=== PATIENT | female | born 1960 | race Hispanic/Latino ===

== ENCOUNTER 2018-04-10 20:52 | Inpatient (IN) | payer SELFPAY ==
--- OUTSIDE RECORDS SUMMARY | 2018-04-10 20:55 | XMS REPORT | Clinical Summary ---
:1960 Author Organization [facility] Address [address] [place] [address] Care Team Providers Name Role Phone Asked, No Pcp Primary Care Provider Unavailable Allergies No Known Allergies Current Medications Prescription Sig. Disp. Refills Start Date End Date Status ondansetron Take 4 mg by Active (ZOFRAN) 4 MG mouth every 8 tablet (eight) hours as needed for nausea or vomiting. diclofenac Take 50 mg by Active (VOLTAREN) 50 MG EC mouth daily as tablet needed. traMADol (ULTRAM) Take 50 mg by 07/28/2017 Discontinued 50 mg tablet mouth every 6 (six) hours as needed for moderate pain. traMADol (ULTRAM) Take 1 tablet 40 tablet 0 07/28/2017 08/04/2017 50 mg tablet (50 mg total) by mouth every 6 (six) hours as needed for moderate pain for up to 7 days. Active Problems Problem Noted Date Acute cholecystitis 07/26/2017 Encounters Date Type Specialty Care Team Description 08/07/2017 Office Visit General Surgery Pierre Smith S/P cholecystectomy (Primary Dx); MD Jimmy Other cirrhosis of liver; Postoperative follow-up 07/27/2017 Anesthesia Event Obstetrics and Emperatriz Locke MD Gynecology 07/27/2017 Procedure Pass Obstetrics and Gynecology 07/27/2017 Surgery Obstetrics and Pierre Smith LAPAROSCOPIC Gynecology MD Jimmy CHOLECYSTECTOMY, LIVER BIOPSY 07/26/2017 - Emergency General Surgery Jed, Acute cholecystitis 07/28/2017 Kendal Brandt MD (Primary Dx) Jose Cruz Lord MD after 04/09/2017 Social History Tobacco Use Types Packs/Day Years Used Date Current Every Day Smoker Cigarettes 0.5 15 Smokeless Tobacco: Never Used Alcohol Use Drinks/Week oz/Week Comments No Sex Assigned at Date Recorded Not on file Last Filed Vital Signs Vital Sign Reading Time Taken Blood Pressure 132/90 08/07/2017 11:13 AM DIRECTOR OF STRATE[employer]IC COMMUNICATIONS Pulse 75 08/07/2017 11:13 AM [employer]IC COMMUNICATIONS Temperature 36.3 C (97.4 F) 08/07/2017 11:13 AM [employer]IC COMMUNICATIONS Respiratory Rate 18 07/28/2017 1:23 PM [employer]IC COMMUNICATIONS Oxygen Saturation 97% 08/07/2017 11:13 AM [employer] STRATEGIC COMMUNICATIONS Inhaled Oxygen Concentration - - Weight 70.3 kg (155 lb) 08/07/2017 11:13 AM [employer]ATEGIC COMMUNICATIONS Height 152.4 cm (5') 08/07/2017 11:13 AM [employer] STRATEGIC COMMUNICATIONS Body Mass Index 30.27 08/07/2017 11:13 AM [employer] OF STRATEGIC COMMUNICATIONS Plan of Treatment Health Maintenance Due Date Last Done Comments CERVICAL CANCER SCREENING 1981 BREAST CANCER SCREENING 2010 COLON CANCER SCREENING 2010 SHINGRIX VACCINE (#1) 2010 INFLUENZA VACCINE 02/13/2018 Procedures Procedure Name Priority Date/Time Associated Comments Diagnosis TOTAL IRON BINDING Routine 07/28/2017 1:00 Results for this CAPACITY PM [employer]ATE[employer]IC COMMUNICATIONS procedure are in the results section. LIVER-KIDNEY MICROSOME Routine 07/28/2017 1:00 Results for this AB, IGG PM [employer] COMM[employer]ICATIONS procedure are in the results section. HEPATITIS C VIRUS Routine 07/28/2017 1:00 Results for this QUANTITATIVE BY PCR PM [employer]ATE[employer]IC COMMUNICATIONS procedure are in the results section. HEPATITIS C GENOTYPE Routine 07/28/2017 1:00 Results for this PM [employer] COMM[employer]ICATIONS procedure are in the results section. HBV QUANTITATIVE BY PCR Routine 07/28/2017 1:00 Results for this PM [employer] COMM[employer]ICATIONS procedure are in the results section. FERRITIN LEVEL Routine 07/28/2017 1:00 Results for this PM [employer] COMM[employer]S procedure are in the results section. CERULOPLASMIN LEVEL Routine 07/28/2017 1:00 Results for this PM [employer] procedure are in the results section. ANTI SMOOTH MUSCLE AB Routine 07/28/2017 1:00 Results for this SCREEN PM [employer] COMMUNICATIONS procedure are in the results section. ANTI MITOCHONDRIA Routine 07/28/2017 1:00 Results for this SCREEN PM [employer]IC COMMUNICATIONS procedure are in the results section. GWEN Routine 07/28/2017 1:00 Results for this PM [employer]IC COMMUNICATIONS procedure are in the results section. ALPHA-1 ANTITRYPSIN Routine 07/28/2017 1:00 Results for this PHENOTYPE PM [employer] COMMUNICATIONS procedure are in the results section. ALPHA FETOPROTEIN Routine 07/28/2017 1:00 Results for this PM [employer] COMM[employer]S procedure are in the results section. ECG ED PRELIMINARY Routine 07/28/2017 12:55 Results for this INTERPRETATION PM [employer]ATE[employer]IC COMMUNICATIONS procedure are in the results section. POC GLUCOSE Routine 07/28/2017 6:25 Results for this AM [employer] COMM[employer]ICATION[employer] procedure are in the results section. HCV QUALITATIVE BY PCR Routine 07/28/2017 4:00 Results for this AM [employer]ATE[employer]IC COMMUNICATIONS procedure are in the results section. ZZESTIMATED GFR Routine 07/28/2017 4:00 Results for this AM [employer]IC COMMUNICATIONS procedure are in the results section. HEPATITIS ACUTE PANEL Routine 07/28/2017 4:00 Results for this AM [employer]IC COMMUNICATIONS procedure are in the results section. PROTHROMBIN TIME WITH Routine 07/28/2017 4:00 Results for this INR AM [employer] STRATEGIC COMMUNICATIONS procedure are in the results section. PHOSPHORUS LEVEL Routine 07/28/2017 4:00 Results for this AM [employer] COMMUNICATIONS procedure are in the results section. MAGNESIUM LEVEL Routine 07/28/2017 4:00 Results for this AM [employer] COMM[employer]ICATIONS procedure are in the results section. IONIZED CALCIUM Routine 07/28/2017 4:00 Results for this AM [employer] COMMUNICATIONS procedure are in the results section. HEPATIC FUNCTION PANEL Routine 07/28/2017 4:00 Results for this AM [employer] COMMUNICATIONS procedure are in the results section. HC COMPLETE BLD COUNT Routine 07/28/2017 4:00 Results for this W/AUTO DIFF AM [employer]ICATION[employer] procedure are in the results section. BASIC METABOLIC PANEL Routine 07/28/2017 4:00 Results for this AM [employer]IC COMMUNICATIONS procedure are in the results section. NJ AN ELECTIVE Routine 07/27/2017 1:51 ENDOTRACHEAL AIRWAY PM [employer] OF STRATEGIC COMMUNICATIONS Procedure Note - Junior Loera CRNA - 07/27/2017 1:49 PM DIRECTOR OF STRATEGIC COMMUNICATIONS Airway Performed by: JUNIOR LOERA Authorized by: EMPERATRIZ LOCKE Location: OR Urgency: Elective Difficult Airway: No Anesthesiologist: EMPERATRIZ LOCKE Resident/SEARCH ENGINE MARKETING STRATEGIST/AA: JUNIOR LOERA Performed by: resident/SEARCH ENGINE MARKETING STRATEGIST/AA Preoxygenated with 100% O2: Yes Mask Ventilation: Easy mask Final Airway Type: Endotracheal airway Final Endotracheal Airway: ETT Cuffed: Yes Technique Used: Direct laryngoscopy Devices/Methods Used in Placement: Intubating stylet Insertion Site: Oral Blade Type: Mayes Laryngoscope Blade/Videolaryngoscope Blade Size: 2 ETT Size (mm): 7.0 Cuff at minimum occlusion pressure: Yes Measured from: Lips ETT to Lips (cm): 22 Placement Verified by: CO2 detection and equal breath sounds Laryngoscopic view: Grade I - full view of glottis Rapid Sequence Induction (RSI): No Modified RSI: No Number of Attempts at Approach: 1 GRAM STAIN Timed 07/27/2017 1:51 PM Results for this [employer] STRATE[employer]IC COMMUNICATIONS procedure are in the results section. AEROBIC CULTURE Timed 07/27/2017 1:51 PM Results for this [employer]IC COMMUNICATIONS procedure are in the results section. ANAEROBIC CULTURE Timed 07/27/2017 1:51 PM Results for this [employer] STRATEGIC COMMUNICATIONS procedure are in the results section. CHOLECYSTECTOMY, 07/27/2017 1:00 PM cholelithiasis LAPAROSCOPIC [employer] STRATEGIC COMMUNICATIONS SURGICAL PATHOLOGY Routine 07/27/2017 7:18 AM Results for this REQUEST [employer] OF STRATEGIC COMMUNICATIONS procedure are in the results section. PROTHROMBIN TIME WITH Routine 07/27/2017 4:53 AM Results for this INR [employer]OR OF STRATEGIC COMMUNICATIONS procedure are in the results section. HC COMPLETE BLD COUNT Routine 07/27/2017 4:40 AM Results for this W/AUTO DIFF [employer] OF STRATEGIC COMMUNICATIONS procedure are in the results section. ZZESTIMATED GFR Routine 07/27/2017 4:00 AM Results for this [employer]OR OF STRATEGIC COMMUNICATIONS procedure are in the results section. IONIZED CALCIUM Routine 07/27/2017 4:00 AM Results for this [employer] STRATEGIC COMMUNICATIONS procedure are in the results section. HEPATIC FUNCTION PANEL Routine 07/27/2017 4:00 AM Results for this [employer] OF STRATEGIC COMMUNICATIONS procedure are in the results section. PHOSPHORUS LEVEL Routine 07/27/2017 4:00 AM Results for this [employer] OF STRATEGIC COMMUNICATIONS procedure are in the results section. MAGNESIUM LEVEL Routine 07/27/2017 4:00 AM Results for this [employer] STRATEGIC COMMUNICATIONS procedure are in the results section. BASIC METABOLIC PANEL Routine 07/27/2017 4:00 AM Results for this [employer] STRATEGIC COMMUNICATIONS procedure are in the results section. URINALYSIS SCREEN AND STAT 07/26/2017 8:45 PM Results for this MICROSCOPY, WITH REFLEX DIRECTOR OF STRATEGIC COMMUNICATIONS procedure are in TO CULTURE the results section. GRAM STAIN STAT 07/26/2017 8:45 PM Results for this [employer]OR OF STRATEGIC COMMUNICATIONS procedure are in the results section. URINE CULTURE STAT 07/26/2017 8:45 PM Results for this [employer] STRATEGIC COMMUNICATIONS procedure are in the results section. ECG 12-LEAD STAT 07/26/2017 7:33 PM Results for this [employer] OF STRATEGIC COMMUNICATIONS procedure are in the results section. PREPARE PLATELET STAT 07/26/2017 7:22 PM PHERESIS DIRECTOR OF STRATEGIC COMMUNICATIONS TYPE AND SCREEN STAT 07/26/2017 7:22 PM Results for this [employer] OF STRATEGIC COMMUNICATIONS procedure are in the results section. US GALLBLADDER STAT 07/26/2017 4:08 PM Results for this [employer] STRATEGIC COMMUNICATIONS procedure are in the results section. CT ABDOMEN PELVIS WO STAT 07/26/2017 2:38 PM Results for this CONTRAST DIRECTOR OF STRATEGIC COMMUNICATIONS procedure are in the results section. PROTHROMBIN TIME WITH STAT 07/26/2017 12:45 PM Results for this INR [employer]OR OF STRATEGIC COMMUNICATIONS procedure are in the results section. ZZESTIMATED GFR STAT 07/26/2017 12:45 PM Results for this [employer] OF STRATEGIC COMMUNICATIONS procedure are in the results section. LACTIC ACID LEVEL STAT 07/26/2017 12:45 PM Results for this [employer]OR OF STRATEGIC COMMUNICATIONS procedure are in the results section. HC COMPLETE BLD COUNT STAT 07/26/2017 12:45 PM Results for this W/AUTO DIFF DIRECTOR OF STRATEGIC COMMUNICATIONS procedure are in the results section. LIPASE LEVEL STAT 07/26/2017 12:45 PM Results for this [employer]OR OF STRATEGIC COMMUNICATIONS procedure are in the results section. AMYLASE LEVEL STAT 07/26/2017 12:45 PM Results for this [employer] STRATEGIC COMMUNICATIONS procedure are in the results section. COMPREHENSIVE METABOLIC STAT 07/26/2017 12:45 PM Results for this PANEL DIRECTOR OF STRATEGIC COMMUNICATIONS procedure are in the results section. after 04/09/2017 Results Anti smooth muscle Ab screen (07/28/2017 1:00 PM) Anti smooth muscle Ab screen Not Detected Not-Detected [facility] DEPARTMENT OF PATHOLOGY AND GENOMIC MEDICINE Specimen Blood Performing Organization Address City/[facility] Phone Number [facility] DEPARTMENT OF PATHOLOGY AND [address] [place] [id number] [facility] Total iron binding capacity (07/28/2017 1:00 PM) Iron level 119 37 - 145 ug/dL [facility] DEPARTMENT OF PATHOLOGY AND GENOMIC MEDICINE Iron binding capacity 337 200 - 400 ug/dL [facility] DEPARTMENT OF PATHOLOGY AND GENOMIC MEDICINE % Saturation 35.3 15.0 - 38.0 % [facility] DEPARTMENT OF PATHOLOGY AND GENOMIC MEDICINE Specimen Plasma specimen Performing Organization Address City/[facility]/Zipcode Phone Number [facility] DEPARTMENT OF PATHOLOGY AND [address] [place] [phone] [facility] Liver-kidney microsome Ab, IgG (07/28/2017 1:00 PM) Liver-kidney microsome Ab, <1:20 <1:20 [facility] IgG Comment: INTERPRETIVE INFORMATION:Bdrpp-Xhqtbl-Alsgmepyq Abs, IgG Liver-Kidney Microsome IgG antibody (anti-LKM), as detected by indirect immunofluorescent antibody (IFA) techniques, may be observed in patients with autoimmune hepatitis type 2 (AIH-2), AIH-2 associated with autoimmune mmaqahdbwuthsaobuw-xuyuhafmuhe-nfayrmcque dystrophy (APECED), viral hepatitis C or D, and some forms of drug-induced hepatitis. This IFA does not differentiate among the four types of LKM antibodies (LKM-1, LKM-2, LKM-3, and a fourth type that recognizes CY and CY antigens). Of these, anti-LKM-1 (cytochrome [id number]) IgG antibodies are considered specific for AIH-2. Test developed and characteristics determined by [email or web address]. See Compliance Statement D: [employer]/ Performed by [email or web address], [address] [facility]CYBRA [facility] [address] [email or web address], Mayo Joiner MD - Lab. Director Specimen Serum Performing Organization Address [facility]code Phone Number [facility] [address] [place] [address] HBV quantitative by PCR (07/28/2017 1:00 PM) HBV, quantitative PCR Not-Detected Not-Detected IU/mL [facility] DEPARTMENT OF PATHOLOGY AND GENOMIC MEDICINE HBV, quantitative PCR See link below for [facility] DEPARTMENT OF PDF Lab PATHOLOGY AND GENOMIC ReportComment: Case MEDICINE Number: [id number] Specimen Blood Performing Organization Address [facility]coin Phone Number [facility] DEPARTMENT OF PATHOLOGY AND [address] [place] [phone] GENOMIC MEDICINE Alpha-1 antitrypsin phenotype (07/28/2017 1:00 PM) Alpha-1 antitrypsin 162Comment: To convert to 90 - 200 mg/dL [facility] umol/L, multiply mg/dL by 0.185 Alpha-1 antitrypsin MM [facility] phenotype Comment: The patient appears to have a normal phenotype. All M alleles (including subtypes M1, M2, and M3) produce normal serum concentrations of nnhwk-1-yuascnbl inhibitor and are not associated with clinical disease. Caution in interpretation is advised if the patient has been transfused within the previous 21 days. Performed by [email or web address], [address] [facility] [facility] [address] [email or web address], Mayo Joiner MD - Lab. Director Specimen Serum Performing Organization Address City/[facility] Phone Number [facility] [address] [place] [address] Anti mitochondria screen (07/28/2017 1:00 PM) Anti mitochondria screen Not Detected Not-Detected [facility] DEPARTMENT OF PATHOLOGY AND GENOMIC MEDICINE Specimen Blood Performing Organization Address City/[facility] Phone Number [facility] DEPARTMENT OF PATHOLOGY AND [address] [place] [address] Ceruloplasmin level (07/28/2017 1:00 PM) Ceruloplasmin 20 16 - 45 mg/dL [facility] DEPARTMENT OF PATHOLOGY AND GENOMIC MEDICINE Specimen Plasma specimen Performing Organization Address [facility] Phone Number [facility] DEPARTMENT OF PATHOLOGY AND [address] [place] [address] Alpha fetoprotein (07/28/2017 1:00 PM) Alpha fetoprotein 35.1 (H) 0.0 - 8.3 ng/mL [facility] DEPARTMENT OF Comment: PATHOLOGY AND GENOMIC The [employer] 8000 AFP immunoassay was used. MEDICINE Results obtained with different assay methods or kits should not be used interchangeably and may be different. Specimen Serum Performing Organization Address [facility]coin Phone Number [facility] DEPARTMENT OF PATHOLOGY AND [address] [place] [address] Hepatitis C genotype (07/28/2017 1:00 PM) Hepatitis C genotype 3 (A) Not Detected [facility] DEPARTMENT OF PATHOLOGY AND GENOMIC MEDICINE Hepatitis C genotype See link below for PDF [facility] DEPARTMENT OF PATHOLOGY Lab ReportComment: Case AND GENOMIC MEDICINE Number: [id number] Specimen Blood Performing Organization Address [facility] Phone Number [facility] DEPARTMENT OF PATHOLOGY AND [address] [place] [address] Hepatitis C virus quantitative by PCR (07/28/2017 1:00 PM) Hepatitis C 1,380,000 (A) Not-Detected IU/mL [facility] DEPARTMENT OF quantitative, PCR PATHOLOGY AND GENOMIC MEDICINE Hepatitis C See link below for [facility] DEPARTMENT OF quantitative, PCR PDF Lab PATHOLOGY AND GENOMIC ReportComment: Case MEDICINE Number: [id number] Specimen Blood Performing Organization Address [facility]code Phone Number [facility] DEPARTMENT OF PATHOLOGY AND [address] [place] [address] GWEN (07/28/2017 1:00 PM) GWEN screen <1:80 <1:80 [facility] DEPARTMENT OF PATHOLOGY AND GENOMIC MEDICINE Specimen Blood Performing Organization Address [facility] Phone Number [facility] DEPARTMENT OF PATHOLOGY AND [address] [place] [address] Ferritin level (07/28/2017 1:00 PM) Ferritin level 260 (H) 13 - 150 ng/mL [facility] DEPARTMENT OF PATHOLOGY AND GENOMIC MEDICINE Specimen Plasma specimen Performing Organization Address [facility] Phone Number [facility] DEPARTMENT OF PATHOLOGY AND [address] [place] [address] GENOMIC MEDICINE ECG ED Preliminary Interpretation - NOT AN ORDER (07/28/2017 12:55 PM) Narrative Performed At FRANK Johansen 07/28/20178:13 AM ECG ED Preliminary Interpretation - Not an Order Performed by: ALOSNO MARS Authorized by: JOSE CRUZ LORD ECG reviewed by ED Physician in the absence of a hydraulic plumber: yes Previous ECG: Previous ECG:Unavailable Interpretation: Interpretation: normal Rate: ECG rate:56 ECG rate assessment: bradycardic Rhythm: Rhythm: sinus bradycardia Ectopy: Ectopy: none QRS: QRS axis:Normal QRS intervals:Normal Conduction: Conduction: normal ST segments: ST segments:Normal T waves: T waves: normal POC glucose (07/28/2017 6:25 AM) POC glucose 85 65 - 99 mg/dL [facility] DEPARTMENT OF PATHOLOGY AND Comment: GENOMIC MEDICINE [facility] Notified RN Meter ID: [id number] Body Repairer: Taylor Rausch Performing Organization Address [facility] Phone Number [facility] DEPARTMENT OF PATHOLOGY AND [address] [place] [address] HCV qualitative by PCR (07/28/2017 4:00 AM) HCV PCR result Detected (A) Not-Detected [facility] DEPARTMENT OF PATHOLOGY AND GENOMIC MEDICINE HCV RNA qualitative See link below for PDF [facility] DEPARTMENT OF PATHOLOGY Lab ReportComment: Case AND GENOMIC MEDICINE Number: [id number] Specimen Serum Performing Organization Address [facility] Phone Number [facility] DEPARTMENT OF PATHOLOGY AND [address] [place] [address] GENOMIC MEDICINE Estimated GFR (07/28/2017 4:00 AM)Only the most recent of3 resultswithin the time period is included. GFR Non Af Amer 86 mL/min/1.73 m2 [facility] DEPARTMENT OF PATHOLOGY AND [employer] GFR Af Amer >90 mL/min/1.73 m2 [facility] DEPARTMENT OF Comment: PATHOLOGY AND GENOMIC Chronic kidney disease: <60 mL/min/1.73m2 MEDICINE Kidney failure: <15 mL/min/1.73m2 The estimated GFR is calculated from the IDMS-traceable Modification of Diet in Renal Disease Equation. The accuracy of the calculation is poor when the creatinine is normal. Calculated values >90 mL/min/1.73m2 are not reported. This equation has not been validated in children (<18 years), women, the elderly (>70 years), or ethnic groups other than Caucasians and Americans. Specimen Plasma specimen Performing Organization Address City/State/[facility] Phone Number [facility] DEPARTMENT OF PATHOLOGY AND [address] [place] [address] Hepatitis acute panel (07/28/2017 4:00 AM) Hepatitis A IgM Non-reactive Non-reactive [facility] DEPARTMENT OF PATHOLOGY AND [employer] Hepatitis B core IgM Non-reactive Non-reactive [facility] DEPARTMENT OF PATHOLOGY AND [facility] Hepatitis B surface Ag Non-reactive Non-reactive [facility] DEPARTMENT OF PATHOLOGY AND [facility] Hepatitis C Ab Reactive (A) Non-reactive [facility] DEPARTMENT OF Comment: PATHOLOGY AND [facility] HCV antibody testing initially Reactive. Confirmation by HCV RNA PCR will be MEDICINE performed and reported separately when completed. Repeat HCV RNA PCR will not be performed if done within 30 days. Specimen Serum Performing Organization Address [facility]code Phone Number [facility] DEPARTMENT OF PATHOLOGY AND [address] [place] [address] Prothrombin time with INR (07/28/2017 4:00 AM)Only the most recent of3 resultswithin the time period is included. Prothrombin time 13.6 12.0 - 15.0 sec [facility] DEPARTMENT OF PATHOLOGY AND [employer] MEDICINE INR 1.0 [facility] DEPARTMENT OF Comment: PATHOLOGY AND GENOMIC The International Normalized Ratio (INR) is a therapeutic MEDICINE monitoring tool for patients who are stable on oral anticoagulant therapy. An INR of 2.0-3.0 is suggested for deep vein thrombosis/pulmonary embolism. Specimen Blood Performing Organization Address City/[facility] Phone Number [facility] DEPARTMENT OF PATHOLOGY AND [address] [place] [address] GENOMIC [facility] CBC with platelet and differential (07/28/2017 4:00 AM)Only the most recent of3 resultswithin the time period is included. WBC 5.82 4.50 - 11.00 k/uL [facility] DEPARTMENT OF PATHOLOGY AND GENOMIC MEDICINE RBC 3.69 (L) 4.20 - 5.50 m/uL [facility] DEPARTMENT OF PATHOLOGY AND GENOMIC MEDICINE HGB 12.4 12.0 - 16.0 g/dL [facility] DEPARTMENT OF PATHOLOGY AND GENOMIC MEDICINE HCT 37.0 37.0 - 47.0 % [facility] DEPARTMENT OF PATHOLOGY AND GENOMIC MEDICINE MCV 100.3 (H) 82.0 - 100.0 fL [facility] DEPARTMENT OF PATHOLOGY AND GENOMIC MEDICINE MCH 33.6 27.0 - 34.0 pg [facility] DEPARTMENT OF PATHOLOGY AND GENOMIC MEDICINE MCHC 33.5 31.0 - 37.0 g/dL [facility] DEPARTMENT OF PATHOLOGY AND GENOMIC MEDICINE RDW - SD 46.2 37.0 - 55.0 fL [facility] DEPARTMENT OF PATHOLOGY AND GENOMIC MEDICINE MPV 12.6 8.8 - 13.2 fL [facility] DEPARTMENT OF PATHOLOGY AND GENOMIC MEDICINE Platelet count 66 (L) 150 - 400 k/uL [facility] DEPARTMENT OF PATHOLOGY AND GENOMIC MEDICINE Nucleated RBC 0.00 /100 WBC [facility] DEPARTMENT OF PATHOLOGY AND GENOMIC MEDICINE Neutrophils 45.4 39.0 - 69.0 % [facility] DEPARTMENT OF PATHOLOGY AND GENOMIC MEDICINE Lymphocytes 47.4 (H) 25.0 - 45.0 % [facility] DEPARTMENT OF PATHOLOGY AND GENOMIC MEDICINE Monocytes 6.0 0.0 - 10.0 % [facility] DEPARTMENT OF PATHOLOGY AND GENOMIC MEDICINE Eosinophils 0.7 0.0 - 5.0 % [facility] DEPARTMENT OF PATHOLOGY AND GENOMIC MEDICINE Basophils 0.3 0.0 - 1.0 % [facility] DEPARTMENT OF PATHOLOGY AND GENOMIC MEDICINE Immature granulocytes 0.2Comment: 0.0 - 1.0 % [facility] DEPARTMENT OF "Immature PATHOLOGY AND GENOMIC granulocytes" MEDICINE (promyelocytes, myelocytes, metamyelocytes) Specimen Blood Performing Organization Address City/State/Zipcode Phone Number [facility] DEPARTMENT OF PATHOLOGY AND [address] [place] [address] [employer] [facility] Phosphorus level (07/28/2017 4:00 AM)Only the most recent of2 resultswithin the time period is included. Phosphorus 3.7 2.4 - 4.5 mg/dL [facility] DEPARTMENT OF PATHOLOGY AND GENOMIC MEDICINE Specimen Plasma specimen Performing Organization Address [facility] [place] Phone Number [facility] DEPARTMENT OF PATHOLOGY AND [address] [place] [address] Magnesium level (07/28/2017 4:00 AM)Only the most recent of2 resultswithin the time period is included. Magnesium 1.8 1.6 - 2.6 mg/dL [facility] DEPARTMENT OF PATHOLOGY AND GENOMIC MEDICINE Specimen Plasma specimen Performing Organization Address [facility] [place] Phone Number [facility] DEPARTMENT OF PATHOLOGY AND [address] [place] [address] Ionized calcium (07/28/2017 4:00 AM)Only the most recent of2 resultswithin the time period is included. pH 7.53 [facility] DEPARTMENT OF PATHOLOGY AND GENOMIC MEDICINE Ionized calcium 0.99 (L) 1.11 - 1.32 mmol/L [facility] DEPARTMENT OF PATHOLOGY AND GENOMIC MEDICINE Specimen Plasma specimen Performing Organization Address [facility] [place] Phone Number [facility] DEPARTMENT OF PATHOLOGY AND [address] [place] [address] Hepatic function panel (07/28/2017 4:00 AM)Only the most recent of2 resultswithin the time period is included. Albumin 2.7 (L) 3.5 - 5.0 g/dL [facility] DEPARTMENT OF PATHOLOGY AND GENOMIC MEDICINE Total bilirubin 0.7 0.0 - 1.2 mg/dL [facility] DEPARTMENT OF PATHOLOGY AND GENOMIC MEDICINE Bilirubin direct <0.2 0.0 - 0.3 mg/dL [facility] DEPARTMENT OF PATHOLOGY AND GENOMIC MEDICINE Alkaline phosphatase 90 35 - 104 U/L [facility] DEPARTMENT OF PATHOLOGY AND GENOMIC MEDICINE Protein 6.2 (L) 6.3 - 8.3 g/dL [facility] DEPARTMENT OF Comment: PATHOLOGY AND GENOMIC [place] 4.6-7.0 g/dL MEDICINE 1 week 4.4-7.6 g/dL 7 months-1year5.1-7.3 g/dL 1-2 years5.6-7.5 g/dL >3 years6.0-8.0 g/dL 18-150 6.3-8.3 g/dL ALT 112 (H) 5 - 50 U/L [facility] DEPARTMENT OF PATHOLOGY AND GENOMIC MEDICINE AST 111 (H) 10 - 35 U/L [facility] DEPARTMENT OF PATHOLOGY AND GENOMIC MEDICINE Specimen Plasma specimen Performing Organization Address City/[facility] Phone Number [facility] DEPARTMENT OF PATHOLOGY AND [address] [place] [phone] [facility] MEDICINE Basic metabolic panel (07/28/2017 4:00 AM)Only the most recent of2 resultswithin the time period is included. Sodium 138 135 - 148 mEq/L [facility] DEPARTMENT OF PATHOLOGY AND GENOMIC MEDICINE Potassium 4.3 3.5 - 5.0 mEq/L [facility] DEPARTMENT OF PATHOLOGY AND GENOMIC MEDICINE Chloride 101 98 - 112 mEq/L [facility] DEPARTMENT OF PATHOLOGY AND GENOMIC MEDICINE CO2 25 24 - 31 mEq/L [facility] DEPARTMENT OF PATHOLOGY AND GENOMIC MEDICINE Anion gap 12 7 - 15 mEq/L [facility] DEPARTMENT OF PATHOLOGY Comment: AND [facility] Starting from October , anion gap calculation no longer incorporates potassium. Please note the change. BUN 10 6 - 20 mg/dL [facility] DEPARTMENT OF PATHOLOGY AND GENOMIC MEDICINE Creatinine 0.7 0.5 - 0.9 mg/dL [facility] DEPARTMENT OF PATHOLOGY AND GENOMIC MEDICINE Glucose 74 65 - 99 mg/dL [facility] DEPARTMENT OF PATHOLOGY AND GENOMIC MEDICINE Calcium 8.6 8.3 - 10.2 mg/dL [facility] DEPARTMENT OF PATHOLOGY AND GENOMIC MEDICINE Specimen Plasma specimen Performing Organization Address City/[facility] Phone Number [facility] DEPARTMENT OF PATHOLOGY AND [address] [place], [place] [id number] [facility] Aerobic culture (07/27/2017 1:51 PM) Aerobic culture isolate No growth after 3 days. [facility] DEPARTMENT OF Comment: PATHOLOGY AND GENOMIC Specimen Information MEDICINE Specimen Source: Bile Specimen Site: Not otherwise specified Specimen Bile - Not otherwise specified Performing Organization Address City/[facility] Phone Number [facility] DEPARTMENT OF PATHOLOGY AND [address] [place] [phone] [facility] MEDICINE Gram stain (07/27/2017 1:51 PM)Only the most recent of2 resultswithin the time period is included. Gram stain isolate No WBC's or organisms seen. [facility] DEPARTMENT OF PATHOLOGY Comment: AND [employer] [facility] Specimen Information Specimen Source: Bile Specimen Site: Not otherwise specified Specimen Bile - Not otherwise specified Performing Organization Address City/[facility]/Zipcode Phone Number [facility] DEPARTMENT OF PATHOLOGY AND [address] [place], [place] [id number] GENOMIC MEDICINE Anaerobic culture (07/27/2017 1:51 PM) Anaerobic culture No anaerobic organisms isolated. [facility] DEPARTMENT OF isolate Comment: PATHOLOGY AND GENOMIC Specimen Information MEDICINE Specimen Source: Bile Specimen Site: Not otherwise specified Specimen Bile - Not otherwise specified Performing Organization Address City/[facility]/Zipcode Phone Number [facility] DEPARTMENT OF PATHOLOGY AND [address] [place] [address] GENOMIC MEDICINE Surgical pathology request (07/27/2017 7:18 AM) [facility] DEPARTMENT OF PATHOLOGY AND GENOMIC MEDICINE Surgical pathology report See link below for PDF [facility] DEPARTMENT OF Lab Report PATHOLOGY AND GENOMIC MEDICINE Result status This is Final Report to [facility] DEPARTMENT OF [id number] PATHOLOGY AND GENOMIC MEDICINE Performing Organization Address City/[facility] Phone Number [facility] DEPARTMENT OF PATHOLOGY AND [address] [place] [address] Urinalysis screen and microscopy, with reflex to culture (07/26/2017 8:45 PM) Specimen site Clean catch [facility] DEPARTMENT OF PATHOLOGY AND GENOMIC MEDICINE Color, UA Yellow [facility] DEPARTMENT OF PATHOLOGY AND GENOMIC MEDICINE Appearance, UA Clear [facility] DEPARTMENT OF PATHOLOGY AND GENOMIC MEDICINE Specific gravity, UA 1.011 1.001 - 1.035 [facility] DEPARTMENT OF PATHOLOGY AND GENOMIC MEDICINE pH, UA 6.0 5.0 - 8.5 [facility] DEPARTMENT OF PATHOLOGY AND GENOMIC MEDICINE Protein, UA Negative Negative [facility] DEPARTMENT OF PATHOLOGY AND GENOMIC MEDICINE Glucose, UA Negative Negative [facility] DEPARTMENT OF PATHOLOGY AND GENOMIC MEDICINE Ketones, UA Negative Negative [facility] DEPARTMENT OF PATHOLOGY AND GENOMIC MEDICINE Bilirubin, UA Negative Negative [facility] DEPARTMENT OF PATHOLOGY AND GENOMIC MEDICINE Blood, UA Small (A) Negative [facility] DEPARTMENT OF PATHOLOGY AND GENOMIC MEDICINE Nitrite, UA Negative Negative [facility] DEPARTMENT OF PATHOLOGY AND GENOMIC MEDICINE Urobilinogen, UA 4.0 (A) <2.0 [facility] DEPARTMENT OF PATHOLOGY AND GENOMIC MEDICINE Leukocyte esterase, UA Small (A) Negative [facility] DEPARTMENT OF PATHOLOGY AND GENOMIC MEDICINE Epithelial cells, UA 3 /HPF [facility] DEPARTMENT OF PATHOLOGY AND GENOMIC MEDICINE WBC, UA 7 (H) 0 - 4 /HPF [facility] DEPARTMENT OF PATHOLOGY AND GENOMIC MEDICINE RBC, UA 2 0 - 2 /HPF [facility] DEPARTMENT OF PATHOLOGY AND GENOMIC MEDICINE Bacteria, UA Few None seen [facility] DEPARTMENT OF PATHOLOGY AND GENOMIC MEDICINE Yeast, UA None seen [facility] DEPARTMENT OF PATHOLOGY AND GENOMIC MEDICINE Yeast with pseudohyphae, UA None seen [facility] DEPARTMENT OF PATHOLOGY AND GENOMIC MEDICINE Specimen Urine Performing Organization Address City/[facility] Phone Number [facility] DEPARTMENT OF PATHOLOGY AND [address] [place] [phone] [facility] MEDICINE Urine culture (07/26/2017 8:45 PM) Urine culture isolate Mixed Gram positive ene [facility] DEPARTMENT OF 10-2 cfu/ml PATHOLOGY AND GENOMIC (A) MEDICINE Comment: Specimen Information Specimen Source: Urine Specimen Site: Clean catch Specimen Urine Performing Organization Address City/State/Zipcode Phone Number [facility] DEPARTMENT OF PATHOLOGY AND [address] [place] [phone] [facility] MEDICINE ECG 12 lead (07/26/2017 7:33 PM) Ventricular rate 56 [facility] MUSE Atrial rate 56 [facility] MUSE [place] interval 148 [facility] MUSE QRSD interval 88 [facility] QT interval 482 [facility] MUSE QTC interval 465 [facility] MUSE P axis 1 17 [facility] MUSE QRS axis 1 31 [facility] MUSE T wave axis 45 [facility] MUSE EKG impression Sinus bradycardia-Otherwise normal ECG-No [facility] MUSE previous ECGs available- Performing Organization Address [facility] Phone Number [facility] MUSE [address] [place] [phone] Type and screen (07/26/2017 7:22 PM) ABO grouping O [facility] DEPARTMENT OF PATHOLOGY AND GENOMIC MEDICINE Rh type POS [facility] DEPARTMENT OF PATHOLOGY AND GENOMIC MEDICINE Antibody screen (gel) NEG [facility] DEPARTMENT OF PATHOLOGY AND GENOMIC MEDICINE Specimen Blood Performing Organization Address [facility] Phone Number [facility] DEPARTMENT OF PATHOLOGY AND [address] [place] [phone] [facility] MEDICINE US Gallbladder (07/26/2017 4:08 PM) Narrative Performed At EXAMINATION:US GALLBLADDER [facility] CLINICAL HISTORY:Cholecystitis COMPARISON:None. FINDINGS: PANCREAS: The pancreas is not well seen on the current study. LIVER: The liver has no mass lesion. There is no intrahepatic biliary dilatation. The liver has a normal echogenic appearance. CBD: 0.7 cm, within normal limits. Portal vein: The portal vein demonstrates normal hepatopedal flow. Gallbladder:Gallbladder has stones. There is no wall thickening or any pericholecystic fluid. IMPRESSION: 1. Gallbladder has stones. 2. There is no wall thickening nor any pericholecystic fluid. 3. Common bile duct is not dilated. [facility]-[id number] Procedure Note Hm Interface, Radiology Results Incoming - 07/26/2017 4:13 PM DIRECTOR OF STRATEGIC COMMUNICATIONS EXAMINATION: US GALLBLADDER CLINICAL HISTORY: Cholecystitis COMPARISON: None. FINDINGS: PANCREAS: The pancreas is not well seen on the current study. LIVER: The liver has no mass lesion. There is no intrahepatic biliary dilatation. The liver has a normal echogenic appearance. CBD: 0.7 cm , within normal limits. Portal vein: The portal vein demonstrates normal hepatopedal flow. Gallbladder: Gallbladder has stones. There is no wall thickening or any pericholecystic fluid. IMPRESSION: 1. Gallbladder has stones. 2. There is no wall thickening nor any pericholecystic fluid. 3. Common bile duct is not dilated. [facility]-[id number] Performing Organization Address City/State/Zipcode Phone Number [facility] [address] [place] [address] CT Abdomen Pelvis Wo Contrast (07/26/2017 2:38 PM) Narrative Performed At EXAMINATION:CT ABDOMEN PELVIS WO CONTRAST [facility] CLINICAL HISTORY:ABDOMINAL PAIN COMPARISON:None. TECHNIQUE: CT of the abdomen and pelvis without intravenous contrast. Absence of contrast decreases sensitivity for detection of focal lesions and vascular pathology. All CT scan performed using radiation dose reduction techniques. Technical factors are evaluated and adjusted to ensure appropriate moderation of exposure. Automated dose management technology is applied to adjust the radiation dose to minimize expose whileachieving a diagnostic quality image. FINDINGS: LUNG BASES:The lung bases are unremarkable.. HEPATOBILIARY: An approximately 1.5 cm simple cyst is seen within the dome of the liver.Limited nonenhanced evaluation of the liver is otherwise unremarkable. No biliary dilatation is seen. GALLBLADDER: Multiple small gallstones are seen. The largest gallstone measuring approximately 6 mm. Gallbladder wall thickening is identified measuring approximately 3.5 mm. There is mild surrounding fat stranding. Findings are suggestive of early cholecystitis. SPLEEN: The spleen is unremarkable.No splenomegaly. PANCREAS:No focal masses or ductal dilation. Limited nonenhanced evaluation of the pancreas is unremarkable. ADRENALS: No adrenal nodules.The adrenal glands are unremarkable. KIDNEYS: Limited nonenhanced evaluation of the kidneys is unremarkable. No renal or ureteral calculus is seen. There is no evidence of hydronephrosis. PERITONEUM/RETROPERITONEUM:No mesenteric or retroperitoneal pathologic lymphadenopathy seen. There is no evidence of free air or free fluid.. Scattered atherosclerotic disease is seen abdomen vessels. GI TRACT:The small bowel is normal in caliber. The colon is unremarkable. No wall thickening is identified. There is no evidence of inflammatory process. The appendix is not seen. No right lower quadrant inflammation is identified. The stomach is unremarkable. PELVIS: The urinary bladder is unremarkable. Limited evaluation of the uterus is unremarkable. No pelvic ascites seen. IMPRESSION: Cholelithiasis with findings suggestive of acute early cholecystitis. Recommend clinical correlation. Gallbladder ultrasound would be of use for further evaluation. No CT evidence of renal calculus or obstructive uropathy. Appendix not visualized. No CT evidence of colitis or bowel obstruction. [facility]-[id number] Procedure Note [facility], Radiology Results Incoming - 07/26/2017 2:49 PM DIRECTOR OF STRATEGIC COMMUNICATIONS EXAMINATION: CT ABDOMEN PELVIS WO CONTRAST CLINICAL HISTORY: ABDOMINAL PAIN COMPARISON: None. TECHNIQUE: CT of the abdomen and pelvis without intravenous contrast. Absence of contrast decreases sensitivity for detection of focal lesions and vascular pathology. All CT scan performed using radiation dose reduction techniques. Technical factors are evaluated and adjusted to ensure appropriate moderation of exposure. Automated dose management technology is applied to adjust the radiation dose to minimize expose while achieving a diagnostic quality image. FINDINGS: LUNG BASES: The lung bases are unremarkable.. HEPATOBILIARY: An approximately 1.5 cm simple cyst is seen within the dome of the liver. Limited nonenhanced evaluation of the liver is otherwise unremarkable. No biliary dilatation is seen. GALLBLADDER: Multiple small gallstones are seen. The largest gallstone measuring approximately 6 mm. Gallbladder wall thickening is identified measuring approximately 3.5 mm. There is mild surrounding fat stranding. Findings are suggestive of early cholecystitis. SPLEEN: The spleen is unremarkable. No splenomegaly. PANCREAS:No focal masses or ductal dilation. Limited nonenhanced evaluation of the pancreas is unremarkable. ADRENALS: No adrenal nodules.The adrenal glands are unremarkable. KIDNEYS: Limited nonenhanced evaluation of the kidneys is unremarkable. No renal or ureteral calculus is seen. There is no evidence of hydronephrosis. PERITONEUM/RETROPERITONEUM: No mesenteric or retroperitoneal pathologic lymphadenopathy seen. There is no evidence of free air or free fluid.. Scattered atherosclerotic disease is seen abdomen vessels. GI TRACT: The small bowel is normal in caliber. The colon is unremarkable. No wall thickening is identified. There is no evidence of inflammatory process. The appendix is not seen. No right lower quadrant inflammation is identified. The stomach is unremarkable. PELVIS: The urinary bladder is unremarkable. Limited evaluation of the uterus is unremarkable. No pelvic ascites seen. IMPRESSION: Cholelithiasis with findings suggestive of acute early cholecystitis. Recommend clinical correlation. Gallbladder ultrasound would be of use for further evaluation. No CT evidence of renal calculus or obstructive uropathy. Appendix not visualized. No CT evidence of colitis or bowel obstruction. [facility]-[id number] Performing Organization Address City/[facility]/[place] [address] Lipase level (07/26/2017 12:45 PM) Lipase 57 13 - 60 U/L [facility] DEPARTMENT OF PATHOLOGY AND GENOMIC MEDICINE Specimen Plasma specimen Performing Organization Address City/[facility] Phone Number [facility] DEPARTMENT OF PATHOLOGY AND [address] [place] [address] Lactic acid level (07/26/2017 12:45 PM) Lactic acid 1.4 0.5 - 2.2 mmol/L [facility] DEPARTMENT OF PATHOLOGY AND GENOMIC MEDICINE Specimen Plasma specimen Performing Organization Address [facility] Phone Number [facility] DEPARTMENT OF PATHOLOGY AND [address] [place] [address] Amylase level (07/26/2017 12:45 PM) Amylase 50 28 - 100 U/L [facility] DEPARTMENT OF PATHOLOGY AND GENOMIC MEDICINE Specimen Plasma specimen Performing Organization Address [facility] Phone Number [facility] DEPARTMENT OF PATHOLOGY AND [address] [place] [address] Comprehensive metabolic panel (07/26/2017 12:45 PM) Sodium 140 135 - 148 mEq/L [facility] DEPARTMENT OF PATHOLOGY AND GENOMIC MEDICINE Potassium 3.8 3.5 - 5.0 mEq/L [facility] DEPARTMENT OF PATHOLOGY AND GENOMIC MEDICINE Chloride 102 98 - 112 mEq/L [facility] DEPARTMENT OF PATHOLOGY AND GENOMIC MEDICINE CO2 27 24 - 31 mEq/L [facility] DEPARTMENT OF PATHOLOGY AND GENOMIC MEDICINE Anion gap 11 7 - 15 mEq/L [facility] DEPARTMENT OF Comment: PATHOLOGY AND GENOMIC Starting from October , anion gap calculation MEDICINE no longer incorporates potassium. Please note the change. BUN 11 6 - 20 mg/dL [facility] DEPARTMENT OF PATHOLOGY AND GENOMIC MEDICINE Creatinine 0.7 0.5 - 0.9 mg/dL [facility] DEPARTMENT OF PATHOLOGY AND GENOMIC MEDICINE Glucose 135 (H) 65 - 99 mg/dL [facility] DEPARTMENT OF PATHOLOGY AND GENOMIC MEDICINE Calcium 9.0 8.3 - 10.2 mg/dL [facility] DEPARTMENT OF PATHOLOGY AND GENOMIC MEDICINE Protein 7.4 6.3 - 8.3 g/dL [facility] DEPARTMENT OF Comment: PATHOLOGY AND GENOMIC [place] 4.6-7.0 g/dL MEDICINE 1 week 4.4-7.6 g/dL 7 months-1year5.1-7.3 g/dL 1-2 years5.6-7.5 g/dL >3 years6.0-8.0 g/dL 18-150 6.3-8.3 g/dL Albumin 3.2 (L) 3.5 - 5.0 g/dL [facility] DEPARTMENT OF PATHOLOGY AND GENOMIC MEDICINE A/G ratio 0.8 0.7 - 3.8 [facility] DEPARTMENT OF PATHOLOGY AND GENOMIC MEDICINE Alkaline phosphatase 130 (H) 35 - 104 U/L [facility] DEPARTMENT OF PATHOLOGY AND GENOMIC MEDICINE AST 119 (H) 10 - 35 U/L [facility] DEPARTMENT OF PATHOLOGY AND GENOMIC MEDICINE ALT 144 (H) 5 - 50 U/L [facility] DEPARTMENT OF PATHOLOGY AND GENOMIC MEDICINE Total bilirubin 0.8 0.0 - 1.2 mg/dL [facility] DEPARTMENT OF PATHOLOGY AND GENOMIC MEDICINE Specimen Plasma specimen Performing Organization Address City/State/Zipcode Phone Number [facility] DEPARTMENT OF PATHOLOGY AND [address] [place] [address] [facility] after 04/09/2017
[2018-04-10] MEDS ORDERED: NA CHLORIDE 0.9% 1,000 ML ONE (22:43)
[2018-04-10 23:10] LABS: Absolute Lymphocytes (CBC) 1.4 K/uL (0.7-4.9); Absolute Monocytes 0.3 K/uL (0.1-1.3); Absolute Neutrophil 1.2 K/uL (1.8-8.0); Basophils % 1.3 % (0-1.3); Eosinophils % 1.5 % (0-4.4); Hematocrit 40.6 % (36.0-45.0); Lymphocytes % 46.2 % (15.3-44.8); MCH 34.8 pg (27.0-35.0); MCV 100.6 fL (80-100); MPV 11.7 fL (7.6-11.3); Monocytes % 9.4 % (3.3-12.3); RBC Red Blood Cell Count 4.04 M/uL (3.86-4.86)
[2018-04-10 23:15] LABS: Protime INR 1.18
[2018-04-10 23:29] LABS: Albumin 2.4 g/dL (3.4-5.0); Bilirubin Direct 0.6 mg/dL (0-0.2); Bilirubin Total 1.4 mg/dL (0.2-1.0); CKMB Creatine Kinase MB 1.1 ng/mL (0.3-3.6); Potassium 3.6 mmol/L (3.5-5.1); Protein, Total 6.6 g/dL (6.4-8.2)
[2018-04-11 00:45] LABS: Blood Morphology Comment NOT SEEN (NOT SEEN); Platelet Estimate DECR
[2018-04-11] MEDS ORDERED: FENTANYL CITR 100 MCG/2 ML ONE (01:16)
--- NOTE | 2018-04-11 02:27 | EDPHYS ---
Physician Documentation [facility] Name: Ana Maria Chavez Age: 58 yrs Sex: Female : 1960 Arrival Date: 04/10/2018 Time: 20:55 Bed 16 Private MD: Benigno Kuhn M ED Physician Chon Elder HPI: 04/11 00:30 This 58 yrs old Female presents to ER via Ambulatory with complaints of snw Nausea/Vomiting/Diarrhea, Abdominal Pain, Urinary Problem. 00:30 The patient presents to the emergency department with nausea, vomiting, abdominal pain. snw Onset: The symptoms/episode began/occurred suddenly, 3 day(s) ago, and became persistent. Possible causes: sick contacts, works at . The symptoms are aggravated by food . Associated signs and symptoms: The patient has no apparent associated signs or symptoms. Severity of symptoms: At their worst the symptoms were severe in the emergency department the symptoms have improved. The patient has not experienced similar symptoms in the past. The patient has not recently seen a physician. Historical: - Allergies: 04/10 21:19 No Known Allergies; aj1 - Home Meds: 21:19 None [Active]; aj1 - PMHx: 21:19 Cirrhosis; aj1 - PSHx: 21:19 Cholecystectomy; aj1 - Immunization history:: Flu vaccine is not up to date. - Social history:: Smoking status: Patient/guardian denies using tobacco. - Ebola Screening: : Patient denies travel to an Ebola-affected area in the 21 days before illness onset. ROS: 04/11 00:30 Constitutional: Negative for fever, chills, and weight loss, Eyes: Negative for injury, snw pain, redness, and discharge, ENT: Negative for injury, pain, and discharge, Neck: Negative for injury, pain, and swelling, Cardiovascular: Negative for chest pain, palpitations, and edema, Respiratory: Negative for shortness of breath, cough, wheezing, and pleuritic chest pain, Back: Negative for injury and pain, : Negative for injury, bleeding, discharge, and swelling, MS/Extremity: Negative for injury and deformity, Skin: Negative for injury, rash, and discoloration, Neuro: Negative for headache, weakness, numbness, tingling, and seizure. Abdomen/GI: Positive for abdominal pain, nausea and vomiting, anorexia. Exam: 00:29 Constitutional: This is a well developed, well nourished patient who is awake, alert, snw and in no acute distress. Head/Face: Normocephalic, atraumatic. Eyes: Pupils equal round and reactive to light, extra-ocular motions intact. Lids and lashes normal. Conjunctiva and sclera are mildly-icteric but not injected. Cornea within normal limits. Periorbital areas with no swelling, redness, or edema. ENT: Nares patent. No nasal discharge, no septal abnormalities noted. Tympanic membranes are normal and external auditory canals are clear. Oropharynx with no redness, swelling, or masses, exudates, or evidence of obstruction, uvula midline. Mucous membranes moist. Neck: Trachea midline, no thyromegaly or masses palpated, and no cervical lymphadenopathy. Supple, full range of motion without nuchal rigidity, or vertebral point tenderness. No Meningismus. Chest/axilla: Normal chest wall appearance and motion. Nontender with no deformity. No lesions are appreciated. Cardiovascular: Regular rate and rhythm with a normal S1 and S2. No gallops, murmurs, or rubs. Normal PMI, no JVD. No pulse deficits. Respiratory: Lungs have equal breath sounds bilaterally, clear to auscultation and percussion. No rales, rhonchi or wheezes noted. No increased work of breathing, no retractions or nasal flaring. Abdomen/GI: Soft, non-tender, with normal bowel sounds. No distension or tympany. No guarding or rebound. No evidence of tenderness throughout. Back: No spinal tenderness. No costovertebral tenderness. Full range of motion. Skin: Warm, dry with normal turgor. Normal color with no rashes, no lesions, and no evidence of cellulitis. MS/ Extremity: Pulses equal, no cyanosis. Neurovascular intact. Full, normal range of motion. Neuro: Awake and alert, GCS 15, oriented to person, place, time, and situation. Cranial nerves II-XII grossly intact. Motor strength 5/5 in all extremities. Sensory grossly intact. Cerebellar exam normal. Normal gait. Vital Signs: 04/10 21:19 BP 153 / 89; Pulse 62; Resp 18; Temp 98.7(O); Pulse Ox 98% on R/A; Weight 64.41 kg (R); aj1 Height 5 ft. 0 in. (152.40 cm); Pain 9/10; 23:46 BP 150 / 60; Pulse 53; Resp 16; Pulse Ox 98% on R/A; ao 04/11 01:05 BP 130 / 74; Pulse 58; Resp 16; Pulse Ox 100% on R/A; ao 02:14 BP 98 / 81; Pulse 51; Resp 18; Pulse Ox 98% on R/A; Pain 0/10; ao 03:40 BP 136 / 76; Pulse 54; Resp 16; Pulse Ox 100% on R/A; ao 04/10 21:19 Body Mass Index 27.73 (64.41 kg, 152.40 cm) aj1 MDM: 04/10 22:38 Patient medically screened. snw 04/11 02:25 Data reviewed: vital signs, nurses notes. Data interpreted: Pulse oximetry: on room air snw is 98 %. Interpretation: normal. Counseling: I had a detailed discussion with the patient and/or guardian regarding: the historical points, exam findings, and any diagnostic results supporting the discharge/admit diagnosis, lab results, radiology results, the need for further work-up and treatment in the hospital. Physician consultation: Arlin Pina MD was called at 02:25, was contacted at 02:25, regarding admission, to the telemetry unit. 04/10 22:36 Order name: Basic Metabolic Panel; Complete Time: 23:32 snw 04/10 22:36 Order name: Blood Culture Adult (2) snw 04/10 22:36 Order name: CBC with Diff; Complete Time: 00:50 snw 04/10 22:36 Order name: Ckmb; Complete Time: 23:32 snw 04/10 22:36 Order name: CPK; Complete Time: 23:32 snw 04/10 22:36 Order name: Lactate; Complete Time: 23:32 snw 04/10 22:36 Order name: LFT's; Complete Time: 23:32 snw 04/10 22:36 Order name: Lipase; Complete Time: 23:32 snw 04/10 22:36 Order name: Procalcitonin; Complete Time: 00:41 snw 04/10 22:36 Order name: Protime (+inr); Complete Time: 23:32 snw 04/10 22:36 Order name: Ptt, Activated; Complete Time: 23:32 snw 04/10 22:36 Order name: Urine Microscopic Only; Complete Time: 02:45 snw 04/10 22:36 Order name: AMMONIA; Complete Time: 23:32 snw 04/10 23:30 Order name: Manual Differential; Complete Time: 00:50 EDMS 04/10 22:36 Order name: Chest Single View XRAY snw 04/10 22:36 Order name: Accucheck; Complete Time: 22:55 snw 04/10 22:36 Order name: Cardiac monitoring; Complete Time: 23:07 snw 04/10 22:36 Order name: EKG - Nurse/Tech; Complete Time: 23:07 snw 04/10 22:36 Order name: IV Saline Lock - Large Bore; Complete Time: 23:07 w 04/10 22:36 Order name: Labs collected and sent; Complete Time: 23:07 w 04/10 22:36 Order name: O2 Per Protocol; Complete Time: 23:08 snw 04/10 22:36 Order name: O2 Sat Monitoring; Complete Time: 23:08 w 04/10 22:36 Order name: Urine Dipstick-Ancillary (obtain specimen); Complete Time: 02:32 snw 04/11 00:10 Order name: CT Abd/Pelvis - W/Contrast snw Administered Medications: 04/10 23:06 Drug: NS 0.9% 1000 ml Route: IV; Rate: 125 ml/hr; Site: right antecubital; ao 04/11 04:08 Follow up: IV Status: Infusion continued upon admission ao 01:17 Drug: fentaNYL (PF) 50 mcg Route: IVP; Site: right antecubital; ao 02:18 Follow up: Response: No adverse reaction ao 02:16 CANCELLED (other intervention used): ProTONIX 40 mg PO once snw 02:31 Drug: ProTONIX 40 mg Route: IVP; Site: right antecubital; ao 04:08 Follow up: Response: No adverse reaction ao Point of Care Testing: Blood Glucose: 04/10 22:55 Blood Glucose: 337 mg/dL; ao Ranges: Critical Glucose Levels:Adult <50 mg/dl or >400 mg/dl <40 mg/dl or >180 mg/dl Disposition: 09/27/18 02:26 Hospitalization ordered by Arlin Pina for Inpatient Admission. Preliminary diagnosis are Upper abdominal pain, unspecified, Duodenitis without bleeding, Unspecified cirrhosis of liver. - Bed requested for Telemetry/MedSurg (Inpatient). - Status is Inpatient Admission. ao - Condition is Stable. - Problem is an acute exacerbation. - Symptoms have worsened. UTI on Admission? No Addendum: 04/13/2018 17:59 Co-signature as Attending Physician, Chon Elder MD. g s Signatures: Dispatcher [employer] [facility] Niya Singletary, RN RN aj1 Sadia Lin RN RN Stella Burroughs, STAINING MACHINE OPERATOR-C STAINING MACHINE OPERATOR-Csnw Joselito Boykin, RN Chon Hollingsworth MD MD Corrections: (The following items were deleted from the chart) 04/11 00:46 04/10 23:30 Slides for Pathologist Review ordered. [facility] 04/11 02:16 02:16 ProTONIX 40 mg PO once ordered. [facility] 02:30 02:26 Hospitalization Ordered by Arlin Pina MD for Inpatient Admission. Preliminary diagnosis is Upper abdominal pain, unspecified; Duodenitis without bleeding; Unspecified cirrhosis of liver. Bed requested for Telemetry/MedSurg (Inpatient). Status is Inpatient Admission. Condition is Stable. Problem is an acute exacerbation. Symptoms have worsened. UTI on Admission? No. snw 04:03 02:30 04/11/2018 02:26 Hospitalization Ordered by Arlin Pina MD for Inpatient ao Admission. Preliminary diagnosis is Upper abdominal pain, unspecified; Duodenitis without bleeding; Unspecified cirrhosis of liver. Bed requested for Telemetry/MedSurg (Inpatient). Status is Inpatient Admission. Condition is Stable. Problem is an acute exacerbation. Symptoms have worsened. UTI on Admission? No. mw
--- NOTE | 2018-04-11 02:27 | ER ---
Nurse's Notes [facility] Name: Ana Maria Chavez Age: 58 yrs Sex: Female : 1960 Arrival Date: 04/10/2018 Time: 20:55 Bed 16 Private MD: Benigno Kuhn M Diagnosis: Upper abdominal pain, unspecified;Duodenitis without bleeding;Unspecified cirrhosis of liver Presentation: 04/10 21:15 Presenting complaint: Patient states: She's been throwing up for the past 2 days. The aj1 only thing she has been able to hold down is [employer] Crackers. Reports epigastric pain. States that she had her gallbladder removed in July and states that she has had problem holding down food since then. Denies diarrhea. Reports chills. Transition of care: patient was not received from another setting of care. Onset of symptoms was April 08, 2018. Risk Assessment: Do you want to hurt yourself or someone else? Patient reports no desire to harm self or others. Initial Sepsis Screen: Does the patient meet any 2 criteria? No. Patient's initial sepsis screen is negative. Does the patient have a suspected source of infection? No. Patient's initial sepsis screen is negative. Care prior to arrival: None. 21:15 Method Of Arrival: Ambulatory aj1 21:15 Acuity: LETY 3 aj1 Triage Assessment: 21:19 General: Appears in no apparent distress. comfortable, Behavior is calm, cooperative, aj1 appropriate for age. Pain: Complains of pain in epigastric area Pain currently is 9 out of 10 on a pain scale. Neuro: Level of Consciousness is awake, alert, obeys commands. Cardiovascular: Patient's skin is warm and dry. Respiratory: Airway is patent Respiratory effort is even, unlabored, Respiratory pattern is regular, symmetrical. GI: Reports upper abdominal pain, nausea, vomiting. Historical: - Allergies: 21:19 No Known Allergies; aj1 - Home Meds: 21:19 None [Active]; aj1 - PMHx: 21:19 Cirrhosis; aj1 - PSHx: 21:19 Cholecystectomy; aj1 - Immunization history:: Flu vaccine is not up to date. - Social history:: Smoking status: Patient/guardian denies using tobacco. - Ebola Screening: : Patient denies travel to an Ebola-affected area in the 21 days before illness onset. Screenin:47 Abuse screen: Denies threats or abuse. Denies injuries from another. Nutritional ao screening: No deficits noted. Tuberculosis screening: No symptoms or risk factors identified. Fall Risk None identified. Assessment: 22:42 General: Appears in no apparent distress. comfortable, Behavior is calm, cooperative, ao appropriate for age. Pain: Complains of pain in abdomen Pain currently is 5 out of 10 on a pain scale. Neuro: Level of Consciousness is awake, alert, obeys commands, Oriented to person, place, time, situation, Appropriate for age Moves all extremities. Full function Speech is normal. Cardiovascular: Capillary refill < 3 seconds Patient's skin is warm and dry. Respiratory: Airway is patent Respiratory effort is even, unlabored, Respiratory pattern is regular, symmetrical, Breath sounds are clear bilaterally. GI: Abdomen is non-distended, Bowel sounds present X 4 quads. : No signs and/or symptoms were reported regarding the genitourinary system. EENT: No signs and/or symptoms were reported regarding the EENT system. Derm: Skin is intact, Skin is dusky, jaundiced. Musculoskeletal: No signs and/or symptoms reported regarding the musculoskeletal system. Circulation, motion, and sensation intact. Range of motion: intact in all extremities. 23:46 Reassessment: Patient appears in no apparent distress at this time. Patient and/or ao family updated on plan of care and expected duration. Pain level reassessed. Patient is alert, oriented x 3, equal unlabored respirations, skin warm/dry/pink. 04/11 01:05 Reassessment: Patient appears in no apparent distress at this time. Patient and/or ao family updated on plan of care and expected duration. Pain level reassessed. Patient is alert, oriented x 3, equal unlabored respirations, skin warm/dry/pink. Patient back from CT. Patient asking for pain medications Stella CLERICAL METHODS ANALYST was notified. 02:12 Reassessment: Patient appears in no apparent distress at this time. Patient and/or ao family updated on plan of care and expected duration. Pain level reassessed. Patient is alert, oriented x 3, equal unlabored respirations, skin warm/dry/pink. Waiting on CT report. 02:34 Reassessment: Patient to stay in the hospital. Patient agree with POC. ao Vital Signs: 04/10 21:19 BP 153 / 89; Pulse 62; Resp 18; Temp 98.7(O); Pulse Ox 98% on R/A; Weight 64.41 kg (R); aj1 Height 5 ft. 0 in. (152.40 cm); Pain 9/10; 23:46 BP 150 / 60; Pulse 53; Resp 16; Pulse Ox 98% on R/A; ao 04/11 01:05 BP 130 / 74; Pulse 58; Resp 16; Pulse Ox 100% on R/A; ao 02:14 BP 98 / 81; Pulse 51; Resp 18; Pulse Ox 98% on R/A; Pain 0/10; ao 03:40 BP 136 / 76; Pulse 54; Resp 16; Pulse Ox 100% on R/A; ao 04/10 21:19 Body Mass Index 27.73 (64.41 kg, 152.40 cm) aj1 ED Course: 04/10 20:55 Patient arrived in ED. es 20:56 Benigno Kuhn MD is Private Physician. es 21:18 Triage completed. aj1 21:19 Arm band placed on Patient placed in waiting room. aj1 22:34 Stella Burroughs FNP-C is PHCP. snw 22:34 Chon Elder MD is Attending Physician. snw 22:36 Joselito Boykin, DERREK is Primary Nurse. ao 22:45 Chest Single View XRAY In Process Unspecified. EDMS 22:47 Patient has correct armband on for positive identification. conveyor monitor on. Pulse ao ox on. NIBP on. 04/11 01:02 CT Abd/Pelvis - W/Contrast In Process Unspecified. EDMS 01:07 CT completed. Patient tolerated procedure well. Patient moved to CT via stretcher. Patient moved back from CT. 02:26 Arlin Pina MD is Hospitalizing Provider. snw 02:35 No provider procedures requiring assistance completed. ao 03:39 Patient admitted, IV remains in place. ao Administered Medications: 04/10 23:06 Drug: NS 0.9% 1000 ml Route: IV; Rate: 125 ml/hr; Site: right antecubital; ao 04/11 04:08 Follow up: IV Status: Infusion continued upon admission ao 01:17 Drug: fentaNYL (PF) 50 mcg Route: IVP; Site: right antecubital; ao 02:18 Follow up: Response: No adverse reaction ao 02:16 CANCELLED (other intervention used): ProTONIX 40 mg PO once snw 02:31 Drug: ProTONIX 40 mg Route: IVP; Site: right antecubital; ao 04:08 Follow up: Response: No adverse reaction ao Point of Care Testing: Blood Glucose: 04/10 22:55 Blood Glucose: 337 mg/dL; ao Ranges: Outcome: 04/11 02:26 Decision to Hospitalize by Provider. snw 03:38 Discharged to home ambulatory. ao 03:38 Condition: stable 03:38 Instructed on the need for admit. 04:03 Patient left the ED. ao Signatures: Dispatcher [employer] Niya Schaefer RN RN aj1 Stella Burroughs, WOUND CARE TECHNICIAN-C WOUND CARE TECHNICIAN-Csnw Bridget Huitron Ervin eh Ortiz, Alex, RN RN ao
[2018-04-11] MEDS ORDERED: PANTOPRAZOLE 40 MG INJ ONE (02:34)
[2018-04-11 02:44] LABS: Urine Bacteria <20 /HPF (<20); Urine Culture Reflex Order NOT NEEDED; Urine RBC <5 /HPF (NONE SEEN)
[2018-04-11] MEDS ORDERED: ACETAMINOPHEN 500 MG TAB PO PRN (03:22)
[2018-04-11] MEDS ORDERED: MORPHINE 2 MG/ML SYR IV PRN (03:22)
[2018-04-11] MEDS ORDERED: SODIUM CHLORIDE 0.9% 10ML INJ IV PRN (03:27)
[2018-04-11] MEDS: NA CHLORIDE 0.9% 1,000 ML IV SCH ×3 (03:59→17:20)
[2018-04-11] MEDS ORDERED: MORPHINE 4 MG/ML SYR ONE (04:26)
[2018-04-11] MEDS: ONDANSETRON 4 MG/2 ML VIAL IV PRN ×2 (04:27→09:57)
[2018-04-11] MEDS ORDERED: CEFOXITIN SODIUM 1 GM/VIAL IVPB SCH (06:00)
[2018-04-11] MEDS ORDERED: CEFOXITIN SODIUM 2 GM/VIAL ONE (06:27)
[2018-04-11] MEDS: PANTOPRAZOLE 40 MG INJ IVP SCH ×3 (06:29→20:55)
[2018-04-11 06:36] LABS: Hematocrit 38.8 % (36.0-45.0); MCH 34.5 pg (27.0-35.0); MCV 100.4 fL (80-100); RBC Red Blood Cell Count 3.87 M/uL (3.86-4.86)
[2018-04-11 06:37] LABS: Absolute Lymphocytes (CBC) 1.8 K/uL (0.7-4.9); Absolute Monocytes 0.2 K/uL (0.1-1.3); Absolute Neutrophil 1.2 K/uL (1.8-8.0); Basophils % 0.8 % (0-1.3); Eosinophils % 1.2 % (0-4.4); Lymphocytes % 53.1 % (15.3-44.8); MPV 11.8 fL (7.6-11.3); Monocytes % 7.4 % (3.3-12.3)
[2018-04-11 06:49] LABS: Protime INR 1.23
[2018-04-11 06:56] LABS: Albumin 2.3 g/dL (3.4-5.0); Bilirubin Total 1.7 mg/dL (0.2-1.0); Potassium 3.7 mmol/L (3.5-5.1); Protein, Total 6.1 g/dL (6.4-8.2)
--- NOTE | 2018-04-11 07:55 | EKG ---
Test Date: 2018-04-10 Test Time: 22:57:45 Modeling Agent: ESHA MEASUREMENT RESULTS: Intervals: Rate: 50 NC: 140 QRSD: 74 QT: 488 QTc: 444 [place]: P: 48 NC: 140 QRS: 84 T: 62 INTERPRETIVE STATEMENTS: Sinus bradycardia Low voltage QRS Borderline ECG Compared to ECG 07/23/2017 18:45:03 Low QRS voltage now present Electronically Signed On 04-11-18 07:55:05 CDT by Refugio Michaud
--- NOTE | 2018-04-11 07:59 | RAD REPORT ---
EXAM DESCRIPTION: Kimberlee Single View04/10/2018 10:46 pm CLINICAL HISTORY: Abdominal pain COMPARISON: July 2017 FINDINGS: The lungs appear clear of acute infiltrate. The heart is normal size IMPRESSION: No acute abnormalities displayed
[2018-04-11] MEDS ORDERED: INFLUENZA VACCINE (for 3y+) 0.5 ML DOSE IMVAC ONE (08:00)
--- NOTE | 2018-04-11 08:08 | RAD REPORT ---
EXAM DESCRIPTION: CT - Abdomen Pelvis W Contrast - 04/11/2018 4:57 am CLINICAL HISTORY: Abdominal pain/epigastric pain and vomiting for 2 days COMPARISON: July 2017 TECHNIQUE: Computed axial tomography of the abdomen pelvis was obtained. 100 cc Isovue-300 was admin istered intravenously. Oral contrast was not requested which limits evaluation of bowel.A preliminary report was generated by [employer] and reviewed prior to this dictation All CT scans are performed using dose optimization technique as appropriate and may include automated exposure control or mA/KV adjustment according to patient size. FINDINGS: A cirrhotic liver is present. Small cyst is present within the dome. Vague sub centimeter low-density areas are present within segment II and segment VIII. The portal vein is patent. The gallbladder has been removed. Mild thickening of the wall of the distal stomach/ proximal duodenum is noted. Spleen, pancreas, adrenal and kidneys appear unremarkable. A minimal amount of free fluid is seen. There is no evidence of diverticulitis. IMPRESSION: Cirrhosis. Two vague hypodense areas within the liver are nonspecific. Further evaluatio n with MRI is recommended. Mild thickening of the wall of the distal stomach/proximal duodenum and indicate inflammation
[2018-04-11] MEDS: SUCRALFATE 1 GM TABLET PO SCH ×5 (09:00→20:55)
--- NOTE | 2018-04-11 09:18 | P.HP ---
Certification for Inpatient Patient admitted to: Inpatient With expected LOS: >2 Midnights Patient will require the following post-hospital care: None Practitioner: I am a practitioner with admitting privileges, knowledge of patient current condition, hospital course, and medical plan of care. Services: Services provided to patient in accordance with Admission requirements found in Title 42 Section 412.3 of the Code of Federal Regulations Patient History Date of Service: 04/11/18 Reason for admission: Abdominal pain along with nausea and vomiting History of Present Illness: Patient is a 50-year-old female who presents to the hospital with intractable nausea and vomiting along with abdominal pain. patient states she 8 coleslaw last Sunday. Since that time she has had frequent episodes of nausea and vomiting. She has also has been having right lower quadrant abdominal pain. She came to the emergency room and her workup did not reveal any significant abnormalities except for abnormal liver function testing. Patient was admitted to the hospital for further evaluation. Patient states she has a history of cirrhosis along with hepatitis. She does not know exactly what type. She denies drinking and has not taken any acetaminophen or alcohol in the last 9 years. Her LFTs are slightly elevated. She will be admitted to the hospital for further evaluation. Allergies No Known Allergies Allergy (Verified 04/11/18 03:28) Home Medications: NK [No Home Meds] 04/11/18 - Past Medical/Surgical History Has patient received pneumonia vaccine in the past: No Diabetic: No -: Cirrhosis -: Cholecystectomy -: appendectomy -: tubal ligation -: - Family History Father History Unknown: Yes Mother History Unknown: Yes - Social History Smoking Status: Never smoker Alcohol use: No CD- Drugs: No Caffeine use: No Place of Residence: Home Review of Systems 10-point ROS is otherwise unremarkable Physical Examination - Vital Signs Temperature: 97.6 F Blood Pressure: 131/80 Pulse: 56 Respirations: 20 Pulse Ox (%): 96 - Physical Exam General: Alert, In no apparent distress, Oriented x3 HEENT: Atraumatic, PERRLA, Mucous membr. moist/pink, EOMI, Sclerae nonicteric Neck: Supple, 2+ carotid pulse no bruit, No LAD, Without JVD or thyroid abnormality Respiratory: Clear to auscultation bilaterally, Normal air movement Cardiovascular: Regular rate/rhythm, Normal S1 S2, No murmurs Gastrointestinal: Normal bowel sounds, Soft and benign, Non-distended, No tenderness Musculoskeletal: No clubbing, No swelling, No tenderness Integumentary: No rashes Neurological: Normal gait, Normal speech, Normal strength at 5/5 x4 extr, Normal tone, Sensation intact, Cranial nerves 3-12 intact, Normal affect Lymphatics: No axilla or inguinal lymphadenopathy - Studies Laboratory Data (last 24 hrs) 04/10/18 22:55: PT 14.0 H, INR 1.18, APTT 40.1 H 04/10/18 22:55: WBC 3.0 L, Hgb 14.1, Hct 40.6, Plt Count 59 L 04/10/18 22:55: Sodium 138, Potassium 3.6, BUN 10, Creatinine 0.80, Glucose 376 H, Total Bilirubin 1.4 H, AST 167 H, ALT 141 H, Alkaline Phosphatase 219 H, Lipase 125 Assessment & Plan - Problems (Diagnosis) (1) Abdominal pain Current Visit: Yes Status: Acute (2) N&V (nausea and vomiting) Current Visit: Yes Status: Acute (3) Cirrhosis Current Visit: Yes Status: Acute (4) H/O hepatitis Current Visit: Yes Status: Acute (5) Hypoalbuminemia Current Visit: Yes Status: Acute (6) Coagulopathy Current Visit: Yes Status: Acute (7) Hyperbilirubinemia Current Visit: Yes Status: Acute - Plan 1. Continue with IV hydration 2. check hepatitis profile 3. Continue with pain control as needed 4. NPO 5. GI consultation 6. Serial H&H, and we will monitor LFTs closely 7. GI and DVT prophylaxis Discharge Plan: Home Plan to discharge in: Greater than 2 days - Advance Directives Does patient have a Living Will: No Does patient have a Durable POA for Healthcare: No - Code Status/Comfort Care Code Status Assessed: Yes Code Status: Full Code Critical Care: No Time Spent Managing PTS Care (In Minutes): 50
[2018-04-11] MEDS: MORPHINE 4 MG/ML SYR IV PRN (09:56)
[2018-04-11] MEDS ORDERED: CEFOXITIN/SWI 1gm 1 GM/10 ML SYR IV SCH (12:00)
[2018-04-11] MEDS: Levofloxacin500mg IV 500 MG/100 ML BAG IV SCH (12:54)
[2018-04-11] MEDS: METRONIDAZOLE 500mg IVPB 500 MG/100 ML BAG IV SCH (16:58)
--- NOTE | 2018-04-11 19:18 | RAD REPORT ---
EXAM DESCRIPTION: MRI - Abdomen WWo Cont - 04/11/2018 4:03 pm CLINICAL HISTORY: 6 COMPARISON: CT examination April 11 TECHNIQUE: Multiplanar imaging of the abdomen performed using T1 weighted, T2 weighted, T2 haste fat saturation, T1 inphase/out of phase imaging and post contrast T1 fat saturation sequencing. 10 minut es and 20 minutes delayed postcontrast T1 fat saturation sequences obtained. A 14 milliliter MultiHan ce contrast volume was utilized. FINDINGS: Liver capsule is nodular. In the segment IV of the liver a 19 millimeter mass is present s howing simple cyst characteristics across all pulse sequences. The segment II finding on the CT study is seen as a very ill-defined 6-7 millimeter area of T1 hypointense signal. This finding is barely d iscernible on T2 weighted sequencing. The segment VIII finding on the CT study approximately 10 mm in size and is hypointense on T1 imaging. This is difficult to discern on the T2 weighted sequencing. T here is an approximately 10 mm area of slightly diminished T2 signal in the subcapsular segment VII. The segment VII lesion shows enhancement in the early arterial phase. This progressively shows periph eral enhancement and central hypointensity later in the enhanced sequencing. The segment VIII lesion is not clearly seen on early contrast imaging. The mass becomes centrally hypointense later in the en hanced phases. The segment II finding remains poorly defined throughout all sequences. No spleen or pancreas acute finding. No ascites or bulky lymphadenopathy. No biliary tree dilatation. No suspicious renal finding. IMPRESSION: The segment VIII liver lesion is identified on MR imaging along with an additional segme nt VII lesion. The segment II lesion seen on the CT study is never well defined across the multiple M R sequences. The 2 right lobe liver lesions are quite small at 10 mm or less in size. These do not meet diagnostic criteria for a specific benign lesion. An early neoplastic process cannot be excluded in a cirrhosis patient. Neither of these lesions would be amenable to a percutaneous biopsy attempt. Repeat contrast MRI imag ing in 4-6 months could be performed to monitor for growth.
[2018-04-11 21:52] LABS: Urine Appearance CLEAR; Urine Blood TRACE (NEG); Urine Color DK YELLOW; Urine Glucose NEGATIVE (NEG); Urine Protein NEGATIVE (NEG); Urine Specific Gravity >=1.030 (1.005-1.030)
[2018-04-11 22:33] LABS: Urine Bilirubin NEGATIVE (NEG); Urine Microscopic Reflex ORDER UMIC
[2018-04-11 22:58] LABS: Urine Bacteria 20-50 /HPF (<20); Urine Culture Reflex Order NOT NEEDED; Urine Mucus HEAVY /HPF (NONE SEEN)
[2018-04-12] MEDS: METRONIDAZOLE 500mg IVPB 500 MG/100 ML BAG IV SCH ×3 (00:09→16:47)
[2018-04-12 06:14] LABS: Absolute Lymphocytes (CBC) 1.5 K/uL (0.7-4.9); Absolute Monocytes 0.2 K/uL (0.1-1.3); Absolute Neutrophil 0.7 K/uL (1.8-8.0); Basophils % 0.8 % (0-1.3); Eosinophils % 0.9 % (0-4.4); Hematocrit 35.1 % (36.0-45.0); Lymphocytes % 62.8 % (15.3-44.8); MCH 34.7 pg (27.0-35.0); MCV 100.5 fL (80-100); MPV 11.8 fL (7.6-11.3); Monocytes % 6.9 % (3.3-12.3)
[2018-04-12 06:23] VITALS: BMI 31.1
[2018-04-12] MEDS: NA CHLORIDE 0.9% 1,000 ML IV SCH ×2 (07:43→20:00)
[2018-04-12] MEDS: SUCRALFATE 1 GM TABLET PO SCH ×4 (09:00→21:31)
[2018-04-12 09:30] LABS: Blood Morphology Comment NOT SEEN (NOT SEEN); Platelet Estimate ADEQ
[2018-04-12] MEDS: ONDANSETRON 4 MG/2 ML VIAL IV PRN (10:56)
[2018-04-12] MEDS: PANTOPRAZOLE 40 MG INJ IVP SCH ×2 (10:57→21:31)
[2018-04-12] MEDS: MORPHINE 4 MG/ML SYR IV PRN (11:00)
[2018-04-12] MEDS ORDERED: TRAMADOL HCL 50 MG TAB PO PRN (11:19)
[2018-04-12] MEDS: Levofloxacin500mg IV 500 MG/100 ML BAG IV SCH (12:06)
--- NOTE | 2018-04-12 13:04 | P.PN ---
Subjective Date of Service: 04/12/18 Chief Complaint: Abdominal pain along with nausea and vomiting Pt seen and examined at bedside. Chart Reviewed. Case DW with GI and Radiologist. This AM denies having N/V or abd pain and no hematemesis noted either. Planned for EGD today with Dr Patel Review of Systems 10-point ROS is otherwise unremarkable Physical Examination - Vital Signs Temperature: 97.5 F Blood Pressure: 99/55 Pulse: 51 Respirations: 18 Pulse Ox (%): 99 - Physical Exam General: Alert, In no apparent distress HEENT: Atraumatic, PERRLA, EOMI Neck: Supple, JVD not distended Respiratory: Clear to auscultation bilaterally, Normal air movement Cardiovascular: Regular rate/rhythm, Normal S1 S2 Gastrointestinal: Normal bowel sounds, No tenderness Musculoskeletal: No tenderness Integumentary: No rashes Neurological: Normal speech, Normal tone, Normal affect Lymphatics: No axilla or inguinal lymphadenopathy - Studies Medications List Reviewed: Yes Assessment And Plan - Current Problems (Diagnosis) (1) Gastritis Current Visit: Yes Status: Acute Plan: Gastritis with possible bleeding on the ABD CT -EGD scheduled with Dr Patel -Will f.u post procedure -Portonix BID for now -IV Abx for now as well Qualifiers: Gastritis type: other gastritis Chronicity: acute Gastritis bleeding: with bleeding Qualified Code(s): K29.01 - Acute gastritis with bleeding (2) N&V (nausea and vomiting) Onset Date: 04/12/18 Current Visit: Yes Status: Resolved Plan: N/V most likely 2.2 to Undiagnosed DM type 2 vs liver disease vs gastroentrities -Now resolved -Zofran PRN Qualifiers: Vomiting type: cyclical vomiting Vomiting Intractability: intractable Qualified Code(s): G43.A1 - Cyclical vomiting, intractable (3) New onset type 2 diabetes mellitus Current Visit: Yes Status: Acute Plan: New Onset Diabetes with Ha1c of 10.4 -ISS here -Pt will be started on Metformin once acute phase resolved (4) Liver lesion Current Visit: Yes Status: Acute Plan: 2 Acute Liver leasion on the MRI of the abdomen -Size is very small for Biospy vs defentive diagnosis -Repeat MRI in 4 months suggested -GI on board. Will need MRI of the abdomen Scheduled in 4 months (5) Pancytopenia Current Visit: Yes Status: Acute Plan: Most Likely 2.2 to Liver cirrhosis -Monitor closely for now (6) Cirrhosis Onset Date: 04/12/18 Current Visit: Yes Status: Chronic Qualifiers: Hepatic cirrhosis type: other cirrhosis Qualified Code(s): K74.69 - Other cirrhosis of liver (7) H/O hepatitis Current Visit: Yes Status: Chronic Plan: H/O Hepatitis A when 16 years of age. Negative for alcohol or hep C -Stable will monitor Discharge Plan: Home Plan to discharge in: 48 Hours - Code Status/Comfort Care Code Status Assessed: Yes Critical Care: No
[2018-04-12] MEDS ORDERED: NA CHLORIDE 0.9% 1,000 ML ONE (14:15)
[2018-04-12] MEDS ORDERED: PROPOFOL 200 MG/20 ML VIAL IV ONE (14:54)
--- NOTE | 2018-04-12 15:09 | ENDO RPT ---
[address], [address] EGD PROCEDURE REPORT EXAM DATE: 04/12/2018 PATIENT NAME: Ana Maria Chavez MR#: [id number] BIRTHDATE: 1960 ATTENDING: Vega Patel Dr STATUS: inpatient - [facility] DIRECTOR: Lisa Avery RN and Kati Howard INDICATIONS: The patient is a 58 yr old Female here for an EGD due to abdominal pain, nausea and vomiting, hematemesis, and anemia PROCEDURE PERFORMED: EGD with biopsy MEDICATIONS: Per Anesthesia. TOPICAL ANESTHETIC: none CONSENT: The patient understands the risks and benefits of the procedure and understands that these risks include, but are not limited to: sedation, allergic reaction, infection, perforation and/or bleeding. Alternative means of evaluation and treatment include, among others: physical exam, x-rays, and/or surgical intervention. The patient elects to proceed with this endoscopic procedure. DESCRIPTION OF PROCEDURE: During intra-op preparation period all mechanical medical equipment was checked for proper function. Hand hygiene and appropriate measures for infection prevention was taken. Procedure, possible complications, and alternatives including but not limited to the possibility of bleeding, perforation, tear, infection, sepsis, need for surgery, need for blood transfusion, and anesthesia related complications were explained to the patient. After the risks, benefits and alternatives of the procedure were thoroughly explained, Informed consent was verified, confirmed and timeout was successfully executed by the treatment team. The patient was placed in the left lateral position. The patient was anesthetized with topical anesthesia. Through the anesthetized oropharyngeal area, the scope was passed without any difficulty. The [id number] ([id number]) and [id number] ([id number]) endoscope was introduced through the mouth and advanced to the second portion of the duodenum. Retroflexed views revealed no abnormalities. The gastroscope was then slowly withdrawn and removed. Gastropathy was found in the body of the stomach. Severe gastritis was found in the antrum. With standard forceps, a biopsy was obtained and sent to pathology. A 3mm ulcer was found in the antrum. Multiple (2) 4 mm ulcers were found at the pylorus. Multiple (8) erosions were found in the antrum. ADVERSE EVENTS: There were no complications. IMPRESSIONS: 1. Portal hypertensive gastropathy in the body of the stomach 2. Severe gastritis in the antrum, s/p biopsies 3. 3 mm ulcer in the antrum 4. Multiple (2) 4 mm clean-based ulcers at the pylorus 5. Multiple (8) erosions in the antrum RECOMMENDATIONS: 1. await biopsy results 2. acid suppression therapy REPEAT EXAM: Vega Patel Dr eSigned: Vega Patel Dr 04/12/2018 3:09 PM cc: CPT CODES: ICD9 CODES: PATIENT NAME: Ana Maria Chavez MR#: [id number]
[2018-04-12] MEDS ORDERED: INFLUENZA VACCINE (for 3y+) 0.5 ML DOSE IMVAC ONE (18:00)
[2018-04-13] MEDS: METRONIDAZOLE 500mg IVPB 500 MG/100 ML BAG IV SCH ×2 (01:21→11:25)
[2018-04-13] MEDS: NA CHLORIDE 0.9% 1,000 ML IV SCH (06:22)
[2018-04-13 11:18] LABS: Absolute Lymphocytes (CBC) 1.2 K/uL (0.7-4.9); Absolute Monocytes 0.2 K/uL (0.1-1.3); Absolute Neutrophil 0.9 K/uL (1.8-8.0); Basophils % 0.7 % (0-1.3); Eosinophils % 1.3 % (0-4.4); Hematocrit 37.2 % (36.0-45.0); Lymphocytes % 49.4 % (15.3-44.8); MCV 101.8 fL (80-100); MPV 10.9 fL (7.6-11.3); Monocytes % 9.9 % (3.3-12.3); RBC Red Blood Cell Count 3.66 M/uL (3.86-4.86)
[2018-04-13] MEDS: PANTOPRAZOLE 40 MG INJ IVP SCH (11:21)
[2018-04-13] MEDS: SUCRALFATE 1 GM TABLET PO SCH ×4 (11:21→22:39)
[2018-04-13 11:24] LABS: Magnesium 1.5 mg/dL (1.8-2.4); Phosphorus 2.1 mg/dL (2.5-4.9)
[2018-04-13] MEDS: Levofloxacin500mg IV 500 MG/100 ML BAG IV SCH (11:29)
--- NOTE | 2018-04-13 12:14 | P.PN ---
Subjective Date of Service: 04/13/18 Chief Complaint: Abdominal pain along with nausea and vomiting Pt seen and examined at bedside. Chart Reviewed. Case DW with GI and Radiologist. This AM denies having N/V or abd pain and no hematemesis noted either. S/P EGD Review of Systems 10-point ROS is otherwise unremarkable Physical Examination - Vital Signs Temperature: 97.9 F Blood Pressure: 108/59 Pulse: 68 Respirations: 16 Pulse Ox (%): 98 - Physical Exam General: Alert, In no apparent distress HEENT: Atraumatic, PERRLA, EOMI Neck: Supple, JVD not distended Respiratory: Clear to auscultation bilaterally, Normal air movement Cardiovascular: Regular rate/rhythm, Normal S1 S2 Gastrointestinal: Normal bowel sounds, No tenderness Musculoskeletal: No tenderness Integumentary: No rashes Neurological: Normal speech, Normal tone, Normal affect Lymphatics: No axilla or inguinal lymphadenopathy - Studies Medications List Reviewed: Yes Assessment And Plan - Current Problems (Diagnosis) (1) Gastritis Current Visit: Yes Status: Acute Plan: Gastritis with possible bleeding on the ABD CT -S/p EGD with finding of -Gastric and Pyloric Ulcer -Portal HTN -Gastritis -Protonix BID, Carafate, Propanolol -Switch to PO Abx Qualifiers: Gastritis type: other gastritis Chronicity: acute Gastritis bleeding: with bleeding Qualified Code(s): K29.01 - Acute gastritis with bleeding (2) N&V (nausea and vomiting) Onset Date: 04/12/18 Current Visit: Yes Status: Resolved Plan: N/V most likely 2.2 to Undiagnosed DM type 2 vs liver disease vs gastroentrities -Now resolved -Zofran PRN Qualifiers: Vomiting type: cyclical vomiting Vomiting Intractability: intractable Qualified Code(s): G43.A1 - Cyclical vomiting, intractable (3) New onset type 2 diabetes mellitus Current Visit: Yes Status: Acute Plan: New Onset Diabetes with Ha1c of 10.4 -ISS here -Pt will be started on Metformin once acute phase resolved (4) Liver lesion Current Visit: Yes Status: Acute Plan: 2 Acute Liver leasion on the MRI of the abdomen -Size is very small for Biospy vs defentive diagnosis -Repeat MRI in 4 months suggested -GI on board. Will need MRI of the abdomen Scheduled in 4 months (5) Pancytopenia Current Visit: Yes Status: Acute Plan: Most Likely 2.2 to Liver cirrhosis -Monitor closely for now (6) Cirrhosis Onset Date: 04/12/18 Current Visit: Yes Status: Chronic Qualifiers: Hepatic cirrhosis type: other cirrhosis Qualified Code(s): K74.69 - Other cirrhosis of liver (7) H/O hepatitis Current Visit: Yes Status: Chronic Plan: H/O Hepatitis A when 16 years of age. Negative for alcohol or hep C -Stable will monitor Discharge Plan: Home Plan to discharge in: 48 Hours - Code Status/Comfort Care Code Status Assessed: Yes Critical Care: No
[2018-04-13] MEDS: metroNIDAZOLE 500 MG TABLET PO SCH (17:32)
[2018-04-13] MEDS: PANTOPRAZOLE 40MG TABLET PO SCH (17:32)
[2018-04-13] MEDS: CIPROFLOXACIN HCL 500 MG TAB PO SCH (22:39)
[2018-04-14] MEDS: PROPRANOLOL HCL 10 MG TAB PO SCH ×2 (00:15→12:32)
[2018-04-14] MEDS: NA CHLORIDE 0.9% 1,000 ML IV SCH ×2 (01:12→12:00)
[2018-04-14] MEDS: metroNIDAZOLE 500 MG TABLET PO SCH ×3 (01:32→12:18)
[2018-04-14] MEDS: SUCRALFATE 1 GM TABLET PO SCH ×2 (09:19→12:18)
[2018-04-14] MEDS: CIPROFLOXACIN HCL 500 MG TAB PO SCH (09:19)
[2018-04-14] MEDS: PANTOPRAZOLE 40MG TABLET PO SCH (09:19)
[2018-04-14 12:33] VITALS: BP 130/61
[2018-04-14 13:02] VITALS: TEMP 97.7
--- NOTE | 2018-04-14 15:17 | P.DS ---
Admission Date: 04/11/18 Discharge Date: 04/14/18 Disposition: ROUTINE DISCHARGE Discharge Condition: GOOD Reason for Admission: Abdominal pain along with nausea and vomiting - Problems (1) Gastritis Current Visit: Yes Status: Acute Qualifiers: Gastritis type: other gastritis Chronicity: acute Gastritis bleeding: with bleeding Qualified Code(s): K29.01 - Acute gastritis with bleeding (2) N&V (nausea and vomiting) Onset Date: 04/12/18 Current Visit: Yes Status: Resolved Qualifiers: Vomiting type: cyclical vomiting Vomiting Intractability: intractable Qualified Code(s): G43.A1 - Cyclical vomiting, intractable (3) New onset type 2 diabetes mellitus Current Visit: Yes Status: Acute (4) Liver lesion Current Visit: Yes Status: Acute (5) Pancytopenia Current Visit: Yes Status: Acute (6) Cirrhosis Onset Date: 04/12/18 Current Visit: Yes Status: Chronic Qualifiers: Hepatic cirrhosis type: other cirrhosis Qualified Code(s): K74.69 - Other cirrhosis of liver (7) H/O hepatitis Current Visit: Yes Status: Chronic Brief History of Present Illness: Patient is a 50-year-old female who presents to the hospital with intractable nausea and vomiting along with abdominal pain. patient states she 8 coleslaw last Sunday. Since that time she has had frequent episodes of nausea and vomiting. She has also has been having right lower quadrant abdominal pain. She came to the emergency room and her workup did not reveal any significant abnormalities except for abnormal liver function testing. Patient was admitted to the hospital for further evaluation. Patient states she has a history of cirrhosis along with hepatitis. She does not know exactly what type. She denies drinking and has not taken any acetaminophen or alcohol in the last 9 years. Her LFTs are slightly elevated. She will be admitted to the hospital for further evaluation. Hospital Course: Overall during the hospital stay patient remained stable Patient was initially admitted to the hospital for nausea vomiting abdominal pain. Most fun to have gastritis. Was started on IV antibiotics while here in the hospital. Patient was given Cipro and Flagyl along with Zofran for her nausea and vomiting. Patient had marked improvement in her symptoms at that time extensive workup was done due to patient having elevated LFTs on admission. The patient elevated LFTs was most likely secondary to liver cirrhosis with unknown etiology. Patient however did state that she was diagnosed with hepatitis-C in the past and was told that she has liver cirrhosis from it. Acute hepatitis panel was collected here in the hospital is currently pending results. Patient had an abdominal CT done here in the hospital which was consistent with some echogenic lesions on the liver and thus MRI liver protocol was recommended by the radiologist. Patient had MRI of the liver protocol which was consistent with 2 small lesions on the liver which were nondiagnostic at this time and repeat MRI has been recommended in 4-6 months. Patient had GI consulted here in the hospital for possible hematemesis as well. Patient had EGD done here in the hospital which was consistent with portal hypertension along with gastritis and several small ulcers which were clean based and nonbleeding at this time. Patient at that time was started on Protonix and Carafate orally and was asked to continue that at home upon discharge. Patient also was diagnosed with type 2 diabetes here in the hospital and was started on metformin while here in the hospital as well. Patient had marked improvement in her symptoms was able to tolerate her p.o. diet and ambulate with physical therapy and thus was discharged home under stable condition. The patient was asked to follow up with a GI doctor and a primary care doctor in about 1-2 days post discharge. Patient was given a prescription for Protonix , Carafate, propanolol, ciprofloxacin, Flagyl. Patient was also asked to repeat her MRI of the abdomen in about 4-6 months after following up with GI Vital Signs/Physical Exam: Temp Pulse Resp BP Pulse Ox 97.7 F 54 16 130/61 98 04/14/18 12:00 04/14/18 12:32 04/14/18 12:00 04/14/18 12:32 04/14/18 12:00 General: Alert, In no apparent distress HEENT: Atraumatic, PERRLA, EOMI Neck: Supple, JVD not distended Respiratory: Clear to auscultation bilaterally, Normal air movement Cardiovascular: Regular rate/rhythm, Normal S1 S2 Gastrointestinal: Normal bowel sounds, No tenderness Musculoskeletal: No tenderness Integumentary: No rashes Neurological: Normal speech, Normal tone, Normal affect Lymphatics: No axilla or inguinal lymphadenopathy Laboratory Data at Discharge: WBC 2.4 K/uL (4.3-10.9) L 04/13/18 10:57 Hgb 12.8 g/dL (12.0-15.0) 04/13/18 10:57 Hct 37.2 % (36.0-45.0) 04/13/18 10:57 Plt Count 48 K/uL (152-406) L* 04/13/18 10:57 PT 14.5 SECONDS (9.5-12.5) H 04/11/18 06:15 INR 1.23 04/11/18 06:15 APTT 39.3 SECONDS (24.3-36.9) H 04/11/18 06:15 Sodium 143 mmol/L (136-145) 04/13/18 10:57 Potassium 4.0 mmol/L (3.5-5.1) 04/13/18 10:57 BUN 9 mg/dL (7-18) 04/13/18 10:57 Creatinine 0.80 mg/dL (0.55-1.3) 04/13/18 10:57 Glucose 273 mg/dL (74-106) H 04/13/18 10:57 Phosphorus 2.1 mg/dL (2.5-4.9) L 04/13/18 10:57 Magnesium 1.5 mg/dL (1.8-2.4) L 04/13/18 10:57 Total Bilirubin 1.7 mg/dL (0.2-1.0) H 04/11/18 06:15 AST 157 U/L (15-37) H 04/11/18 06:15 ALT 131 U/L (12-78) H 04/11/18 06:15 Alkaline Phosphatase 192 U/L (45-117) H 04/11/18 06:15 Triglycerides 69 mg/dL (<150) 04/11/18 06:15 Cholesterol 85 mg/dL (<200) 04/11/18 06:15 HDL Cholesterol 19 mg/dL (40-60) L 04/11/18 06:15 Cholesterol/HDL Ratio 4.47 04/11/18 06:15 Lipase 125 U/L (73-393) 04/10/18 22:55 Home Medications: Ciprofloxacin HCl [Cipro 500 MG Tablet] 500 mg PO DAILY #10 tab 04/14/18 Metformin ER [Glucophage ER*] 500 mg PO BID #60 tab.sa 04/14/18 Pantoprazole [Protonix Tab*] 40 mg PO BIDAC #60 tab 04/14/18 Propranolol HCl 10 mg PO BID #60 tablet 04/14/18 Sucralfate [Carafate*] 1 gm PO QID #120 tab 04/14/18 metroNIDAZOLE [Flagyl*] 500 mg PO Q6HR #40 tablet 04/14/18 New Medications: metroNIDAZOLE [Flagyl*] 500 mg PO Q6HR #40 tablet Ciprofloxacin HCl [Cipro 500 MG Tablet] 500 mg PO DAILY #10 tab Metformin ER [Glucophage ER*] 500 mg PO BID #60 tab.sa Pantoprazole [Protonix Tab*] 40 mg PO BIDAC #60 tab Propranolol HCl 10 mg PO BID #60 tablet Sucralfate [Carafate*] 1 gm PO QID #120 tab Patient Discharge Instructions: Please f.u with PCP and GI doc in 1 to 2 week post discharge. New medication. Cipro for 10 days. Flagyl for 10 days. Protonix 40mg BID. Carafate 1g qid. Metformin 500mg BID. Inderal 10mg BID. You have a Liver lesion that you need to f/u with MRI in 4 months. You also are newly diagnosed Diabetes and need to See a PCP to [facility]. Diet: Regular Activity: Ad siobhan Followup: Vega Patel MD [ASSOCIATE-ACTIVE - CAN ADMIT] - 1 Week (Call to schedule an appointment) Jeremiah Kuhn MD [Primary Care Provider] - (follow up with your primary care physician. Call to schedule an appointment)
[2018-04-14 15:36] VITALS: O2SAT 99
[2018-04-14 20:55] LABS: HBsAG Nonreactive (Nonreactive); Hepatitis A IgM Antibody Nonreactive
--- NOTE | 2018-04-16 18:36 | P.PN ---
Subjective Date of Service: 04/13/18 Chief Complaint: Abdominal pain along with nausea and vomiting Subjective: Improving (Feels better on PPI therapy. Daughter with patient.) Review of Systems 10-point ROS is otherwise unremarkable Gastrointestinal: Nausea (improved), Abdominal Pain (improved) Physical Examination - Vital Signs Temperature: 97.7 F Blood Pressure: 130/61 Pulse: 54 Respirations: 16 Pulse Ox (%): 98 - Physical Exam General: Alert, In no apparent distress, Oriented x3, Cooperative HEENT: Atraumatic, Normocephalic, PERRLA, EOMI Neck: Supple Respiratory: Normal air movement Cardiovascular: Normal pulses Gastrointestinal: No tenderness, No rebound, No guarding, Tenderness (minimal) Neurological: Normal speech, Normal strength at 5/5 x4 extr - Studies Microbiology Data (last 24 hrs): 04/10/18 22:32 Blood - Blood Aerobic Blood Culture - Final No growth in 5 days. 04/10/18 22:32 Blood - Blood Anaerobic Blood Culture - Final No growth in 5 days. 04/10/18 22:55 Blood - Blood Aerobic Blood Culture - Final No growth in 5 days. 04/10/18 22:55 Blood - Blood Anaerobic Blood Culture - Final No growth in 5 days. Medications List Reviewed: Yes Assessment And Plan - Current Problems (Diagnosis) (1) Acute ulcer of stomach Status: Acute (2) Abdominal pain Onset Date: 04/12/18 Status: Acute Comment: Improved. (3) Gastritis Status: Acute Qualifiers: Gastritis type: other gastritis Chronicity: acute Gastritis bleeding: with bleeding Qualified Code(s): K29.01 - Acute gastritis with bleeding (4) New onset type 2 diabetes mellitus Status: Acute (5) Cirrhosis Onset Date: 04/12/18 Status: Chronic Qualifiers: Hepatic cirrhosis type: other cirrhosis Qualified Code(s): K74.69 - Other cirrhosis of liver (6) N&V (nausea and vomiting) Onset Date: 04/12/18 Status: Resolved Comment: Improved. Qualifiers: Vomiting type: cyclical vomiting Vomiting Intractability: intractable Qualified Code(s): G43.A1 - Cyclical vomiting, intractable - Plan REC: 1) continue PPI therapy 2) await EGD pathology
--- NOTE | 2018-04-16 18:38 | P.PN ---
Subjective Date of Service: 04/14/18 Chief Complaint: Abdominal pain along with nausea and vomiting Subjective: Improving (Feels much better. Daughter at bedside. Tolerating po diet.) Review of Systems 10-point ROS is otherwise unremarkable Gastrointestinal: Nausea (Improved. ), Abdominal Pain (Improved) Physical Examination - Vital Signs Temperature: 97.7 F Blood Pressure: 130/61 Pulse: 54 Respirations: 16 Pulse Ox (%): 98 - Physical Exam General: Alert, In no apparent distress, Oriented x3, Cooperative HEENT: Atraumatic, Normocephalic, PERRLA, EOMI Neck: Supple Respiratory: Normal air movement Cardiovascular: Normal pulses Gastrointestinal: No tenderness, No rebound, No guarding Neurological: Normal speech, Normal strength at 5/5 x4 extr - Studies Microbiology Data (last 24 hrs): 04/10/18 22:32 Blood - Blood Aerobic Blood Culture - Final No growth in 5 days. 04/10/18 22:32 Blood - Blood Anaerobic Blood Culture - Final No growth in 5 days. 04/10/18 22:55 Blood - Blood Aerobic Blood Culture - Final No growth in 5 days. 04/10/18 22:55 Blood - Blood Anaerobic Blood Culture - Final No growth in 5 days. Medications List Reviewed: Yes Assessment And Plan - Current Problems (Diagnosis) (1) Acute ulcer of stomach Status: Acute (2) Abdominal pain Onset Date: 04/12/18 Status: Acute Comment: Improved. (3) Gastritis Status: Acute Qualifiers: Gastritis type: other gastritis Chronicity: acute Gastritis bleeding: with bleeding Qualified Code(s): K29.01 - Acute gastritis with bleeding (4) New onset type 2 diabetes mellitus Status: Acute (5) Cirrhosis Onset Date: 04/12/18 Status: Chronic Qualifiers: Hepatic cirrhosis type: other cirrhosis Qualified Code(s): K74.69 - Other cirrhosis of liver (6) N&V (nausea and vomiting) Onset Date: 04/12/18 Status: Resolved Comment: Improved. Qualifiers: Vomiting type: cyclical vomiting Vomiting Intractability: intractable Qualified Code(s): G43.A1 - Cyclical vomiting, intractable - Plan REC: 1) continue PPI therapy 2) await EGD pathology 3) GI clinic f/u
[2018-04-17 10:29] LABS: Hep C Virus RNA (PCR)log 6.08 log IU/mL
[2018-04-17 18:34] LABS: Alpha Fetoprotein-Tumor Marker 18.5 ng/mL (<6.1)
== END 2018-04-14 15:17 | disposition home or self-care (01) | DRG 378 ==
LOC: ER 20:52 → ERHOLD 04-11 02:28 → 4TH 04-11 03:40
PROVIDERS: ADMIT Hospitalist; ATTEND Hospitalist
PROC: 0DB68ZX Excision of Stomach, Via Natural or Artificial Opening Endoscopic, Diagnostic (ICD-10-PCS; principal; 2018-04-12 14:15)
DX: K29.01 Acute gastritis with bleeding (principal); K76.6 Portal hypertension; D61.818 Other pancytopenia; K74.60 Unspecified cirrhosis of liver; K76.9 Liver disease, unspecified; E11.9 Type 2 diabetes mellitus without complications; K31.89 Other diseases of stomach and duodenum; Z86.19 Personal history of other infectious and parasitic diseases; Z23 Encounter for immunization
CPT/HCPCS: 36415; 71045; 74177; 74183; 80048; 80053; 80061; 80074; 80076; 81003; 81015; 82105; 82140; 82378; 82550; 82553; 82962; 83036; 83605; 83690; 83735; 84100; 84145; 85025; 85610; 85730; 86301; 87040; 87522; 88305; 88312; 93005; 96361; 96374; 96375; 99285; A9577; C9113; G0008; J0694; J2405; J3010; J7030; Q2035; Q9967

== ENCOUNTER 2018-04-17 16:03 | Emergency (ER) | payer SELFPAY ==
--- OUTSIDE RECORDS SUMMARY | 2018-04-17 16:05 | XMS REPORT | Clinical Summary ---
:1960 Author Organization [facility] Address [address] [place] [address] Care Team Providers Name Role Phone Asked, [...] (Primary Dx) Jose Cruz Lord MD after 04/16/2017 Social History Tobacco Use Types Packs/Day Years Used Date Current Every Day Smoker Cigarettes 0.5 15 Smokeless Tobacco: Never Used Alcohol Use Drinks/Week oz/Week Comments No Sex Assigned at Date Recorded Not on file Last Filed Vital Signs Vital Sign Reading Time Taken Blood Pressure 132/90 08/07/2017 11:13 AM CHEMISTRY RESEARCH ASSISTANT Pulse 75 08/07/2017 11:13 AM CHEMISTRY RESEARCH ASSISTANT Temperature 36.3 C (97.4 F) 08/07/2017 11:13 AM CHEMISTRY RESEARCH ASSISTANT Respiratory Rate 18 07/28/2017 1:23 PM CHEMISTRY RESEARCH ASSISTANT Oxygen Saturation 97% 08/07/2017 11:13 AM CHEMISTRY RESEARCH ASSISTANT Inhaled Oxygen Concentration - - Weight 70.3 kg (155 lb) 08/07/2017 11:13 AM CHEMISTRY RESEARCH ASSISTANT Height 152.4 cm (5') 08/07/2017 11:13 AM CHEMISTRY RESEARCH ASSISTANT Body Mass Index 30.27 08/07/2017 11:13 AM CHEMISTRY RESEARCH ASSISTANT Plan of Treatment Health Maintenance Due Date Last Done Comments CERVICAL CANCER SCREENING 1981 BREAST CANCER SCREENING 2010 COLON CANCER SCREENING 2010 SHINGRIX VACCINE (#1) 2010 INFLUENZA VACCINE 02/13/2018 Procedures Procedure Name Priority Date/Time Associated Comments Diagnosis TOTAL IRON BINDING Routine 07/28/2017 1:00 Results for this CAPACITY PM CHEMISTRY RESEARCH ASSISTANT procedure are in the results section. LIVER-KIDNEY MICROSOME Routine 07/28/2017 1:00 Results for this AB, IGG PM CHEMISTRY RESEARCH ASSISTANT procedure are in the results section. HEPATITIS C VIRUS Routine 07/28/2017 1:00 Results for this QUANTITATIVE BY PCR PM CHEMISTRY RESEARCH ASSISTANT procedure are in the results section. HEPATITIS C GENOTYPE Routine 07/28/2017 1:00 Results for this PM CHEMISTRY RESEARCH ASSISTANT procedure are in the results section. HBV QUANTITATIVE BY PCR Routine 07/28/2017 1:00 Results for this PM CHEMISTRY RESEARCH ASSISTANT procedure are in the results section. FERRITIN LEVEL Routine 07/28/2017 1:00 Results for this PM CHEMISTRY RESEARCH ASSISTANT procedure are in the results section. CERULOPLASMIN LEVEL Routine 07/28/2017 1:00 Results for this PM CHEMISTRY RESEARCH ASSISTANT procedure are in the results section. ANTI SMOOTH MUSCLE AB Routine 07/28/2017 1:00 Results for this SCREEN PM CHEMISTRY RESEARCH ASSISTANT procedure are in the results section. ANTI MITOCHONDRIA Routine 07/28/2017 1:00 Results for this SCREEN PM CHEMISTRY RESEARCH ASSISTANT procedure are in the results section. GWEN Routine 07/28/2017 1:00 Results for this PM CHEMISTRY RESEARCH ASSISTANT procedure are in the results section. ALPHA-1 ANTITRYPSIN Routine 07/28/2017 1:00 Results for this PHENOTYPE PM CHEMISTRY RESEARCH ASSISTANT procedure are in the results section. ALPHA FETOPROTEIN Routine 07/28/2017 1:00 Results for this PM CHEMISTRY RESEARCH ASSISTANT procedure are in the results section. ECG ED PRELIMINARY Routine 07/28/2017 12:55 Results for this INTERPRETATION PM CHEMISTRY RESEARCH ASSISTANT procedure are in the results section. POC GLUCOSE Routine 07/28/2017 6:25 Results for this AM CHEMISTRY RESEARCH ASSISTANT procedure are in the results section. HCV QUALITATIVE BY PCR Routine 07/28/2017 4:00 Results for this AM CHEMISTRY RESEARCH ASSISTANT procedure are in the results section. ZZESTIMATED GFR Routine 07/28/2017 4:00 Results for this AM CHEMISTRY RESEARCH ASSISTANT procedure are in the results section. HEPATITIS ACUTE PANEL Routine 07/28/2017 4:00 Results for this AM CHEMISTRY RESEARCH ASSISTANT procedure are in the results section. PROTHROMBIN TIME WITH Routine 07/28/2017 4:00 Results for this INR AM CHEMISTRY RESEARCH ASSISTANT procedure are in the results section. PHOSPHORUS LEVEL Routine 07/28/2017 4:00 Results for this AM CHEMISTRY RESEARCH ASSISTANT procedure are in the results section. MAGNESIUM LEVEL Routine 07/28/2017 4:00 Results for this AM CHEMISTRY RESEARCH ASSISTANT procedure are in the results section. IONIZED CALCIUM Routine 07/28/2017 4:00 Results for this AM CHEMISTRY RESEARCH ASSISTANT procedure are in the results section. HEPATIC FUNCTION PANEL Routine 07/28/2017 4:00 Results for this AM CHEMISTRY RESEARCH ASSISTANT procedure are in the results section. HC COMPLETE BLD COUNT Routine 07/28/2017 4:00 Results for this W/AUTO DIFF AM CHEMISTRY RESEARCH ASSISTANT procedure are in the results section. BASIC METABOLIC PANEL Routine 07/28/2017 4:00 Results for this AM CHEMISTRY RESEARCH ASSISTANT procedure are in the results section. NE AN ELECTIVE Routine 07/27/2017 1:51 END[address]RACHEAL AIRWAY PM CHEMISTRY RESEARCH ASSISTANT Procedure Note - Junior Loera CRNA - 07/27/2017 1:49 PM CHEMISTRY RESEARCH ASSISTANT Airway Performed by: JUNIOR LOERA Authorized by: EMPERATRIZ LOCKE Location: OR Urgency: Elective Difficult Airway: No Anesthesiologist: EMPERATRIZ LOCKE Resident/LINER MACHINE OPERATOR/AA: JUNIOR LOERA Performed by: resident/LINER MACHINE OPERATOR/AA Preoxygenated with 100% O2: Yes Mask Ventilation: [...] Timed 07/27/2017 1:51 PM Results for this CHEMISTRY RESEARCH ASSISTANT procedure are in the results section. AEROBIC CULTURE Timed 07/27/2017 1:51 PM Results for this CHEMISTRY RESEARCH ASSISTANT procedure are in the results section. ANAEROBIC CULTURE Timed 07/27/2017 1:51 PM Results for this CHEMISTRY RESEARCH ASSISTANT procedure are in the results section. CHOLECYSTECTOMY, 07/27/2017 1:00 PM cholelithiasis LAPAROSCOPIC CHEMISTRY RESEARCH ASSISTANT SURGICAL PATHOLOGY Routine 07/27/2017 7:18 AM Results for this REQUEST CHEMISTRY RESEARCH ASSISTANT procedure are in the results section. PROTHROMBIN TIME WITH Routine 07/27/2017 4:53 AM Results for this INR CHEMISTRY RESEARCH ASSISTANT procedure are in the results section. HC COMPLETE BLD COUNT Routine 07/27/2017 4:40 AM Results for this W/AUTO DIFF CHEMISTRY RESEARCH ASSISTANT procedure are in the results section. ZZESTIMATED GFR Routine 07/27/2017 4:00 AM Results for this CHEMISTRY RESEARCH ASSISTANT procedure are in the results section. IONIZED CALCIUM Routine 07/27/2017 4:00 AM Results for this CHEMISTRY RESEARCH ASSISTANT procedure are in the results section. HEPATIC FUNCTION PANEL Routine 07/27/2017 4:00 AM Results for this CHEMISTRY RESEARCH ASSISTANT procedure are in the results section. PHOSPHORUS LEVEL Routine 07/27/2017 4:00 AM Results for this CHEMISTRY RESEARCH ASSISTANT procedure are in the results section. MAGNESIUM LEVEL Routine 07/27/2017 4:00 AM Results for this CHEMISTRY RESEARCH ASSISTANT procedure are in the results section. BASIC METABOLIC PANEL Routine 07/27/2017 4:00 AM Results for this CHEMISTRY RESEARCH ASSISTANT procedure are in the results section. URINALYSIS SCREEN AND STAT 07/26/2017 8:45 PM Results for this MICROSCOPY, WITH REFLEX CHEMISTRY RESEARCH ASSISTANT procedure are in TO CULTURE the results section. GRAM STAIN STAT 07/26/2017 8:45 PM Results for this CHEMISTRY RESEARCH ASSISTANT procedure are in the results section. URINE CULTURE STAT 07/26/2017 8:45 PM Results for this CHEMISTRY RESEARCH ASSISTANT procedure are in the results section. ECG 12-LEAD STAT 07/26/2017 7:33 PM Results for this CHEMISTRY RESEARCH ASSISTANT procedure are in the results section. PREPARE PLATELET STAT 07/26/2017 7:22 PM PHERESIS CHEMISTRY RESEARCH ASSISTANT TYPE AND SCREEN STAT 07/26/2017 7:22 PM Results for this CHEMISTRY RESEARCH ASSISTANT procedure are in the results section. US GALLBLADDER STAT 07/26/2017 4:08 PM Results for this CHEMISTRY RESEARCH ASSISTANT procedure are in the results section. CT ABDOMEN PELVIS WO STAT 07/26/2017 2:38 PM Results for this CONTRAST CHEMISTRY RESEARCH ASSISTANT procedure are in the results section. PROTHROMBIN TIME WITH STAT 07/26/2017 12:45 PM Results for this INR CHEMISTRY RESEARCH ASSISTANT procedure are in the results section. ZZESTIMATED GFR STAT 07/26/2017 12:45 PM Results for this CHEMISTRY RESEARCH ASSISTANT procedure are in the results section. LACTIC ACID LEVEL STAT 07/26/2017 12:45 PM Results for this CHEMISTRY RESEARCH ASSISTANT procedure are in the results section. HC COMPLETE BLD COUNT STAT 07/26/2017 12:45 PM Results for this W/AUTO DIFF CHEMISTRY RESEARCH ASSISTANT procedure are in the results section. LIPASE LEVEL STAT 07/26/2017 12:45 PM Results for this CHEMISTRY RESEARCH ASSISTANT procedure are in the results section. AMYLASE LEVEL STAT 07/26/2017 12:45 PM Results for this CHEMISTRY RESEARCH ASSISTANT procedure are in the results section. COMPREHENSIVE METABOLIC STAT 07/26/2017 12:45 PM Results for this PANEL CHEMISTRY RESEARCH ASSISTANT procedure are in the results section. after 04/16/2017 Results Anti smooth muscle Ab screen (07/28/2017 1:00 PM) Anti smooth muscle Ab screen Not Detected Not-Detected [facility] DEPARTMENT OF PATHOLOGY AND GENOMIC MEDICINE Specimen Blood Performing Organization Address City/[facility] Phone Number [facility] DEPARTMENT OF PATHOLOGY AND [address] [place] [id number] [facility] Total iron binding capacity (07/28/2017 1:00 PM) Iron level 119 37 - 145 ug/dL [facility] DEPARTMENT OF PATHOLOGY AND GENOMIC MEDICINE Iron binding capacity 337 200 - 400 ug/dL [facility] DEPARTMENT OF PATHOLOGY AND GENOMIC MEDICINE % Saturation 35.3 15.0 - 38.0 % [facility] DEPARTMENT OF PATHOLOGY AND GENOMIC MEDICINE Specimen Plasma specimen Performing Organization Address City/[facility]/Zipcode Phone Number [facility] DEPARTMENT OF PATHOLOGY AND [address] [place] [phone] [facility] Liver-kidney microsome Ab, IgG (07/28/2017 1:00 PM) Liver-kidney microsome Ab, <1:20 <1:20 [facility] IgG Comment: INTERPRETIVE INFORMATION:Fznuq-Ohcaat-Jgvkgthkh Abs, IgG Liver-Kidney Microsome IgG antibody (anti-LKM), as detected by indirect immunofluorescent antibody (IFA) techniques, may be observed in patients with autoimmune hepatitis type 2 (AIH-2), AIH-2 associated with autoimmune fqopgvfvnpyrvxrzvg-twyrzbivulk-vdnknhmmqf dystrophy (APECED), viral hepatitis C or D, and some forms of drug-induced hepatitis. This IFA does not differentiate among the four types of LKM antibodies (LKM-1, LKM-2, LKM-3, and a fourth type that recognizes CY and CY antigens). Of these, anti-LKM-1 (cytochrome [id number]) IgG antibodies are considered specific for AIH-2. Test developed and characteristics determined by [facility]. See Compliance Statement D: [employer]/ Performed by [facility], [address] [facility] [place] [address] [email or web address], Mayo Joiner MD - Lab. Director Specimen Serum Performing Organization Address [facility] Phone Number [facility] [address] [place] [address] HBV quantitative by PCR (07/28/2017 1:00 PM) HBV, quantitative PCR Not-Detected Not-Detected IU/mL [facility] DEPARTMENT OF PATHOLOGY AND GENOMIC MEDICINE HBV, quantitative PCR See link below for [facility] DEPARTMENT OF PDF Lab PATHOLOGY AND GENOMIC ReportComment: Case MEDICINE Number: [id number] Specimen Blood Performing Organization Address [facility] Phone Number [facility] DEPARTMENT OF PATHOLOGY AND [address] [place] [id number] GENOMIC MEDICINE Alpha-1 antitrypsin phenotype (07/28/2017 1:00 PM) Alpha-1 antitrypsin 162Comment: To convert to 90 - 200 mg/dL [facility] umol/L, multiply mg/dL by 0.185 Alpha-1 antitrypsin MM [facility] phenotype Comment: The patient appears to have a normal phenotype. All M alleles (including subtypes M1, M2, and M3) produce normal serum concentrations of iqwyx-9-pecohdzl inhibitor and are not associated with clinical disease. Caution in interpretation is advised if the patient has been transfused within the previous 21 days. Performed by [facility], [address] [facility] [place] [address] [email or web address], Mayo Joiner MD - Lab. Director Specimen Serum Performing Organization Address City/[facility] Phone Number [facility] [address] [place] [address] Anti mitochondria screen (07/28/2017 1:00 PM) Anti mitochondria screen Not Detected Not-Detected [facility] DEPARTMENT OF PATHOLOGY AND GENOMIC MEDICINE Specimen Blood Performing Organization Address City/[facility] Phone Number [facility] DEPARTMENT OF PATHOLOGY AND [address] [place] [address] Ceruloplasmin level (07/28/2017 1:00 PM) Ceruloplasmin 20 16 - 45 mg/dL [facility] DEPARTMENT OF PATHOLOGY AND GENOMIC MEDICINE Specimen Plasma specimen Performing Organization Address [facility] Phone Number [facility] DEPARTMENT OF PATHOLOGY AND [address] [place] [address] Alpha fetoprotein (07/28/2017 1:00 PM) Alpha fetoprotein 35.1 (H) 0.0 - 8.3 ng/mL [facility] DEPARTMENT OF Comment: PATHOLOGY AND GENOMIC The [employer] 8000 AFP immunoassay was used. MEDICINE Results obtained with different assay methods or kits should not be used interchangeably and may be different. Specimen Serum Performing Organization Address [facility] Phone Number [facility] DEPARTMENT OF PATHOLOGY AND [address] [place] [address] Hepatitis C genotype (07/28/2017 1:00 PM) Hepatitis C genotype 3 (A) Not Detected [facility] DEPARTMENT OF PATHOLOGY AND GENOMIC MEDICINE Hepatitis C genotype See link below for PDF [facility] DEPARTMENT OF PATHOLOGY Lab ReportComment: Case AND GENOMIC MEDICINE Number: [id number] Specimen Blood Performing Organization Address [facility] Phone Number [facility] DEPARTMENT OF PATHOLOGY AND [address] [place] [address] Hepatitis C virus quantitative by PCR (07/28/2017 1:00 PM) Hepatitis C 1,380,000 (A) Not-Detected IU/mL [facility] DEPARTMENT OF quantitative, PCR PATHOLOGY AND GENOMIC MEDICINE Hepatitis C See link below for [facility] DEPARTMENT OF quantitative, PCR PDF Lab PATHOLOGY AND GENOMIC ReportComment: Case MEDICINE Number: [id number] Specimen Blood Performing Organization Address [facility] Phone Number [facility] DEPARTMENT OF PATHOLOGY AND [address] [place] [address] GWEN (07/28/2017 1:00 PM) GWEN screen <1:80 <1:80 [facility] DEPARTMENT OF PATHOLOGY AND GENOMIC MEDICINE Specimen Blood Performing Organization Address [facility] Phone Number [facility] DEPARTMENT OF PATHOLOGY AND [address] [place] [address] Ferritin level (07/28/2017 1:00 PM) Ferritin level 260 (H) 13 - 150 ng/mL [facility] DEPARTMENT OF PATHOLOGY AND GENOMIC MEDICINE Specimen Plasma specimen Performing Organization Address [facility] Phone Number [facility] DEPARTMENT OF PATHOLOGY AND [address] [place] [address] GENOMIC MEDICINE ECG ED Preliminary Interpretation - NOT AN ORDER (07/28/2017 12:55 PM) Narrative Performed At [facility] 07/28/20178:13 AM ECG ED Preliminary Interpretation - Not an Order Performed by: ALONSO MARS Authorized by: JOSE CRUZ LORD ECG reviewed by ED Physician in the absence of a manager shift: yes Previous ECG: Previous ECG:Unavailable Interpretation: Interpretation: normal Rate: ECG rate:56 ECG rate assessment: bradycardic Rhythm: Rhythm: sinus bradycardia Ectopy: Ectopy: none QRS: QRS axis:Normal QRS intervals:Normal Conduction: Conduction: normal ST segments: ST segments:Normal T waves: T waves: normal POC glucose (07/28/2017 6:25 AM) POC glucose 85 65 - 99 mg/dL [facility] DEPARTMENT OF PATHOLOGY AND Comment: GENOMIC MEDICINE [facility] Notified RN Meter ID: [id number] [employer] Operator: Taylor Rausch Performing Organization Address [facility] Phone Number [facility] DEPARTMENT OF PATHOLOGY AND [address] [place] [address] HCV qualitative by PCR (07/28/2017 4:00 AM) HCV PCR result Detected (A) Not-Detected [facility] DEPARTMENT OF PATHOLOGY AND GENOMIC MEDICINE HCV RNA qualitative See link below for PDF [facility] DEPARTMENT OF PATHOLOGY Lab ReportComment: Case AND GENOMIC MEDICINE Number: [id number] Specimen Serum Performing Organization Address [facility] Phone Number [facility] DEPARTMENT OF PATHOLOGY AND [address] [place] [address] GENOMIC MEDICINE Estimated GFR (07/28/2017 4:00 AM)Only the most recent of3 resultswithin the time period is included. GFR Non Af Amer 86 mL/min/1.73 m2 [facility] DEPARTMENT OF PATHOLOGY AND [employer] [facility] GFR Af Amer >90 mL/min/1.73 m2 [facility] DEPARTMENT OF Comment: PATHOLOGY AND GENOMIC Chronic [...] Americans. Specimen Plasma specimen Performing Organization Address City/State/[facility] Phone Number [facility] DEPARTMENT OF PATHOLOGY AND [address] [place] [address] Hepatitis acute panel (07/28/2017 4:00 AM) Hepatitis A IgM Non-reactive Non-reactive [facility] DEPARTMENT OF PATHOLOGY AND [employer] [facility] Hepatitis B core IgM Non-reactive Non-reactive [facility] DEPARTMENT OF PATHOLOGY AND [facility] Hepatitis B surface Ag Non-reactive Non-reactive [facility] DEPARTMENT OF PATHOLOGY AND [facility] Hepatitis C Ab Reactive (A) Non-reactive [facility] DEPARTMENT OF Comment: PATHOLOGY AND [facility] HCV antibody testing initially Reactive. Confirmation by HCV RNA PCR will be MEDICINE performed and reported separately when completed. Repeat HCV RNA PCR will not be performed if done within 30 days. Specimen Serum Performing Organization Address [facility] Phone Number [facility] DEPARTMENT OF PATHOLOGY AND [address] [place] [address] Prothrombin time with INR (07/28/2017 4:00 AM)Only the most recent of3 resultswithin the time period is included. Prothrombin time 13.6 12.0 - 15.0 sec [facility] DEPARTMENT OF PATHOLOGY AND [employer] MEDICINE INR 1.0 [facility] DEPARTMENT OF Comment: PATHOLOGY AND GENOMIC The International Normalized Ratio (INR) is a therapeutic MEDICINE monitoring tool for patients who are stable on oral anticoagulant therapy. An INR of 2.0-3.0 is suggested for deep vein thrombosis/pulmonary embolism. Specimen Blood Performing Organization Address City/[facility] Phone Number [facility] DEPARTMENT OF PATHOLOGY AND [address] [place] [address] GENOMIC [facility] CBC with platelet and differential (07/28/2017 4:00 AM)Only the most recent of3 resultswithin the time period is included. WBC 5.82 4.50 - 11.00 k/uL [facility] DEPARTMENT OF PATHOLOGY AND GENOMIC MEDICINE RBC 3.69 (L) 4.20 - 5.50 m/uL [facility] DEPARTMENT OF PATHOLOGY AND GENOMIC MEDICINE HGB 12.4 12.0 - 16.0 g/dL [facility] DEPARTMENT OF PATHOLOGY AND GENOMIC MEDICINE HCT 37.0 37.0 - 47.0 % [facility] DEPARTMENT OF PATHOLOGY AND GENOMIC MEDICINE MCV 100.3 (H) 82.0 - 100.0 fL [facility] DEPARTMENT OF PATHOLOGY AND GENOMIC MEDICINE MCH 33.6 27.0 - 34.0 pg [facility] DEPARTMENT OF PATHOLOGY AND GENOMIC MEDICINE MCHC 33.5 31.0 - 37.0 g/dL [facility] DEPARTMENT OF PATHOLOGY AND GENOMIC MEDICINE RDW - SD 46.2 37.0 - 55.0 fL [facility] DEPARTMENT OF PATHOLOGY AND GENOMIC MEDICINE MPV 12.6 8.8 - 13.2 fL [facility] DEPARTMENT OF PATHOLOGY AND GENOMIC MEDICINE Platelet count 66 (L) 150 - 400 k/uL [facility] DEPARTMENT OF PATHOLOGY AND GENOMIC MEDICINE Nucleated RBC 0.00 /100 WBC [facility] DEPARTMENT OF PATHOLOGY AND GENOMIC MEDICINE Neutrophils 45.4 39.0 - 69.0 % [facility] DEPARTMENT OF PATHOLOGY AND GENOMIC MEDICINE Lymphocytes 47.4 (H) 25.0 - 45.0 % [facility] DEPARTMENT OF PATHOLOGY AND GENOMIC MEDICINE Monocytes 6.0 0.0 - 10.0 % [facility] DEPARTMENT OF PATHOLOGY AND GENOMIC MEDICINE Eosinophils 0.7 0.0 - 5.0 % [facility] DEPARTMENT OF PATHOLOGY AND GENOMIC MEDICINE Basophils 0.3 0.0 - 1.0 % [facility] DEPARTMENT OF PATHOLOGY AND GENOMIC MEDICINE Immature granulocytes 0.2Comment: 0.0 - 1.0 % [facility] DEPARTMENT OF "Immature PATHOLOGY AND GENOMIC granulocytes" MEDICINE (promyelocytes, myelocytes, metamyelocytes) Specimen Blood Performing Organization Address City/State/Zipcode Phone Number [facility] DEPARTMENT OF PATHOLOGY AND [address] [place] [address] [employer] Phosphorus level (07/28/2017 4:00 AM)Only the most recent of2 resultswithin the time period is included. Phosphorus 3.7 2.4 - 4.5 mg/dL [facility] DEPARTMENT OF PATHOLOGY AND GENOMIC MEDICINE Specimen Plasma specimen Performing Organization Address [facility] Phone Number [facility] DEPARTMENT OF PATHOLOGY AND [address] [place] [address] Magnesium level (07/28/2017 4:00 AM)Only the most recent of2 resultswithin the time period is included. Magnesium 1.8 1.6 - 2.6 mg/dL [facility] DEPARTMENT OF PATHOLOGY AND GENOMIC MEDICINE Specimen Plasma specimen Performing Organization Address [facility] Phone Number [facility] DEPARTMENT OF PATHOLOGY AND [address] [place] [address] Ionized calcium (07/28/2017 4:00 AM)Only the most recent of2 resultswithin the time period is included. pH 7.53 [facility] DEPARTMENT OF PATHOLOGY AND GENOMIC MEDICINE Ionized calcium 0.99 (L) 1.11 - 1.32 mmol/L [facility] DEPARTMENT OF PATHOLOGY AND GENOMIC MEDICINE Specimen Plasma specimen Performing Organization Address [facility] Phone Number [facility] DEPARTMENT OF PATHOLOGY AND [address] [place] [address] Hepatic function panel (07/28/2017 4:00 AM)Only the most recent of2 resultswithin the time period is included. Albumin 2.7 (L) 3.5 - 5.0 g/dL [facility] DEPARTMENT OF PATHOLOGY AND GENOMIC MEDICINE Total bilirubin 0.7 0.0 - 1.2 mg/dL [facility] DEPARTMENT OF PATHOLOGY AND GENOMIC MEDICINE Bilirubin direct <0.2 0.0 - 0.3 mg/dL [facility] DEPARTMENT OF PATHOLOGY AND GENOMIC MEDICINE Alkaline phosphatase 90 35 - 104 U/L [facility] DEPARTMENT OF PATHOLOGY AND GENOMIC MEDICINE Protein 6.2 (L) 6.3 - 8.3 g/dL [facility] DEPARTMENT OF Comment: PATHOLOGY AND GENOMIC [place] 4.6-7.0 g/dL MEDICINE 1 week 4.4-7.6 g/dL 7 months-1year5.1-7.3 g/dL 1-2 years5.6-7.5 g/dL >3 years6.0-8.0 g/dL 18-150 6.3-8.3 g/dL ALT 112 (H) 5 - 50 U/L [facility] DEPARTMENT OF PATHOLOGY AND GENOMIC MEDICINE AST 111 (H) 10 - 35 U/L [facility] DEPARTMENT OF PATHOLOGY AND GENOMIC MEDICINE Specimen Plasma specimen Performing Organization Address City/[facility] Phone Number [facility] DEPARTMENT OF PATHOLOGY AND [address] [place] [phone] [facility] MEDICINE Basic metabolic panel (07/28/2017 4:00 AM)Only the most recent of2 resultswithin the time period is included. Sodium 138 135 - 148 mEq/L [facility] DEPARTMENT OF PATHOLOGY AND GENOMIC MEDICINE Potassium 4.3 3.5 - 5.0 mEq/L [facility] DEPARTMENT OF PATHOLOGY AND GENOMIC MEDICINE Chloride 101 98 - 112 mEq/L [facility] DEPARTMENT OF PATHOLOGY AND GENOMIC MEDICINE CO2 25 24 - 31 mEq/L [facility] DEPARTMENT OF PATHOLOGY AND GENOMIC MEDICINE Anion gap 12 7 - 15 mEq/L [facility] DEPARTMENT OF PATHOLOGY Comment: AND [facility] Starting from October , anion gap calculation no longer incorporates potassium. Please note the change. BUN 10 6 - 20 mg/dL [facility] DEPARTMENT OF PATHOLOGY AND GENOMIC MEDICINE Creatinine 0.7 0.5 - 0.9 mg/dL [facility] DEPARTMENT OF PATHOLOGY AND GENOMIC MEDICINE Glucose 74 65 - 99 mg/dL [facility] DEPARTMENT OF PATHOLOGY AND GENOMIC MEDICINE Calcium 8.6 8.3 - 10.2 mg/dL [facility] DEPARTMENT OF PATHOLOGY AND GENOMIC MEDICINE Specimen Plasma specimen Performing Organization Address City/[facility] Phone Number [facility] DEPARTMENT OF PATHOLOGY AND [address] [place], [place] [phone] [facility] Aerobic culture (07/27/2017 1:51 PM) Aerobic culture isolate No growth after 3 days. [facility] DEPARTMENT OF Comment: PATHOLOGY AND GENOMIC Specimen Information MEDICINE Specimen Source: Bile Specimen Site: Not otherwise specified Specimen Bile - Not otherwise specified Performing Organization Address City/[facility] Phone Number [facility] DEPARTMENT OF PATHOLOGY AND [address] [place] [phone] [facility] MEDICINE Gram stain (07/27/2017 1:51 PM)Only the most recent of2 resultswithin the time period is included. Gram stain isolate No WBC's or organisms seen. [facility] DEPARTMENT OF PATHOLOGY Comment: AND [facility] Specimen Information Specimen Source: Bile Specimen Site: Not otherwise specified Specimen Bile - Not otherwise specified Performing Organization Address City/[facility]/Zipcode Phone Number [facility] DEPARTMENT OF PATHOLOGY AND [address] [place], [place] [phone] GENOMIC MEDICINE Anaerobic culture (07/27/2017 1:51 PM) Anaerobic culture No anaerobic organisms isolated. [facility] DEPARTMENT OF isolate Comment: PATHOLOGY AND GENOMIC Specimen Information MEDICINE Specimen Source: Bile Specimen Site: Not otherwise specified Specimen Bile - Not otherwise specified Performing Organization Address City/[facility]/Zipcode Phone Number [facility] DEPARTMENT OF PATHOLOGY AND [address] [place] [address] GENOMIC MEDICINE Surgical pathology request (07/27/2017 7:18 AM) [facility] DEPARTMENT OF PATHOLOGY AND GENOMIC MEDICINE Surgical pathology report See link below for PDF [facility] DEPARTMENT OF Lab Report PATHOLOGY AND GENOMIC MEDICINE Result status This is Final Report to [facility] DEPARTMENT OF [id number] PATHOLOGY AND GENOMIC MEDICINE Performing Organization Address City/[facility] Phone Number [facility] DEPARTMENT OF PATHOLOGY AND [address] [place] [address] Urinalysis screen and microscopy, with reflex to culture (07/26/2017 8:45 PM) Specimen site Clean catch [facility] DEPARTMENT OF PATHOLOGY AND GENOMIC MEDICINE Color, UA Yellow [facility] DEPARTMENT OF PATHOLOGY AND GENOMIC MEDICINE Appearance, UA Clear [facility] DEPARTMENT OF PATHOLOGY AND GENOMIC MEDICINE Specific gravity, UA 1.011 1.001 - 1.035 [facility] DEPARTMENT OF PATHOLOGY AND GENOMIC MEDICINE pH, UA 6.0 5.0 - 8.5 [facility] DEPARTMENT OF PATHOLOGY AND GENOMIC MEDICINE Protein, UA Negative Negative [facility] DEPARTMENT OF PATHOLOGY AND GENOMIC MEDICINE Glucose, UA Negative Negative [facility] DEPARTMENT OF PATHOLOGY AND GENOMIC MEDICINE Ketones, UA Negative Negative [facility] DEPARTMENT OF PATHOLOGY AND GENOMIC MEDICINE Bilirubin, UA Negative Negative [facility] DEPARTMENT OF PATHOLOGY AND GENOMIC MEDICINE Blood, UA Small (A) Negative [facility] DEPARTMENT OF PATHOLOGY AND GENOMIC MEDICINE Nitrite, UA Negative Negative [facility] DEPARTMENT OF PATHOLOGY AND GENOMIC MEDICINE Urobilinogen, UA 4.0 (A) <2.0 [facility] DEPARTMENT OF PATHOLOGY AND GENOMIC MEDICINE Leukocyte esterase, UA Small (A) Negative [facility] DEPARTMENT OF PATHOLOGY AND GENOMIC MEDICINE Epithelial cells, UA 3 /HPF [facility] DEPARTMENT OF PATHOLOGY AND GENOMIC MEDICINE WBC, UA 7 (H) 0 - 4 /HPF [facility] DEPARTMENT OF PATHOLOGY AND GENOMIC MEDICINE RBC, UA 2 0 - 2 /HPF [facility] DEPARTMENT OF PATHOLOGY AND GENOMIC MEDICINE Bacteria, UA Few None seen [facility] DEPARTMENT OF PATHOLOGY AND GENOMIC MEDICINE Yeast, UA None seen [facility] DEPARTMENT OF PATHOLOGY AND GENOMIC MEDICINE Yeast with pseudohyphae, UA None seen [facility] DEPARTMENT OF PATHOLOGY AND GENOMIC MEDICINE Specimen Urine Performing Organization Address City/[facility] Phone Number [facility] DEPARTMENT OF PATHOLOGY AND [address] [place] [phone] [facility] MEDICINE Urine culture (07/26/2017 8:45 PM) Urine culture isolate Mixed Gram positive ene [facility] DEPARTMENT OF 10-2 cfu/ml PATHOLOGY AND GENOMIC (A) MEDICINE Comment: Specimen Information Specimen Source: Urine Specimen Site: Clean catch Specimen Urine Performing Organization Address City/State/Zipcode Phone Number [facility] DEPARTMENT OF PATHOLOGY AND [address] [place] [address] [facility] MEDICINE ECG 12 lead (07/26/2017 7:33 PM) Ventricular rate 56 [facility] MUSE Atrial rate 56 [facility] MUSE NE interval 148 [facility] MUSE QRSD interval 88 [facility]USE QT interval 482 [facility] MUSE QTC interval 465 [facility] MUSE P axis 1 17 [facility] MUSE QRS axis 1 31 [facility] MUSE T wave axis 45 [facility] MUSE EKG impression Sinus bradycardia-Otherwise normal ECG-No [facility] MUSE previous ECGs available- Performing Organization Address [facility] Phone Number [facility] MUSE [address] [place] [phone] Type and screen (07/26/2017 7:22 PM) ABO grouping O [facility] DEPARTMENT OF PATHOLOGY AND GENOMIC MEDICINE Rh type POS [facility] DEPARTMENT OF PATHOLOGY AND GENOMIC MEDICINE Antibody screen (gel) NEG [facility] DEPARTMENT OF PATHOLOGY AND GENOMIC MEDICINE Specimen Blood Performing Organization Address [facility] Phone Number [facility] DEPARTMENT OF PATHOLOGY AND [address] [place] [phone] [facility] MEDICINE US Gallbladder (07/26/2017 4:08 PM) [...] 3. Common bile duct is not dilated. [facility]-[id number] Procedure Note Hm Interface, Radiology Results Incoming - 07/26/2017 4:13 PM CHEMISTRY RESEARCH ASSISTANT EXAMINATION: US GALLBLADDER CLINICAL HISTORY: Cholecystitis COMPARISON: [...] 3. Common bile duct is not dilated. [facility]-[id number] Performing Organization Address City/State/Zipcode Phone Number [facility] [address] [place] [address] CT Abdomen Pelvis Wo Contrast (07/26/2017 2:38 PM) Narrative Performed At EXAMINATION:[facility] CLINICAL H[facility]ORY:ABDOMINAL PAIN COMPARISON:None. TECHNIQUE: CT of [...] CT evidence of colitis or bowel obstruction. [facility]-[id number] Procedure Note [facility], Radiology Results Incoming - 07/26/2017 2:49 PM CHEMISTRY RESEARCH ASSISTANT EXAMINATION: CT ABDOMEN PELVIS WO CONTRAST CLINICAL [...] CT evidence of colitis or bowel obstruction. [facility]-[id number] Performing Organization Address City/[facility]/[place] [address] Lipase level (07/26/2017 12:45 PM) Lipase 57 13 - 60 U/L [facility] DEPARTMENT OF PATHOLOGY AND GENOMIC MEDICINE Specimen Plasma specimen Performing Organization Address City/[facility] Phone Number [facility] DEPARTMENT OF PATHOLOGY AND [address] [place] [address] Lactic acid level (07/26/2017 12:45 PM) Lactic acid 1.4 0.5 - 2.2 mmol/L [facility] DEPARTMENT OF PATHOLOGY AND GENOMIC MEDICINE Specimen Plasma specimen Performing Organization Address [facility] Phone Number [facility] DEPARTMENT OF PATHOLOGY AND [address] [place] [address] Amylase level (07/26/2017 12:45 PM) Amylase 50 28 - 100 U/L [facility] DEPARTMENT OF PATHOLOGY AND GENOMIC MEDICINE Specimen Plasma specimen Performing Organization Address [facility] Phone Number [facility] DEPARTMENT OF PATHOLOGY AND [address] [place] [address] Comprehensive metabolic panel (07/26/2017 12:45 PM) Sodium 140 135 - 148 mEq/L [facility] DEPARTMENT OF PATHOLOGY AND GENOMIC MEDICINE Potassium 3.8 3.5 - 5.0 mEq/L [facility] DEPARTMENT OF PATHOLOGY AND GENOMIC MEDICINE Chloride 102 98 - 112 mEq/L [facility] DEPARTMENT OF PATHOLOGY AND GENOMIC MEDICINE CO2 27 24 - 31 mEq/L [facility] DEPARTMENT OF PATHOLOGY AND GENOMIC MEDICINE Anion gap 11 7 - 15 mEq/L [facility] DEPARTMENT OF Comment: PATHOLOGY AND GENOMIC Starting from October , anion gap calculation MEDICINE no longer incorporates potassium. Please note the change. BUN 11 6 - 20 mg/dL [facility] DEPARTMENT OF PATHOLOGY AND GENOMIC MEDICINE Creatinine 0.7 0.5 - 0.9 mg/dL [facility] DEPARTMENT OF PATHOLOGY AND GENOMIC MEDICINE Glucose 135 (H) 65 - 99 mg/dL [facility] DEPARTMENT OF PATHOLOGY AND GENOMIC MEDICINE Calcium 9.0 8.3 - 10.2 mg/dL [facility] DEPARTMENT OF PATHOLOGY AND GENOMIC MEDICINE Protein 7.4 6.3 - 8.3 g/dL [facility] DEPARTMENT OF Comment: PATHOLOGY AND GENOMIC [place] 4.6-7.0 g/dL MEDICINE 1 week 4.4-7.6 g/dL 7 months-1year5.1-7.3 g/dL 1-2 years5.6-7.5 g/dL >3 years6.0-8.0 g/dL 18-150 6.3-8.3 g/dL Albumin 3.2 (L) 3.5 - 5.0 g/dL [facility] DEPARTMENT OF PATHOLOGY AND GENOMIC MEDICINE A/G ratio 0.8 0.7 - 3.8 [facility] DEPARTMENT OF PATHOLOGY AND GENOMIC MEDICINE Alkaline phosphatase 130 (H) 35 - 104 U/L [facility] DEPARTMENT OF PATHOLOGY AND GENOMIC MEDICINE AST 119 (H) 10 - 35 U/L [facility] DEPARTMENT OF PATHOLOGY AND GENOMIC MEDICINE ALT 144 (H) 5 - 50 U/L [facility] DEPARTMENT OF PATHOLOGY AND GENOMIC MEDICINE Total bilirubin 0.8 0.0 - 1.2 mg/dL [facility] DEPARTMENT OF PATHOLOGY AND GENOMIC MEDICINE Specimen Plasma specimen Performing Organization Address City/State/Zipcode Phone Number [facility] DEPARTMENT OF PATHOLOGY AND [address] [place] [address] [facility] after 04/16/2017
[2018-04-17 17:07] LABS: Absolute Lymphocytes (CBC) 1.2 K/uL (0.7-4.9); Absolute Monocytes 0.3 K/uL (0.1-1.3); Absolute Neutrophil 0.9 K/uL (1.8-8.0); Basophils % 0.9 % (0-1.3); Eosinophils % 1.1 % (0-4.4); Hematocrit 34.4 % (36.0-45.0); Lymphocytes % 49.7 % (15.3-44.8); MCV 99.7 fL (80-100); MPV 11.5 fL (7.6-11.3); Monocytes % 10.6 % (3.3-12.3); RBC Red Blood Cell Count 3.45 M/uL (3.86-4.86)
[2018-04-17 17:10] LABS: Protime INR 1.42
--- NOTE | 2018-04-17 17:12 | RAD REPORT ---
EXAM DESCRIPTION: RAD - Chest Single View - 04/17/2018 4:54 pm CLINICAL HISTORY: Leg swelling, shortness of breath COMPARISON: April 10 TECHNIQUE: AP portable chest image was obtained 1650 hours . FINDINGS: No focal lung parenchymal process. Interstitial markings are fractionally increased over t he prior study. Heart size is fractionally increased. Vasculature is not clearly different. Trachea i s midline. No measurable pleural effusion and no pneumothorax. No gross bony abnormality seen. No acu te aortic findings suspected. IMPRESSION: Subtle increase in heart size in interstitial markings from comparison. Patient can be m onitored for early interstitial edema is, interstitial infiltrate or early failure.
--- NOTE | 2018-04-17 17:33 | RAD REPORT ---
EXAM DESCRIPTION: US - Extrem Venous W Compress Saleem - 04/17/2018 5:28 pm CLINICAL HISTORY: Leg pain and swelling COMPARISON: None. TECHNIQUE: Real-time sonographic evaluation of the bilateral lower extremity common femoral, superfi cial femoral, popliteal and posterior tibial veins was performed. FINDINGS: Normal compressibility, flow augmentation, phasic flow and spontaneous flow are identified in the left and right lower extremity common femoral, superficial femoral, popliteal and posterior t ibial veins. No intraluminal filling defects seen. IMPRESSION: No DVT in either lower extremity.
[2018-04-17 17:44] LABS: Blood Morphology Comment NOT SEEN (NOT SEEN); Platelet Estimate DECR; Urine White Blood Cell Casts OK
[2018-04-17 17:56] LABS: BUN Blood Urea Nitrogen 12 mg/dL (7-18); Bicarbonate 26 mmol/L (21-32); Glucose Level 278 mg/dL (74-106); Magnesium 1.7 mg/dL (1.8-2.4); NT PRO-BNP 444 pg/mL (<125); Potassium 3.6 mmol/L (3.5-5.1); Sodium Level 141 mmol/L (136-145); Troponin (Emerg Dept Use Only) < 0.02 ng/mL (0.0-0.045)
--- NOTE | 2018-04-17 19:02 | ER ---
Nurse's Notes [facility] Name: Ana Maria Chavez Age: 58 yrs Sex: Female : 1960 Arrival Date: 04/17/2018 Time: 16:08 Bed 15 Private MD: Diagnosis: Edema, unspecified Presentation: 04/17 16:13 Presenting complaint: Patient states: yesterday my legs started swelling, i was just hj D/C'd from the hospital for diabetes and stomach ulcers; denies chest pain; denies SOB; reports painful throat, "feels like med got stuck on my throat". Transition of care: patient was not received from another setting of care. Onset of symptoms was April 17, 2018. Risk Assessment: Do you want to hurt yourself or someone else? Patient reports no desire to harm self or others. Initial Sepsis Screen: Does the patient meet any 2 criteria? No. Patient's initial sepsis screen is negative. Does the patient have a suspected source of infection? No. Patient's initial sepsis screen is negative. Care prior to arrival: None. 16:13 Method Of Arrival: Ambulatory 16:13 Acuity: LETY 3 hj Triage Assessment: 16:18 General: Appears in no apparent distress. uncomfortable, Behavior is calm, cooperative, hj appropriate for age. Pain: Denies pain. Historical: - Allergies: 16:18 No Known Allergies; hj - Home Meds: 16:18 pantoprazole 40 mg oral TbEC 1 tab once daily [Active]; metformin 500 mg Oral tab 1 tab hj 2 times per day [Active]; Cipro 500 mg Oral tab 1 tab daily [Active]; sucralfate 1 gram Oral tab 1 tab 4 times per day [Active]; metronidazole 500 mg oral tab 1 tab every 6 hours [Active]; propranolol 10 mg Oral tab 1 tab twice a day [Active]; - PMHx: 16:18 Cirrhosis; hj - PSHx: 16:18 Cholecystectomy; hj - Immunization history:: Adult Immunizations up to date. - Social history:: Smoking status: Patient/guardian denies using tobacco, Patient/guardian denies using alcohol. - Ebola Screening: : Patient negative for fever greater than or equal to 101.5 degrees Fahrenheit, and additional compatible Ebola Virus Disease symptoms Patient denies exposure to infectious person Patient denies travel to an Ebola-affected area in the 21 days before illness onset. Screenin:18 Abuse screen: Denies threats or abuse. Denies injuries from another. Nutritional hj screening: No deficits noted. Tuberculosis screening: No symptoms or risk factors identified. Fall Risk None identified. Assessment: 16:20 General: Appears in no apparent distress. comfortable, obese, Behavior is cooperative, bp appropriate for age, anxious. Pain: Complains of pain in abdomen, right leg and left leg. Neuro: Level of Consciousness is awake, alert, obeys commands, Oriented to person, place, time, situation, Appropriate for age. Cardiovascular: No deficits noted. Respiratory: Airway is patent Respiratory effort is even, unlabored, Respiratory pattern is regular, symmetrical. GI: No signs and/or symptoms were reported involving the gastrointestinal system. : No signs and/or symptoms were reported regarding the genitourinary system. EENT: No deficits noted. Derm: No deficits noted. Musculoskeletal: Circulation, motion, and sensation intact. Range of motion: intact in all extremities, Swelling present in right leg and left leg. 17:00 Reassessment: PT TO U/S WITH [employer]. bp 17:21 Reassessment: PT RETURNED FROM U/S. bp 19:17 Reassessment: PT D/C HOME AMBULATORY WITH FAMILY, DX WITH EDEMA. bp Vital Signs: 16:18 BP 118 / 58; Pulse 66; Resp 18; Temp 97.6(TE); Pulse Ox 97% on R/A; Weight 64.86 kg; hj Height 5 ft. 0 in. (152.40 cm); Pain 6/10; 16:48 BP 112 / 60; Pulse 72; Resp 17; Pulse Ox 98% on R/A; mh5 17:28 BP 127 / 79; Pulse 48; Resp 20; Pulse Ox 98% ; mh5 18:22 BP 143 / 72; Pulse 45; Resp 18; Pulse Ox 100% on R/A; mh5 19:15 BP 144 / 80; Pulse 46; Resp 14; Pulse Ox 100% ; bp 16:18 Body Mass Index 27.93 (64.86 kg, 152.40 cm) ED Course: 16:08 Patient arrived in ED. mr 16:15 Triage completed. 16:18 Arm band placed on left wrist. 16:18 Patient has correct armband on for positive identification. Placed in gown. Bed in low hj position. Call light in reach. Side rails up X 1. Adult w/ patient. 16:21 Stanislav Ashton, RN is Primary Nurse. bp 16:21 Maureen Adkins FNP-C is [facility]. kb 16:21 Nuno Carranza MD is Attending Physician. kb 16:46 Initial lab(s) drawn, by pa, sent to lab. Inserted saline lock: 20 gauge in right 5 antecubital area, using aseptic technique. Blood collected. 16:47 Basic Metabolic Panel Sent. 5 16:47 CBC with Diff Sent. 5 16:47 Magnesium Sent. 5 16:47 NT PRO-BNP Sent. 5 16:47 PT-INR Sent. 5 16:47 Troponin (emerg Dept Use Only) Sent. [facility] 16:48 Warm blanket given. quality assurance monitor body on. Pulse ox on. NIBP on. 5 16:53 X-ray completed. Portable x-ray completed in exam room. Patient tolerated procedure az well. 16:55 XRAY Chest (1 view) In Process Unspecified. EDMS 16:59 EKG done, by echocardiography technologist. reviewed by Maureen MATA. 3 17:28 US Extremity Venous W Compression Saleem In Process Unspecified. EDMS 19:17 No provider procedures requiring assistance completed. IV discontinued, intact, bp bleeding controlled, No redness/swelling at site. Pressure dressing applied. Administered Medications: 19:09 Drug: LaSIX 20 mg Route: PO; jb4 19:15 Follow up: BP 144 / 80; Pulse 46 bpm; Resp 14 bpm; Pulse Ox 100% bp Outcome: 19:01 Discharge ordered by . kb 19:17 Discharged to home ambulatory, with family. bp 19:17 Condition: stable 19:17 Discharge instructions given to patient, Instructed on discharge instructions, follow up and referral plans. medication usage, Demonstrated understanding of instructions, follow-up care, medications, Prescriptions given X 1. 19:18 Patient left the ED. bp Signatures: Dispatcher [employer] EDWV Maureen Adkins FNP-C FNP-Ckb Maida PaulsonCharan RN RN hj Bryson, James, RN RN jb4 Maria Teresa De Luna [facility] Stanislav Ashton, RN RN bp Tri Wolf 3 Kadi Ledezma Corrections: (The following items were deleted from the chart) 16:20 16:13 Presenting complaint: Patient states: yesterday my legs started swelling, i was hj just D/C'd from the hospital for diabetes and stomach ulcers; denies chest pain; denies SOB; hj 16:21 16:18 Pulse 66bpm; Resp 18bpm; Pulse Ox 97% RA; Temp 97.6F Temporal; 64.86 kg; Height 5 hj ft. 0 in.; BMI: 27.9; Pain 6/10; hj
--- NOTE | 2018-04-17 19:02 | EDPHYS ---
Physician Documentation [facility] Name: Ana Maria Chavez Age: 58 yrs Sex: Female : 1960 Arrival Date: 04/17/2018 Time: 16:08 Bed 15 Private MD: ED Physician Nuno Carranza HPI: 04/17 17:02 This 58 yrs old Female presents to ER via Ambulatory with complaints of Leg kb Swelling, Feet Swelling. 17:02 The patient presents with swelling. The complaints affect the right and left lower kb extremities. Context: The problem was sustained at home, resulted from an unknown cause, the patient can fully bear weight, the patient is able to ambulate, without difficulty. Onset: The symptoms/episode began/occurred yesterday. Modifying factors: The symptoms are alleviated by nothing. the symptoms are aggravated by nothing. Associated signs and symptoms: Pertinent positives: swelling, Pertinent negatives calf tenderness, fever, nausea, numbness, rash, tingling, vomiting, warmth, weakness. Treatment prior to arrival includes: no previous treatment. Severity of symptoms: At their worst the symptoms were moderate, in the emergency department the symptoms are unchanged. The patient has not experienced similar symptoms in the past. The patient has not recently seen a physician. Pt states she started having lower extremity swelling yesterday. It was better this morning and has gotten worse throughout the day. States she had some swelling to her face and neck this morning as well.. Historical: - Allergies: 16:18 No Known Allergies; hj - Home Meds: 16:18 pantoprazole 40 mg oral TbEC 1 tab once daily [Active]; metformin 500 mg Oral tab 1 tab hj 2 times per day [Active]; Cipro 500 mg Oral tab 1 tab daily [Active]; sucralfate 1 gram Oral tab 1 tab 4 times per day [Active]; metronidazole 500 mg oral tab 1 tab every 6 hours [Active]; propranolol 10 mg Oral tab 1 tab twice a day [Active]; - PMHx: 16:18 Cirrhosis; hj - PSHx: 16:18 Cholecystectomy; hj - Immunization history:: Adult Immunizations up to date. - Social history:: Smoking status: Patient/guardian denies using tobacco, Patient/guardian denies using alcohol. - Ebola Screening: : Patient negative for fever greater than or equal to 101.5 degrees Fahrenheit, and additional compatible Ebola Virus Disease symptoms Patient denies exposure to infectious person Patient denies travel to an Ebola-affected area in the 21 days before illness onset. ROS: 17:02 Constitutional: Negative for fever, chills, and weight loss, Cardiovascular: Negative kb for chest pain, palpitations, and edema, Respiratory: Negative for shortness of breath, cough, wheezing, and pleuritic chest pain, Abdomen/GI: Negative for abdominal pain, nausea, vomiting, diarrhea, and constipation, Back: Negative for injury and pain, : Negative for injury, bleeding, discharge, and swelling, Skin: Negative for injury, rash, and discoloration, Neuro: Negative for headache, weakness, numbness, tingling, and seizure. 17:02 MS/extremity: Positive for swelling, of the right leg and left leg. Exam: 17:02 Constitutional: This is a well developed, well nourished patient who is awake, alert, kb and in no acute distress. Head/Face: Normocephalic, atraumatic. Neck: Trachea midline, no thyromegaly or masses palpated, and no cervical lymphadenopathy. Supple, full range of motion without nuchal rigidity, or vertebral point tenderness. No Meningismus. Chest/axilla: Normal chest wall appearance and motion. Nontender with no deformity. No lesions are appreciated. Cardiovascular: Regular rate and rhythm with a normal S1 and S2. No gallops, murmurs, or rubs. Normal PMI, no JVD. No pulse deficits. + lower extremity edema Respiratory: Lungs have equal breath sounds bilaterally, clear to auscultation and percussion. No rales, rhonchi or wheezes noted. No increased work of breathing, no retractions or nasal flaring. Abdomen/GI: Soft, non-tender, with normal bowel sounds. No distension or tympany. No guarding or rebound. No evidence of tenderness throughout. Skin: Warm, dry with normal turgor. Normal color with no rashes, no lesions, and no evidence of cellulitis. Neuro: Awake and alert, GCS 15, oriented to person, place, time, and situation. Cranial nerves II-XII grossly intact. Motor strength 5/5 in all extremities. Sensory grossly intact. Cerebellar exam normal. Normal gait. Vital Signs: 16:18 BP 118 / 58; Pulse 66; Resp 18; Temp 97.6(TE); Pulse Ox 97% on R/A; Weight 64.86 kg; hj Height 5 ft. 0 in. (152.40 cm); Pain 6/10; 16:48 BP 112 / 60; Pulse 72; Resp 17; Pulse Ox 98% on R/A; mh5 17:28 BP 127 / 79; Pulse 48; Resp 20; Pulse Ox 98% ; mh5 18:22 BP 143 / 72; Pulse 45; Resp 18; Pulse Ox 100% on R/A; mh5 19:15 BP 144 / 80; Pulse 46; Resp 14; Pulse Ox 100% ; bp 16:18 Body Mass Index 27.93 (64.86 kg, 152.40 cm) hj MDM: 16:22 Patient medically screened. kb 17:02 Data reviewed: vital signs, nurses notes. Data interpreted: Pulse oximetry: on room air kb is 98 %. Interpretation: normal. 18:53 Counseling: I had a detailed discussion with the patient and/or guardian regarding: the kb historical points, exam findings, and any diagnostic results supporting the discharge/admit diagnosis, lab results, radiology results, the need for outpatient follow up, a family practitioner, to return to the emergency department if symptoms worsen or persist or if there are any questions or concerns that arise at home. 19:01 ED course: Pt educated on findings of portal vein hypertension from admission last kb week. Educated on need for lasix due to swelling. Pt to follow up with PCP within a week. Educated to return for chest pain, shortness of breath, or other concerns. . 04/17 16:38 Order name: Basic Metabolic Panel; Complete Time: 18:03 kb 04/17 16:38 Order name: CBC with Diff; Complete Time: 17:45 kb 04/17 16:38 Order name: Magnesium; Complete Time: 18:03 kb 04/17 16:38 Order name: NT PRO-BNP; Complete Time: 18:03 kb 04/17 16:38 Order name: PT-INR; Complete Time: 17:21 kb 04/17 16:38 Order name: Troponin (emerg Dept Use Only); Complete Time: 18:03 kb 04/17 16:38 Order name: XRAY Chest (1 view); Complete Time: 17:15 kb 04/17 16:38 Order name: EKG; Complete Time: 16:38 kb 04/17 16:38 Order name: Cardiac monitoring; Complete Time: 16:48 kb 04/17 16:38 Order name: EKG - Nurse/Tech; Complete Time: 16:56 kb 04/17 16:38 Order name: IV Saline Lock; Complete Time: 16:56 kb 04/17 16:38 Order name: US Extremity Venous W Compression Saleem; Complete Time: 17:36 kb 04/17 17:16 Order name: CBC Smear Scan; Complete Time: 17:45 EDMS 04/17 16:38 Order name: Labs collected and sent; Complete Time: 16:55 kb 04/17 16:38 Order name: O2 Per Protocol; Complete Time: 16:55 kb 04/17 16:38 Order name: O2 Sat Monitoring; Complete Time: 16:47 kb Administered Medications: 19:09 Drug: LaSIX 20 mg Route: PO; jb4 19:15 Follow up: BP 144 / 80; Pulse 46 bpm; Resp 14 bpm; Pulse Ox 100% bp Disposition: 04/18 07:14 Co-signature as Attending Physician, Nuno Carranza MD I agree with the assessment and rl plan of care. Disposition: 04/17/18 19:01 Discharged to Home. Impression: Edema, unspecified. - Condition is Stable. - Discharge Instructions: Edema, [id number]. - Prescriptions for Lasix 20 mg Oral Tablet - take 1 tablet by ORAL route once daily; 20 tablet. - Medication Reconciliation Form, Thank You Letter, Antibiotic Education, Prescription Opioid Use form. - Follow up: Emergency Department; When: As needed; Reason: Worsening of condition. Follow up: Private Physician; When: 2 - 3 days; Reason: Recheck today's complaints, Continuance of care, Re-evaluation by your physician. Signatures: Dispatcher [employer] ED[facility] Maureen Adkins, SENIOR WATER/WASTEWATER ENGINEER-C SENIOR WATER/WASTEWATER ENGINEER-Nuno Castro MD MD cha Joaquin, Henry, RN Cody Alonso RN RN Stanislav Garcia RN RN bp Corrections: (The following items were deleted from the chart) 04/17 19:18 19:01 04/17/2018 19:01 Discharged to Home. Impression: Edema, unspecified. Condition is bp Stable. Forms are Medication Reconciliation Form, Thank You Letter, Antibiotic Education, Prescription Opioid Use. Follow up: Emergency Department; When: As needed; Reason: Worsening of condition. Follow up: Private Physician; When: 2 - 3 days; Reason: Recheck today's complaints, Continuance of care, Re-evaluation by your physician. kb
[2018-04-17] MEDS ORDERED: FUROSEMIDE 20 MG TABLET ONE (19:11)
[2018-04-17 19:37] VITALS: TEMP 97.6
[2018-04-17 19:40] VITALS: O2SAT 100
[2018-04-17 19:42] VITALS: BP 144/80
--- NOTE | 2018-04-17 23:08 | EKG ---
Test Date: 2018-04-17 Test Time: 16:53:07 General Merchandise Salesperson: ANKITA MEASUREMENT RESULTS: Intervals: Rate: 50 DE: 152 QRSD: 84 QT: 476 QTc: 433 Freeman: P: 7 DE: 152 QRS: 7 T: 25 INTERPRETIVE STATEMENTS: Sinus bradycardia Otherwise normal ECG Compared to ECG 04/10/2018 22:57:45 No significant changes Electronically Signed On 04-17-18 23:07:33 CDT by Refugio Michaud
== END 2018-04-17 19:18 | disposition home or self-care (01) ==
LOC: ER 16:03
DX: R60.9 Edema, unspecified (principal)
CPT/HCPCS: 36415; 71045; 80048; 83735; 83880; 84484; 85025; 85610; 93005; 93970; 99285

== ENCOUNTER 2019-02-18 09:18 | Emergency (ER) | payer SELFPAY ==
--- OUTSIDE RECORDS SUMMARY | 2019-02-18 21:21 | XMS REPORT | Clinical Summary ---
:1960 [facility] [address] [place] [address] Care Team Providers Name Role Phone Asked, No Pcp Primary Care Provider Unavailable Allergies No Known Allergies Medications Medication Sig Dispensed Refills Start Date End Date Status ondansetron (ZOFRAN) 4 Take 4 mg by 0 Active MG tablet mouth every 8 (eight) hours as needed for nausea or vomiting. diclofenac (VOLTAREN) Take 50 mg by 0 Active 50 MG EC tablet mouth daily as needed. Active Problems Problem Noted Date Acute cholecystitis 07/26/2017 Social History Tobacco Use Types Packs/Day Years Used Date Current Every Day Smoker Cigarettes 0.5 15 Smokeless Tobacco: Never Used Alcohol Use Drinks/Week oz/Week Comments No Sex Assigned at Date Recorded Not on file Job Start Date Occupation Industry Not on file Not on file Not on file Travel History Travel Start Travel End No recent travel history available. Last Filed Vital Signs Not on file Plan of Treatment Health Maintenance Due Date Last Done Comments BREAST CANCER SCREENING 2010 COLONOSCOPY SCREENING 2010 SHINGLES VACCINES (#1) 2010 INFLUENZA VACCINE 02/13/2019 Results Not on fileafter 02/17/2018 Advance Directives Patient has advance care planning documents on file. For more information, please contact:[address] [address]
[2019-02-18 22:11] LABS: Urine Blood 2+ (NEG); Urine Glucose NEGATIVE (NEG); Urine Protein NEGATIVE (NEG)
--- NOTE | 2019-02-19 00:02 | ER ---
Nurse's Notes [facility] Name: Ana Maria Chavez Age: 58 yrs Sex: Female : 1960 Arrival Date: 02/18/2019 Time: 21:21 Bed 17 Private MD: Diagnosis: Sciatica, left side Presentation: 02/18 21:26 Presenting complaint: Patient states: "It been 4 or 5 days. I woke up and all this side aj1 (pt points to left side) hurts. I called my doctor and she told me to take Aleve and it would be fine, so I'm taking the Aleve. It don't help" Denies N/V/D. Denies dysuria. Reports urinary frequency. Transition of care: patient was not received from another setting of care. Onset of symptoms was February 18, 2019. Risk Assessment: Do you want to hurt yourself or someone else? Patient reports no desire to harm self or others. Initial Sepsis Screen: Does the patient meet any 2 criteria? No. Patient's initial sepsis screen is negative. Does the patient have a suspected source of infection? No. Patient's initial sepsis screen is negative. Care prior to arrival: None. 21:26 Method Of Arrival: Ambulatory aj1 21:26 Acuity: LETY 3 aj1 Triage Assessment: 21:32 General: Appears in no apparent distress. comfortable, Behavior is calm, cooperative, aj1 appropriate for age. Pain: Complains of pain in posterior aspect of left lateral abdomen Pain does not radiate. Pain currently is 10 out of 10 on a pain scale. Neuro: Level of Consciousness is awake, alert, obeys commands. Cardiovascular: Patient's skin is warm and dry. Respiratory: Airway is patent Respiratory effort is even, unlabored, Respiratory pattern is regular, symmetrical. Historical: - Allergies: 21:32 "some kind of medicine, I think it was for high blood pressure"; aj1 - Home Meds: 21:32 None [Active]; aj1 - PMHx: 21:32 Cirrhosis; Hepatitis C; gastric ulcers; aj1 - Immunization history:: Flu vaccine is up to date. - Social history:: Smoking status: Patient/guardian denies using tobacco. - Ebola Screening: : Patient denies travel to an Ebola-affected area in the 21 days before illness onset. Screenin:45 Abuse screen: Denies threats or abuse. Nutritional screening: No deficits noted. jb4 Tuberculosis screening: No symptoms or risk factors identified. Fall Risk None identified. Assessment: 21:45 General: Appears in no apparent distress. uncomfortable, Behavior is calm, cooperative, jb4 appropriate for age. Pain: Complains of pain in left low back Pain radiates to left lower quadrant Pain currently is 10 out of 10 on a pain scale. Quality of pain is described as stabbing, throbbing, Pain began 2-3 days ago. Neuro: Level of Consciousness is awake, alert, obeys commands, Oriented to person, place, time, situation. Cardiovascular: Patient's skin is warm and dry. Respiratory: Airway is patent Respiratory effort is even, unlabored, Respiratory pattern is regular, symmetrical. GI: No deficits noted. No signs and/or symptoms were reported involving the gastrointestinal system. : Reports pain in left lower quadrant(s) in lower back. EENT: No signs and/or symptoms were reported regarding the EENT system. Derm: Skin is intact, Skin is pink, warm \\T\\ dry. Musculoskeletal: Circulation, motion, and sensation intact. Range of motion: intact in all extremities. 22:45 Reassessment: Patient appears in no apparent distress at this time. Patient and/or jb4 family updated on plan of care and expected duration. Pain level reassessed. Patient is alert/active/playful, equal unlabored respirations, skin warm/dry/pink. 02/19 00:00 Reassessment: Patient appears in no apparent distress at this time. Patient and/or jb4 family updated on plan of care and expected duration. Pain level reassessed. Patient is alert/active/playful, equal unlabored respirations, skin warm/dry/pink. Pt ambulated out of Ed with significant other, verbalized understanding of d/c and follow up instructions. Vital Signs: 02/18 21:32 BP 198 / 81; Pulse 80; Resp 18; Temp 97.6; Pulse Ox 98% on R/A; Weight 73.48 kg (R); aj1 Height 4 ft. 11 in. (149.86 cm) (R); Pain 10/10; 22:45 BP 177 / 66; Pulse 68; Resp 16; Pulse Ox 98% on R/A; jb4 02/19 00:13 BP 176 / 81; Pulse 78; Resp 16; Pulse Ox 98% on R/A; jb4 02/18 21:32 Body Mass Index 32.72 (73.48 kg, 149.86 cm) aj1 ED Course: 02/18 21:21 Patient arrived in ED. cl3 21:28 Triage completed. aj1 21:30 Maureen Adkins [facility]-C [facility]. kb 21:30 Junior Lee MD is Attending Physician. kb 21:32 Arm band placed on Patient placed in an exam room. aj1 21:40 Cody Rodriguez, RN is Primary Nurse. jb4 21:45 Patient has correct armband on for positive identification. Bed in low position. Call jb4 light in reach. Side rails up X 1. 22:50 CT Stone Protocol In Process Unspecified. EDWI 02/19 00:00 No provider procedures requiring assistance completed. Patient did not have IV access jb4 during this emergency room visit. Administered Medications: 00:13 Drug: Flexeril 10 mg Route: PO; jb4 00:13 Drug: TORadol 30 mg Route: IM; Site: right gluteus; jb4 Outcome: 02/18 23:59 Discharge ordered by . kb 02/19 00:15 Discharged to home ambulatory, with significant other. jb4 Condition: stable Discharge instructions given to patient, significant other, Instructed on discharge instructions, follow up and referral plans. medication usage, Demonstrated understanding of instructions, follow-up care, medications, Prescriptions given X 2. 00:22 Patient left the ED. jb4 Signatures: Dispatcher [employer] [facility] Maureen Adkins FNP-C FNP-Niya Payne RN RN aj1 Cody Rodriguez, RN RN [email or web address] Tho Valencia cl3 Corrections: (The following items were deleted from the chart) 02/18 23:00 21:30 Abuse screen: Denies threats or abuse. jb4 jb4 23: 21:30 Nutritional screening: No deficits noted. jb4 jb4 23: 21:30 Tuberculosis screening: No symptoms or risk factors identified. jb4 jb4 23: 21:30 Fall Risk None identified. jb4 jb4 23: 21:25 General: Appears in no apparent distress. uncomfortable, Behavior is calm, jb4 cooperative, appropriate for age, jb4 23: 21:25 Pain: Complains of pain in left low back Pain radiates to left lower quadrant jb4 Pain currently is 10 out of 10 on a pain scale. Quality of pain is described as stabbing, throbbing, Pain began 2-3 days ago. [facility] :25 Neuro: Level of Consciousness is awake, alert, obeys commands, Oriented to [facility] person, place, time, situation, [facility] :25 Cardiovascular: Patient's skin is warm and dry. 4 [facility] 21:25 Respiratory: Airway is patent Respiratory effort is even, unlabored, Respiratory [facility] pattern is regular, symmetrical, [facility] :25 GI: No deficits noted. No signs and/or symptoms were reported involving the [facility] gastrointestinal system. [facility] : : Reports pain in left lower quadrant(s) in [facility]:25 EENT: No signs and/or symptoms were reported regarding the EENT system. [place] [id number] :25 Derm: Skin is intact, Skin is pink, warm \\T\\ dry. [place] [id number] : 21:25 Musculoskeletal: Circulation, motion, and sensation intact. Range of motion: jb4 intact in all extremities, [facility] 02/19 03:20 08/06 22:45 Reassessment: Patient appears in no apparent distress at this time. Patient jb4 is alert, oriented x 3, equal unlabored respirations, skin warm/dry/pink. Patient is alert/active/playful, equal unlabored respirations, skin warm/dry/pink. [facility]
--- NOTE | 2019-02-19 00:03 | EDPHYS ---
Physician Documentation [facility] Name: Ana Maria Chavez Age: 58 yrs Sex: Female : 1960 Arrival Date: 02/18/2019 Time: 21:21 Bed 17 Private MD: ED Physician Junior Lee HPI: 02/18 23:52 This 58 yrs old Female presents to ER via Ambulatory with complaints of left kb side pain.. 23:52 The patient presents with pain that is acute, with no known mechanism of injury. The kb symptoms are located in the low back. 23:53 Onset: The symptoms/episode began/occurred 4 day(s) ago. The pain radiates to the left kb leg. Associated signs and symptoms: The patient has no apparent associated signs or symptoms. The problem was sustained from unknown cause. Modifying factors: The patient symptoms are alleviated by nothing, the patient symptoms are aggravated by any movement. Severity of symptoms: At their worst the symptoms were moderate, in the emergency department the symptoms are unchanged. The patient has not experienced similar symptoms in the past. The patient has not recently seen a physician. Pt reports left low back pain that radiates down buttock and back of left leg. Historical: - Allergies: 21:32 "some kind of medicine, I think it was for high blood pressure"; aj1 - Home Meds: 21:32 None [Active]; aj1 - PMHx: 21:32 Cirrhosis; Hepatitis C; gastric ulcers; aj1 - Immunization history:: Flu vaccine is up to date. - Social history:: Smoking status: Patient/guardian denies using tobacco. - Ebola Screening: : Patient denies travel to an Ebola-affected area in the 21 days before illness onset. ROS: 23:45 Constitutional: Negative for fever, chills, and weight loss, Neck: Negative for injury, kb pain, and swelling, Cardiovascular: Negative for chest pain, palpitations, and edema, Respiratory: Negative for shortness of breath, cough, wheezing, and pleuritic chest pain, Abdomen/GI: Negative for abdominal pain, nausea, vomiting, diarrhea, and constipation, : Negative for injury, bleeding, discharge, and swelling, MS/Extremity: Negative for injury and deformity, Skin: Negative for injury, rash, and discoloration, Neuro: Negative for headache, weakness, numbness, tingling, and seizure. 23:45 Back: Positive for pain at rest, pain with movement, radiated pain, of the left low back. Exam: 23:45 Constitutional: This is a well developed, well nourished patient who is awake, alert, kb and in no acute distress. Head/Face: Normocephalic, atraumatic. Neck: Trachea midline, no thyromegaly or masses palpated, and no cervical lymphadenopathy. Supple, full range of motion without nuchal rigidity, or vertebral point tenderness. No Meningismus. Chest/axilla: Normal chest wall appearance and motion. Nontender with no deformity. No lesions are appreciated. Cardiovascular: Regular rate and rhythm with a normal S1 and S2. No gallops, murmurs, or rubs. Normal PMI, no JVD. No pulse deficits. Respiratory: Lungs have equal breath sounds bilaterally, clear to auscultation and percussion. No rales, rhonchi or wheezes noted. No increased work of breathing, no retractions or nasal flaring. Abdomen/GI: Soft, non-tender, with normal bowel sounds. No distension or tympany. No guarding or rebound. No evidence of tenderness throughout. Skin: Warm, dry with normal turgor. Normal color with no rashes, no lesions, and no evidence of cellulitis. MS/ Extremity: Pulses equal, no cyanosis. Neurovascular intact. Full, normal range of motion. Neuro: Awake and alert, GCS 15, oriented to person, place, time, and situation. Cranial nerves II-XII grossly intact. Motor strength 5/5 in all extremities. Sensory grossly intact. Cerebellar exam normal. Normal gait. 23:45 Back: pain, that is moderate, of the left low back, ROM is painful, normal spinal alignment noted, CVA tenderness, is absent. Vital Signs: 21:32 BP 198 / 81; Pulse 80; Resp 18; Temp 97.6; Pulse Ox 98% on R/A; Weight 73.48 kg (R); aj1 Height 4 ft. 11 in. (149.86 cm) (R); Pain 10/10; 22:45 BP 177 / 66; Pulse 68; Resp 16; Pulse Ox 98% on R/A; jb4 0807 00:13 BP 176 / 81; Pulse 78; Resp 16; Pulse Ox 98% on R/A; jb4 02/18 21:32 Body Mass Index 32.72 (73.48 kg, 149.86 cm) aj1 MDM: 02/18 21:44 Patient medically screened. kb 23:44 Data reviewed: vital signs, nurses notes. Data interpreted: Pulse oximetry: on room air kb is 98 %. Interpretation: normal. Counseling: I had a detailed discussion with the patient and/or guardian regarding: the historical points, exam findings, and any diagnostic results supporting the discharge/admit diagnosis, lab results, radiology results, the need for outpatient follow up, a family practitioner, to return to the emergency department if symptoms worsen or persist or if there are any questions or concerns that arise at home. 02/18 21:52 Order name: Urine Dipstick--Ancillary (enter results); Complete Time: 22:15 mw2 02/18 21:44 Order name: CT Stone Protocol kb 02/18 21:44 Order name: Urine Dipstick-Ancillary (obtain specimen); Complete Time: 21:54 kb Administered Medications: 02/19 00:13 Drug: Flexeril 10 mg Route: PO; 00:13 Drug: TORadol 30 mg Route: IM; Site: right gluteus; jb4 Disposition: 02:08 Co-signature as Attending Physician, Junior Lee MD. rn Disposition: 02/18/19 23:59 Discharged to Home. Impression: Sciatica, left side. - Condition is Stable. - Discharge Instructions: Sciatica, [id number], Back Exercises, [id number]. - Prescriptions for Cyclobenzaprine 10 mg Oral Tablet - take 1 tablet by ORAL route every 8 hours As needed; 21 tablet. Diclofenac Sodium 75 mg Oral Tablet, Delayed Release (E.C.) - take 1 tablet by ORAL route 2 times per day As needed; 30 tablet. - Medication Reconciliation Form, Thank You Letter, Antibiotic Education, Prescription Opioid Use form. - Work release form (02/19/19 00:22). jb4 - Follow up: Emergency Department; When: As needed; Reason: Worsening of condition. Follow up: Private Physician; When: 2 - 3 days; Reason: Recheck today's complaints, Continuance of care, Re-evaluation by your physician. Signatures: Dispatcher [employer] Maureen Livingston, ACID CONDITIONER-C ACID CONDITIONER-Ckb Niya Singletary, RN RN aj1 Junior Lee MD MD rn Bryson, James, RN RN jb4 Corrections: (The following items were deleted from the chart) 00:22 02/18 23:59 02/18/2019 23:59 Discharged to Home. Impression: Sciatica, left side. jb4 Condition is Stable. Forms are Medication Reconciliation Form, Thank You Letter, Antibiotic Education, Prescription Opioid Use. Follow up: Emergency Department; When: As needed; Reason: Worsening of condition. Follow up: Private Physician; When: 2 - 3 days; Reason: Recheck today's complaints, Continuance of care, Re-evaluation by your physician. kb
[2019-02-19] MEDS ORDERED: KETOROLAC 30 MG/ML INJ ONE (00:08)
[2019-02-19] MEDS ORDERED: CYCLOBENZAPRINE 10 MG TAB ONE (00:08)
[2019-02-19 00:45] VITALS: TEMP 97.6; O2SAT 98
[2019-02-19 00:47] VITALS: BP 177/66
--- NOTE | 2019-02-19 11:34 | RAD REPORT ---
EXAM DESCRIPTION: CT - Stone Protocol - 02/19/2019 1:59 am CLINICAL HISTORY: FLANK PAIN COMPARISON: None. TECHNIQUE: CT ABDOMEN PELVIS WITHOUT IV CONTRAST on 02/18/2019 9:44 PM CDT This exam was performed according to our departmental dose-optimization program, which includes autom ated exposure control, adjustment of the mA and/or kV according to patient size and/or use of iterati ve reconstruction technique. FINDINGS: Lower lungs are clear. Abdomen: Liver is mildly and contour. Probable small cyst in the anterior liver measures 1.5 cm. Ther e is no biliary dilatation. Cholecystectomy was performed. The pancreas and spleen are normal in appe arance. The adrenal glands and kidneys are unremarkable. Abdominal aorta is normal in course and caliber without aneurysm. There is no free air. There is no r etroperitoneal adenopathy. Pelvis: There is no bowel obstruction. Urinary bladder is unremarkable. There is no free fluid. Uteru s is normal in size. Appendix is not well seen but there is no pericecal inflammation. Skeleton: There are no acute osseous findings. No suspicious bony lesions. IMPRESSION: No renal or ureteral calculi. No hydronephrosis. Electronically signed by: Aurelio Dominguez MD 02/18/2019 11:02 PM CDT Due to temporary technical issues with the PACS/Fluency reporting system, reports are being signed by the in house radiologist as a courtesy to ensure prompt reporting. The interpreting radiologist is f ully responsible for the content of the report.
== END 2019-02-19 00:22 | disposition home or self-care (01) ==
LOC: ER 21:18
DX: M54.32 Sciatica, left side (principal); Z88.8 Allergy status to other drugs, medicaments and biological substances
CPT/HCPCS: 74176; 76377; 81003; 96372; 99283

== ENCOUNTER 2019-08-31 23:31 | Emergency (ER) | payer SELFPAY ==
--- NOTE | 2019-09-01 00:49 | ER ---
Nurse's Notes [facility] Name: Ana Maria Chavez Age: 59 yrs Sex: Female : 1960 Arrival Date: 08/31/2019 Time: 23:35 Bed 6 Private MD: Diagnosis: Acute bronchitis;Otitis media, unspecified, left ear;Fever, unspecified Presentation: 08/31 23:52 Presenting complaint: Patient states: Cough, congestion, sore throat, left ear pain x 3 lp1 days, worse today; Temp of 101 this afternoon, Aleve taken. Transition of care: patient was not received from another setting of care. Onset of symptoms was August 31, 2019. Risk Assessment: Do you want to hurt yourself or someone else? Patient reports no desire to harm self or others. Initial Sepsis Screen: Does the patient meet any 2 criteria? HR > 90 bpm. Does the patient have a suspected source of infection? No. Patient's initial sepsis screen is negative. Care prior to arrival: None. 23:52 Method Of Arrival: Ambulatory lp1 23:52 Acuity: LETY 4 lp1 Historical: - Allergies: 23:54 No Known Drug Allergies; lp1 - Home Meds: 23:54 None [Active]; lp1 - PMHx: 23:54 Cirrhosis; gastric ulcers; Hepatitis C; lp1 - PSHx: 23:54 Cholecystectomy; lp1 - Immunization history:: Adult Immunizations up to date. - Coronavirus screen:: The patient has NOT traveled to [place] in the past 14 days. The patient has NOT had contact with known/suspected case of Coronavirus?. - Social history:: Smoking status: Patient denies any tobacco usage or history of. - Ebola Screening: : No symptoms or risks identified at this time. Screenin:55 Abuse screen: Denies threats or abuse. Denies injuries from another. Nutritional lp1 screening: No deficits noted. Tuberculosis screening: No symptoms or risk factors identified. Fall Risk None identified. Assessment: 23:54 General: Appears in no apparent distress. Behavior is calm, cooperative, appropriate lp1 for age. Pain: Complains of pain in left ear, throat Pain currently is 7 out of 10 on a pain scale. Neuro: Level of Consciousness is awake, alert, obeys commands, Oriented to person, place, time, situation. Cardiovascular: Patient's skin is warm and dry. Respiratory: Reports shortness of breath cough that is Airway is patent Respiratory effort is even, unlabored, Respiratory pattern is regular, Breath sounds are clear bilaterally. GI: Abdomen is non-distended. : No signs and/or symptoms were reported regarding the genitourinary system. EENT: Tympanic membrane clear on left ear and right ear Throat is reddened Reports nasal congestion nasal discharge pain when swallowing. Derm: Skin is pink, warm \T\ dry. Musculoskeletal: No deficits noted. Vital Signs: 23:51 BP 132 / 93; Pulse 95; Resp 20; Temp 99.1(O); Pulse Ox 98% on R/A; Weight 77.11 kg (R); lp1 Height 4 ft. 11 in. (149.86 cm); 23:51 Body Mass Index 34.34 (77.11 kg, 149.86 cm) lp1 ED Course: 23:35 Patient arrived in ED. pee 23:40 Camila Landis, RN is Primary Nurse. lp1 23:46 Stella Burroughs FNP-C [facility]. snw 23:46 Arlin Villalobos MD is Attending Physician. snw 23:52 Arm band placed on. lp1 23:53 Triage completed. lp1 23:55 Patient has correct armband on for positive identification. lp1 02 00:04 Flu and/or RSV swab sent to lab. Strep swab sent to lab. lp1 00:54 No provider procedures requiring assistance completed. Patient did not have IV access lp1 during this emergency room visit. Administered Medications: No medications were administered Outcome: 00:46 Discharge ordered by . snw 00:55 Discharged to home ambulatory. lp1 00:55 Condition: good 00:55 Discharge instructions given to patient, Instructed on discharge instructions, follow up and referral plans. medication usage, Demonstrated understanding of instructions, follow-up care, medications, Prescriptions given X 2. 00:55 Patient left the ED. lp1 Signatures: Stella Burroughs FNP-C DOBIE MAN-Csnw Bridget Huitron Laura, RN RN lp1
--- NOTE | 2019-09-01 00:50 | EDPHYS ---
Physician Documentation [facility] Name: Ana Maria Chavez Age: 59 yrs Sex: Female : 1960 Arrival Date: 08/31/2019 Time: 23:35 Bed 6 Private MD: ED Physician Arlin Villalobos HPI: 09/01 00:12 This 59 yrs old Female presents to ER via Ambulatory with complaints of snw Breathing Difficulty, Ear Pain, Congestion, Near Syncope. 00:13 The patient presents with sore throat, left ear pain. The patient describes throat pain snw as constant. Onset: The symptoms/episode began/occurred suddenly, this morning. Severity of symptoms: At their worst the symptoms were moderate, severe. Associated signs and symptoms: Pertinent positives: fever, flu-like symptoms, rhinorrhea, shortness of breath Sore throat. It is unknown whether or not the patient has had similar symptoms in the past. The patient has not recently seen a physician. Historical: - Allergies: 08/31 23:54 No Known Drug Allergies; lp1 - Home Meds: 23:54 None [Active]; lp1 - PMHx: 23:54 Cirrhosis; gastric ulcers; Hepatitis C; lp1 - PSHx: 23:54 Cholecystectomy; lp1 - Immunization history:: Adult Immunizations up to date. - Coronavirus screen:: The patient has NOT traveled to [place] in the past 14 days. The patient has NOT had contact with known/suspected case of Coronavirus?. - Social history:: Smoking status: Patient denies any tobacco usage or history of. - Ebola Screening: : No symptoms or risks identified at this time. ROS: 09/01 00:12 Constitutional: Negative for chills and weight loss, + fever to 101 Eyes: Negative for snw injury, pain, redness, and discharge, Neck: Negative for injury, pain, and swelling, Cardiovascular: Negative for chest pain, palpitations, and edema, Respiratory: Negative for shortness of breath, cough, wheezing, and pleuritic chest pain, Abdomen/GI: Negative for abdominal pain, nausea, vomiting, diarrhea, and constipation, Back: Negative for injury and pain, : Negative for injury, bleeding, discharge, and swelling, MS/Extremity: Negative for injury and deformity, Skin: Negative for injury, rash, and discoloration, Neuro: Negative for headache, weakness, numbness, tingling, and seizure, Psych: Negative for depression, anxiety, suicide ideation, homicidal ideation, and hallucinations. ENT: Positive for ear pain, nasal discharge, sinus congestion, sinus pain. Exam: 00:11 Constitutional: This is a well developed, well nourished patient who is awake, alert, snw and in no acute distress. Head/Face: Normocephalic, atraumatic. Eyes: Pupils equal round and reactive to light, extra-ocular motions intact. Lids and lashes normal. Conjunctiva and sclera are non-icteric and not injected. Cornea within normal limits. Periorbital areas with no swelling, redness, or edema. Neck: Trachea midline, no thyromegaly or masses palpated, and no cervical lymphadenopathy. Supple, full range of motion without nuchal rigidity, or vertebral point tenderness. No Meningismus. Chest/axilla: Normal chest wall appearance and motion. Nontender with no deformity. No lesions are appreciated. Cardiovascular: Regular rate and rhythm with a normal S1 and S2. No gallops, murmurs, or rubs. Normal PMI, no JVD. No pulse deficits. Respiratory: Lungs have equal breath sounds bilaterally, clear to auscultation and percussion. No rales, rhonchi or wheezes noted. No increased work of breathing, no retractions or nasal flaring. Abdomen/GI: Soft, non-tender, with normal bowel sounds. No distension or tympany. No guarding or rebound. No evidence of tenderness throughout. Back: No spinal tenderness. No costovertebral tenderness. Full range of motion. Skin: Warm, dry with normal turgor. Normal color with no rashes, no lesions, and no evidence of cellulitis. MS/ Extremity: Pulses equal, no cyanosis. Neurovascular intact. Full, normal range of motion. Neuro: Awake and alert, GCS 15, oriented to person, place, time, and situation. Cranial nerves II-XII grossly intact. Motor strength 5/5 in all extremities. Sensory grossly intact. Cerebellar exam normal. Normal gait. Psych: Awake, alert, with orientation to person, place and time. Behavior, mood, and affect are within normal limits. 00:11 ENT: External ear(s): are unremarkable, Ear canal(s): no acute changes, TM's: are normal, Nose: Nasal mucosa: edematous, nasal drainage, that is moderate, and is seen coming from both nares, that is clear, Mouth: is normal, Voice: is hoarse. Vital Signs: 08/31 23:51 BP 132 / 93; Pulse 95; Resp 20; Temp 99.1(O); Pulse Ox 98% on R/A; Weight 77.11 kg (R); lp1 Height 4 ft. 11 in. (149.86 cm); 23:51 Body Mass Index 34.34 (77.11 kg, 149.86 cm) lp1 MDM: 23:47 Patient medically screened. snw 09/01 00:48 Differential diagnosis: bronchitis, group A strep tonsillitis, influenza, pharyngitis, snw viral syndrome. Data reviewed: vital signs, nurses notes. Data interpreted: Pulse oximetry: on room air is 98 %. Interpretation: normal. Counseling: I had a detailed discussion with the patient and/or guardian regarding: the historical points, exam findings, and any diagnostic results supporting the discharge/admit diagnosis, lab results, the need for outpatient follow up, to return to the emergency department if symptoms worsen or persist or if there are any questions or concerns that arise at home. Counseling: I had a detailed discussion with the patient and/or guardian regarding: the presence of at least one elevated blood pressure reading (>120/80) during this emergency department visit. Response to treatment: There is no appreciated change of the patient's symptoms at this time. 08/31 23:57 Order name: Flu snw 08/31 23:57 Order name: Strep snw 09/01 00:44 Order name: Influenza Screen (A ; Complete Time: 00:45 EDMS 09/01 00:44 Order name: Group A Streptococcus Rapid Sc; Complete Time: 00:45 EDMS Administered Medications: No medications were administered Disposition: 19:03 Co-signature as Attending Physician, Arlin Villalobos MD. ma2 Disposition: 09/01/19 00:46 Discharged to Home. Impression: Acute bronchitis, Otitis media, unspecified, left ear, Fever, unspecified. - Condition is Stable. - Discharge Instructions: Acute Bronchitis, Adult, Otitis Media, Adult, Fever, Adult, Hypertension, Cough, Adult, Rehydration, Adult. - Prescriptions for Tessalon Perles 100 mg Oral Capsule - take 1 capsule by ORAL route every 8 hours As needed; 15 capsule. Zithromax 500 mg Oral Tablet - take 1 tablet by ORAL route once daily for 5 days; 5 tablet. - Work release form, Medication Reconciliation Form, Thank You Letter, Antibiotic Education, Prescription Opioid Use form. - Follow up: Emergency Department; When: As needed; Reason: Worsening of condition. Follow up: Private Physician; When: 1 - 2 days; Reason: Recheck today's complaints, Continuance of care, Re-evaluation by your physician. Signatures: Dispatcher [employer] EDMS Stella Burroughs, AVIATION PROGRAM MANAGER-C AVIATION PROGRAM MANAGER-Csnw Camila Landis RN RN lp1 Arlin Villalobos MD MD ma2 Corrections: (The following items were deleted from the chart) 00:13 00:12 Constitutional: Negative for fever, chills, and weight loss, Eyes: Negative for snw injury, pain, redness, and discharge, Neck: Negative for injury, pain, and swelling, Cardiovascular: Negative for chest pain, palpitations, and edema, Respiratory: Negative for shortness of breath, cough, wheezing, and pleuritic chest pain, Abdomen/GI: Negative for abdominal pain, nausea, vomiting, diarrhea, and constipation, Back: Negative for injury and pain, : Negative for injury, bleeding, discharge, and swelling, MS/Extremity: Negative for injury and deformity, Skin: Negative for injury, rash, and discoloration, Neuro: Negative for headache, weakness, numbness, tingling, and seizure, Psych: Negative for depression, anxiety, suicide ideation, homicidal ideation, and hallucinations, snw 00:55 00:46 09/01/2019 00:46 Discharged to Home. Impression: Acute bronchitis; Otitis media, lp1 unspecified, left ear; Fever, unspecified. Condition is Stable. Forms are Medication Reconciliation Form, Thank You Letter, Antibiotic Education, Prescription Opioid Use. Follow up: Emergency Department; When: As needed; Reason: Worsening of condition. Follow up: Private Physician; When: 1 - 2 days; Reason: Recheck today's complaints, Continuance of care, Re-evaluation by your physician. snw
[2019-09-01 01:02] VITALS: BP 132/93; TEMP 99.1; O2SAT 98
[2019-09-01] MEDS ORDERED: KETOROLAC 30 MG/ML INJ ONE (01:58)
== END 2019-09-01 00:55 | disposition home or self-care (01) ==
LOC: ER 23:31
DX: J20.9 Acute bronchitis, unspecified (principal); H66.92 Otitis media, unspecified, left ear
CPT/HCPCS: 87070; 87081; 87804; 99283

== ENCOUNTER 2021-08-08 02:27 | Emergency (ER) | payer SELFPAY ==
[2021-08-08 03:15] LABS: Absolute Lymphocytes (CBC) 1.3 K/uL (0.7-4.9); Hematocrit 45.4 % (36.0-45.0); Lymphocytes % 52.9 % (15.3-44.8); RBC Red Blood Cell Count 4.62 M/uL (3.86-4.86)
[2021-08-08 03:19] LABS: Urine Blood 1+ (Negative); Urine Glucose 2+ (Negative); Urine Protein Negative (Negative); Urine pH 5.5 (5.0-7.0)
[2021-08-08 03:40] LABS: Albumin 3.4 g/dL (3.4-5.0); Bilirubin Direct 0.5 mg/dL (0-0.2); Potassium 3.9 mmol/L (3.5-5.1); Protein, Total 8.7 g/dL (6.4-8.2)
[2021-08-08 03:55] LABS: SARS-COV-2 RT PCR POSITIVE (NEGATIVE)
[2021-08-08 04:04] LABS: Blood Morphology Comment NOT SEEN (NOT SEEN); Platelet Estimate DECR; White Blood Cell Scan OK (OK)
[2021-08-08] MEDS ORDERED: TIZANIDINE 4 MG TABLET ONE (04:04)
--- NOTE | 2021-08-08 04:22 | ER ---
Nurse's Notes [facility] Name: Ana Maria Chavez Age: 61 yrs Sex: Female : 1960 Arrival Date: 08/08/2021 Time: 02:32 Bed 25 Private MD: Diagnosis: Positive Covid 19. Right shoulder pain. Presentation: 08/08 02:38 Chief complaint: Patient states: "My whole body hurts, but the right shoulder hurts so tw5 so much. Maybe I slept wrong, it feels like there is a bone sticking out. Anytime anyone touches it hurts so bad. I feel like I have the flu or something. Just everything hurts.". Coronavirus screen: Vaccine status: Patient reports being unvaccinated. Ebola Screen: Patient negative for fever greater than or equal to 101.5 degrees Fahrenheit, and additional compatible Ebola Virus Disease symptoms Patient denies exposure to infectious person. Patient denies travel to an Ebola-affected area in the 21 days before illness onset. Initial Sepsis Screen: Does the patient meet any 2 criteria? No. Patient's initial sepsis screen is negative. Does the patient have a suspected source of infection? No. Patient's initial sepsis screen is negative. Risk Assessment: Do you want to hurt yourself or someone else? Patient reports no desire to harm self or others. Onset of symptoms was August 06, 2021. 02:38 Method Of Arrival: Ambulatory tw5 02:38 Acuity: LETY 3 tw5 Triage Assessment: 02:41 Headache History: The patient has had previous headaches and this one is more severe tw5 than previous episodes. General: Appears uncomfortable, Behavior is cooperative, appropriate for age. Pain: Pain currently is 10 out of 10 on a pain scale. Pain began 2-3 days ago. Also complains of sleeplessness. Neuro: Level of Consciousness is awake, alert, obeys commands, Oriented to person, place, time, situation. Historical: - Allergies: 02:41 Tylenol; tw5 - Home Meds: 02:41 Farxiga 10 mg oral tab 1 tab once daily [Active]; tw5 - PMHx: 02:41 Cirrhosis; gastric ulcers; Hepatitis C; tw5 - PSHx: 02:41 Appendectomy; section; Ligation of fallopian tube; Cholecystectomy; tw5 - Immunization history:: Flu vaccine is not up to date. - Social history:: Smoking status: Patient denies any tobacco usage or history of. Screenin:08 Abuse screen: Denies threats or abuse. Nutritional screening: No deficits noted. sf1 Tuberculosis screening: No symptoms or risk factors identified. Fall Risk None identified. Assessment: 03:07 General: Appears in no apparent distress. uncomfortable, Behavior is calm, cooperative. sf1 Pain: Complains of pain in right trapezius. Neuro: No deficits noted. Cardiovascular: No deficits noted. Respiratory: Reports cough that is non-productive. GI: No deficits noted. : No deficits noted. EENT: No deficits noted. Derm: No deficits noted. Musculoskeletal: Reports aching all over. Vital Signs: 02:38 BP 161 / 82; Pulse 88; Resp 14; Temp 98.4(O); Pulse Ox 98% on R/A; Weight 63.5 kg; tw5 Height 5 ft. 0 in. (152.40 cm); Pain 9/10; 02:38 Body Mass Index 27.34 (63.50 kg, 152.40 cm) tw5 ED Course: 02:32 Patient arrived in ED. ja2 02:40 Triage completed. tw5 02:41 Arm band placed on left wrist. tw5 02:44 Eleazar Tejada MD is Attending Physician. pkl 02:44 Mamta Smiley RN is Primary Nurse. sf1 03:07 Inserted saline lock: 20 gauge in left antecubital area, using aseptic technique. Blood sf1 collected. 03:08 Patient has correct armband on for positive identification. Placed in gown. Bed in low sf1 position. Call light in reach. 03:09 CBC with Diff Sent. sf1 03:09 Chem 7 Sent. sf1 03:09 LFT's Sent. sf1 03:09 COVID-19/FLU A+B (Document "Date of Onset" if Symptomatic): body aches Sent. sf1 04:07 Shoulder Right (2 View) XRAY In Process Unspecified. EDMS 04:48 No provider procedures requiring assistance completed. IV discontinued, intact, sf1 bleeding controlled, No redness/swelling at site. Pressure dressing applied. Administered Medications: 04:22 Drug: tiZANidine 4 mg Route: PO; sf1 Outcome: 04:21 Discharge ordered by . yuan 04:48 Discharged to home ambulatory. sf1 04:48 Condition: stable 04:48 Discharge instructions given to patient, Instructed on discharge instructions, follow up and referral plans. Demonstrated understanding of instructions, follow-up care, medications, Prescriptions given X 04:49 Patient left the ED. sf1 Signatures: Dispatcher [employer] Eleazar Hobson MD MD pkl Alexander, Jessica ja2 Wood, Tiffany 5 Mamta Smiley RN RN sf1
--- NOTE | 2021-08-08 04:23 | EDPHYS ---
Physician Documentation [facility] Name: Ana Maria Chavez Age: 61 yrs Sex: Female : 1960 Arrival Date: 08/08/2021 Time: 02:32 Bed 25 Private MD: ED Physician Eleazar Tejada HPI: 08/08 03:14 This 61 yrs old Female presents to ER via Ambulatory with complaints of Pain pkl All Over, Fever, Headache, Cough. 03:14 The patient or guardian complains of pain, that is acute. right shoulder. Onset: The pkl symptoms/episode began/occurred yesterday. Associated signs and symptoms: Pertinent positives: Flu like symptoms. Historical: - Allergies: 02:41 Tylenol; tw5 - Home Meds: 02:41 Farxiga 10 mg oral tab 1 tab once daily [Active]; - PMHx: 02:41 Cirrhosis; gastric ulcers; Hepatitis C; tw - PSHx: 02:41 Appendectomy; section; Ligation of fallopian tube; Cholecystectomy; tw - Immunization history:: Flu vaccine is not up to date. - Social history:: Smoking status: Patient denies any tobacco usage or history of. ROS: 03:14 Eyes: Negative for injury, pain, redness, and discharge, ENT: Negative for injury, pkl pain, and discharge, Neck: Negative for injury, pain, and swelling. 03:14 Cardiovascular: Negative for chest pain. 03:14 Respiratory: Negative for shortness of breath. 03:14 Abdomen/GI: Negative for abdominal pain, nausea, vomiting, and diarrhea. 03:14 Back: Negative for acute changes. 03:14 : Negative for urinary symptoms. 03:14 MS/extremity: Positive for pain, of the right shoulder. 03:14 Skin: Negative for rash. 03:14 Neuro: Negative for altered mental status, loss of consciousness. Exam: 03:14 Head/Face: Normocephalic, atraumatic. Eyes: Pupils equal round and reactive to light, pkl extra-ocular motions intact. Lids and lashes normal. Conjunctiva and sclera are non-icteric and not injected. Cornea within normal limits. Periorbital areas with no swelling, redness, or edema. ENT: Nares patent. No nasal discharge, no septal abnormalities noted. Tympanic membranes are normal and external auditory canals are clear. Oropharynx with no redness, swelling, or masses, exudates, or evidence of obstruction, uvula midline. Mucous membranes moist. Neck: Trachea midline, no thyromegaly or masses palpated, and no cervical lymphadenopathy. Supple, full range of motion without nuchal rigidity, or vertebral point tenderness. No Meningismus. Chest/axilla: Normal chest wall appearance and motion. Nontender with no deformity. No lesions are appreciated. Cardiovascular: Regular rate and rhythm with a normal S1 and S2. No gallops, murmurs, or rubs. Normal PMI, no JVD. No pulse deficits. Respiratory: Lungs have equal breath sounds bilaterally, clear to auscultation and percussion. No rales, rhonchi or wheezes noted. No increased work of breathing, no retractions or nasal flaring. Abdomen/GI: Soft, non-tender, with normal bowel sounds. No distension or tympany. No guarding or rebound. No evidence of tenderness throughout. Back: No spinal tenderness. No costovertebral tenderness. Full range of motion. Skin: Warm, dry with normal turgor. Normal color with no rashes, no lesions, and no evidence of cellulitis. Neuro: Awake and alert, GCS 15, oriented to person, place, time, and situation. Cranial nerves II-XII grossly intact. Motor strength 5/5 in all extremities. Sensory grossly intact. Cerebellar exam normal. Normal gait. 03:14 Musculoskeletal/extremity: Extremities: grossly normal except: noted in the right shoulder: pain. Vital Signs: 02:38 BP 161 / 82; Pulse 88; Resp 14; Temp 98.4(O); Pulse Ox 98% on R/A; Weight 63.5 kg; tw5 Height 5 ft. 0 in. (152.40 cm); Pain 9/10; 02:38 Body Mass Index 27.34 (63.50 kg, 152.40 cm) tw5 MDM: 02:44 Patient medically screened. pkl 04:18 Data reviewed: vital signs, nurses notes, lab test result(s), radiologic studies, plain pkl films. ED course: Discussed lab and imaging studies with patient. Advised quarantine for 5 days. To follow up with PCP in 2 to 3 days. Return if necessary. Patient understood instructions. 08/08 02:54 Order name: CBC with Diff; Complete Time: 04:15 pkl 08/08 02:54 Order name: Chem 7; Complete Time: 03:46 pkl 08/08 02:54 Order name: LFT's; Complete Time: 03:46 pkl 08/08 02:56 Order name: COVID-19/FLU A+B (Document "Date of Onset" if Symptomatic): body aches; pkl Complete Time: 04:15 08/08 03:18 Order name: Urine Dipstick-Ancillary; Complete Time: 03:25 EDMS 08/08 03:25 Order name: CBC Smear Scan; Complete Time: 04:15 EDMS 08/08 02:54 Order name: Saline Lock; Complete Time: 03:09 pkl 08/08 02:54 Order name: Shoulder Right (2 View) XRAY pkl 08/08 02:56 Order name: Urine Dipstick-Ancillary (obtain specimen); Complete Time: 03:38 pkl 08/08 04:22 Order name: Sling pkl Administered Medications: 04:22 Drug: tiZANidine 4 mg Route: PO; sf1 Disposition Summary: 08/08/21 04:21 Discharge Ordered Location: Home pkl Problem: new pkl Symptoms: are unchanged pkl Condition: Stable pkl Diagnosis - Positive Covid 19. Right shoulder pain. pkl Followup: pkl - With: Private Physician - When: 2 - 3 days - Reason: Re-evaluation by your physician Discharge Instructions: - Discharge Summary Sheet lp1 - How to Use a Shoulder Immobilizer lp1 - Shoulder Pain, [id number] lp1 - COVID-19 lp1 - COVID-19 Frequently Asked Questions lp1 Forms: - Medication Reconciliation Form pkl - Thank You Letter pkl - Antibiotic Education pkl - Prescription Opioid Use pkl Signatures: Dispatcher [employer] EDMS Eleazar Tejada MD MD pkl Martín Rodriguez, SPD MANAGER-C SPD MANAGER-Mya Mata tw5 Mamta Smiley RN RN sf1
--- NOTE | 2021-08-08 08:26 | RAD REPORT ---
EXAM DESCRIPTION: RAD - Shoulder Right 2 View - 08/08/2021 4:07 am CLINICAL HISTORY: PAIN COMPARISON: No comparisons FINDINGS/IMPRESSION: No acute fracture. No malalignment. Moderate right AC joint degenerative change s. Mild right glenohumeral joint degenerative changes.
[2021-08-08 18:29] VITALS: BP 161/82; TEMP 98.4; O2SAT 98
== END 2021-08-08 04:49 | disposition home or self-care (01) ==
LOC: ER 02:27
DX: U07.1 COVID-19 (principal); Z88.6 Allergy status to analgesic agent
CPT/HCPCS: 0240U; 36415; 80048; 80076; 81003; 85025; 99284

== ENCOUNTER 2021-11-28 19:39 | Emergency (ER) | payer OTHER, SELFPAY ==
[2021-11-28] MEDS ORDERED: MORPHINE 2 MG/ML SYR ONE (22:50)
[2021-11-28] MEDS ORDERED: ONDANSETRON 4 MG/2 ML VIAL ONE (22:50)
[2021-11-28 23:54] LABS: Absolute Lymphocytes (CBC) 1.4 K/uL (0.7-4.9); Lymphocytes % 45.4 % (15.3-44.8); MPV 10.4 fL (7.6-11.3)
[2021-11-28 23:57] LABS: Protime INR 1.13
[2021-11-29 00:16] LABS: Potassium 3.9 mmol/L (3.5-5.1)
[2021-11-29 00:37] LABS: Blood Morphology Comment NOTED (NOT SEEN); Macrocytosis SLIGHT; Platelet Estimate DECR; White Blood Cell Scan OK (OK)
[2021-11-29] MEDS ORDERED: NA CHLORIDE 0.9% 1,000 ML ONE (02:28)
[2021-11-29 02:30] LABS: Urine Blood 2+ (Negative); Urine Glucose 2+ (Negative); Urine Protein Negative (Negative)
--- NOTE | 2021-11-29 02:55 | ER ---
Nurse's Notes [facility] Name: Ana Maria Chavez Age: 61 yrs Sex: Female : 1960 Arrival Date: 11/28/2021 Time: 19:41 Bed 7 Private MD: Diagnosis: Fall, Mechanical;Contusion-Head, Chest wall, Abdominal Wall;Type 2 diabetes mellitus with hyperglycemia;Thrombocytopenia, unspecified Presentation: 11/28 20:00 Chief complaint:. ld1 20:00 Care prior to arrival: None. Mechanism of Injury: Fall down steps. Trauma event ld1 details: Injury occurred in the [facility]. 20:00 Method Of Arrival: Ambulatory ld1 20:00 Acuity: LETY 3 ld1 20:03 Chief complaint: Patient states: I was cleaning my house this morning at 0300, stepping ld1 on a step stool. Pt reports being on the top step of the step stool and slipped and fell, hitting her forehead the counter on the way down. Denies LOC or blood thinners. C/O nausea and headache. Coronavirus screen: At this time, the client does not indicate any symptoms associated with coronavirus-19. Ebola Screen: No symptoms or risks identified at this time. Initial Sepsis Screen: Does the patient meet any 2 criteria? No. Patient's initial sepsis screen is negative. Does the patient have a suspected source of infection? No. Patient's initial sepsis screen is negative. Risk Assessment: Do you want to hurt yourself or someone else? Patient reports no desire to harm self or others. Onset of symptoms was November 28, 2021. Trauma Activation: Physician: ED Physician; Name: ; Notified At: 20:01; Arrived At: Physician: General Surgeon; Name: ; Notified At: 20:01; Arrived At: Physician: Radiology; Name: ; Notified At: 20:01; Arrived At: Physician: Respiratory; Name: ; Notified At: 20:01; Arrived At: Physician: Lab; Name: ; Notified At: 20:01; Arrived At: Historical: - Allergies: 20:03 Tylenol; ld1 - PMHx: 20:03 Cirrhosis; gastric ulcers; Hepatitis C; ld1 - PSHx: 20:03 Appendectomy; Cholecystectomy; section; Ligation of fallopian tube; ld1 - Immunization history: Last tetanus immunization: unknown. - Social history:: Smoking status: Patient denies any tobacco usage or history of. Patient/guardian denies using alcohol. Screenin:00 Abuse screen: Denies threats or abuse. Denies injuries from another. Tuberculosis ld1 screening: No symptoms or risk factors identified. 11/29 03:24 Nutritional screening: No deficits noted. Fall Risk Fall in past 12 months (25 points). as6 No secondary diagnosis (0 pts). IV access (20 points). Ambulatory Aid- None/Bed Rest/Nurse Assist (0 pts). Gait- Normal/Bed Rest/Wheelchair (0 pts) Mental Status- Oriented to own ability (0 pts). Total Blanchard Fall Scale indicates Low Risk Score (25-44 pts). Side Rails Up X 2 Frequent Obs/Assesments occuring As available Patient and Family Educated on Fall Prevention Program and strategies. Primary Survey: 11/28 20:00 NO uncontrolled hemorrhage observed. Breathing/Chest: Spontaneous respiratory effort, ld1 equal unlabored respirations, breath sounds clear bilaterally, regular pattern, symmetrical chest rise and fall. Circulation: No external hemorrhage present. Regular and strong central pulse, skin warm/dry/normal color. Disability Client is alert. Exposure/Environment: All clothing and personal items were removed. Forensic evidence collection is not deemed to be indicated at this time. Items placed in patient belonging bag. There is no evidence of uncontrolled external bleeding. Reassessment Breathing: Spontaneous respiratory effort, equal unlabored respirations, breath sounds clear bilaterally, regular pattern with symmetrical chest rise and fall. Circulation: No external hemorrhage noted. Regular and strong central pulse, skin warm/dry/normal color. Disability: Alert. Assessment: 20:00 General: Appears in no apparent distress. comfortable, Behavior is calm, cooperative, ld1 appropriate for age. Pain: Complains of pain in forehead Pain does not radiate. Pain currently is 9 out of 10 on a pain scale. Quality of pain is described as throbbing. Neuro: Level of Consciousness is awake, alert, obeys commands, Oriented to person, place, time, situation, Reports headache frontal area. EENT: No signs and/or symptoms were reported regarding the EENT system. Cardiovascular: Capillary refill < 3 seconds Patient's skin is warm and dry. Respiratory: Airway is patent Respiratory effort is even, unlabored. GI: Abdomen is flat, non-distended. : No signs and/or symptoms were reported regarding the genitourinary system. Derm: No signs and/or symptoms reported regarding the dermatologic system. Musculoskeletal: No signs and/or symptoms reported regarding the musculoskeletal system. 22:15 Reassessment: Patient is alert, oriented x 3, equal unlabored respirations, skin bb warm/dry/pink. Vital Signs: 20:00 BP 160 / 81; Pulse 83; Resp 18; Temp 98.3(O); Pulse Ox 97% on R/A; Weight 63.5 kg; ld1 Height 4 ft. 11 in. (149.86 cm); Pain 9/10; 22:28 BP 162 / 79; Pulse 73; Resp 16 S; Pulse Ox 95% on R/A; bb 23:30 BP 173 / 90; Pulse 74; Resp 18 S; Pulse Ox 96% on R/A; as6 11/29 00:46 BP 165 / 130; Pulse 67; Resp 18 S; Pulse Ox 95% on R/A; as6 01:32 BP 117 / 57; Pulse 75; Resp 18 S; Pulse Ox 95% on R/A; as6 02:30 BP 128 / 58; Pulse 69; Resp 18 S; Pulse Ox 93% on R/A; as6 03:24 BP 103 / 64; Pulse 75; Resp 18 S; Pulse Ox 97% on R/A; as6 11/28 20:00 Body Mass Index 28.28 (63.50 kg, 149.86 cm) ld1 Breaks Coma Score: 11/28 20:00 Eye Response: spontaneous(4). Verbal Response: oriented(5). Motor Response: obeys ld1 commands(6). Total: 15. 11/29 01:32 Eye Response: spontaneous(4). Verbal Response: oriented(5). Motor Response: obeys as6 commands(6). Total: 15. Trauma Score (Adult): 11/28 20:00 Eye Response: spontaneous(1); Verbal Response: oriented(1); Motor Response: obeys ld1 commands(2); Systolic BP: > 89 mm Hg(4); Respiratory Rate: 10 to 29 per min(4); Javier Score: 15; Trauma Score: 12 ED Course: 19:41 Patient arrived in ED. ja2 20:00 Patient has correct armband on for positive identification. Bed in low position. Call ld1 light in reach. Side rails up X2. Patient maintains SpO2 saturation greater than 95% on room air. catering director on. Pulse ox on. NIBP on. 20:00 Patient maintains SpO2 saturation greater than 95% on room air. ld1 20:01 Triage completed. ld1 22:18 Jeremi Jenkins MD is Attending Physician. mh7 22:36 Doug Valdovinos, DERREK is Primary Nurse. as6 22:55 Inserted saline lock: 20 gauge in left antecubital area, using aseptic technique. as6 23:57 Notified ED physician of a critical lab result(s). Platelet 47. lp1 11/29 00:20 Notified ED physician of a critical lab result(s). Glucose of 471 Dr Jenkins notified. bb 01:16 CT Traumagram (Head C Spine CAP W Con) In Process Unspecified. EDMS 03:24 No provider procedures requiring assistance completed. IV discontinued, intact, as6 bleeding controlled, No redness/swelling at site. Pressure dressing applied. 03:25 Arm band placed on. as6 03:25 Thermoregulation: warm blanket given to patient. as6 Administered Medications: 11/28 23:08 Drug: morphine 2 mg Route: IVP; Site: left antecubital; as6 11/29 03:26 Follow up: Response: No adverse reaction as6 11/28 23:08 Drug: Zofran (Ondansetron) 4 mg Route: IVP; Site: left antecubital; as6 11/29 03:26 Follow up: Response: No adverse reaction as6 02:29 Drug: NS 0.9% 1000 ml Route: IV; Rate: 1000 ml; Site: left antecubital; as6 03:26 Follow up: Response: No adverse reaction; IV Status: Completed infusion; IV Intake: as6 1000ml 03:20 Drug: Insulin Regular Human 10 units {Co-Signature: neel (Casi Hunter RN).} Route: as6 IVP; Site: left antecubital; 03:29 Follow up: Response: No adverse reaction as6 Medication: 03:25 VIS not applicable for this client. as6 Intake: 03:25 PO: 200ml (Water); IV: 1000ml (IV Fluid); Total: 1200ml. as6 03:26 IV: 1000ml; Total: 2200ml. as6 Outcome: 02:55 Discharge ordered by . francesco 03:24 Discharged to home ambulatory. as6 03:24 Condition: stable 03:24 Discharge instructions given to patient, Instructed on discharge instructions, follow up and referral plans. Demonstrated understanding of instructions, follow-up care. 03:25 Patient's length of stay in the Emergency Department was greater than 2 hours. pending as6 provider orders Patient's length of stay extended due to 03:30 Patient left the ED. as6 Signatures: Dispatcher [employer] EDMS Casi Hunter RN RN bb Camila Landis RN RN lp1 Jeremi Jenkins MD MD Natalee Fofana RN RN ld1 Amara Chavez Ashby, RN RN as6 Casi shaikh Corrections: (The following items were deleted from the chart) 11/28 20:05 20:03 Chief complaint: Patient states: I was cleaning my house, stepping on a step ld1 stool. Pt reports being on the top step of the step stool and slipped and fell, hitting her forehead the counter on the way down. Denies LOC or blood thinners. C/O nausea and headache. ld1 20:06 20:00 Acuity: LETY 2 ld1 ld1
--- NOTE | 2021-11-29 02:55 | EDPHYS ---
Physician Documentation [facility] Name: Ana Maria Chavez Age: 61 yrs Sex: Female : 1960 Arrival Date: 11/28/2021 Time: 19:41 Bed 7 Private MD: ED Physician Jeremi Jenkins HPI: 11/28 22:45 This 61 yrs old Female presents to ER via Ambulatory with complaints of Fall mh7 Injury. 22:45 Details of fall: The patient fell from a height, step stool, and struck counter top. mh7 22:45 Onset: The symptoms/episode began/occurred today, at 03:00. Associated injuries: The mh7 patient sustained injury to the head, abrasion, contusion, pain, injury to the chest, specifically the left breast, contusion, ecchymosis, tenderness, injury to the abdomen, specifically the left lower quadrant, tenderness. Severity of symptoms: At their worst the symptoms were moderate, earlier today, in the emergency department the symptoms have improved, moderately. Historical: - Allergies: 20:03 Tylenol; ld1 - PMHx: 20:03 Cirrhosis; gastric ulcers; Hepatitis C; ld1 - PSHx: 20:03 Appendectomy; Cholecystectomy; section; Ligation of fallopian tube; ld1 - Immunization history: Last tetanus immunization: unknown. - Social history:: Smoking status: Patient denies any tobacco usage or history of. Patient/guardian denies using alcohol. ROS: 22:45 Constitutional: Negative for fever, chills, and weight loss, Eyes: Negative for injury, mh7 pain, redness, and discharge, ENT: Negative for injury, pain, and discharge, Neck: Negative for injury, pain, and swelling, Respiratory: Negative for shortness of breath, cough, wheezing, and pleuritic chest pain, Back: Negative for injury and pain, : Negative for injury, bleeding, discharge, and swelling, MS/Extremity: Negative for injury and deformity, Psych: Negative for depression, anxiety, suicide ideation, homicidal ideation, and hallucinations, Allergy/Immunology: Negative for hives, rash, and allergies, Endocrine: Negative for neck swelling, polydipsia, polyuria, polyphagia, and marked weight changes, Hematologic/Lymphatic: Negative for swollen nodes, abnormal bleeding, and unusual bruising. Exam: 22:45 Constitutional: This is a well developed, well nourished patient who is awake, alert, mh7 and in no acute distress. 22:45 Eyes: Pupils equal round and reactive to light, extra-ocular motions intact. Lids and lashes normal. Conjunctiva and sclera are non-icteric and not injected. Cornea within normal limits. Periorbital areas with no swelling, redness, or edema. ENT: Nares patent. No nasal discharge, no septal abnormalities noted. Tympanic membranes are normal and external auditory canals are clear. Oropharynx with no redness, swelling, or masses, exudates, or evidence of obstruction, uvula midline. Mucous membranes moist. Neck: Trachea midline, no thyromegaly or masses palpated, and no cervical lymphadenopathy. Supple, full range of motion without nuchal rigidity, or vertebral point tenderness. No Meningismus. Cardiovascular: Regular rate and rhythm with a normal S1 and S2. No gallops, murmurs, or rubs. Normal PMI, no JVD. No pulse deficits. Respiratory: Lungs have equal breath sounds bilaterally, clear to auscultation and percussion. No rales, rhonchi or wheezes noted. No increased work of breathing, no retractions or nasal flaring. Back: No spinal tenderness. No costovertebral tenderness. Full range of motion. MS/ Extremity: Pulses equal, no cyanosis. Neurovascular intact. Full, normal range of motion. Neuro: Awake and alert, GCS 15, oriented to person, place, time, and situation. Cranial nerves II-XII grossly intact. Motor strength 5/5 in all extremities. Sensory grossly intact. Cerebellar exam normal. Normal gait. Psych: Awake, alert, with orientation to person, place and time. Behavior, mood, and affect are within normal limits. 22:45 Skin: Warm, dry with normal turgor. Normal color with no rashes, no lesions, and no evidence of cellulitis. 22:45 Head/face: Noted is contusion, that is superficial, of the forehead, ecchymosis, that is mild, of the forehead. 22:45 Chest/axilla: Inspection: ecchymosis, that is moderate, of the left breast Palpation: tenderness, that is moderate, of the left breast, that totally reproduces the patient's complaints, Axilla: are normal, Lymph nodes: lymphadenopathy is not appreciated. 22:45 Abdomen/GI: Inspection: abdomen appears normal, Bowel sounds: normal, in all quadrants, Palpation: mild abdominal tenderness, in the left lower quadrant, mass, is not appreciated, rebound tenderness, is not appreciated, voluntary guarding, is not appreciated, involuntary guarding, is not appreciated, no appreciated organomegaly, Rectal exam: the exam is deferred, because of patient request, Indicators: McBurney's point is not tender, Palomares's sign is negative, Rovsing's sign is negative, Obturator sign is negative, Psoas sign is negative, Liver: is enlarged, Hernia: not appreciated. Vital Signs: 20:00 BP 160 / 81; Pulse 83; Resp 18; Temp 98.3(O); Pulse Ox 97% on R/A; Weight 63.5 kg; ld1 Height 4 ft. 11 in. (149.86 cm); Pain 9/10; 22:28 BP 162 / 79; Pulse 73; Resp 16 S; Pulse Ox 95% on R/A; bb 23:30 BP 173 / 90; Pulse 74; Resp 18 S; Pulse Ox 96% on R/A; as6 05 00:46 BP 165 / 130; Pulse 67; Resp 18 S; Pulse Ox 95% on R/A; as6 01:32 BP 117 / 57; Pulse 75; Resp 18 S; Pulse Ox 95% on R/A; as6 02:30 BP 128 / 58; Pulse 69; Resp 18 S; Pulse Ox 93% on R/A; as6 03:24 BP 103 / 64; Pulse 75; Resp 18 S; Pulse Ox 97% on R/A; as6 11/28 20:00 Body Mass Index 28.28 (63.50 kg, 149.86 cm) ld1 [place] Coma Score: 11/28 20:00 Eye Response: spontaneous(4). Verbal Response: oriented(5). Motor Response: obeys ld1 commands(6). Total: 15. 11/29 01:32 Eye Response: spontaneous(4). Verbal Response: oriented(5). Motor Response: obeys as6 commands(6). Total: 15. Trauma Score (Adult): 11/28 20:00 Eye Response: spontaneous(1); Verbal Response: oriented(1); Motor Response: obeys ld1 commands(2); Systolic BP: > 89 mm Hg(4); Respiratory Rate: 10 to 29 per min(4); [place] Score: 15; Trauma Score: 12 MDM: 11/29 02:51 Differential diagnosis: abrasion, closed head injury, contusion, fracture. Data [facility] reviewed: vital signs, nurses notes, lab test result(s), CBC, electrolytes, radiologic studies, CT scan. Data interpreted: Pulse oximetry: on room air is 96 %. Interpretation: normal. Counseling: I had a detailed discussion with the patient and/or guardian regarding: the historical points, exam findings, and any diagnostic results supporting the discharge/admit diagnosis, lab results, radiology results, the need for outpatient follow up, to return to the emergency department if symptoms worsen or persist or if there are any questions or concerns that arise at home. Response to treatment: the patient's symptoms have markedly improved after treatment. 02:55 Patient medically screened. [facility] 11/28 22:39 Order name: Basic Metabolic Panel; Complete Time: 00:49 [facility] 11/28 22:39 Order name: CBC with Diff; Complete Time: 00:49 [facility] 11/28 22:39 Order name: Type And Screen; Complete Time: 00:49 [facility] 11/28 22:39 Order name: Protime (+inr); Complete Time: 00:49 [facility] 11/28 22:39 Order name: Ptt, Activated; Complete Time: 00:49 [facility] 11/28 23:59 Order name: CBC Smear Scan; Complete Time: 00:49 [facility] 11/28 22:39 Order name: CT Traumagram (Head C Spine CAP W Con) [facility] 11/29 00:10 Order name: ABO/RH no charge; Complete Time: 00:49 [facility] 11/29 02:31 Order name: Urine Dipstick-Ancillary; Complete Time: 02:33 [facility] 11/29 03:27 Order name: Glucose, Ancillary Testing [facility] 11/28 22:39 Order name: Labs collected and sent; Complete Time: 23:08 [facility] 11/29 02:18 Order name: Urine Dipstick-Ancillary (obtain specimen); Complete Time: 02:29 [facility] Administered Medications: 11/28 23:08 Drug: morphine 2 mg Route: IVP; Site: left antecubital; as6 11/29 03:26 Follow up: Response: No adverse reaction 11/28 23:08 Drug: Zofran (Ondansetron) 4 mg Route: IVP; Site: left antecubital; 11/29 03:26 Follow up: Response: No adverse reaction 02:29 Drug: NS 0.9% 1000 ml Route: IV; Rate: 1000 ml; Site: left antecubital; 03:26 Follow up: Response: No adverse reaction; IV Status: Completed infusion; IV Intake: as6 1000ml 03:20 Drug: Insulin Regular Human 10 units {Co-Signature: bb (Casi Hunter RN).} Route: as6 IVP; Site: left antecubital; 03:29 Follow up: Response: No adverse reaction as6 Disposition Summary: 11/29/21 02:55 Discharge Ordered Location: Home mh7 Problem: new mh7 Symptoms: have improved mh7 Condition: Stable mh7 Diagnosis - Fall, Mechanical mh7 - Contusion-Head, Chest wall, Abdominal Wall mh7 - Type 2 diabetes mellitus with hyperglycemia mh7 - Thrombocytopenia, unspecified mh7 Followup: 7 - With: Private Physician - When: 1 - 2 days - Reason: Worsening of condition, Recheck today's complaints, Continuance of care, Re-evaluation by your physician Discharge Instructions: - Discharge Summary Sheet mh7 - Hyperglycemia mh7 - Contusion, [id number] mh7 - Fall Prevention in the Home, Adult, [id number] mh7 - Facial or Scalp Contusion, [id number] mh7 Forms: - Medication Reconciliation Form 7 - Thank You Letter 7 - Antibiotic Education mh7 - Prescription Opioid Use [facility] Signatures: Dispatcher [employer] Jeremi Barbour MD MD mh7 Natalee Guadarrama RN RN [email or web address] Doug Valdovinos RN RN as6 Екатерина Tyson PA PA sb3 Casi Hunter RN bb
[2021-11-29] MEDS ORDERED: INSULIN -REGULAR HUMAN 50 UNIT/0.5 ML ML ONE (03:23)
[2021-11-29 03:41] VITALS: TEMP 98.3
[2021-11-29 03:50] VITALS: BP 103/64; O2SAT 97
--- NOTE | 2021-11-29 17:04 | RAD REPORT ---
EXAM DESCRIPTION: CT - Head C Spine Cap Luis Antonio Martines - 11/29/2021 6:28 am CLINICAL HISTORY: The patient is 61 years old and is Female; Trauma TECHNIQUE: Axial computed tomography images of the head/brain and cervical spine with intravenous co ntrast. Sagittal and coronal reformatted images were created and reviewed. This CT exam was perfo rmed using one or more of the following dose reduction techniques: automated exposure control, adju stment of the mA and/or kV according to patient size, and/or use of iterative reconstruction techniqu e. COMPARISON: No relevant prior studies available. FINDINGS: BRAIN: Unremarkable. No hemorrhage. No edema. Normal enhancement. VENTRICLES: Unremarkable. No ventriculomegaly. SKULL: No acute fracture. SINUSES: Unremarkable as visualized. No acute sinusitis. MASTOID AIR CELLS: Unremarkable as visualized. No mastoid effusion. VERTEBRAE: Posterior discal calcification throughout the cervical spine is present. DISCS/SPINAL CANAL/NEURAL FORAMINA: There is multi-level intervertebral disc height loss. There a re disc-osteophyte complexes at several levels, with associated mild/moderate spinal canal narrowing. There is also facet hypertrophy and uncovertebral joint osteophytosis, with associated multilevel ne ural foraminal narrowing. SOFT TISSUES: The soft tissues are normal. LUNG APICES: Unremarkable as visualized. IMPRESSION: 1. No acute intracranial findings. 2. Moderate spondylosis of the cervical spine with associated canal narrowing. EXAM DESCRIPTION: CT Chest, Abdomen and Pelvis With Intravenous Contrast CLINICAL HISTORY: The patient is 61 years old and is Female; Trauma TECHNIQUE: Axial computed tomography images of the chest, abdomen and pelvis with intravenous contra st. Sagittal and coronal reformatted images were created and reviewed. This CT exam was performed using one or more of the following dose reduction techniques: automated exposure control, adjustme nt of the mA and/or kV according to patient size, and/or use of iterative reconstruction technique. COMPARISON: No relevant prior studies available. FINDINGS: CHEST: LUNGS: The lungs are clear of focal opacity, mass, or consolidation. PLEURAL SPACE: Unremarkable. No significant effusion. No pneumothorax. HEART: No cardiomegaly. No pericardial effusion. ABDOMEN: LIVER: A 1.9 cm cyst within the dome of the liver is present. The liver is homogeneous with sligh t nodular contour. A heterogeneous 2.4 x 2.4 cm lesion within the hepatic lobe at the superior aspe ct best appreciated on coronal image 27 of series 702 and axial image 17 of series 701 is present. GALLBLADDER AND BILE DUCTS: Surgical clips are present in the right upper quadrant, consistent wi th previous cholecystectomy. PANCREAS: No ductal dilation. No mass. SPLEEN: Unremarkable. ADRENALS: Unremarkable. No mass. KIDNEYS AND URETERS: Unremarkable. The kidneys enhance symmetrically. No obstructing renal or ure teral calculus is seen. No hydronephrosis or hydroureter. No perinephric fluid or stranding. STOMACH AND BOWEL: The stomach is moderately fluid-filled. The small bowel is normal in caliber. Stool is present throughout colon. There is no mucosal thickening or evidence of bowel obstruction. PELVIS: APPENDIX: No findings to suggest acute appendicitis. BLADDER: The bladder is well distended. REPRODUCTIVE: Unremarkable as visualized. CHEST, ABDOMEN and PELVIS: INTRAPERITONEAL SPACE: Trace free fluid is present within the pelvis which is likely physiologic. No free air. BONES/JOINTS: There is no acute fracture of the visualized axial and appendicular skeleton. The v ertebral body heights and alignment are maintained. Multilevel degenerative change of the spine is no maria esther. SOFT TISSUES: Inflammatory fat stranding within the soft tissues of the left upper chest is prese nt. VASCULATURE: Multiple calcified phleboliths are present within the pelvis. No aortic aneurysm. LYMPH NODES: Unremarkable. No enlarged lymph nodes. IMPRESSION: 1. No evidence of solid organ injury or traumatic bony findings on this contrasted CT of the chest, abdomen, and pelvis. 2. Findings suggest cirrhotic liver. 3. Heterogeneous lesion near the dome of the liver. ACR White Paper guidelines (Sofi, et al. JACR 2017; 14(11):9784-0212.) suggest the following. For patients with low risk of malignancy, recommend hepatic MR. For patients with high risk of maligna ncy (known malignancy with a propensity to metastasize to the liver, cirrhosis, and/or other hepatic risk factors), recommend hepatic MR or core biopsy. Electronically signed by: Anne De La Vega MD 11/29/2021 1:59 AM CDT Due to temporary technical issues with the PACS/Fluency reporting system, reports are being signed by the in house radiologists without review as a courtesy to insure prompt reporting. The interpreting radiologist is fully responsible for the content of the report.
== END 2021-11-29 03:30 | disposition home or self-care (01) ==
LOC: ER 19:39
DX: S00.83XA Contusion of other part of head, initial encounter (principal); S20.212A Contusion of left front wall of thorax, initial encounter; S30.1XXA Contusion of abdominal wall, initial encounter; E11.65 Type 2 diabetes mellitus with hyperglycemia; D69.6 Thrombocytopenia, unspecified; W17.89XA Other fall from one level to another, initial encounter; Z88.6 Allergy status to analgesic agent
CPT/HCPCS: 36415; 70450; 71260; 72125; 74177; 80048; 81003; 82947; 85025; 85610; 85730; 86850; 86900; 86901; 96361; 96374; 96375; 99285; J1815; J2270; J2405; J7030; Q9967

== ENCOUNTER 2021-11-30 19:41 | Inpatient (IN) | payer SELFPAY ==
[2021-11-30] MEDS ORDERED: MORPHINE 4 MG/ML SYR ONE (20:38)
[2021-11-30] MEDS ORDERED: ONDANSETRON 4 MG/2 ML VIAL ONE (20:38)
[2021-11-30 21:11] LABS: Absolute Lymphocytes (CBC) 1.3 K/uL (0.7-4.9); Lymphocytes % 30.1 % (15.3-44.8); MPV 10.6 fL (7.6-11.3); RBC Red Blood Cell Count 4.26 M/uL (3.86-4.86)
[2021-11-30 21:13] LABS: Protime INR 1.12
[2021-11-30 21:14] LABS: Potassium 3.9 mmol/L (3.5-5.1)
--- NOTE | 2021-11-30 22:00 | RAD REPORT ---
EXAM DESCRIPTION: CT - Head Brain Wo Cont - 11/30/2021 9:54 pm CLINICAL HISTORY: Head trauma, repeat vomiting COMPARISON: HEAD BRAIN W O CONTRAST dated 09/21/2010; Chest Abdomen Pelvis W Cont dated 11/30/2021; Hea d C Spine Cap W Con dated 11/29/2021 TECHNIQUE: All CT scans are performed using dose optimization technique as appropriate and may inclu de automated exposure control or mA/KV adjustment according to patient size. FINDINGS: No intracranial hemorrhage, hydrocephalus or extra-axial fluid collection.No areas of brai n edema or evidence of midline shift. The paranasal sinuses and mastoids are clear. The calvarium is intact. IMPRESSION: No acute intracranial abnormality.
--- NOTE | 2021-11-30 22:07 | RAD REPORT ---
EXAM DESCRIPTION: CTChest Abdomen Pelvis W Cont - 11/30/2021 9:54 pm CLINICAL HISTORY: Polytrauma, blunt COMPARISON: Head C Spine Cap W Con dated 11/29/2021 TECHNIQUE: CT of the chest, abdomen, and pelvis was performed with IV contrast. All CT scans are performed using dose optimization technique as appropriate and may include automated exposure control or mA/KV adjustment according to patient size. FINDINGS: Thorax: Chest Wall: No abnormal mass Lungs: No acute abnormality. Pleura: No effusions or pneumothorax. Kimberlyn/Mediastinum: No lymphadenopathy. Aorta/Pulmonary Arteries: Unremarkable Heart: Normal size. Abdomen/Pelvis: Liver: Arterially enhancing lesion adjacent to the IVC in the right hepatic lobe measures approximate ly 2.6 cm. The lesion washes out on the portal venous phase. A benign appearing lesion is also noted in the dome. Biliary: Cholecystectomy. Stomach: Gastric wall thickening. Duodenum: No significant focal abnormality. Pancreas: No significant abnormality. Spleen: No significant abnormality. Adrenal: No suspicious lesions. Kidney/ureter: No hydronephrosis. No renal calculi. Too small to characterize and/or benign appearing renal lesions are noted. Retroperitoneum: No retroperitoneal adenopathy. Vascular: No aneurysm. Bowel: Diffuse colonic wall thickening.. Peritoneum: Small volume of ascites. Bladder: Grossly unremarkable. Reproductive: No adnexal masses. Bones: No acute fracture. Multilevel degenerative changes are present in the spine. Other: n/a IMPRESSION: 1. No evidence of significant trauma to the chest, abdomen, or pelvis. 2. Hypervascular mass with washout in the right hepatic lobe suspicious for hepatocellular carcinoma. Recommend further evaluation with hepatic protocol MRI. 3. Gastric wall and colonic wall thickening could represent gastritis and/or colitis, respectively ve rsus changes related to cirrhosis and portal hypertension.
--- NOTE | 2021-11-30 22:23 | ER ---
Nurse's Notes [facility] Name: Ana Maria Chavez Age: 61 yrs Sex: Female : 1960 Arrival Date: 11/30/2021 Time: 19:45 Bed 27 Private MD: Diagnosis: Left sided colitis;Abdominal pain, unspecified;Nausea with vomiting, unspecified;Weakness Presentation: 11/30 20:08 Chief complaint: Patient states: I fell down the stairs. I hit my head on the counter jb4 and landed on the bucket. Care prior to arrival: None. Mechanism of Injury: Fall. Trauma event details: Injury occurred in the [facility]. 20:08 Acuity: LETY 2 jb4 20:08 Method Of Arrival: Wheelchair jb4 20:10 Coronavirus screen: At this time, the client does not indicate any symptoms associated jb4 with coronavirus-19. Ebola Screen: No symptoms or risks identified at this time. Initial Sepsis Screen: Does the patient meet any 2 criteria? No. Patient's initial sepsis screen is negative. Does the patient have a suspected source of infection? No. Patient's initial sepsis screen is negative. Risk Assessment: Do you want to hurt yourself or someone else? Patient reports no desire to harm self or others. Onset of symptoms was November 30, 2021. Transition of care: patient was not received from another setting of care. Historical: - Allergies: 20:12 Tylenol; jb4 - PMHx: 20:12 Cirrhosis; gastric ulcers; Hepatitis C; jb4 - PSHx: 20:12 Appendectomy; section; Ligation of fallopian tube; Cholecystectomy; jb4 - Immunization history:: Adult Immunizations up to date. - Immunization history: Last tetanus immunization: unknown. - Social history:: Smoking status: Patient denies any tobacco usage or history of. - Family history:: not pertinent. - Hospitalizations: : No recent hospitalization is reported. Screenin:42 Abuse screen: Denies threats or abuse. Denies injuries from another. Nutritional lg3 screening: No deficits noted. Tuberculosis screening: No symptoms or risk factors identified. Fall Risk Fall in past 12 months (25 points). IV access (20 points). Total Blanchard Fall Scale indicates High Risk Score (45 or more points). Side Rails Up X 2 Frequent Obs/Assessments Occuring Family Present and informed to notify staff if the need to leave the bedside. Assessment: 20:42 General: Appears in no apparent distress. uncomfortable, Behavior is cooperative, lg3 anxious, crying, fussy. Pain: Complains of pain in left lower quadrant Pain currently is 10 out of 10 on a pain scale. Neuro: No deficits noted. Joseph Agitation-Sedation Scale (RASS): 0 - Alert and Calm Level of Consciousness is awake, alert, obeys commands, Oriented to person, place, time, situation. Cardiovascular: No deficits noted. Reports nausea, Capillary refill < 3 seconds Clubbing of nail beds is absent JVD is absent Patient's skin is warm and dry. Respiratory: No deficits noted. Airway is patent Trachea midline Respiratory effort is even, unlabored, Respiratory pattern is regular, symmetrical. GI: Abdomen is round non-distended, Reports lower abdominal pain, cramping, nausea. : No deficits noted. No signs and/or symptoms were reported regarding the genitourinary system. EENT: No deficits noted. No signs and/or symptoms were reported regarding the EENT system. Derm: Bruising that is dark purple, on chest. Musculoskeletal: No deficits noted. Circulation, motion, and sensation intact. Capillary refill < 3 seconds, Range of motion: intact in all extremities. 22:11 Reassessment: Patient appears in no apparent distress at this time. No changes from lg3 previously documented assessment. Patient and/or family updated on plan of care and expected duration. Pain level reassessed. Patient is alert, oriented x 3, equal unlabored respirations, skin warm/dry/pink. Vital Signs: 20:10 BP 146 / 65; Pulse 83; Resp 16; Temp 98.4(TE); Pulse Ox 100% on R/A; Weight 58.97 kg jb4 (R); Height 5 ft. 11 in. (180.34 cm) (R); Pain 10/10; 21:02 BP 144 / 92; Pulse 84; Resp 19 S; Pulse Ox 96% on R/A; lg3 22:40 BP 155 / 77; Pulse 88; Resp 20; Pulse Ox 97% on R/A; lg3 20:10 Body Mass Index 18.13 (58.97 kg, 180.34 cm) jb4 ED Course: 19:45 Patient arrived in ED. ja2 20:06 Junior Lee MD is Attending Physician. rn 20:09 Triage completed. jb4 20:12 Arm band placed on right wrist. jb4 20:13 Marilyn Villar, RN is Primary Nurse. lg3 20:38 Lipase Sent. lg3 20:38 Protime (+inr) Sent. lg3 20:38 Ptt, Activated Sent. lg3 20:38 CBC with Diff Sent. lg3 20:38 Basic Metabolic Panel Sent. lg3 20:39 Inserted saline lock: 20 gauge in left antecubital area, using aseptic technique. Blood lg3 collected. 20:42 Patient has correct armband on for positive identification. Bed in low position. Call lg3 light in reach. Side rails up X2. Client placed on continuous cardiac and pulse oximetry monitoring. NIBP monitoring applied. Door closed. Noise minimized. Family accompanied patient. 21:55 CT Head Brain wo Cont In Process Unspecified. EDMS 21:56 CT Chest, Abdomen, Pelvis - W/Contrast In Process Unspecified. EDMS 22:22 Arlin Pina MD is Hospitalizing Provider. rn 12/01 01:12 COVID-19 SARS RT PCR (Document "Date of Onset" if Symptomatic) Sent. lg3 01:12 CMP Sent. lg3 04:31 Primary Nurse role handed off by Marilyn Villar, RN mw2 22:14 No provider procedures requiring assistance completed. Patient admitted, IV remains in ll3 place. Administered Medications: 11/30 20:37 Drug: morphine 4 mg Route: IVP; Site: left antecubital; lg3 20:38 Follow up: Response: No adverse reaction; RASS: Alert and Calm (0) lg3 20:37 Drug: Zofran (Ondansetron) 4 mg Route: IVP; Site: left antecubital; lg3 20:38 Follow up: Response: No adverse reaction lg3 22:39 Drug: Zosyn (piperacillin-tazobactam) 3.375 grams Route: IVPB; Infused Over: 60 mins; lg3 Site: left antecubital; 12/01 00:30 Follow up: Response: No adverse reaction; IV Status: Completed infusion; IV Intake: lg3 100ml 11/30 22:39 Drug: NS 0.9% 500 ml Route: IV; Rate: bolus; Site: left antecubital; lg3 12/01 00:30 Follow up: Response: No adverse reaction; IV Status: Completed infusion; IV Intake: lg3 500ml Intake: 00:30 IV: 500ml; Total: 500ml. lg3 00:30 IV: 100ml; Total: 600ml. lg3 Outcome: 11/30 22:23 Decision to Hospitalize by Provider. rn 12/01 22:14 Admitted to Med/surg accompanied by tech, via wheelchair, room 221, with chart, Report ll3 called to DERREK Mei 22:14 Condition: stable ll3 22:14 Instructed on the need for admit, Demonstrated understanding of instructions. 22:15 Patient left the ED. ll3 Signatures: Dispatcher [employer] EDMS Junior Lee MD MD rn Bryson, James RN DERREK [email or web address] Georgia Valdes 2 Marilyn Villar RN RN lg3 Amara Chavez Lynsea RN RN ll3 Corrections: (The following items were deleted from the chart) 22:15 22:14 Admitted to Med/surg accompanied by tech, via wheelchair, ll3 ll3
--- NOTE | 2021-11-30 22:23 | EDPHYS ---
Physician Documentation [facility] Name: Ana Maria Chavez Age: 61 yrs Sex: Female : 1960 Arrival Date: 11/30/2021 Time: 19:45 Bed 27 Private MD: ED Physician Junior Lee HPI: 11/30 21:08 This 61 yrs old Female presents to ER via Wheelchair with complaints of Fall rn Injury, chest and abd pain. 21:08 Details of fall: The patient fell from a height, from a ladder. Onset: The rn symptoms/episode began/occurred 2 day(s) ago. Associated injuries: The patient sustained injury to the head, injury to the chest, injury to the abdomen. Severity of symptoms: At their worst the symptoms were moderate, in the emergency department the symptoms are unchanged. The patient has not experienced similar symptoms in the past. The patient has been recently seen by a physician: The patient has been recently seen at the [facility] Emergency Department. Pt fell off step stool 2 days ago, seen here that day for head/chest/abdominal pain. Neg studies, sent home with medication. Reports medication not helping, returns for continued pain, threw up once today, and states abd pain is worse. Denies blood thinners. . Historical: - Allergies: 20:12 Tylenol; jb4 - PMHx: 20:12 Cirrhosis; gastric ulcers; Hepatitis C; jb4 - PSHx: 20:12 Appendectomy; section; Ligation of fallopian tube; Cholecystectomy; jb4 - Immunization history:: Adult Immunizations up to date. - Immunization history: Last tetanus immunization: unknown. - Social history:: Smoking status: Patient denies any tobacco usage or history of. - Family history:: not pertinent. - Hospitalizations: : No recent hospitalization is reported. ROS: 21:08 Constitutional: Negative for fever, chills, and weight loss, Eyes: Negative for injury, rn pain, redness, and discharge, Neck: Negative for injury, pain, and swelling, Cardiovascular: + left chest wall bruising and pain Respiratory: Negative for shortness of breath, cough, wheezing, and pleuritic chest pain, Abdomen/GI: + left sided abd pain and vomiting. Back: Negative for injury and pain, : Negative for injury, bleeding, discharge, and swelling, MS/Extremity: Negative for injury and deformity, Skin: Negative for injury, rash, and discoloration, Neuro: + mild headache Exam: 21:08 Constitutional: This is a well developed, well nourished patient who is awake, alert, rn appears a little uncomfortable Head/Face: Normocephalic, + ecchymosis left forehead, no laceration Eyes: Pupils equal round and reactive to light, extra-ocular motions intact. Lids and lashes normal. Conjunctiva and sclera are non-icteric and not injected. Cornea within normal limits. Periorbital areas with no swelling, redness, or edema. Neck: No crepitus, no swelling, no midline tenderness Chest/axilla: + ecchymosis and mild tenderness left breast and anterior chest wall, no crepitus Cardiovascular: Regular rate and rhythm. No pulse deficits. Respiratory: Speaking full sentences, unlabored. No increased work of breathing, no retractions or nasal flaring. Abdomen/GI: soft, + tender LUQ and LLQ, with guarding, grabbed my hand during exam, no ecchymosis or flank ecchymosis Skin: Warm, dry MS/ Extremity: Pulses equal, no cyanosis. Neurovascular intact. Full, normal range of motion. Equal circumference. FROM bilateral hips and arms. + ecchymosis right antecubital space (recent IV placement) Neuro: Awake and alert, GCS 15, oriented to person, place, time, and situation. Cranial nerves II-XII grossly intact. Motor strength 5/5 in all extremities. Sensory grossly intact. Cerebellar exam normal. Vital Signs: 20:10 BP 146 / 65; Pulse 83; Resp 16; Temp 98.4(TE); Pulse Ox 100% on R/A; Weight 58.97 kg jb4 (R); Height 5 ft. 11 in. (180.34 cm) (R); Pain 10/10; 21:02 BP 144 / 92; Pulse 84; Resp 19 S; Pulse Ox 96% on R/A; lg3 22:40 BP 155 / 77; Pulse 88; Resp 20; Pulse Ox 97% on R/A; lg3 20:10 Body Mass Index 18.13 (58.97 kg, 180.34 cm) jb4 MDM: 20:06 Patient medically screened. rn 22:20 Differential diagnosis: closed head injury, contusion, fracture, multiple trauma, rn contusion, colitis, enteritis. Data reviewed: vital signs, nurses notes, lab test result(s), radiologic studies, CT scan, and as a result, I will admit patient. Counseling: I had a detailed discussion with the patient and/or guardian regarding: the historical points, exam findings, and any diagnostic results supporting the discharge/admit diagnosis, lab results, radiology results, the need for further work-up and treatment in the hospital. Response to treatment: the patient's symptoms have mildly improved after treatment, and as a result, I will admit patient. Admission orders: after a detailed discussion of the patient's condition and case, the admit orders are written by me. ED course: CT shows possible colitis and no traumatic findings. Spoke again with family and patient, they state she has been having diarrhea and vomiting, left side of abdomen seems to be very tender, will admit for colitis and pain control as most likely coincidental and not just trauma related. . 11/30 20:13 Order name: CBC with Diff; Complete Time: 21:17 11/30 20:13 Order name: Basic Metabolic Panel; Complete Time: 21:17 11/30 20:13 Order name: Protime (+inr); Complete Time: 21:17 11/30 20:13 Order name: Ptt, Activated; Complete Time: 21:17 11/30 20:13 Order name: Lipase; Complete Time: 21:17 11/30 22:59 Order name: CMP; Complete Time: 06:20 jb4 11/30 20:13 Order name: CT Head Brain wo Cont; Complete Time: 22:11 11/30 20:13 Order name: CT Chest, Abdomen, Pelvis - W/Contrast; Complete Time: 22:11 12/01 00:33 Order name: COVID-19 SARS RT PCR (Document "Date of Onset" if Symptomatic); Complete mw2 Time: 02:07 12/01 08:39 Order name: Glucose, Ancillary Testing [facility] 12/01 09:02 Order name: Urine Dipstick-Ancillary [facility] 12/01 15:30 Order name: Glucose, Ancillary Testing [facility] 12/01 20:52 Order name: Glucose, Ancillary Testing [facility] 11/30 20:13 Order name: IV Start; Complete Time: 20:38 rn Administered Medications: 20:37 Drug: morphine 4 mg Route: IVP; Site: left antecubital; lg3 20:38 Follow up: Response: No adverse reaction; RASS: Alert and Calm (0) lg3 20:37 Drug: Zofran (Ondansetron) 4 mg Route: IVP; Site: left antecubital; lg3 20:38 Follow up: Response: No adverse reaction lg3 22:39 Drug: Zosyn (piperacillin-tazobactam) 3.375 grams Route: IVPB; Infused Over: 60 mins; lg3 Site: left antecubital; 12/01 00:30 Follow up: Response: No adverse reaction; IV Status: Completed infusion; IV Intake: lg3 100ml 11/30 22:39 Drug: NS 0.9% 500 ml Route: IV; Rate: bolus; Site: left antecubital; lg3 12/01 00:30 Follow up: Response: No adverse reaction; IV Status: Completed infusion; IV Intake: lg3 500ml Disposition Summary: 11/30/21 22:23 Hospitalization Ordered Hospitalization Status: Inpatient Admission rn Provider: Arlin Pina rn Condition: Stable rn Problem: new rn Symptoms: have improved rn Bed/Room Type: Standard rn Location: Telemetry/MedSurg (Inpatient)(12/01/21 17:18) Room Assignment: [facility](12/01/21 18:07) Diagnosis - Left sided colitis rn - Abdominal pain, unspecified rn - Nausea with vomiting, unspecified rn - Weakness rn Forms: - Medication Reconciliation Form rn - SBAR form rn Signatures: Dispatcher [employer] Sondra Torres RN RN Junior Watters MD MD rn Garcia, Cindy, RN RN Cody Palumbo RN RN Marilyn Kern RN RN lg3 Екатерина Tyson PA PA sb3 Corrections: (The following items were deleted from the chart) 11/30 22:55 22:23 Telemetry/MedSurg (Inpatient) rn 22:55 22:23 rn cg 12/01 17:18 0518 22:55 [facility] ER HOLD cg 12/01 17:18 18 22:55 ERHOLD- cg 12/01 18:07 17:18 222 dw dw
[2021-11-30] MEDS ORDERED: NA CHLORIDE 0.9% 500 ML ONE (22:34)
[2021-11-30] MEDS ORDERED: PIPERACIL/TAZO 3.375 GM VIAL IV ONE (22:35)
--- NOTE | 2021-12-01 01:12 | P.HP ---
Certification for Inpatient Patient admitted to: Inpatient With expected LOS: <2 Midnights Patient will require the following post-hospital care: None Practitioner: I am a practitioner with admitting privileges, knowledge of patient current condition, hospital course, and medical plan of care. Services: Services provided to patient in accordance with Admission requirements found in Title 42 Section 412.3 of the Code of Federal Regulations <Екатерина Tyson - Last Filed: 12/01/21 02:36> Patient History Date of Service: 12/01/21 Reason for admission: Colitis History of Present Illness: Patient is a 61-year-old female with past medical history of cirrhosis, gastric ulcers, and hepatitis C who presented to the ED initially with complaints of nausea, vomiting, diarrhea, abdominal pain. She was seen here 2 days ago after sustaining a fall from a ladder that caused her head, chest, and abdominal pain. Initial imaging negative. She returns today for worsening abdominal pain. CBC and CMP WNL, LFTs pending. CT showed left-sided colitis. She was given Zosyn, morphine, and Zofran in the ED. ED provider wishes to admit patient for further evaluation and treatment. Home medications list reviewed: Yes - Past Medical/Surgical History Diabetic: No -: Cirrhosis -: Gastric Ulcers -: Hepatitis C -: Cholecystectomy -: appendectomy -: tubal ligation -: Psychosocial/ Personal History: Patient lives at home with her family. - Social History Smoking Status: Never smoker Alcohol use: No CD- Drugs: No Caffeine use: No Place of Residence: Home <Екатерина Tyson - Last Filed: 12/01/21 02:36> Date of Service: 12/01/21 <Arlin Pina - Last Filed: 12/01/21 08:07> Allergies No Known Allergies Allergy (Verified 04/11/18 03:28) Home Medications: Ciprofloxacin HCl [Cipro 500 MG Tablet] 500 mg PO DAILY #10 tab 04/14/18 Metformin ER [Glucophage ER*] 500 mg PO BID #60 tab.sa 04/14/18 Pantoprazole [Protonix Tab*] 40 mg PO BIDAC #60 tab 04/14/18 Propranolol HCl 10 mg PO BID #60 tablet 04/14/18 Sucralfate [Carafate*] 1 gm PO QID #120 tab 09/30/18 metroNIDAZOLE [Flagyl*] 500 mg PO Q6HR #40 tablet 04/14/18 Review of Systems Gastrointestinal: Nausea, Vomiting, Abdominal Pain, Diarrhea <Екатерина Tyson - Last Filed: 12/01/21 02:36> Physical Examination - Physical Exam General: Alert, In no apparent distress HEENT: Atraumatic, PERRLA, EOMI, Sclerae nonicteric Neck: Supple, 2+ carotid pulse no bruit, No LAD, Without JVD or thyroid abnormality Respiratory: Clear to auscultation bilaterally, Normal air movement Cardiovascular: Regular rate/rhythm, Normal S1 S2 Gastrointestinal: Normal bowel sounds, Soft and benign, Non-distended, Tenderness, Guarding Musculoskeletal: No tenderness Integumentary: No rashes Neurological: Normal speech, Normal strength at 5/5 x4 extr, Normal tone, Normal affect - Studies Laboratory Data (last 24 hrs) 11/30/21 20:29: PT 12.3, INR 1.12, APTT 35.8 11/30/21 20:29: Sodium 134 L, Potassium 3.9, BUN 14, Creatinine 0.95, Glucose 324 H, Lipase 112 11/30/21 20:29: WBC 4.2 L D, Hgb 14.5, Hct 43.0, Plt Count 60 L D <Екатерина Tyson - Last Filed: 12/01/21 02:36> - Studies Laboratory Data (last 24 hrs) 11/30/21 20:29: PT 12.3, INR 1.12, APTT 35.8 11/30/21 20:29: Sodium 134 L, Potassium 3.9, BUN 14, Creatinine 0.95, Glucose 324 H, Lipase 112 11/30/21 20:29: WBC 4.2 L D, Hgb 14.5, Hct 43.0, Plt Count 60 L D <Arlin Pina - Last Filed: 12/01/21 08:07> Assessment and Plan - Problems (Diagnosis) (1) Colitis Current Visit: Yes Status: Acute (2) Cirrhosis Onset Date: 04/12/18 Current Visit: No Status: Chronic Qualifiers: Hepatic cirrhosis type: unspecified hepatic cirrhosis Ascites presence: without ascites Qualified Code(s): K74.60 - Unspecified cirrhosis of liver (3) H/O hepatitis Current Visit: No Status: Chronic (4) Thrombocytopenia Current Visit: Yes Status: Chronic - Plan -Continue Zosyn for colitis -Clear liquid diet, advance as tolerated -Morphine as needed pain and Zofran as needed nausea -CT showed hypervascular mass suspicious for hepatocellular carcinoma. This was evaluated via MRI in 2018 and recommended repeat scan 6 months after -LFTs pending. history of hepatitis c -Platelets 60. Patient has history of thrombocytopenia. Appears around baseline -Lovenox for VTE prophylaxis Discharge Plan: Home Plan to discharge in: 48 Hours - Advance Directives Does patient have a Living Will: No Does patient have a Durable POA for Healthcare: No - Code Status/Comfort Care Code Status Assessed: Yes (Full) Critical Care: No Time Spent Managing Pts Care (In Minutes): 50 <Екатерина Tyson - Last Filed: 12/01/21 02:36> Date of Service: 12/01/21 Subjective: HPI as mentioned above Physical Examination: Vitals: Afebrile vital signs are stable Physical exam: Cardiovascular: Within normal limits. Lungs: Within normal limits Abdomen: Within normal limits Neuro: Awake, alert, oriented to person place and time Assessment: 1. Colitis Plan: 1. Continue with current plan of care as mentioned above <Arlin Pina - Last Filed: 12/01/21 08:07>
[2021-12-01] MEDS ORDERED: HYDRALAZINE HCL 20 MG/ML VIAL IV PRN (01:21)
[2021-12-01] MEDS ORDERED: NA CHLORIDE 0.9% 1,000 ML ONE ×2 (02:00→15:36)
[2021-12-01] MEDS: NA CHLORIDE 0.9% 1,000 ML IV SCH ×3 (02:00→22:19)
[2021-12-01 05:40] LABS: Albumin 2.1 g/dL (3.4-5.0); Bilirubin Total 2.8 mg/dL (0.2-1.0); Potassium 3.9 mmol/L (3.5-5.1); Protein, Total 6.4 g/dL (6.4-8.2)
--- NOTE | 2021-12-01 08:10 | P.PN ---
Date of Service: 12/01/21 Patient with a liver mass and will need further work-up as an outpatient. This appears to be hepatocellular carcinoma.
[2021-12-01] MEDS: MORPHINE 2 MG/ML SYR IV PRN ×3 (08:15→23:33)
[2021-12-01] MEDS ORDERED: MORPHINE 2 MG/ML SYR ONE ×2 (08:15→12:31)
[2021-12-01] MEDS: ONDANSETRON 4 MG/2 ML VIAL IV PRN ×2 (08:15→23:34)
[2021-12-01] MEDS ORDERED: ONDANSETRON 4 MG/2 ML VIAL ONE (08:16)
[2021-12-01] MEDS ORDERED: SUCRALFATE 1 GM TABLET ONE ×3 (08:47→17:27)
[2021-12-01] MEDS ORDERED: NA CHLORIDE 0.9% 100 ML IV ONE ×2 (08:48→17:28)
[2021-12-01] MEDS ORDERED: PIPERACIL/TAZO 3.375 GM VIAL IV ONE ×2 (08:48→17:28)
[2021-12-01] MEDS ORDERED: METFORMIN HCL 500 MG TAB ONE (08:48)
[2021-12-01] MEDS: PROPRANOLOL HCL 10 MG TAB PO SCH ×2 (09:00→23:25)
[2021-12-01] MEDS: PIPER TAZO 3.375 GM in NA CHLORIDE 0.9% 100 ML IV SCH ×2 (09:00→18:00)
[2021-12-01] MEDS ORDERED: ENOXAPARIN 40 MG/0.4 ML SQ SCH (09:00)
[2021-12-01] MEDS: METFORMIN ER 500 MG TAB PO SCH ×2 (09:00→22:18)
[2021-12-01] MEDS: SUCRALFATE 1 GM TABLET PO SCH ×4 (09:00→22:19)
[2021-12-01 09:02] LABS: Urine Blood 3+ (Negative); Urine Glucose 2+ (Negative); Urine Protein 1+ (Negative)
[2021-12-01] MEDS ORDERED: GLUCAGON 1 MG/VIAL IM PRN ×3 (13:00→20:37)
[2021-12-01] MEDS ORDERED: D10W 250 ML BAG IV PRN ×2 (13:12→20:36)
[2021-12-01] MEDS ORDERED: INSULIN 70/30 100 UNITS/ML SQ ONE ×2 (14:00→15:35)
[2021-12-01] MEDS: PANTOPRAZOLE 40MG TABLET PO SCH (15:20)
[2021-12-01] MEDS ORDERED: PANTOPRAZOLE 40 MG INJ ONE (15:36)
[2021-12-01] MEDS: INSULIN 70/30 100 UNITS/ML SQ SCH (16:14)
[2021-12-01] MEDS ORDERED: D50W 25 GM/50 ML SYRINGE IV PRN (20:37)
[2021-12-01] MEDS ORDERED: INSULIN -REGULAR HUMAN 50 UNIT/0.5 ML ML SQ ONE (20:41)
[2021-12-01] MEDS ORDERED: INSULIN -REGULAR HUMAN 50 UNIT/0.5 ML ML ONE (21:00)
[2021-12-01] MEDS: INSULIN -REGULAR HUMAN 50 UNIT/0.5 ML ML SQ SCH (21:00)
[2021-12-02] MEDS: PIPER TAZO 3.375 GM in NA CHLORIDE 0.9% 100 ML IV SCH ×3 (01:19→17:42)
[2021-12-02 01:41] VITALS: BMI 32.3
[2021-12-02 05:48] LABS: Absolute Lymphocytes (CBC) 1.9 K/uL (0.7-4.9); Hematocrit 34.4 % (36.0-45.0); Lymphocytes % 35.3 % (15.3-44.8); MPV 10.2 fL (7.6-11.3); RBC Red Blood Cell Count 3.37 M/uL (3.86-4.86)
[2021-12-02 06:03] LABS: Magnesium 1.5 mg/dL (1.8-2.4); Phosphorus 1.9 mg/dL (2.5-4.9); Potassium 3.8 mmol/L (3.5-5.1); Protein, Total 6.1 g/dL (6.4-8.2)
[2021-12-02] MEDS: NA CHLORIDE 0.9% 1,000 ML IV SCH ×2 (08:07→17:40)
[2021-12-02] MEDS: PANTOPRAZOLE 40MG TABLET PO SCH ×2 (08:37→16:21)
[2021-12-02] MEDS: INSULIN 70/30 100 UNITS/ML SQ SCH ×2 (08:37→16:21)
[2021-12-02] MEDS: INSULIN -REGULAR HUMAN 50 UNIT/0.5 ML ML SQ SCH ×4 (08:37→21:00)
[2021-12-02] MEDS: PROPRANOLOL HCL 10 MG TAB PO SCH ×2 (08:38→21:34)
[2021-12-02] MEDS: METFORMIN ER 500 MG TAB PO SCH (08:38)
[2021-12-02] MEDS: SUCRALFATE 1 GM TABLET PO SCH ×4 (08:38→21:35)
[2021-12-02] MEDS ORDERED: Magnesium Sulfate 2gm IVPB 2 G/50 ML BAG IV ONE (10:44)
[2021-12-02] MEDS ORDERED: POTASSIUM PHOS 30 MM in NA CHLORIDE 0.9% 500 ML IV ONE (11:30)
[2021-12-02] MEDS ORDERED: ALBUMIN HUMAN 25% 100 ML IV ONE (16:00)
[2021-12-02 18:24] LABS: Absolute Lymphocytes (CBC) 1.7 K/uL (0.7-4.9); Hematocrit 35.4 % (36.0-45.0); Lymphocytes % 33.8 % (15.3-44.8); MPV 10.1 fL (7.6-11.3); RBC Red Blood Cell Count 3.46 M/uL (3.86-4.86)
[2021-12-02 18:43] LABS: Albumin 2.5 g/dL (3.4-5.0); Bilirubin Total 1.6 mg/dL (0.2-1.0); Protein, Total 6.8 g/dL (6.4-8.2)
[2021-12-03] MEDS: PIPER TAZO 3.375 GM in NA CHLORIDE 0.9% 100 ML IV SCH ×2 (00:40→08:37)
[2021-12-03 01:34] VITALS: O2SAT 95
[2021-12-03] MEDS: NA CHLORIDE 0.9% 1,000 ML IV SCH ×2 (04:25→14:28)
[2021-12-03] MEDS: INSULIN -REGULAR HUMAN 50 UNIT/0.5 ML ML SQ SCH ×2 (08:36→12:45)
[2021-12-03] MEDS: SUCRALFATE 1 GM TABLET PO SCH ×2 (08:36→12:45)
[2021-12-03] MEDS: PROPRANOLOL HCL 10 MG TAB PO SCH (08:37)
[2021-12-03] MEDS: INSULIN 70/30 100 UNITS/ML SQ SCH (08:37)
[2021-12-03] MEDS: PANTOPRAZOLE 40MG TABLET PO SCH (08:37)
[2021-12-03 12:43] LABS: Albumin 2.5 g/dL (3.4-5.0); Bilirubin Total 1.5 mg/dL (0.2-1.0); Potassium 3.4 mmol/L (3.5-5.1); Protein, Total 7.1 g/dL (6.4-8.2)
[2021-12-03 16:20] VITALS: BP 101/50; TEMP 97.4
== END 2021-12-03 16:38 | disposition home or self-care (01) | DRG 392 ==
LOC: ER 19:41 → ERHOLD 12-01 01:08 → 2ND 12-01 20:11
PROVIDERS: ADMIT Hospitalist; ATTEND Hospitalist
DX: K52.9 Noninfective gastroenteritis and colitis, unspecified (principal); C22.0 Liver cell carcinoma; K74.60 Unspecified cirrhosis of liver; D69.6 Thrombocytopenia, unspecified; Z86.19 Personal history of other infectious and parasitic diseases; Z20.822 Contact with and (suspected) exposure to COVID-19
CPT/HCPCS: 36415; 70450; 71260; 74177; 80048; 80053; 81003; 82105; 82947; 83036; 83690; 83735; 84100; 85025; 85610; 85730; 96365; 96366; 96375; 99285; C9113; J1815; J2270; J2405; J2543; J3475; J7030; J7040; P9047; Q9967; U0003

== ENCOUNTER 2022-08-10 20:21 | Emergency (ER) | payer OTHER, SELFPAY ==
[2022-08-10] MEDS ORDERED: MORPHINE 4 MG/ML SYR ONE (20:59)
[2022-08-10] MEDS ORDERED: ONDANSETRON 4 MG/2 ML VIAL ONE (20:59)
[2022-08-10 21:10] LABS: Hematocrit 44.5 % (36.0-45.0); Lymphocytes % 34.1 % (15.3-44.8); MCV 104.3 fL (80-100); MPV 9.7 fL (7.6-11.3); RBC Red Blood Cell Count 4.26 M/uL (3.86-4.86)
[2022-08-10 21:43] LABS: Albumin 2.4 g/dL (3.4-5.0); Bilirubin Total 1.8 mg/dL (0.2-1.0); Potassium 3.9 mmol/L (3.5-5.1); Protein, Total 8.4 g/dL (6.4-8.2)
[2022-08-10] MEDS ORDERED: NA CHLORIDE 0.9% 1,000 ML ONE (21:53)
--- NOTE | 2022-08-10 21:57 | RAD REPORT ---
EXAM DESCRIPTION: CT - Abdomen Pelvis W Contrast - 08/10/2022 9:30 pm CLINICAL HISTORY: Abdominal pain/umbilical pain COMPARISON: 2017 TECHNIQUE: Computed axial tomography of the abdomen pelvis was obtained. 100 cc Isovue-300 was admin istered intravenously. Oral contrast was not requested which limits evaluation of bowel and appendix All CT scans are performed using dose optimization technique as appropriate and may include automated exposure control or mA/KV adjustment according to patient size. FINDINGS: A cirrhotic liver with recannulization of the umbilical vein. The portal vein is prominent . The portal vein is patent. A 2 centimeter cyst within liver. 1.2 centimeter vague enhancing lesion lateral segment left lobe of the liver. Couple of additional vague hypo densities within the liver. Spleen is upper limits normal size. Cholecystectomy Pancreas, adrenals and kidneys unremarkable No adnexal mass Relatively small amount of ascites. Small bowel wall thickening probably related to hypoalbuminemia. Spondylosis lumbar spine resulting in spinal stenosis. Appendix not clearly seen IMPRESSION: Cirrhosis Hepatic lesions. MRI recommended for further evaluation. Small amount ascites
[2022-08-10] MEDS ORDERED: INSULIN -REGULAR HUMAN 50 UNIT/0.5 ML ML ONE (21:59)
--- NOTE | 2022-08-10 23:32 | ER ---
Nurse's Notes [facility] Name: Ana Maria Chavez Age: 62 yrs Sex: Female : 1960 Arrival Date: 08/10/2022 Time: 20:25 Bed 4 Private MD: Diagnosis: Hyperglycemia, unspecified;Abdominal pain, unspecified Presentation: 08/10 20:50 Chief complaint: Patient states: "I had a hernia years ago and I was picking up a 40 vc1 pack of water and it felt like it ripped". Coronavirus screen: Vaccine status: Patient reports being unvaccinated. Client denies travel out of the [place] in the last 14 days. At this time, the client does not indicate any symptoms associated with coronavirus-19. Ebola Screen: No symptoms or risks identified at this time. Initial Sepsis Screen: Does the patient meet any 2 criteria? No. Patient's initial sepsis screen is negative. Does the patient have a suspected source of infection? No. Patient's initial sepsis screen is negative. Risk Assessment: Do you want to hurt yourself or someone else? Patient reports no desire to harm self or others. Onset of symptoms was August 09, 2022. 20:50 Method Of Arrival: Ambulatory vc1 20:50 Acuity: LETY 3 bb Triage Assessment: 20:53 General: Appears in no apparent distress. uncomfortable, Behavior is calm, cooperative, vc1 appropriate for age. Pain: Complains of pain in umbilical area Pain does not radiate. Pain currently is 8 out of 10 on a pain scale. at worst was 10 out of 10 on a pain scale. Quality of pain is described as sharp, Alleviated by rest, Aggravated by increased activity, repositioning. EENT: No deficits noted. No signs and/or symptoms were reported regarding the EENT system. Neuro: No deficits noted. Cardiovascular: No deficits noted. Respiratory: Airway is patent Respiratory effort is even, unlabored, Respiratory pattern is regular, symmetrical. GI: Reports lower abdominal pain. : No deficits noted. Derm:. Musculoskeletal: Tenderness present in umbilical area. Historical: - Allergies: 20:53 Tylenol; vc1 - PMHx: 20:53 Cirrhosis; gastric ulcers; Hepatitis C; Diabetes mellitus; vc1 - PSHx: 20:53 Appendectomy; section; Cholecystectomy; Ligation of fallopian tube; vc1 - Immunization history:: Adult Immunizations up to date. - Social history:: Smoking status: Patient denies any tobacco usage or history of. Screenin:04 [facility] ED Fall Risk Assessment (Adult) History of falling in the last 3 months, kl including since admission No falls in past 3 months (0 pts) Confusion or Disorientation No (0 pts) Intoxicated or Sedated No (0 pts) Impaired Gait No (0 pts) Mobility Assist Device Used No (0 pt) Altered Elimination No (0 pt) Score/Fall Risk Level 0 - 2 = Low Risk Oriented to surroundings, Maintained a safe environment. Abuse screen: Denies threats or abuse. Nutritional screening: No deficits noted. Tuberculosis screening: No symptoms or risk factors identified. Assessment: 21:03 General: Appears distressed, uncomfortable, well groomed, well developed. Pain: kl Complains of pain in umbilical area Pain currently is 9 out of 10 on a pain scale. Pain began suddenly, 1 hour ago. Neuro: No deficits noted. Cardiovascular: No deficits noted. Respiratory: No deficits noted. GI: Bowel sounds present X 4 quads. Abd is soft Abdomen is tender to palpation in umbilical area. : No deficits noted. No signs and/or symptoms were reported regarding the genitourinary system. EENT: No deficits noted. No signs and/or symptoms were reported regarding the EENT system. 22:45 Reassessment: Patient appears in no apparent distress at this time. Patient and/or kl family updated on plan of care and expected duration. Pain level reassessed. Patient is alert, oriented x 3, equal unlabored respirations, skin warm/dry/pink. Patient states symptoms have improved. Vital Signs: 20:50 BP 188 / 95; Pulse 72; Resp 15; Temp 98.6; Pulse Ox 99% ; Weight 58.97 kg; Height 5 ft. vc1 0 in. (152.40 cm); Pain 8/10; 21:25 BP 144 / 70; kl 22:44 BP 117 / 67; Pulse 62; Resp 16; Pulse Ox 97% on R/A; kl 23:41 BP 130 / 63; Pulse 64; Resp 18; Pulse Ox 100% on R/A; Pain 0/10; kl 20:50 Body Mass Index 25.39 (58.97 kg, 152.40 cm) vc1 ED Course: 20:25 Patient arrived in ED. ja2 20:50 Maged Esparza NP is PHCP. pm1 20:50 Jameel Ivy MD is Attending Physician. pm1 20:50 Inserted saline lock: 20 gauge in right antecubital area, using aseptic technique. kl Blood collected. 20:53 Triage completed. vc1 20:55 Arm band placed on right wrist. vc1 21:03 CBC with Diff Sent. kl 21:03 CMP Sent. kl 21:03 Lipase Sent. kl 21:32 CT Abd/Pelvis - IV Contrast Only In Process Unspecified. EDMS 21:45 Notified Nurse Practitioner and/or Physician Program Host of a critical lab result(s), bb glucose of 874 Maged Esparza NP notified. 23:43 Patient has correct armband on for positive identification. kl 23:43 No provider procedures requiring assistance completed. IV discontinued, intact, kl bleeding controlled, No redness/swelling at site. Pressure dressing applied. Administered Medications: 21:00 Drug: Zofran (Ondansetron) 4 mg Route: IVP; Site: right antecubital; kl 23:42 Follow up: Response: No adverse reaction; Marked relief of symptoms kl 23:42 Follow up: Response: No adverse reaction; Pain is decreased kl 21:00 Drug: morphine 4 mg Route: IVP; Infused Over: 4 mins; Site: right antecubital; kl 21:52 Drug: NS 0.9% 1000 ml Route: IV; Rate: 1000 ml; Site: right antecubital; ll3 23:42 Follow up: IV Status: Completed infusion; IV Intake: 1000ml kl 21:59 Drug: Insulin Regular Human 10 units {Co-Signature: ll3 (Kylie Hair RN).} Route: kl IVP; Site: right antecubital; 23:42 Follow up: Response: Blood sugar is lowered kl Medication: 23:43 VIS not applicable for this client. kl Intake: 23:42 IV: 1000ml; Total: 1000ml. kl Outcome: 23:32 Discharge ordered by . pm1 23:43 Discharged to home ambulatory, with family. kl 23:43 Condition: improved 23:43 Discharge instructions given to patient, Instructed on discharge instructions, follow up and referral plans. Demonstrated understanding of instructions, follow-up care. 23:43 Patient left the ED. kl Signatures: Dispatcher [employer] EDMS Nellie Valencia RN RN kl Casi Hunter RN RN bb Maged Esparza, TURN SEWER TURN SEWER pm1 Amara Chavez Lynsea, RN RN ll3 Naima Johnson RN RN vc1 Kylie Hair RN ll3 Corrections: (The following items were deleted from the chart) 21:46 20:50 Acuity: LETY 4 vc1 neel
--- NOTE | 2022-08-10 23:33 | EDPHYS ---
Physician Documentation [facility] Name: Ana Maria Chavez Age: 62 yrs Sex: Female : 1960 Arrival Date: 08/10/2022 Time: 20:25 Bed 4 Private MD: ED Physician Jameel Ivy HPI: 08/10 20:55 This 62 yrs old Female presents to ER via Ambulatory with complaints of pm1 Abdominal Pain. 20:55 The patient presents with abdominal pain in the periumbilical area. Onset: The pm1 symptoms/episode began/occurred today. The symptoms do not radiate. Associated signs and symptoms: none. Pertinent negatives: nausea, vomiting, and diarrhea. The symptoms are described as sharp. Modifying factors: The symptoms are alleviated by nothing, the symptoms are aggravated by nothing. Severity of pain: in the emergency department the pain is unchanged. The patient has experienced similar episodes in the past, a few times. The patient has not recently seen a physician. Patient presents to the ER with complaints of abdominal pain in the umbilical area as result of lifting a package of bottled water. Patient is concerned she has a possible hernia to the area. Historical: - Allergies: 20:53 Tylenol; vc1 - PMHx: 20:53 Cirrhosis; gastric ulcers; Hepatitis C; Diabetes mellitus; vc1 - PSHx: 20:53 Appendectomy; section; Cholecystectomy; Ligation of fallopian tube; vc1 - Immunization history:: Adult Immunizations up to date. - Social history:: Smoking status: Patient denies any tobacco usage or history of. ROS: 20:55 Constitutional: Negative for fever, chills, and weight loss, Cardiovascular: Negative pm1 for chest pain, palpitations, and edema, Respiratory: Negative for shortness of breath, cough, wheezing, and pleuritic chest pain. 20:55 Back: Negative for injury and pain, MS/Extremity: Negative for injury and deformity, Skin: Negative for injury, rash, and discoloration, Neuro: Negative for headache, weakness, numbness, tingling, and seizure. 20:55 Abdomen/GI: Positive for abdominal pain, of the umbilical area, Negative for nausea, vomiting, and diarrhea. 20:55 All other systems are negative. Exam: 20:55 Constitutional: This is a well developed, well nourished patient who is awake, alert, pm1 and in no acute distress. Head/Face: Normocephalic, atraumatic. 20:55 Back: No spinal tenderness. No costovertebral tenderness. Full range of motion. Skin: Warm, dry with normal turgor. Normal color with no rashes, no lesions, and no evidence of cellulitis. MS/ Extremity: Pulses equal, no cyanosis. Neurovascular intact. Full, normal range of motion. 20:55 Eyes: Exam is negative for acute changes. 20:55 ENT: Exam is negative for acute changes. 20:55 Cardiovascular: Exam negative for acute changes, Rate: normal, Rhythm: regular, Pulses: no pulse deficits are appreciated. 20:55 Respiratory: Exam negative for acute changes, respiratory distress, shortness of breath, Breath sounds: are clear throughout. 20:55 Abdomen/GI: Inspection: abdomen appears normal, Palpation: soft, in all quadrants, mild abdominal tenderness, in the umbilical area. 20:55 Neuro: Exam negative for acute changes, Orientation: is normal, Mentation: is normal, Motor: is normal, moves all fours. Vital Signs: 20:50 BP 188 / 95; Pulse 72; Resp 15; Temp 98.6; Pulse Ox 99% ; Weight 58.97 kg; Height 5 ft. vc1 0 in. (152.40 cm); Pain 8/10; 21:25 BP 144 / 70; kl 22:44 BP 117 / 67; Pulse 62; Resp 16; Pulse Ox 97% on R/A; kl 23:41 BP 130 / 63; Pulse 64; Resp 18; Pulse Ox 100% on R/A; Pain 0/10; kl 20:50 Body Mass Index 25.39 (58.97 kg, 152.40 cm) vc1 MDM: 20:32 Patient medically screened. bs3 23:31 Data reviewed: vital signs. Counseling: I had a detailed discussion with the patient pm1 and/or guardian regarding: the historical points, exam findings, and any diagnostic results supporting the discharge/admit diagnosis, lab results, radiology results, the need for outpatient follow up, to return to the emergency department if symptoms worsen or persist or if there are any questions or concerns that arise at home. 08/10 20:55 Order name: CBC with Diff; Complete Time: 21:33 pm1 08/10 20:55 Order name: CMP; Complete Time: 21:47 pm1 08/10 20:55 Order name: Lipase; Complete Time: 21:47 pm1 08/10 20:55 Order name: CT Abd/Pelvis - IV Contrast Only; Complete Time: 22:19 pm1 08/10 22:03 Order name: CREATININE WHOLE BLOOD; Complete Time: 22:19 EDMS 08/10 23:35 Order name: Glucose, Ancillary Testing; Complete Time: 01:17 EDMS 08/10 20:55 Order name: IV Saline Lock; Complete Time: 21:03 pm1 08/10 20:55 Order name: Labs collected and sent; Complete Time: 21:03 pm1 08/10 23:15 Order name: Glucose Level pm1 Administered Medications: 21:00 Drug: Zofran (Ondansetron) 4 mg Route: IVP; Site: right antecubital; kl 23:42 Follow up: Response: No adverse reaction; Marked relief of symptoms kl 23:42 Follow up: Response: No adverse reaction; Pain is decreased kl 21:00 Drug: morphine 4 mg Route: IVP; Infused Over: 4 mins; Site: right antecubital; kl 21:52 Drug: NS 0.9% 1000 ml Route: IV; Rate: 1000 ml; Site: right antecubital; 3 23:42 Follow up: IV Status: Completed infusion; IV Intake: 1000ml kl 21:59 Drug: Insulin Regular Human 10 units {Co-Signature: ll3 (Kylie Hair RN).} Route: kl IVP; Site: right antecubital; 23:42 Follow up: Response: Blood sugar is lowered kl Disposition: 08/11 04:31 I reviewed the patient's care provided by the Advanced Practice Provider and agree with bs3 the diagnosis and treatment plan. Disposition Summary: 08/10/22 23:32 Discharge Ordered Location: Home pm1 Problem: new pm1 Symptoms: have improved pm1 Condition: Stable pm1 Diagnosis - Hyperglycemia, unspecified pm1 - Abdominal pain, unspecified pm1 Followup: pm1 - With: Emergency Department - When: As needed - Reason: Worsening of condition Followup: pm1 - With: Private Physician - When: 2 - 3 days - Reason: Recheck today's complaints, Continuance of care, Re-evaluation by your physician Discharge Instructions: - Discharge Summary Sheet pm1 - Abdominal Pain, Adult pm1 - Hyperglycemia pm1 - Blood Glucose Monitoring, Adult pm1 - Diabetes Mellitus and Exercise pm1 - Diabetes Mellitus and Nutrition, Adult pm1 Forms: - Medication Reconciliation Form pm1 - Thank You Letter pm1 - Antibiotic Education pm1 - Prescription Opioid Use pm1 Signatures: Dispatcher [employer] EDMS Nellie Valencia, DERREK RN kl Maged Esparza, DENITA [employer] pm1 Kylie Hair RN RN ll3 Naima Johnson RN RN vc1 Jameel Ivy MD MD bs3 Kylie Hair RN ll3
[2022-08-11 01:44] VITALS: TEMP 98.6
[2022-08-11 01:48] VITALS: BP 130/63; O2SAT 100
== END 2022-08-10 23:43 | disposition home or self-care (01) ==
LOC: ER 20:21
DX: E11.65 Type 2 diabetes mellitus with hyperglycemia (principal); R10.9 Unspecified abdominal pain; Z88.6 Allergy status to analgesic agent
CPT/HCPCS: 96361; 85025; 36415; 82565; 82947; 83690; 80053; 74177; 96375; 96374; 99284; Q9967; J1815; J7030; J2405

== ENCOUNTER 2022-08-19 20:04 | Emergency (ER) | payer SELFPAY ==
[2022-08-19 22:27] LABS: SARS-COV-2 RT PCR POSITIVE (NEGATIVE)
--- NOTE | 2022-08-19 22:41 | ER ---
Nurse's Notes [facility] Name: Ana Maria Chavez Age: 62 yrs Sex: Female : 1960 Arrival Date: 08/19/2022 Time: 20:08 Bed 18 Private MD: Diagnosis: Coronavirus infection, unspecified;Otalgia, left ear Presentation: 08/19 20:18 Chief complaint: Patient states: left ear pain of 8,onset 3 days with cough,congestion pf1 with fever. Coronavirus screen: Vaccine status: Patient reports being unvaccinated. Client denies travel out of the [place] in the last 14 days. Client presents with at least one sign or symptom that may indicate coronavirus-19. Ebola Screen: Patient negative for fever greater than or equal to 101.5 degrees Fahrenheit, and additional compatible Ebola Virus Disease symptoms. Initial Sepsis Screen: Does the patient meet any 2 criteria? No. Patient's initial sepsis screen is negative. Does the patient have a suspected source of infection? No. Patient's initial sepsis screen is negative. Risk Assessment: Do you want to hurt yourself or someone else? Patient reports no desire to harm self or others. Onset of symptoms was August 16, 2022. 20:18 Method Of Arrival: Ambulatory pf1 20:18 Acuity: LETY 4 pf1 Historical: - Allergies: 20:22 Tylenol; pf1 - Home Meds: 20:22 Propranolol Oral [Active]; pf1 - PMHx: 20:22 Cirrhosis; diabetes mellitus; gastric ulcers; Hepatitis C; pf1 - PSHx: 20:22 Appendectomy; section; Cholecystectomy; Ligation of fallopian tube; pf1 - Immunization history:: Adult Immunizations up to date, Client reports having NOT received the Covid vaccine. Last tetanus immunization: < 5 years ago Flu vaccine is not up to date. It has been more than one year since last vaccine. - Social history:: Smoking status: Patient denies any tobacco usage or history of. Patient/guardian denies using alcohol, the patient reports quitting approximately [address] drugs. Screenin:44 [facility] ED Fall Risk Assessment (Adult) History of falling in the last 3 months, pf1 including since admission No falls in past 3 months (0 pts) Confusion or Disorientation No (0 pts) Intoxicated or Sedated No (0 pts) Impaired Gait No (0 pts) Mobility Assist Device Used No (0 pt) Altered Elimination No (0 pt) Score/Fall Risk Level 0 - 2 = Low Risk Oriented to surroundings, Maintained a safe environment, Educated pt \T\ family on fall prevention, incl call for assistance when getting out of bed, Assessed \T\ reinforced patient's understanding of fall precautions, Provided non-skid footwear, Hourly rounding (assess needs \T\ fall precautionary measures) done, Used ambulatory aids as needed (educated on \T\ assisted with), Used gait belt as appropriate. Abuse screen: Denies threats or abuse. Nutritional screening: No deficits noted. Tuberculosis screening: No symptoms or risk factors identified. Assessment: 21:10 General: Appears. pf1 21:10 General: Appears in no apparent distress. comfortable, well groomed, well developed, pf1 Behavior is calm, cooperative, appropriate for age, quiet. Pain: Complains of pain in left ear. 21:10 Pain: Pain currently is 8 out of 10 on a pain scale. pf1 21:10 Neuro: No deficits noted. Level of Consciousness is awake, alert, obeys commands, pf1 Oriented to person, place, time, situation. Cardiovascular: No deficits noted. Capillary refill < 3 seconds Patient's skin is warm and dry. Respiratory: Airway is patent Trachea midline Respiratory effort is even, unlabored, Respiratory pattern is regular, symmetrical, Breath sounds are clear bilaterally. GI: No deficits noted. No signs and/or symptoms were reported involving the gastrointestinal system. : No deficits noted. No signs and/or symptoms were reported regarding the genitourinary system. EENT: Reports nasal congestion pain in left ear and sore throat. Derm: No deficits noted. No signs and/or symptoms reported regarding the dermatologic system. 21:10 Respiratory: Reports cough that is for 3 days. pf1 22:10 Reassessment: Patient appears in no apparent distress at this time. No changes from pf1 previously documented assessment. Patient and/or family updated on plan of care and expected duration. Pain level reassessed. Patient is alert, oriented x 3, equal unlabored respirations, skin warm/dry/pink. Patient states symptoms have not improved. Vital Signs: 20:18 BP 151 / 85; Pulse 75; Resp 18; Temp 97.9; Pulse Ox 98% on R/A; Weight 59.87 kg; Height pf1 5 ft. 0 in. (152.40 cm); Pain 8/10; 21:43 BP 126 / 60; Pulse 73; Resp 18; Pulse Ox 97% on R/A; pf1 22:30 BP 122 / 55; Pulse 73; Resp 18; Temp 98; Pulse Ox 96% on R/A; Pain 5/10; pf1 20:18 Body Mass Index 25.78 (59.87 kg, 152.40 cm) pf1 ED Course: 20:08 Patient arrived in ED. [id number] 20:22 Triage completed. pf1 20:52 Rebecca Velasco MD is Attending Physician. sd2 21:30 Patient has correct armband on for positive identification. Bed in low position. Call pf1 light in reach. 21:30 Arm band placed on left wrist. pf1 21:37 Strep Sent. pf1 21:37 COVID-19/FLU A+B Sent. pf1 21:38 Chapis diaz, DERREK is Primary Nurse. pf1 22:45 Patient did not have IV access during this emergency room visit. pf1 22:45 No provider procedures requiring assistance completed. pf1 Administered Medications: No medications were administered Medication: 21:30 VIS not applicable for this client. pf1 Outcome: 22:41 Discharge ordered by . sd2 22:51 Discharged to home ambulatory. pf1 22:51 Condition: improved 22:51 Discharge instructions given to patient, Instructed on discharge instructions, follow up and referral plans. Demonstrated understanding of instructions, follow-up care. 22:52 Patient left the ED. pf1 Signatures: Farnaz Colon [id number] Rebecca Velasco MD MD sd2 Chapis diaz, RN RN pf1 Corrections: (The following items were deleted from the chart) 21:39 21:37 General: Appears pf1 pf1
--- NOTE | 2022-08-19 22:41 | EDPHYS ---
Physician Documentation [facility] Name: Ana Maria Chavez Age: 62 yrs Sex: Female : 1960 Arrival Date: 08/19/2022 Time: 20:08 Bed 18 Private MD: ED Physician Rebecca Velasco HPI: 08/19 21:39 This 62 yrs old Female presents to ER via Ambulatory with complaints of Ear sd2 Pain. 21:39 62-year-old female presents with chief complaint of left ear pain, fever, congestion sd2 and cough for the past few days. She denies any chest pain or shortness of breath. No known sick contacts. She has been taking ibuprofen at home as needed for the pain with some relief. Denies any other significant symptoms at this time.. Historical: - Allergies: 20:22 Tylenol; pf1 - Home Meds: 20:22 Propranolol Oral [Active]; pf1 - PMHx: 20:22 Cirrhosis; diabetes mellitus; gastric ulcers; Hepatitis C; pf1 - PSHx: 20:22 Appendectomy; section; Cholecystectomy; Ligation of fallopian tube; pf1 - Immunization history:: Adult Immunizations up to date, Client reports having NOT received the Covid vaccine. Last tetanus immunization: < 5 years ago Flu vaccine is not up to date. It has been more than one year since last vaccine. - Social history:: Smoking status: Patient denies any tobacco usage or history of. Patient/guardian denies using alcohol, the patient reports quitting approximately [address] drugs. ROS: 21:39 Eyes: Negative for injury, pain, redness, and discharge. sd2 21:39 Cardiovascular: Negative for chest pain, palpitations, and edema, Respiratory: Negative for shortness of breath, cough, wheezing. Abdomen/GI: Negative for abdominal pain, nausea, vomiting, diarrhea. MS/Extremity: Negative for injury and deformity, Skin: Negative for injury, rash, and discoloration. 21:39 Constitutional: Positive for fever, malaise, Negative for weight loss. 21:39 ENT: Positive for ear pain, Negative for hearing loss, difficulty swallowing, difficulty handling secretions, hoarseness. 21:39 Neck: Positive for swollen nodes, Negative for injury or acute deformity, stiffness. Exam: 21:39 Constitutional: This is a well developed, well nourished patient who is awake, alert, sd2 and in no acute distress. Head/Face: Normocephalic, atraumatic. Eyes: EOMI, normal conjunctiva bilaterally ENT: Nares patent. No nasal discharge, no septal abnormalities noted. Tympanic membranes are normal and external auditory canals are clear. Oropharynx with no redness, swelling, or masses, exudates, or evidence of obstruction, uvula midline. Mucous membranes moist. Chest/axilla: Normal chest wall appearance and motion. Nontender with no deformity. Cardiovascular: Regular rate and rhythm with a normal S1 and S2. No gallops, murmurs, or rubs. 2+ distal pulses. Respiratory: Lungs have equal breath sounds bilaterally, clear to auscultation and percussion. No rales, rhonchi or wheezes noted. No increased work of breathing, no retractions or nasal flaring. Abdomen/GI: Soft, non-tender, with normal bowel sounds. No guarding or rebound. No evidence of tenderness throughout. Skin: Warm, dry with normal turgor. Normal color with no rashes, no lesions, and no evidence of cellulitis. MS/ Extremity: Pulses equal, no cyanosis. Neurovascular intact. Full, normal range of motion. Ambulatory without difficulty. Psych: Awake, alert, with orientation to person, place and time. Behavior, mood, and affect are within normal limits. Vital Signs: 20:18 BP 151 / 85; Pulse 75; Resp 18; Temp 97.9; Pulse Ox 98% on R/A; Weight 59.87 kg; Height pf1 5 ft. 0 in. (152.40 cm); Pain 8/10; 21:43 BP 126 / 60; Pulse 73; Resp 18; Pulse Ox 97% on R/A; pf1 22:30 BP 122 / 55; Pulse 73; Resp 18; Temp 98; Pulse Ox 96% on R/A; Pain 5/10; pf1 20:18 Body Mass Index 25.78 (59.87 kg, 152.40 cm) pf1 MDM: 20:52 Patient medically screened. sd2 21:39 Differential diagnosis: otitis media, otitis externa, ruptured TM, foreign body, acute sd2 otalgia, cerumen impaction, sinusitis, ear effusion among others. Data reviewed: vital signs, nurses notes. 22:38 Data reviewed: lab test result(s), Flu: negative COVID negative, strep negative. I sd2 considered the following discharge prescriptions or medication management in the emergency department I discussed and recommended Over The Counter medications, Antibiotics: At this time antibiotics are not recommended, Antivirals: At this time, antivirals are not recommended. Care significantly affected by the following chronic conditions: Diabetes, Liver Disease. Counseling: I had a detailed discussion with the patient and/or guardian regarding: the historical points, exam findings, and any diagnostic results supporting the discharge/admit diagnosis, lab results, the need for outpatient follow up, to return to the emergency department if symptoms worsen or persist or if there are any questions or concerns that arise at home. ED course: Labs reviewed. COVID diagnosis discussed with patient and need for quarantine and continued supportive care at home. NO significant respiratory distress or hypoxia. Main complaint is ear pain which does improve with Ibuprofen at home. Pt comfortable with plan for discharge and outpatient follow up and verbalizes understanding of strict return precautions. . 08/19 21:22 Order name: COVID-19/FLU A+B; Complete Time: 22:30 sd2 08/19 21:22 Order name: Strep; Complete Time: 22:30 sd2 08/19 22:01 Order name: Throat Culture; Complete Time: 22:30 EDMS 08/19 22:03 Order name: Throat Culture EDMS Administered Medications: No medications were administered Disposition Summary: 08/19/22 22:41 Discharge Ordered Location: Home sd2 Problem: new sd2 Symptoms: have improved sd2 Condition: Stable sd2 Diagnosis - Coronavirus infection, unspecified sd2 - Otalgia, left ear sd2 Followup: sd2 - With: Private Physician - When: 2 - 3 days - Reason: Recheck today's complaints, Continuance of care, Re-evaluation by your physician Discharge Instructions: - Discharge Summary Sheet sd2 - COVID-19 sd2 - 10 Things You Can Do to Manage Your COVID-19 Symptoms at Home - [facility] sd2 Forms: - Medication Reconciliation Form sd2 - Thank You Letter sd2 - Antibiotic Education sd2 - Prescription Opioid Use sd2 Signatures: Dispatcher [employer] EDRebecca Rodriguez MD MD sd2 Chapis diaz RN RN pf1
[2022-08-19 23:02] VITALS: BP 122/55; TEMP 98; O2SAT 96
== END 2022-08-19 22:52 | disposition home or self-care (01) ==
LOC: ER 20:04
DX: U07.1 COVID-19 (principal); H92.02 Otalgia, left ear; E11.9 Type 2 diabetes mellitus without complications; Z88.6 Allergy status to analgesic agent
CPT/HCPCS: 0240U; 87070; 87081; 99283

== ENCOUNTER 2022-12-18 14:18 | Emergency (ER) | payer OTHER ==
[2022-12-18] MEDS ORDERED: MORPHINE 4 MG/ML SYR ONE (14:47)
[2022-12-18] MEDS ORDERED: ONDANSETRON 4 MG/2 ML VIAL ONE (14:48)
--- OUTSIDE RECORDS SUMMARY | 2022-12-18 14:51 | XMS REPORT | Continuity of Care Document ---
:1960 Author Organization [facility] t Address [address] [place] [address] Care Team Providers Name Role Phone Asked, No Pcp Primary Care Physician Unavailable PERICO MCGILL Attending Clinician Unavailable Aby ANGLIN, Bernice Attending Clinician Unavailable ORIN BOB Attending Clinician Unavailable Charisma Scruggs Attending Clinician David Palomares MA Attending Clinician Unavailable Seth RIZZO, Linda Kirby Attending Clinician Natacha Lopez MD Attending Clinician Alejandro Franco MD Attending Clinician [phone] [place] Christianson MD Attending Clinician Gracie Armendariz MD Attending Clinician Anshu Rubalcava MD Attending Clinician Margie RIZZO, Tutu Ken Attending Clinician [phone] Marjorie Rangel DO Attending Clinician MARJORIE RANGEL Attending Clinician Unavailable ALEJANDRO FRANCO Admitting Clinician Unavailable Payers Payer Name Policy Type Policy Number Effective Date Expiration Date S [facility] POS [id number] 2022 00:00:00 SELECT CHOICE Problems Condition Condition Condition Status Onset Resolution Last Treating Co mments Source Name Details Category Date Date Treatment Clinician Date Type 2 Type 2 Disease Active Methodi diabetes diabetes 11-18 mellitus mellitus 00:00: Hospit a with with 00 l hyperglyce hyperglyce narinder, narinder, without without long-term long-term current current use of use of insulin insulin Primary Primary Disease Active Methodi hypertensi hypertensi 11-18 on on 00:00: Hospita 00 l Abdominal Abdominal Disease Active Met hodi pain, pain, 11-15 unspecifie unspecifie 00:00: Ho spita d d 00 l abdominal abdominal location location Elevated Elevated Disease Active Metho di CEA CEA 11-14 00:00: Hospita 00 l Colon Colon Disease Active Methodi cancer cancer 11-14 screening screening 00:00: Hosp erica 00 l Esophageal Esophageal Disease Active M ethodi varices varices 11-14 without without 00:00: Hospita bleeding bleeding 00 l Acute Acute Disease Active Methodi cholecysti cholecysti 07-26 tis tis 00:00: Hospita 00 l Morbid Morbid Disease Active 2014-07 Univers obesity obesity 0-22 ity of 00:00: [place] 00 [facility] Tobacco Tobacco Disease Active 2014-07 Univers use use 0-22 ity of disorder disorder 00:00: [place] [address] Medical Branch Abdominal Abdominal Disease Active 2014-07 Uni vers pain, left pain, left 0-22 it y of lower lower 00:00: [place] quadrant quadrant 00 Medica l Branch Allergies, Adverse Reactions, Alerts Allergy Allergy Status Severity Reaction(s) Onset Inactive Treating Comm ents Source Name Type Date Date Clinician NO KNOWN Drug Active Univers ALLERGIE Class ity of S [facility] Social History Social Habit Start Date Stop Date Quantity Comments Source History of tobacco Current smoker [facility] Gender identity [facility] Sexual orientation [facility] History of Social 2022-11-26 2022-11-[address] function 00:00:00 00:00:00 Hospital Alcohol intake 2022-11-22 2022-11-22 Current Judaism 00:00:00 00:00:00 non-drinker of Hospital alcohol (finding) Cigarettes smoked 2022-11-20 2022-11-[address] current (pack per 00:00:00 00:00:00 Hospita l day) - Reported Cigarette 2022-11-20 2022-11-20 [facility] pack-years 00:00:00 00:00:00 Hospital Tobacco use and 2022-11-20 2022-11-20 Smokeless Judaism exposure 00:00:00 00:00:00 tobacco non-user Hospital Exposure to 2022-08-24 2022-09-03 Not sure University [facility]-CoV-2 (event) 00:00:00 18:11:00 [facility] Tobacco Comment 2015-05-06 2015-05-06 smokes 5-8 x per Uni versity of 00:00:00 00:00:00 day [facility] Sex Ass[birth year] At [birth year] [facility] 00:00:00 00:00:00 Hospital Smoking Status Start Date Stop Date Source Ex-smoker 2022-11-20 00:00:00 2022-11-20 00:00:[address] [facility] Smokes tobacco daily 2017-08-07 00:00:00 [facility] Medications Ordered Filled Start Stop Current Ordering Indication Dosage Frequency Signature Comments Components Source Medication Medication Date Date Medication? Clinician (SIG) Name Name propranoloL 2022- No 10mg Q.5D Take 1 Met hodi (INDERAL) -16 05-15 tablet (10 st 10 MG 14:18: 00:00 mg total) Hospit a tablet 06 :00 by mouth 2 l (two) times a day. empaglifloz 2022- No 10mg QD Take 1 Met hodi in 5-16 05-15 tablet (10 st (Jardiance) 14:18: 00:00 mg total) Hospita 10 mg 06 :00 by mouth l tablet daily. tablet ondansetron 2022- No 4mg Q8H Take 4 mg Methodi (ZOFRAN) 4 5-15 05-[address] MG tablet 14:18: 00:00 every 8 Hosp erica 36 :00 (eight) l hours as needed for nausea or vomiting. insulin Yes Take 15 Methodi ASPART 5-[address] protamine 00:00: daily Hospita and insulin 00 before l ASPART breakfast, (NovoLOG and 6 Mix units 70-30FlexPe before n U-100) dinner 100 unit/mL (70-30) insulin pen traMADoL Yes [id number] 50mg Q6H Take 1 Method i (Ultram) 50 5-15 tablet (50 st mg tablet 00:00: mg total) Hos adi 00 by mouth l every 6 (six) hours as needed for moderate pain .acute pain. insulin Yes [id number] Use twice M ethodi admin 5-[address] supplies 00:00: Hospita insulin pen 00 l Freestyle Yes [id number] Test daily Methodi InsuLinx 5-[address] strip test 00:00: meals/snac H ospita strips 00 ks and l once before bedtime. lancets Yes [id number] Test daily Methodi (freestyle) 5-[address] 28 gauge 00:00: meals/snac Hos adi misc 00 ks and l once before bedtime. blood-gluco Yes [id number] Test daily Methodi se meter 5-[address] (Freestyle 00:00: meals/snac H ospita InsuLinx) 00 ks and l misc once before bedtime. insulin 2022- No Take 30 Method i ASPART 5-10 05-[address] protamine 00:00: 00:00 daily Hospit a and insulin 00 :00 before l ASPART breakfast, (NovoLOG and 15 Mix units 70-30FlexPe before n U-100) dinner 100 unit/mL (70-30) insulin pen diclofenac 2022- No 50mg Q24H Take 50 mg Methodi (VOLTAREN) 5-03 05-[address] 50 MG EC 16:47: 00:00 daily as Hosp erica tablet 04 :00 needed. l ondansetron Yes 4mg Q8H Take 1 Meth tavon ODT 3-07 tablet (4 st (ZOFRAN-ODT 00:00: mg total) H ospita ) 4 MG 00 by mouth l disintegrat every 8 ing tablet (eight) hours as needed for nausea or vomiting for up to 15 doses. ondansetron 2022- No 4mg Q8H Take 1 Met hodi ODT 3-07 05-03 tablet (4 st (ZOFRAN-ODT 00:00: 00:00 mg total) Hospita ) 4 MG 00 :00 by mouth l disintegrat every 8 ing tablet (eight) hours as needed for nausea or vomiting for up to 15 doses. cyclobenzap 2023-0 2023- Yes 10mg Q.5D Take 2 Met hodi rine 3-07 04-[address] (FLEXERIL) 00:00: 04:59 (10 mg Hosp erica 5 mg tablet 00 :00 total) by l mouth 2 (two) times a day as needed for muscle spasms for up to 30 days. cyclobenzap 3-0 2023- No 10mg Q.5D Take 2 Met hodi rine 3-07 04-[address] (FLEXERIL) 00:00: 04:59 (10 mg Hosp erica 5 mg tablet 00 :00 total) by l mouth 2 (two) times a day as needed for muscle spasms for up to 30 days. cyclobenzap 2023-0 2023- No 10mg Q.5D Take 2 Met hodi rine 3-07 03-[address] (FLEXERIL) 00:00: 00:00 (10 mg Hosp erica 5 mg tablet 00 :00 total) by l mouth 2 (two) times a day as needed for muscle spasms. ondansetron 3-0 2023- No 4mg Q8H Take 1 Met hodi ODT 3- 03-07 tablet (4 st (ZOFRAN-ODT 00:00: 00:00 mg total) Hospita ) 4 MG 00 :00 by mouth l disintegrat every 8 ing tablet (eight) hours as needed for nausea or vomiting for up to 15 doses. cyclobenzap 2023-0 2023- No 10mg Q.5D Take 2 Met hodi rine 3-07 03-[address] (FLEXERIL) 00:00: 00:00 (10 mg Hosp erica 5 mg tablet 00 :00 total) by l mouth 2 (two) times a day as needed for muscle spasms. ondansetron 2023-0 2023- No 4mg Q8H Take 1 Met hodi ODT 3-07 03-07 tablet (4 st (ZOFRAN-ODT 00:00: 00:00 mg total) Hospita ) 4 MG 00 :00 by mouth l disintegrat every 8 ing tablet (eight) hours as needed for nausea or vomiting for up to 15 doses. insulin No 8U 8 Units, Unive rs regular -04 09- IV Push, ity of human 03:45: 02:59 ONCE, 1 [place] (HUMULIN R) 00 :00 dose, On Medi stephany injection 8 [facility] Units 09/03/22 at 2145, Routine
Indicatio n for insulin: Hyperglyce narinder hydroCHLORO No 25mg 25 mg, Uni vers thiazide -20 -20 Oral, ity of (ESIDRIX) 03:15: 03:09 ONCE, 1 [place] tablet 25 [place] :00 dose, On Medica l mg [facility] 09/03/22 at 2115, Routine hydroCHLORO Yes [id number] 25mg Take 1 Univers thiazide 25 2-19 tablet by ity of mg tablet 00:00: mouth [place] 00 every Medical morning. Branch ondansetron Yes 4mg Q8H Take 4 mg M ethodi (ZOFRAN) 4 1-[address] MG tablet 14:24: every 8 Hospi ta 18 (eight) l hours as needed for nausea or vomiting. diclofenac Yes 50mg Q24H Take 50 mg M ethodi (VOLTAREN) 1-[address] 50 MG EC 14:24: daily as Hospi ta tablet 18 needed. l Immunizations Ordered Filled Immunization Date Status Comments [facility] e Immunization Name Name Influenza (IM) 2018-04-12 Completed [facility] Preservative Free 00:00:00 Hospita l TD, NOS 2011-07-16 Completed [facility] 00:00:00 [facility] Td, Unspecified 2011-07-16 Completed [facility] 00:00:00 Hospital Vital Signs Vital Name Observation Time Observation Value Comments Source Systolic blood 2022-09-04 03:30:00 162 mm[Hg] Univer sity of pressure [facility] Diastolic blood 2022-09-04 03:30:00 81 mm[Hg] Unive rsity of pressure [facility] Heart rate 2022-09-04 03:30:00 73 /min [facility] Respiratory rate 2022-09-04 03:30:00 22 /min [facility] Oxygen saturation in 2022-09-04 03:30:00 98 /min [facility] Arterial blood by [facility] Pulse oximetry [place] Body temperature 2022-09-04 00:17:00 37.39 [facility] Body height 2022-09-04 00:17:00 152.4 cm [facility] Body weight 2022-09-04 00:17:00 68.04 kg [facility] BMI 2022-09-04 00:17:00 29.29 kg/m2 [facility] Systolic blood 2022-11-27 13:13:38 146 mm[Hg] Method [facility] pressure Diastolic blood 2022-11-27 13:13:38 69 mm[Hg] [facility] pressure Heart rate 2022-11-27 13:13:38 57 /min [facility] Body temperature 2022-11-27 13:13:38 36.44 Gretel [facility] Respiratory rate 2022-11-27 13:13:38 18 /min [facility] Oxygen saturation in 2022-11-27 13:13:38 98 /min [facility] Arterial blood by Pulse oximetry Body height 2022-11-16 02:44:[address] [facility] Body weight 2022-11-16 02:44:[address] [facility] BMI 2022-11-16 02:44:00 23.77 kg/m2 [facility] Systolic blood 2022-09-19 09:03:36 146 mm[Hg] Method [facility] pressure Diastolic blood 2022-09-19 09:03:36 81 mm[Hg] [facility] pressure Heart rate 2022-09-19 09:03:36 68 /min [facility] Body temperature 2022-09-19 09:03:36 36.17 Gretel [facility] Respiratory rate 2022-09-19 09:03:36 17 /min [facility] Oxygen saturation in 2022-09-19 09:03:36 99 /min [facility] Arterial blood by Pulse oximetry Body weight 2022-09-19 02:18:[address] [facility] BMI 2022-09-19 02:18:00 24.80 kg/m2 [facility] Hospital Procedures Procedure Date / Time Performing Source Performed Clinician POC GLUCOSE 2022-11-27 Natacha Lopez 16:50:00 Hospital POC GLUCOSE 2022-11-27 Natacha Lopez 13:01:00 Hospital POC GLUCOSE 2022-11-27 Natacha Lopez 08:36:00 Hospital COMPREHENSIVE METABOLIC PANEL 2022-11-27 Albania Christianson thodist 08:25:00 Hospital CBC WITH PLATELET AND DIFFERENTIAL 2022-11-27 Albania Christianson 08:25:00 Hospital ESTIMATED GFR 2022-11-27 Albania Christianson 08:25:00 Hospital SMEAR REVIEW 2022-11-27 Albania Christianson 08:25:00 Hospital POC GLUCOSE 2022-11-27 Natcaha Lopez 05:35:00 Hospital POC GLUCOSE 2022-11-27 Albania Christianson 01:43:00 Hospital POC GLUCOSE 2022-11-26 Albania Christianson 23:03:00 Hospital MRI ABDOMEN W WO CONTRAST 2022-11-26 Albania Christianson ist 19:14:00 Hospital POC GLUCOSE 2022-11-26 Albania Christianson 17:02:00 Hospital POC GLUCOSE 2022-11-26 Albania Christianson 13:43:00 Hospital POC GLUCOSE 2022-11-26 Albania Christianson 11:46:00 Hospital COMPREHENSIVE METABOLIC PANEL 2022-11-26 Albania Christianson thodist 08:59:00 Hospital CBC WITH PLATELET AND DIFFERENTIAL 2022-11-26 Albania Christianson 08:59:00 Hospital ESTIMATED GFR 2022-11-26 Albania Christianson 08:59:00 Hospital SMEAR REVIEW 2022-11-26 Albania Christianson 08:59:00 Hospital POC GLUCOSE 2022-11-26 Albania Christianson 06:35:00 Hospital POC GLUCOSE 2022-11-26 Albania Christianson 02:12:00 Hospital POC GLUCOSE 2022-11-25 Albania Christianson 21:52:00 Hospital POC GLUCOSE 2022-11-25 Albania Christianson 16:41:00 Hospital POC GLUCOSE 2022-11-25 Albania Christiansonist 13:43:00 Hospital POC GLUCOSE 2022-11-25 [place] Christiansonist 10:26:00 Hospital CBC WITH PLATELET AND DIFFERENTIAL 2022-11-25 Allen Franco Judaism 09:36:00 [facility] COMPREHENSIVE METABOLIC PANEL 2022-11-25 Alejandro Franco ethodist 09:36:00 [facility] ESTIMATED GFR 2022-11-25 Alejandro Francoist 09:36:00 [facility] POC GLUCOSE 2022-11-25 [place]ia Christiansonist 06:05:00 [facility] POC GLUCOSE 2022-11-25 [place] Christiansonist 01:41:00 Hospital SURGICAL PATHOLOGY REQUEST 2022-11-24 Alejandro Franco 23:07:00 [facility] POC GLUCOSE 2022-11-24 Alejandro Franco Judaism 22:43:00 [facility] US LIVER BIOPSY 2022-11-24 Torsten Cavazos [facility] 22:40:51 Hospital TYPE AND SCREEN 2022-11-24 Alejandro Francoist 18:08:00 [facility] PREPARE PLATELET PHERESIS 2022-11-24 Torsten Cavazos Met hodist 18:08:00 Hospital CBC WITH PLATELET AND DIFFERENTIAL 2022-11-24 Torsten Cavazos Judaism 18:07:00 Hospital COMPREHENSIVE METABOLIC PANEL 2022-11-24 Torsten Cavazos Judaism 18:06:00 Hospital PROTHROMBIN TIME WITH INR 2022-11-24 Torsten Cavazos Met hodist 18:06:00 Hospital ESTIMATED GFR 2022-11-24 Alejandro Franco Judaism 18:06:00 [facility] POC GLUCOSE 2022-11-24 Alejandro Franco Judaism 16:53:[address] [facility] [address] SKULL BASE TO MID THIGH 2022-11-24 Roseline Arellano Judaism 16:49:34 Hospital POC GLUCOSE 2022-11-24 Alejandro Franco Judaism 14:45:00 [facility] PREPARE PLATELET PHERESIS 2022-11-24 Alejandro Francoo dist 13:25:00 [facility] POC GLUCOSE 2022-11-24 Alejandro Francoist 12:50:00 [facility] CYTOLOGY (NON-GYNECOLOGICAL) 2022-11-24 Alejandro Franco thodist REQUEST 10:09:00 [facility] POC GLUCOSE 2022-11-24 Alejandro Francoist 03:56:00 [facility] POC GLUCOSE 2022-11-24 Alejandro Francoist 01:05:00 [facility] POC GLUCOSE 2022-11-23 Alejandro Francoist 23:11:00 [facility] POC GLUCOSE 2022-11-23 Alejandro Francoist 17:27:00 [facility] POC GLUCOSE 2022-11-23 Alejandro Francoist 14:06:00 [facility] POC GLUCOSE 2022-11-23 Alejandro Franco 13:05:00 [facility] POC GLUCOSE 2022-11-23 Alejandro Franco 02:29:00 [facility] POC GLUCOSE 2022-11-22 Alejandro Franco 23:19:00 [facility] POC GLUCOSE 2022-11-22 Alejandro Franco Judaism 18:44:00 [facility] POC GLUCOSE 2022-11-22 Alejandro Francoist 16:42:00 [facility] POC GLUCOSE 2022-11-22 Alejandro Franco 13:05:00 [facility] POC GLUCOSE 2022-11-22 Alejandro Franco Judaism 01:34:00 [facility] POC GLUCOSE 2022-11-21 Alejandro Francoist 23:19:00 [facility] POC GLUCOSE 2022-11-21 Alejandro Franco Judaism 20:22:00 [facility] POC GLUCOSE 2022-11-21 Alejandro Francoist 16:55:00 [facility] POC GLUCOSE 2022-11-21 Alejandro Franco 13:24:00 [facility] POC GLUCOSE 2022-11-21 Alejandro Franco Judaism 12:50:00 [facility] POC GLUCOSE 2022-11-21 Alejandro Franco Judaism 09:44:00 [facility] CBC WITH PLATELET AND DIFFERENTIAL 2022-11-21 Allen Franco Judaism 09:37:00 [facility] COMPREHENSIVE METABOLIC PANEL 2022-11-21 Alejandro Franco ethodist 09:37:00 [facility] ESTIMATED GFR 2022-11-21 Alejandro Franco Judaism 09:37:00 [facility] SMEAR REVIEW 2022-11-21 Alejandro Francoist 09:37:00 [facility] POC GLUCOSE 2022-11-21 Alejandro Franco Judaism 05:50:00 [facility] POC GLUCOSE 2022-11-21 Alejandro Franco Judaism 02:45:00 [facility] POC GLUCOSE 2022-11-21 Alejandro Franco Judaism 01:41:00 [facility] POC GLUCOSE 2022-11-20 Alejandro Franco Judaism 22:38:00 [facility] POC GLUCOSE 2022-11-20 Alejandro Franco Judaism 19:10:00 [facility] MRI PELVIS W WO CONTRAST 2022-11-20 Torsten Cavazos Meth odist 18:00:00 Hospital SURGICAL PATHOLOGY REQUEST 2022-11-20 Alejandro Franco Meth odist 16:13:00 [facility] POC GLUCOSE 2022-11-20 Alejandro Franco Judaism 16:11:00 [facility] POC GLUCOSE 2022-11-20 Alejandro Franco Judaism 14:52:00 [facility] ESOPHAGOGASTRODUODENOSCOPY (EGD) 2022-11-20 Graice Armendariz 13:59:00 Hospital COLONOSCOPY 2022-11-20 Gracie Armendariz 13:59:00 Hospital POC GLUCOSE 2022-11-20 Alejandro Franco 13:28:00 [facility] COMPREHENSIVE METABOLIC PANEL 2022-11-20 Me Yohannes thodist 09:16:00 [facility] ESTIMATED GFR 2022-11-20 Alphonso Sheffield 09:16:00 [facility] CBC WITH PLATELET AND DIFFERENTIAL 2022-11-20 FrancoJamal krugeralton Quezadaist 09:16:00 [facility] PROTHROMBIN TIME WITH INR 2022-11-20 Tracey Francojayme Metho dist 09:16:00 [facility] SMEAR REVIEW 2022-11-20 FrancoAlejandro Judaism 09:16:00 [facility] POC GLUCOSE 2022-11-20 Franco Amitkcj Judaism 02:49:00 [facility] POC GLUCOSE 2022-11-20 Franco Amitkumar Judaism 02:20:00 [facility] POC GLUCOSE 2022-11-19 Franco Amitkcj Judaism 23:18:00 [facility] POC GLUCOSE 2022-11-19 Farnco Amitkumar Judaism 20:07:00 [facility] POC GLUCOSE 2022-11-19 Franco, Amitkumar Judaism 16:31:00 [facility] COVID-19 QUALITATIVE RT-PCR 2022-11-19 Torsten Cavazos ethodist 14:15:00 [facility] POC GLUCOSE 2022-11-19 FrancoTraceytkcj Judaism 12:35:00 [facility] POC GLUCOSE 2022-11-19 Salvador Amitkcj Judaism 12:05:00 [facility] CBC WITH PLATELET AND DIFFERENTIAL 2022-11-19 Alphonso Sheffield 08:55:00 [facility] HEPATIC FUNCTION PANEL 2022-11-19 Alphonso Sheffield 08:55:00 [facility] BASIC METABOLIC PANEL 2022-11-19 Alphonso Sheffield 08:55:00 [facility] ESTIMATED GFR 2022-11-19 Alphonso Sheffield 08:55:00 [facility] SMEAR REVIEW 2022-11-19 Alphonso Sheffield 08:55:00 [facility] POC GLUCOSE 2022-11-19 Franco, Amitkcj Judaism 08:42:00 [facility] POC GLUCOSE 2022-11-19 Franco, Amitkumar Judaism 08:06:00 [facility] POC GLUCOSE 2022-11-19 Franco, Amitkumar Judaism 03:31:00 [facility] POC GLUCOSE 2022-11-19 Franco, Amitkcj Judaism 02:39:00 [facility] POC GLUCOSE 2022-11-19 Franco, Amitkumar Judaism 01:11:00 [facility] POC GLUCOSE 2022-11-18 Franco, Amitkumar Judaism 23:25:00 [facility] POC GLUCOSE 2022-11-18 Franco, Amitkumar Judaism 16:32:00 [facility] POC GLUCOSE 2022-11-18 Franco, Amitkumar Judaism 14:25:00 [facility] POC GLUCOSE 2022-11-18 Franco, Amitkumar Judaism 13:02:00 [facility] POC GLUCOSE 2022-11-18 Franco, Amitkumar Judaism 11:29:00 [facility] POC GLUCOSE 2022-11-18 Franco, Amitkumar Judaism 07:40:00 [facility] POC GLUCOSE 2022-11-18 Franco, Amitkumar Judaism 02:55:00 [facility] POC GLUCOSE 2022-11-17 Franco, Amitkcj Judaism 22:53:00 [facility] NM BONE SCAN WHOLE BODY 2022-11-17 Torsten Cavazos Metho dist 20:33:00 [facility] POC GLUCOSE 2022-11-17 Tracey Francotkcj Judaism 17:13:00 [facility] POC GLUCOSE 2022-11-17 Salvador Amitkcj Judaism 13:16:00 [facility] HEPATITIS B SURFACE ANTIBODY 2022-11-17 Torsten Cavazos 09:10:00 Hospital HEPATITIS A ANTIBODY TOTAL 2022-11-17 Torsten Cavazos thodist 09:10:00 Hospital HEPATITIS A ANTIBODY IGM 2022-11-17 Alejandro Franco ist 09:10:00 [facility] POC GLUCOSE 2022-11-17 Alejandro Franco Judaism 08:58:00 [facility] POC GLUCOSE 2022-11-17 Alejandro Franco Judaism 05:24:00 [facility] POC GLUCOSE 2022-11-17 Alejandro Franco Judaism 02:05:[address] [facility] [address] CHEST WO CONTRAST 2022-11-17 DirkTorsteni Methodis t 02:01:00 Hospital US ABDOMINAL LIMITED 2022-11-17 Alejandro Franco Judaism 00:20:00 [facility] POC GLUCOSE 2022-11-16 Alejandro Franco Judaism 23:25:00 [facility] POC GLUCOSE 2022-11-16 Alejandro Franco Judaism 17:02:00 [facility] POC GLUCOSE 2022-11-16 Alejandro Franco Judaism 13:30:00 [facility] CBC WITH PLATELET AND DIFFERENTIAL 2022-11-16 Allen Franco Judaism 09:47:00 [facility] COMPREHENSIVE METABOLIC PANEL 2022-11-16 Alejandro Franco ethodist 09:47:00 [facility] ESTIMATED GFR 2022-11-16 Alejandro Francoist 09:47:00 [facility] SMEAR REVIEW 2022-11-16 Alejandro Francoist 09:47:00 [facility] POC GLUCOSE 2022-11-16 Alejandro Franco Judaism 08:58:00 [facility] POC GLUCOSE 2022-11-16 Alejandro Franco Judaism 05:23:00 [facility] POC GLUCOSE 2022-11-16 Alejandro Francoist 03:34:00 [facility] BASIC METABOLIC PANEL 2022-11-16 Alejandro Francoist 03:21:00 [facility] ESTIMATED GFR 2022-11-16 Alejandro Franco Judaism 03:21:00 [facility] POC GLUCOSE 2022-11-16 Alejandro Franco Judaism 03:15:00 [facility] POC GLUCOSE 2022-11-16 Alejandro Franco 02:53:00 [facility] MRI ABDOMEN W WO CONTRAST 2022-11-16 Torsten Cavazos hodist 02:17:00 Hospital POC GLUCOSE 2022-11-15 Alejandro Franco 23:15:00 [facility] POC GLUCOSE 2022-11-15 Alejandro Franco 22:08:00 [facility] POC GLUCOSE 2022-11-15 Alejandro Franco 19:27:00 [facility] ANTINUCLEAR ANTIBODIES (GWEN) WITH 2022-11-15 Torsten Cavazos REFLEX TO TITER AND PATTERN, 19:14:00 Hos pital IMMUNOFLUORESCENCE SMOOTH MUSCLE ANTIBODIES WITH 2022-11-15 Torsten Cavazos REFLEX TO TITER, IFA 19:14:00 Hospital LIVER-KIDNEY MICROSOME AB, IGG 2022-11-15 Torsten Cavazos iist 19:14:00 Hospital CERULOPLASMIN LEVEL 2022-11-15 Torsten Cavazos [facility] 19:14:00 Hospital FERRITIN LEVEL 2022-11-15 Torsten Cavazos 19:14:00 Hospital IMMUNOGLOBULIN G 2022-11-15 Torsten Cavazos 19:14:00 Hospital ALPHA-1 ANTITRYPSIN LEVEL 2022-11-15 Torsten Cavazos hodist 19:14:00 Hospital HIV 1/2 ANTIGEN/ANTIBODY, FOURTH 2022-11-15 Torsten Cavazosist GENERATION, WITH REFLEXES 19:14:00 Hospit al PHOSPHATIDYLETHANOL, BLOOD 2022-11-15 Torsten Cavazos thodist 19:14:00 Hospital POC GLUCOSE 2022-11-15 Alejandro Franco 18:06:00 [facility] POC GLUCOSE 2022-11-15 Alejandro Franco 14:52:00 [facility] ACUTE VIRAL HEPATITIS PANEL (HAV, 2022-11-15 Naz Franco Judaism HBV, HCV) 14:30:00 [facility] HEPATITIS C VIRUS (HCV), 2022-11-15 Alejandro Franco Method ist QUANTITATIVE PCR 14:30:00 [facility] PROTHROMBIN TIME WITH INR 2022-11-15 Dirk Torsten Sha Met hodist 14:30:00 Hospital ALPHA FETOPROTEIN 2022-11-15 [facility] 14:30:00 Hospital CARCINOEMBRYONIC ANTIGEN (CEA) 2022-11-15 D[facility] blanca Judaism 14:30:00 Hospital CANCER ANTIGEN 19-9 2022-11-15 [facility] 14:30:00 [facility] HEPATITIS B CORE ANTIBODY TOTAL 2022-11-15 Alejandro Franco Judaism 14:30:00 [facility] HEPATITIS C VIRUS (HCV), 2022-11-15 Alejandro Franco ist QUALITATIVE 14:30:00 [facility] POC GLUCOSE 2022-11-15 Alejandro Franco Judaism 14:14:00 [facility] POC GLUCOSE 2022-11-15 Tu, Yen-Te Judaism 10:26:00 [facility] CT ABDOMEN PELVIS WO CONTRAST 2022-11-15, Yen-Te Me thodist 07:26:31 [facility] URINE CULTURE 2022-11-15, [employer] 07:11:00 [facility] CBC WITH PLATELET AND DIFFERENTIAL 2022-11-15, [employer] 07:11:00 [facility] COMPREHENSIVE METABOLIC PANEL 2022-11-15, [facility] 07:11:00 [facility] LIPASE LEVEL 2022-11-15, [employer] 07:11:00 [facility] URINALYSIS SCREEN AND MICROSCOPY, 2022-11-15, [employer] WITH REFLEX TO CULTURE 07:11:00 [facility] ESTIMATED GFR 2022-11-15, [employer] 07:11:00 [facility] LIPID PANEL 2022-11-15, [employer] 07:11:00 [facility] HEMOGLOBIN A1C 2022-11-15, [employer] 07:11:00 [facility] POC GLUCOSE 2022-09-19 Tutu Hanson 08:58:00 [facility] US HEPATIC 2022-09-19 Tutu Hanson 07:43:00 [facility] POC GLUCOSE 2022-09-19 Tutu Hanson 07:06:[address] [facility] [address] ABDOMEN PELVIS W CONTRAST 2022-09-19 Tutu Hanson 06:47:28 [facility] VENOUS BLOOD GAS 2022-09-19 Tutu Hanson 05:37:00 [facility] BETA HYDROXYBUTYRATE 2022-09-19 Tutu Hanson t 05:37:00 [facility] POC GLUCOSE 2022-09-19 JoeyTutu 05:29:00 [facility] URINE CULTURE 2022-09-19 Tutu Hanson 04:48:00 [facility] URINALYSIS SCREEN AND MICROSCOPY, 2022-09-19 JoeyFaisal WITH REFLEX TO CULTURE 04:48:00 [facility] BILIRUBIN DIRECT 2022-09-19 Tutu Hanson 04:46:00 [facility] CBC WITH PLATELET AND DIFFERENTIAL 2022-09-19 JoeySinan 02:40:00 [facility] COMPREHENSIVE METABOLIC PANEL 2022-09-19 JoeyTutu 02:40:00 [facility] LIPASE LEVEL 2022-09-19 Tutu Hanson 02:40:00 [facility] ESTIMATED GFR 2022-09-19 Alphonso Collazo 02:40:[address] [facility] POCT GLUCOSE (AUTOMATED) 2022-09-04 [facility] 03:25:00 [facility]YSIS 2022-09-04 [facility] COMP. METABOLIC PANEL (30675) 2022-09-04 [facility]00 [facility] CBC WITH DIFF 2022-09-04 [facility] 01:26[facility]00 [facility] N-TERMINAL PRO-BNP 2022-09-04 [facility]00 [facility] CONSENT/REFUSAL FOR DIAGNOSIS AND 2022-09-04 Doctor Jeffrey wan, [facility] 00:03:18 [place] [facility] Plan of Care Planned Activity Planned Date Details Comments Source Future Scheduled 2027-11-[address] [facility] 00:[facility]00 (procedure) [code = Medical Center 88850466] Future Scheduled 2023-03-[address] [facility] Test 00:00:00 (Season Ended) [code = [facility] INFLUENZA VACCINE (Season Ended)] Future Scheduled 2022-12-18 [facility] 11:11:43 malignant neoplasm of colon (procedure) [code = 639516130] Future Scheduled 2022-12-18 [facility] Test 11:11:43 malignant neoplasm of colon (procedure) [code = 135247600] Future Scheduled 2022-12-18 SHINGLES VACCINES (1 [facility] Test 11:11:43 of 2) [code = SHINGLES VACCINES (1 of 2)] Future Scheduled 2022-12-18 HEPATITIS B VACCINES [facility] Test 11:11:43 (1 of 3 - Risk 3-dose series) [code = HEPATITIS B VACCINES (1 of 3 - Risk 3-dose series)] Future Scheduled 2022-12-18 INFLUENZA VACCINE Method [facility] Test 11:11:43 [code = INFLUENZA VACCINE] Future Scheduled 2022-12-18 [facility] Test 11:11:43 malignant neoplasm of colon (procedure) [code = 950516084] Future Scheduled 2022-12-18 [facility] Test 11:11:43 malignant neoplasm of colon (procedure) [code = 038941742] Future Scheduled 2022-12-18 [facility] Test 11:11:43 malignant neoplasm of colon (procedure) [code = 061202353] Future Scheduled 2022-12-18 COVID-19 VACCINE (#1) [facility] Test 11:11:43 [code = COVID-19 VACCINE (#1)] Future Scheduled 2022-12-18 Pneumococcal Vaccine: [facility] Test 11:11:43 Pediatrics (0 to 5 Years) and At-Risk Patients (6 to 64 Years) (1 - PCV) [code = Pneumococcal Vaccine: Pediatrics (0 to 5 Years) and At-Risk Patients (6 to 64 Years) (1 - PCV)] Future Scheduled 2022-12-18 DIABETES: RETINAL EYE [facility] Test 11:11:43 EXAM [code = DIABETES: RETINAL EYE EXAM] Future Scheduled 2022-12-18 DIABETIC FOOT EXAM [facility] Test 11:11:43 [code = DIABETIC FOOT EXAM] Future Scheduled 2022-12-18 URINE MICROALBUMIN [facility] Test 11:11:43 [code = URINE MICROALBUMIN] Future Scheduled 2022-12-18 Screening for [facility] Test 11:11:43 malignant neoplasm of cervix (procedure) [code = 067083450] Future Scheduled 2022-12-18 BREAST CANCER [facility] Test 11:11:43 SCREENING [code = BREAST CANCER SCREENING] Future Scheduled 2022-10-14 COVID-19 VACCINE (#1) [facility] Test 17:14:06 [code = COVID-19 VACCINE (#1)] Future Scheduled 2022-10-14 Pneumococcal Vaccine: [facility] Test 17:14:06 Pediatrics (0 to 5 Years) and At-Risk Patients (6 to 64 Years) (1 - PCV) [code = Pneumococcal Vaccine: Pediatrics (0 to 5 Years) and At-Risk Patients (6 to 64 Years) (1 - PCV)] Future Scheduled 2022-10-14 DIABETES: RETINAL EYE [facility] Test 17:14:06 EXAM [code = DIABETES: RETINAL EYE EXAM] Future Scheduled 2022-10-14 DIABETIC FOOT EXAM [facility] Test 17:14:06 [code = DIABETIC FOOT EXAM] Future Scheduled 2022-10-14 URINE MICROALBUMIN [facility] Test 17:14:06 [code = URINE MICROALBUMIN] Future Scheduled 2022-10-14 Screening for [facility] Test 17:14:06 malignant neoplasm of cervix (procedure) [code = 702240461] Future Scheduled 2022-10-14 BREAST CANCER [facility] Test 17:14:06 SCREENING [code = BREAST CANCER SCREENING] Future Scheduled 2022-10-14 COLONOSCOPY SCREENING [facility] Test 17:14:06 [code = COLONOSCOPY SCREENING] Future Scheduled 2022-10-14 SHINGLES VACCINES (1 [facility] Test 17:14:06 of 2) [code = SHINGLES VACCINES (1 of 2)] Future Scheduled 2022-10-14 HEPATITIS B VACCINES [facility] Test 17:14:06 (1 of 3 - Risk 3-dose series) [code = HEPATITIS B VACCINES (1 of 3 - Risk 3-dose series)] Future Scheduled 2022-10-14 INFLUENZA VACCINE Method [facility] Test 17:14:06 [code = INFLUENZA VACCINE] Future Scheduled 2022-07-[address] [facility] Test 00:00:00 (12+) [code = Medical Center DEPRESSION SCREENING (12+)] Future Scheduled 2010 SHINGLES VACCINES ([address] [facility] Test 00:00:00 of 2) [code = SHINGLES Medic al Center VACCINES (1 of 2)] Future Scheduled [address] [facility] malignant neoplasm of [facility]ica [facility] Center cervix (procedure) [code = 094095697] Future Scheduled 1979 DTAP/TDAP/TD [facility]ACCINES [facility] 00:00:00 (1 - Tdap) [code = Medical C enter DTAP/TDAP/TD VACCINES (1 - Tdap)] Future Scheduled 1978 HEPATITIS C [facility]CRE[facility]ING [facility] 00:00:00 [code = HEPATITIS C Medical Center SCREENING] Future Scheduled [address] [facility] Test 00:00:00 Counseling and Medical Cente r Screening (12+) [code = Tobacco Cessation Counseling and Screening (12+)] Future Scheduled 1960 COVID-19 VACCINE (#1) [facility] Test 00:00:00 [code = COVID-[address] VACCINE (#1)] Future Scheduled [address] [facility] 00[facility]procedure[facility] [code = 994977795] Future Scheduled 1960 Sigmoidoscopy [code = [facility] S[facility]oscopy] Medical Cente r Future Scheduled [address] [facility] 00:00:00 malignant neoplasm of Medica l Center breast (procedure) [code = 548904933] Future Scheduled [address] [facility] 00:00:00 (combo) [code = CT Medical C enter Colonography (combo)] Future Scheduled [address] [facility] 00:00:00 [facility] colon (procedure) [code = 977415805] Future Scheduled [address] [facility] Test 00:00:00 malignant neoplasm of Medica l Center colon (procedure) [code = 152510616] Future Scheduled [address] [facility] 00:00:00 [facility] colon (procedure) [code = 470796231] Encounters Start End Encounter Admission Attending Care Care Encounter Source Date/Time Date/Time Type Type Clinicians Facility Department ID 2022-12-25 2022-12-25 Outpatient SHARON SALMERON [facility] [id number] [facility] 00:00:00 00:00:00 TANNND 2022-12-18 2022-12-18 Telephone Aby 1.2.840.1 [id number] Methodi 00:00:00 00:00:[address] 3.430.2.7 Hospit a .3.030592 l .8 2022-12-07 2022-12-07 Outpatient LISBETH [facility] [id number] SLE 00:00:00 00:00:00 ORIN 2022-12-06 2022-12-06 Outside [facility] [id number] 00:[facility] 00:00:00 Orders [facility] 2022-12-06 2022-12-06 [facility] [id number] 00:00[facility]00 00:00:00 Orders [facility] 2022-11-30 2022-11-30 Telephone Aby 1.2.840.1 [id number] Methodi 00:00:00 00:00:[address] 3.430.2.7 Hospit a .3.390063 l .8 2022-11-29 2022-11-29 Telephone Jelani 1.2.840.1 [id number] [id number] Methodi 00:00:00 00:00:[address] 3.430.2.7 Hospit a .3.109247 l .8 2022-11-14 2022-11-27 [facility] Linda Ann 1.2.840.1 10 [id number] Methodi 22:38:00 14:18:00 Encounter Natacha Lopez 69872.1.1 22 2 [facility] [place] Christianson .3.733237 l .8 2022-11-14 2022-11-27 Inpatient KAMILA [facility] [id number] [place] 00:00:00 00:00:00 NATAC[address] 2022-11-20 2022-11-20 Surgery Kala, 1.2.840.1 [id number] Methodi 09:00:00 10:30:[address] 3.430.2.7 Hospit a .3.780778 l .8 2022-11-20 2022-11-20 Anesthesia Rubalcava, 1.2.840.1 [id number] 21 [id number] Methodi 08:59:00 09:53:00 Event Anshu Redman 87493.1.1 516 s t 3.430.2.7 Hospit a .3.465808 l .8 2022-11-15 2022-11-15 Travel 1.2.840.1 1.2.718.555 [id number] Methodi 00:00:00 00:00:[address] 3.430.2.7 0.2.7.3.698 Ho spita .3.243917 084.8 l .8 2022-09-18 2022-09-19 Emergency Margie, 1.2.840.1 [id number] 2100 [id number] Methodi 20:21:00 04:18:[address] [place] 3.430.2.7 Hospit a .3.637671 l .8 2022-09-18 2022-09-19 Emergency [facility] 064 [id number] [place] 00:00:00 00:00:[address] 2022-09-03 2022-09-03 [facility] 1.2.840.114 1 [id number] Univers 18:19:00 21:56:00 Marjorie TOLEDO 350.1.13.10 i [facility] 4.2.7.2.686 [facility] [id number] [facility] [address] 2022-09-03 2022-09-03 [facility] [id number] Univers 18:19:00 21:56:00 MARJORIE to[facility] Results Test Description Test Time Test Comments Results Result Comments Source Cytology (non-gynecological) request 2022-11-28 22:28:58 Test Item Value Reference Range Interpretation Comme nts Case number (test code = 0286577) [id number] Cytology (non-gynecological) report See link below for PDF Lab Repo rt (test code = 1178) Result status (test code = 0565819) This is Final Report for [id number] [facility] [id number] 22:08:14 Test Item Value Reference Range Interpretation Comments Case number (test code = [id number]) Surgical pathology See link below for report (test code = PDF Lab Report 2255) Result status (test code This is Final Report = [id number]) for [id number] [facility] [id number] 16:51:00 Test Item Value Reference Range Interpretation Comments POC glucose (test code = 159 mg/dL 65-99 H Ope rator Name: [id number]) Ciara Jose vice ID: [id number] able: [facility] Notified business systems consultant Interpretation (test Abnormal code = 71478-3) [facility], 2 [id number] 21:29:00 Test Item Value Reference Range Interpretation Comments Product name (test code Platelets Aph LR, Path = 25) Red cont3 Unit number (test code [id number] = 2148592) Product code (test code R5681B01 = 3092) Dispense status (test Transfused code = 24) Blood expiration date (test code = 302) Blood type code (test 9500 code = 308) Blood type (test code = O NEGATIVE 1314) Compatibility (test Not required code = 6400) [facility] RNA [Presence] in Respiratory specimen by WATSON with probe [id number] 13:39:00 Test Item Value Reference Range Interpretation Comments SARS-CoV-2 (COVID-19) RNA Not detected [Presence] in Respiratory specimen by WATSON with probe detection (test code = 93300-8) Whether patient is employed in a Unknown healthcare setting (test code = 04417-1) Whether the patient has symptoms Unknown related to condition of interest (test code = 09044-8) Whether the patient was Unknown hospitalized for condition of interest (test code = 50972-4) Whether the patient was admitted Unknown to intensive care unit (ICU) for condition of interest (test code = 25260-6) Whether patient resides in a Unknown congregate care setting (test code = 00556-2) status (test code = Unknown 93277-1) Date and time of symptom onset Unknown (test code = 86545-7) [facility] [id number] 08:16:00 Test Item Value Reference Range Interpretation Comments Urine culture (test SEE COMMENT Bacteriu keny screen code = 0266254) negative. [facility] [id number] 08:59:00 Test Item Value Reference Range Interpretation Comments POC glucose (test code = 261 mg/dL 65-99 H Ope rator Name: 47004-6) Belen Yip ice ID: [id number] able: No Action Neede d Lab Interpretation (test Abnormal code = 48876-3) [facility] [id number] 05:20:00 Test Item Value Reference Range Interpretation Comments Urine culture (test SEE COMMENT Bacteriu keny screen code = 0033529) negative. [facility] GLUCOSE (AUTOMATED)2022-09-04 03:30:00 Test Item Value Reference Range Interpretation Comments POCT GLU (test code = 446 mg/dL 70-110 H Notifi ed Provider [id number]) Lab Interpretation (test Abnormal code = 53839-3) [facility] >30DAYS[facility]2022-09-04 03:25:00 Test Item Value Reference Range Interpretation Comments POCT Glu (age>30days) (test code = 446 mg/dL 70-110 A 3342) Lab Interpretation (test code = Abnormal 66066-3) [facility] WITH [id number] 03:02:56 Test Item Value Reference Range Interpretation Comments WBC (test code = 3.01 See_Comment L [Automated 6690-2) message] The sy stem which generated this result transmitted reference range : 4.30 - 11.10 10*3/?L. The reference range was not used to interpret this result as normal/abnormal . RBC (test code = 3.87 See_Comment L [Automated 789-8) message] The sy stem which generated this result transmitted reference range : 3.93 - 5.25 10*6/?L. The reference range was not used to interpret this result as normal/abnormal . HGB (test code = 13.2 g/dL 11.6-15.0 718-7) HCT (test code = 37.9 % 35.7-45.2 4544-3) MCV (test code = 97.9 fL 80.6-95.5 H 787-2) MCH (test code = 34.1 pg 25.9-32.8 H 785-6) MCHC (test code = 34.8 g/dL 31.6-35.1 786-4) RDW-SD (test code = 47.5 fL 39.0-49.9 89993-1) RDW-CV (test code = 13.2 % 12.0-15.5 788-0) PLT (test code = 54 See_Comment L [Automated 777-3) message] The sy stem which generated this result transmitted reference range : 166 - 358 10*3/ ?L. The reference r pablo was not used to interpret this result as normal/abnormal . MPV (test code = 11.4 fL 9.5-12.9 52413-1) IPF % (test code = 5.8 % 1.3-7.7 Platelet count 2560920759) measured by fluorescence method. NRBC/100 WBC (test 0.0 See_Comment [Automat ed code = 9623677282) message] The system which generated this result transmitted reference range : 0.0 - 10.0 /100 WBCs. The refer ence range was not u sed to interpret th is result as normal/abnormal . NRBC x10^3 (test code See_Comment [Auto mated = 5034222778) message] The s ystem which generated this result transmitted reference range : 10*3/?L. The reference range was not used to interpret this result as normal/abnormal . GRAN MAT (NEUT) % 46.4 % (test code = 770-8) IMM GRAN % (test code 0.70 % = 9175910537) LYMPH % (test code = 39.9 % 736-9) MONO % (test code = 10.0 % 5905-5) EOS % (test code = 2.0 % 713-8) BASO % (test code = 1.0 % 706-2) GRAN MAT x10^3(ANC) 1.40 10*3/uL 1.88-7.09 L (test code = 2887942633) IMM GRAN x10^3 (test 0.00-0.06 code = 5108929151) LYMPH x10^3 (test code 1.20 10*3/uL 1.32-3.29 L = 731-0) MONO x10^3 (test code 0.30 10*3/uL 0.33-0.92 L = 742-7) EOS x10^3 (test code = 0.06 10*3/uL 0.03-0.39 711-2) BASO x10^3 (test code 0.03 10*3/uL 0.01-0.07 = 704-7) Lab Interpretation Abnormal (test code = 59609-7) [facility]. METABOLIC PANEL (25414)2022-09-04 02:41:28 Test Item Value Reference Range Interpretation Comments NA (test code = 128 mmol/L 135-145 L 0060621000) K (test code = 3.9 mmol/L 3.5-5.0 7326819885) CL (test code = 97 mmol/L 98-108 L 3843279467) CO2 TOTAL (test code = 28 mmol/L 23-31 3692383835) AGAP (test code = 3 2-16 1941097915) BUN (test code = 8 mg/dL 7-23 4636571106) GLUCOSE (test code = 610 mg/dL 70-110 HH 9078081661) CREATININE (test code = 0.53 mg/dL 0.50-1.04 6056678902) TOTAL BILI (test code = 1.6 mg/dL 0.1-1.1 H 1835309095) CALCIUM (test code = 7.8 mg/dL 8.6-10.6 L 8429692734) T PROTEIN (test code = 7.5 g/dL 6.3-8.2 0499067420) ALBUMIN (test code = 2.9 g/dL 3.5-5.0 L 8363452965) ALK PHOS (test code = 906 U/L 34-122 H 7034080503) ALTv (test code = 92 U/L 5-35 H 1742-6) AST(SGOT) (test code = 140 U/L 13-40 H 4142350040) eGFR (test code = 116.9 mL/min/1.73m2 8621044471) ELIZABETH (test code = ELIZABETH) Association of Glomerular Filtration Rate (GFR) and Staging of Kidney Disease* + --+ --+ ------+| GFR (mL/min/1.73 m2) ?| With Kidney Damage ?| ?Without Kidney Damage+ --------+ --------+ +| ?>90 ?| ?Stage one ?| ? Normal ?+ ---+ ---+ -------+| ?60-89 ?| ?Stage two ?| ? Decreased GFR ? + --+ --+ ------+| ?30-59 ?| ?Stage three ?| ? Stage three ? + --+ --+ ------+| ?15-29 ?| ?Stage four ? | ? Stage four ?+ ---+ ---+ -------+| ?<15 (or dialysis) ? ?| ?Stage five ? | ? Stage five ?+ ---+ ---+ -------+ *Each stage assumes the associated GFR level has been in effect for at least three months. ?Stages 1 to 5, with or without kidney disease, indicate chronic kidney disease. Notes: Determination of stages one and two (with eGFR >59mL/min/1.73 m2) requires estimation of kidney damage for at least three months as defined by structural or functional abnormalities of the kidney, manifested by either:Pathological abnormalities or Markers of kidney damage (including abnormalities in the composition of the blood or urine or abnormalities in imaging tests). Lab Interpretation Abnormal (test code = 48160-6) [facility] [id number] 02:36:11 Test Item Value Reference Range Interpretation Comments NT-proBNP (test code = 276 pg/mL <=125 H 5796076926) ELIZABETH (test code = ELIZABETH) Biotin has been reported to cause a negative bias, interpret results relative to patient's use of biotin. Lab Interpretation (test Abnormal code = 55778-7) [facility]"
[2022-12-18 15:10] LABS: Absolute Lymphocytes (CBC) 1.2 K/uL (0.7-4.9); Hematocrit 34.7 % (36.0-45.0); Lymphocytes % 31.6 % (15.3-44.8); MCV 100.5 fL (80-100); MPV 8.3 fL (7.6-11.3); RBC Red Blood Cell Count 3.46 M/uL (3.86-4.86)
[2022-12-18 15:31] LABS: Albumin 2.2 g/dL (3.4-5.0); Bilirubin Total 1.2 mg/dL (0.2-1.0); Potassium 3.6 mEq/L (3.5-5.1); Protein, Total 8.4 g/dL (6.4-8.2)
--- NOTE | 2022-12-18 16:21 | RAD REPORT ---
EXAM DESCRIPTION: CTAbdomen Pelvis W Contrast - 12/18/2022 4:07 pm CLINICAL HISTORY: Abdominal pain. ABD PAIN COMPARISON: Abdomen Pelvis W Contrast dated 10/19/2022; Abdomen Pelvis W Contrast dated 08/10/2022; Abdomen Pelvis W Contrast dated 04/11/2018; Abdomen Pelvis W Contrast dated 07/23/2017 TECHNIQUE: Biphasic CT imaging of the abdomen and pelvis was performed with 100 ml non-ionic IV cont rast. All CT scans are performed using dose optimization technique as appropriate and may include automated exposure control or mA/KV adjustment according to patient size. FINDINGS: Vague 14 mm area of nodularity medial left lung base. Shrunken nodular liver contour seen with diffuse fatty liver. 17 mm cystic lesion is seen anterior ri ght lobe. Cholecystectomy. The spleen is normal in size. The pancreas, adrenal glands and kidneys are within normal limits. Mild free fluid is seen in the abdomen and pelvis. Moderate stool is present throughout the colon. No nvisualized appendix. Aortoiliac atherosclerosis. No evidence of significant lymphadenopathy. Moderate lumbar degenerative changes. IMPRESSION: Diffuse liver cirrhosis pattern is seen with mild ascites.
--- NOTE | 2022-12-18 16:35 | ER ---
Nurse's Notes [facility] Name: Ana Maria Chavez Age: 62 yrs Sex: Female : 1960 Arrival Date: 12/18/2022 Time: 14:18 Bed 16 Private MD: Diagnosis: Abdominal pain, unspecified Presentation: 12/18 14:25 Chief complaint: Lower abdominal pain x 5 days. Pt is on the liver transplant list, had mb9 liver biopsy a week ago, concerned she is having a reaction to medication. Coronavirus screen: At this time, the client does not indicate any symptoms associated with coronavirus-19. Ebola Screen: No symptoms or risks identified at this time. Initial Sepsis Screen: Does the patient meet any 2 criteria? No. Patient's initial sepsis screen is negative. Does the patient have a suspected source of infection? No. Patient's initial sepsis screen is negative. Risk Assessment: Do you want to hurt yourself or someone else? Patient reports no desire to harm self or others. Onset of symptoms was December 14, 2022. 14:25 Method Of Arrival: Ambulatory 9 14:25 Acuity: LETY 3 mb9 Historical: - Allergies: 14:28 Tylenol; mb9 - Home Meds: 14:28 Propranolol Oral [Active]; mb9 - PMHx: 14:28 Cirrhosis; diabetes mellitus; gastric ulcers; Hepatitis C; mb9 - PSHx: 14:28 Appendectomy; section; Cholecystectomy; Ligation of fallopian tube; mb9 - Immunization history:: Adult Immunizations up to date. - Social history:: Smoking status: Patient denies any tobacco usage or history of. - Family history:: not pertinent. Screenin:55 [facility] ED Fall Risk Assessment (Adult) History of falling in the last 3 months, ap3 including since admission No falls in past 3 months (0 pts). Abuse screen: Denies threats or abuse. Nutritional screening: No deficits noted. Tuberculosis screening: No symptoms or risk factors identified. Assessment: 14:56 General: Appears uncomfortable, Behavior is calm, cooperative. Pain: Complains of pain ap3 in right upper quadrant and left upper quadrant Pain began gradually. Neuro: Level of Consciousness is awake, alert, obeys commands, Oriented to person, place, time, situation. Cardiovascular: Patient's skin is warm and dry. Respiratory: Airway is patent Respiratory effort is even, unlabored, Respiratory pattern is regular, symmetrical. GI: Abd is soft Reports upper abdominal pain. 17:18 GI: Bowel sounds present X 4 quads. ap3 Vital Signs: 14:25 BP 203 / 96; Pulse 76; Resp 16; Temp 98.6; Pulse Ox 100% on R/A; Weight 54.88 kg; mb9 Height 5 ft. 0 in. ; Pain 10/10; 14:57 BP 179 / 93; Pulse 78; Pulse Ox 98% on R/A; ap3 16:14 BP 166 / 92; Pulse 81; Pulse Ox 99% on R/A; ap3 14:25 Body Mass Index 23.63 (54.88 kg, 152.4 cm) mb9 14:25 Pain Scale: Adult mb9 ED Course: 14:22 Patient arrived in ED. im 14:26 Turner Giraldo MD is Attending Physician. rt 14:28 Triage completed. mb9 14:28 Arm band placed on. mb9 14:37 Nadine Jack, DERREK is Primary Nurse. ap3 14:55 Initial lab(s) drawn, by de, sent to lab. Inserted saline lock: 20 gauge in left ap3 antecubital area, using aseptic technique. Blood collected. 14:56 Patient has correct armband on for positive identification. Bed in low position. Call ap3 light in reach. Side rails up X2. Pulse ox on. NIBP on. Door closed. Noise minimized. 16:09 CT Abd/Pelvis - IV Contrast Only In Process Unspecified. EDMS 16:14 Patient moved back from CT. ap3 17:17 No provider procedures requiring assistance completed. IV discontinued, intact, ap3 bleeding controlled, No redness/swelling at site. Pressure dressing applied. Administered Medications: 14:55 Drug: morphine IVP or IV 4 mg Route: IVP; Infused Over: 4 mins; Site: left antecubital; ap3 15:25 Follow up: Response: No adverse reaction; Pain is decreased ap3 14:55 Drug: Ondansetron IVP 4 mg Route: IVP; Site: left antecubital; ap3 15:25 Follow up: Response: No adverse reaction ap3 Medication: 14:57 VIS not applicable for this client. ap3 Outcome: 16:34 Discharge ordered by . rt 17:17 Discharged to home ambulatory, with family. ap3 17:17 Condition: good 17:17 Discharge instructions given to patient, Instructed on discharge instructions, follow up and referral plans. Demonstrated understanding of instructions, follow-up care. 17:18 Patient left the ED. ap3 Signatures: Dispatcher [employer] EDMS Nadine Jack RN RN ap3 Maida Andrew RN RN mb9 Turner Giraldo MD MD rt Sydney Strong Corrections: (The following items were deleted from the chart) 14:34 14:25 BP 203 / 96; Pulse 76bpm; Resp 16bpm; Pulse Ox 100% RA; Temp 98.6F; mb9 mb9
--- NOTE | 2022-12-18 16:35 | EDPHYS ---
Physician Documentation [facility] Name: Ana Maria Chavez Age: 62 yrs Sex: Female : 1960 Arrival Date: 12/18/2022 Time: 14:18 Bed 16 Private MD: ED Physician Turner Giraldo HPI: 12/18 14:39 This 62 yrs old Female presents to ER via Ambulatory with complaints of rt Abdominal Pain. 14:39 Patient with history of cirrhosis presents to the ED with abdominal pain. Patient was rt recently admitted for several weeks to [facility], states that they are planning on getting a liver transplant for her. The patient states that she was prescribed tramadol but on discharge, she states that she has stopped taking that because she believes that she is allergic to it, states that she had a rash on her legs but also states that this might be due to to lower extremity edema. The patient denies any tongue swelling, difficulty breathing associated with tramadol use. Symptoms have worsened over the past few days due to the cessation of the tramadol. Denies other acute complaints at this time. Symptoms are aching nature, nonradiating, no other aggravating alleviating factors.. Historical: - Allergies: 14:28 Tylenol; mb9 - Home Meds: 14:28 Propranolol Oral [Active]; mb9 - PMHx: 14:28 Cirrhosis; diabetes mellitus; gastric ulcers; Hepatitis C; mb9 - PSHx: 14:28 Appendectomy; section; Cholecystectomy; Ligation of fallopian tube; mb9 - Immunization history:: Adult Immunizations up to date. - Social history:: Smoking status: Patient denies any tobacco usage or history of. - Family history:: not pertinent. ROS: 14:39 Constitutional: Negative for fever, chills, and weight loss, Respiratory: Negative for rt shortness of breath, cough, wheezing, and pleuritic chest pain, MS/Extremity: Negative for injury and deformity, Skin: Negative for injury, rash, and discoloration, Neuro: Negative for headache, weakness, numbness, tingling, and seizure, Psych: Negative for depression, anxiety, suicide ideation, homicidal ideation, and hallucinations. 14:39 Cardiovascular: Positive for edema, Negative for chest pain. 14:39 Abdomen/GI: Positive for abdominal pain, Negative for nausea and vomiting. Exam: 14:40 Constitutional: This is a well developed, well nourished patient who is awake, alert, rt and in no acute distress. Head/Face: Normocephalic, atraumatic. Chest/axilla: Normal chest wall appearance and motion. Nontender with no deformity. No lesions are appreciated. Cardiovascular: Regular rate and rhythm with a normal S1 and S2. No gallops, murmurs, or rubs. Normal PMI, no JVD. No pulse deficits. Respiratory: Lungs have equal breath sounds bilaterally, clear to auscultation and percussion. No rales, rhonchi or wheezes noted. No increased work of breathing, no retractions or nasal flaring. Skin: Warm, dry with normal turgor. Normal color with no rashes, no lesions, and no evidence of cellulitis. MS/ Extremity: Pulses equal, no cyanosis. Neurovascular intact. Full, normal range of motion. Neuro: Awake and alert, GCS 15, oriented to person, place, time, and situation. Cranial nerves II-XII grossly intact. Motor strength 5/5 in all extremities. Sensory grossly intact. Cerebellar exam normal. Normal gait. Psych: Awake, alert, with orientation to person, place and time. Behavior, mood, and affect are within normal limits. 14:40 Abdomen/GI: Tenderness diffusely, worse in the right lower to right upper quadrants, no rebound, guarding, distention. Vital Signs: 14:25 BP 203 / 96; Pulse 76; Resp 16; Temp 98.6; Pulse Ox 100% on R/A; Weight 54.88 kg; mb9 Height 5 ft. 0 in. ; Pain 10/10; 14:57 BP 179 / 93; Pulse 78; Pulse Ox 98% on R/A; ap3 16:14 BP 166 / 92; Pulse 81; Pulse Ox 99% on R/A; ap3 14:25 Body Mass Index 23.63 (54.88 kg, 152.4 cm) mb9 14:25 Pain Scale: Adult mb9 MDM: 14:34 Patient medically screened. rt 16:46 Differential diagnosis: Ascites, bowel obstruction, colitis, intra-abdominal abscess. rt Data reviewed: vital signs, nurses notes, lab test result(s), radiologic studies. Independent interpretation of the following test(s) in the Emergency Department CT Scan: My interpretation is No obstruction seen on interpretation CT scan images. Care significantly affected by the following chronic conditions: Cirrhosis. Counseling: I had a detailed discussion with the patient and/or guardian regarding: the historical points, exam findings, and any diagnostic results supporting the discharge/admit diagnosis, lab results, radiology results, the need for outpatient follow up. 12/18 14:35 Order name: CBC with Diff; Complete Time: 15:32 rt 12/18 14:35 Order name: CMP; Complete Time: 15:32 rt 12/18 14:35 Order name: Lipase; Complete Time: 15:32 rt 12/18 14:35 Order name: CT Abd/Pelvis - IV Contrast Only; Complete Time: 16:23 rt Administered Medications: 14:55 Drug: morphine IVP or IV 4 mg Route: IVP; Infused Over: 4 mins; Site: left antecubital; ap3 15:25 Follow up: Response: No adverse reaction; Pain is decreased ap3 14:55 Drug: Ondansetron IVP 4 mg Route: IVP; Site: left antecubital; ap3 15:25 Follow up: Response: No adverse reaction ap3 Disposition Summary: 12/18/22 16:34 Discharge Ordered Location: Home rt Problem: new rt Symptoms: have improved rt Condition: Stable rt Diagnosis - Abdominal pain, unspecified rt Followup: rt - With: Private Physician - When: 2 - 3 days - Reason: Discharge Instructions: - Discharge Summary Sheet rt - Abdominal Pain, Adult rt Forms: - Medication Reconciliation Form rt - Thank You Letter rt - Antibiotic Education rt - Prescription Opioid Use rt Signatures: Dispatcher [employer] Nadine Snow RN RN ap3 Maida Andrew RN RN mb9 Turner Giraldo MD MD rt
[2022-12-18 17:46] VITALS: TEMP 98.6
[2022-12-18 17:49] VITALS: BP 166/92; O2SAT 99
== END 2022-12-18 17:18 | disposition home or self-care (01) ==
LOC: ER 14:18
DX: R10.11 Right upper quadrant pain (principal); K74.60 Unspecified cirrhosis of liver; E11.9 Type 2 diabetes mellitus without complications; Z88.6 Allergy status to analgesic agent
CPT/HCPCS: 85025; 36415; 83690; 80053; 74177; 96375; 96374; 99285; Q9967; J2405

== ENCOUNTER 2023-01-15 17:25 | Emergency (ER) | payer OTHER ==
--- OUTSIDE RECORDS SUMMARY | 2023-01-15 17:37 | XMS REPORT | Continuity of Care Document ---
:1960 Author Organization [facility] t Address [address] [place] [address] Care Team Providers Name Role Phone THOMPSON SCRUGGS Primary Care Physician Unavailable MARILU WONG Attending Clinician Unavailable MALAIKA GOLDMAN Attending Clinician Unavailable Jones RIZZO, Malaika Attending Clinician Salvador RIZZO, Huong Dominguez Attending Clinician [phone] Jorge Villalobos MD Attending Clinician Adia Woody RN Attending Clinician Unavailable RUDDY LEÓN Attending Clinician Unavailable Ruddy León MD Attending Clinician Doctor Unassigned, [place] Attending Clinician Unavailable Bernice Badillo RN Attending Clinician Unavailable ORIN BOB Attending Clinician Unavailable Thompson Scruggs Attending Clinician David Palomares MA Attending Clinician Unavailable Seth RIZZO, Linda Kirby Attending Clinician Jessica RIZZO, Natacha Attending Clinician Salvador RIZZO, Alejandro Mcdonald Attending Clinician [phone] [place] Christianson MD Attending Clinician Gracie Armendariz MD Attending Clinician Khadar RIZZO, Anshu Redman Attending Clinician Margie RIZZO, Tutu Ken Attending Clinician [phone] Maylin Rangel DO Attending Clinician MAYLIN RANGEL Attending Clinician Unavailable RUDDY LEÓN Admitting Clinician Unavailable ALEJANDRO FRANCO Admitting Clinician Unavailable Payers Payer Name Policy Type Policy Number Effective Date Expiration Date S [facility] [id number] 2022 SELECT CHOICE 00:00:00 [facility] [id number] 2022 HEALTHCARE 00:00:00 Problems Condition Condition Condition Status Onset Resolution Last Treating Co mments Source Name Details Category Date Date Treatment Clinician Date 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 00:00: [place] [address] Center Type 2 Type 2 Disease Active Methodi [...] Acute Disease Active Methodi cholecysti cholecysti 07-26 st tis tis 00:00: Hospita 00 l Morbid Morbid Disease Active 2014-07 Univers obesity obesity 0-22 ity of 00:00: [place] [address] Medical Branch Tobacco Tobacco Disease Active 2014-07 Univers use use 0-22 ity of disorder disorder 00:00: [address] Abdominal Abdominal Disease Active 2014-07 Uni vers pain, left pain, left 0-22 it y of lower lower 00:00: [place] quadrant quadrant 00 Medica l Branch Allergies, Adverse Reactions, Alerts Allergy Allergy Status Severity Reaction(s) Onset Inactive Treating Comm ents Source Name Type Date Date Clinician TRAMADOL Allergy Active [facility] 01-08 00:00: 00 Tramadol [address] [address] [facility] to 01-08 [facility] adverse 00:00: Medical reaction 00 Center s Tramadol Propensi Active Anaphylaxis M ethodi ty to 12-21 st adverse 00:00: Hospita reaction 00 l s to drug TRAMADOL DRUG Active Rash Univers INGREDI 12-20 ity of 00:00: [address] Tramadol Propensi Active Rash Univer s ty to 12-20 ity of adverse 00:00: [place] reaction 00 [facility] s [place] NO KNOWN Drug Active Univers ALLERGIE Class ity of S [facility] NO KNOWN Allergy Active [facility] Family History Family Member Diagnosis Comments Start Date Stop Date Source Natural brother Diabetes [facility] Natural brother Hepatitis [facility] Natural father Cirrhosis [facility] Natural mother Cancer [facility] Natural sister Diabetes [facility] Natural sister Hepatitis [facility] Natural son Prostate cancer [facility] Social History Social Habit Start Date Stop Date Quantity Comments Source Gender [facility] History of tobacco Current smoker [facility] use [facility] Cigarettes smoked 2022-12-25 2022-12-25 [facility] current (pack per 00:00:00 00:00:00 [facility] Center day) - Reported Cigarette 2022-12-25 2022-12-[address] [facility] pack-years 00:00:00 00:00:00 [facility] Tobacco use and 2022-12-25 2022-12-25 Smokeless [facility] exposure 00:00:00 00:00:00 tobacco non-user [facility] Center Alcohol intake 2022-12-25 2022-12-25 Ex-drinker [facility] 00:00:00 00:00:00 (finding) [facility] Alcohol Comment 2022-12-25 2022-12-25 Quit 2006 ELLI Redmond kes 00:00:00 00:00:00 [facility] History of Social 2022-12-21 2022-12-[address] function 00:00:00 00:00:00 Hospital Exposure to 2022-08-24 2022-09-[address] [facility]-CoV-2 (event) 00:00:00 18:11:00 [facility] Tobacco Comment 2015-05-06 2015-05-06 smokes 5-8 x per Uni versity of 00:00:00 00:00:00 day [facility] At [birth year] [facility] Smoking Status Start Date Stop Date Source Ex-smoker 2022-12-25 00:00:00 2022-12-25 00:00:00 [facility] Smokes tobacco daily 2015-05-06 00:00:00 Univers ity [facility] Medications Ordered Filled Start Stop Current Ordering Indication Dosage Frequency Signature Comments Components Source Medication Medication Date Date Medication? Clinician (SIG) Name Name insulin Yes 20U QD Inject 20 [facility]I S t degludec 6-26 Units [facility]ukes 200 unit/mL 13:38: [facility] (3 mL) InPn 10 usly in Cente r the morning. insulin Yes 15U Inject 15 [facility]I S t aspart, 6-26 Units Lukes niacinamide 13:38: [facility] , (Fiasp 10 usly in Center FlexTouch the U-100 morning Insulin) and 15 100 unit/mL Units at (3 mL) InPn noon and 15 Units in the evening. Inject before meals. ondansetron Yes 4mg Take [address] (ZOFRAN-ODT 6-26 tablet (4 Laura es ) 4 MG 13:38: mg total) Medica l disintegrat 10 by mouth Cent er ing tablet as needed. amLODIPine 2023- Yes Other 5mg QD Take [address] (NORVASC) 5 6-26 06-25 secondary tablet (5 Lukes MG tablet 00:00: 23:59 hypertensio mg total) Medical 00 :00 n by mouth Center daily. droNABinol 2022-0 Yes 2.5mg Q.5D Take [address] (MARINOL) - capsule [facility]ukes 2.5 MG 00:00: (2.5 mg Medical capsule 00 total) by Center mouth 2 (two) times daily. morphine 2022-0 Yes 15mg Take [address] (MSIR) 15 - tablet (15 Luke s MG tablet 00:00: mg total) Med ical 00 by mouth Center as needed. morPHINE 2022-0 2022- No [id number] 15mg Q.5D Take 1 Metho di immediate-r 12-22-17 tablet (15 s t elease 15 00:00: 04:59 mg total) Ho spita MG tablet 00 :00 by mouth 2 l (two) times a day as needed for severe pain for up to 7 days .acute pain, chronic pain. Max Daily Amount: 30 mg nitrofurant 2022-0 Yes 100mg Q.5D Take [address] oin, 12-21 capsule Lukes macrocrysta 00:00: (100 mg Med ical l-monohydra 00 total) by [address] ter te, mouth 2 (MACROBID) (two) 100 MG times capsule daily. ondansetron 2022-0 2022- Yes 4mg Q8H Take 1 Met hodi ODT 12-21 tablet (4 st (ZOFRAN-ODT 00:00: 04:59 mg total) Hospita ) 4 MG 00 :00 by mouth l disintegrat every 8 ing tablet (eight) hours as needed for nausea or vomiting for up to 30 days. nitrofurant 2022-0 2022- No 100mg Q.5D Take 1 Me thodi oin, 12-21-[address] macrocrysta 00:00: 04:59 (100 mg Ho spita l-monohydra 00 :00 total) by l te, mouth 2 (MACROBID) (two) 100 MG times a capsule day for 5 days. morPHINE 2022-0 2022- No [id number] 15mg Q.5D Take 1 Metho di immediate-r 12-21-09 tablet (15 s t elease 15 00:00: 00:00 mg total) Ho spita MG tablet 00 :00 by mouth 2 l (two) times a day as needed for severe pain for up to 10 days .chronic pain. Max Daily Amount: 30 mg keTOROlac 2022- No 10mg Q6H Take 1 Metho di (TORadol) 12-21-08 tablet (10 st 10 mg 00:00: 00:00 mg total) Hospit a tablet 00 :00 by mouth l every 6 (six) hours as needed for moderate pain for up to 5 days. iopamidol 2022- No [id number] 100mL 100 mL, Univers (ISOVUE 12-20 Intravenou ity o f 370-500 mL) 12:15: 11:17 s, ONCE, 1 [place] injection 00 :00 dose, On Medica l 100 mL Sun12/20/22 Branch at 0715, Routine morpHINE 2022- No 5mg 5 mg, Slow Un bethany injection 5 12-20 IV Push, ity of mg 10:30: 10:17 ONCE, 1 [place] 00 :00 dose, On Medical Sun12/20/22 Branch at 0530, STAT ondansetron 2022- No 4mg 4 mg, Slow Univers (ZOFRAN 12-20 IV Push, ity of (PF)) 10:15: 10:18 ONCE, 1 [place] injection 4 00 :00 dose, On Medi stephany mg Sun12/20/22 Branch at 0515, HOLLI HumaLOG Yes 15U Q.[id number] Inject [address] KwikPen 6-03 [id number] Units [facility]ukes Insulin 100 00:00: 3D subcutaneo Medical unit/mL 00 usly 3 Center InPn (three) times daily. traMADoL 2022- No 50mg Take [address] (ULTRAM) 50 5-28 06-26 tablet (50 L ukes mg tablet 00:00: 00:00 mg total) Me dical 00 :00 by mouth Center every 6 (six) hours as needed. fenofibrate 2022-0 Yes 160mg QD Take [address] (TRIGLIDE,L 5-25 tablet Lukes OFIBRA) 160 00:00: (160 mg Med ical MG tablet 00 total) by Cente r mouth daily. lisinopril- 2022-0 Yes 1{tbl} QD Take [address] hydroCHLORO 5-25 tablet by Laura es thiazide 00:00: mouth Medical (PRINZIDE,Z 00 daily. Center ESTORETIC) 10-12.5 mg per tablet [employer] Thyroid 2022-0 Yes 30mg QD Take 1 CHI S t 30 mg 5-25 tablet (30 Lukes tablet 00:00: mg total) Medica l 00 by mouth Center daily. freestyle 3-0 Yes Q.25D Apply [facility] 28 gauge 5-19 topically [facility]ukes lancets 00:00: 4 (four) Medica l 00 times Center daily. propranoloL 3-0 2023- No 10mg Q.5D Take 1 Met hodi (INDERAL) 5-16 05-15 tablet (10 st 10 MG 14:18: 00:00 mg total) Hospit a tablet 06 :00 by mouth 2 l (two) times a day. empaglifloz 3-0 2023- No 10mg QD Take 1 Met hodi in 5-16 05-15 tablet (10 st (Jardiance) 14:18: 00:00 mg total) Hospita 10 mg 06 :00 by mouth l tablet daily. tablet propranoloL 3-0 2023- No 10mg Q.5D Take 1 Met hodi (INDERAL) 5-16 05-15 tablet (10 st 10 MG 14:18: 00:00 mg total) Hospit a tablet 06 :00 by mouth 2 l (two) times a day. empaglifloz 3-0 2023- No 10mg QD Take 1 Met hodi in 5-16 05-15 tablet (10 st (Jardiance) 14:18: 00:00 mg total) Hospita 10 mg 06 :00 by mouth l tablet daily. tablet ondansetron 3-0 2023- No 4mg Q8H Take 4 mg Methodi (ZOFRAN) 4 5-15 05-[address] MG tablet 14:18: 00:00 every 8 Hosp erica 36 :00 (eight) l hours as needed for nausea or vomiting. ondansetron 3-0 2023- No 4mg Q8H Take 4 mg Methodi [...] 100 unit/mL (70-30) [place] [id number] 50mg Q6H Take 1 Method i (Ultram) 50 5-15 tablet (50 st mg tablet 00:00: mg total) Hos adi 00 by mouth l every 6 (six) hours as needed for moderate pain .acute pain. insulin Yes Take 15 Methodi ASPART 5-[address] protamine 00:00: daily Hospita and insulin 00 before l ASPART breakfast, (NovoLOG and 6 Mix units 70-30FlexPe before n U-100) dinner 100 unit/mL (70-30) insulin pen traMADoL [place] [id number] 50mg Q6H Take 1 Method i (Ultram) 50 5-15 tablet (50 st mg tablet 00:00: mg total) Hos adi 00 by mouth l every 6 (six) hours as needed for moderate pain .acute pain. insulin Yes Take [address] [facility] aspart 5-15 units Lukes protamine-i 00:00: daily Medic al nsulin 00 before Center aspart breakfast, (NovoLOG and 6 MIX 70/30) units 100 unit/mL before (70-30) dinner injection insulin Yes [id number] Use twice M ethodi admin 5-[address] supplies 00:00: Hospita insulin pen 00 l Freestyle Yes [id number] Test daily Methodi InsuLinx 5-[address] strip test 00:00: meals/snac H ospita strips 00 ks and l once before bedtime. lancets Yes [id number] Test daily Methodi (freestyle) 5-[address] 28 gauge 00:00: meals/snac Hos adi misc 00 ks and l once before bedtime. blood-gluco Yes [id number] Test daily Methodi se meter 5-[address] (Freestyle 00:00: meals/snac H ospita InsuLinx) 00 ks and l misc once before bedtime. insulin Yes [id number] Use twice M ethodi admin 5-[address] supplies 00:00: Hospita insulin pen 00 l Freestyle Yes [id number] Test daily Methodi InsuLinx 5-[address] strip test 00:00: meals/snac H ospita strips 00 ks and l once before bedtime. lancets Yes [id number] Test daily Methodi (freestyle) 5-[address] 28 gauge 00:00: meals/snac Hos adi misc 00 ks and l once before bedtime. blood-gluco Yes [id number] Test daily Methodi se meter 5-[address] (Freestyle 00:00: meals/snac H ospita InsuLinx) 00 ks and l misc once before bedtime. insulin Yes Q.5D 2 (two) [facility] admin 5-10 times [facility]ukes supplies 00:00: daily. Medical InPn 00 Center blood sugar Yes Test daily [facility] diagnostic 5-10 before all Laura es (Freestyle 00:00: meals/snac M edical InsuLinx) 00 ks and Center Strp once before bedtime. insulin 2022- No Take 30 Method i ASPART 5-10 05-[address] protamine 00:00: 00:00 daily Hospit a and insulin 00 :00 before l ASPART breakfast, (NovoLOG and 15 Mix units 70-30FlexPe before n U-100) dinner 100 unit/mL (70-30) insulin pen insulin 2022- No Take 30 Method i ASPART 5-10 05-[address] protamine 00:00: 00:00 daily Hospit a and insulin 00 :00 before l ASPART breakfast, (NovoLOG and 15 Mix units 70-30FlexPe before n U-100) dinner 100 unit/mL (70-30) insulin pen diclofenac 2022- No 50mg Q24H Take 50 mg Methodi (VOLTAREN) 11-15-[address] 50 MG EC 16:47: 00:00 daily as Hosp erica tablet 04 :00 needed. l diclofenac 2022- No 50mg Q24H Take 50 mg Methodi (VOLTAREN) 5-03 05-[address] 50 MG EC 16:47: 00:00 daily as Hosp erica tablet 04 :00 needed. l mupirocin 3-[address] (BACTROBAN) 4-06 topically Laura es 2 % 00:00: 2 (two) Medical ointment 00 times Center daily as needed. dicyclomine 3-0 Yes 20mg Q.25D Take [address] (BENTYL) 20 4-06 tablet (20 Christina kes mg tablet 00:00: mg total) Med ical 00 by mouth 4 Center (four) times daily. ondansetron 3-0 3- No 4mg Take [address] (ZOFRAN) 4 4-06 06-26 tablet (4 Laura es MG tablet 00:00: 00:00 mg total) Me dical 00 :00 by mouth Center every 12 (twelve) hours as needed. ondansetron 3-0 Yes 4mg Q8H Take 1 Meth tavon ODT 3-07 tablet (4 st (ZOFRAN-ODT 00:00: mg total) H ospita ) 4 MG 00 by mouth l disintegrat every 8 ing tablet (eight) hours as needed for nausea or vomiting for up to 15 doses. ondansetron 3-0 2023- No 4mg Q8H Take 1 Met hodi ODT 3-07 05-03 tablet (4 st (ZOFRAN-ODT 00:00: 00:00 mg total) Hospita ) 4 MG 00 :00 by mouth l disintegrat every 8 ing tablet (eight) hours as needed for nausea or vomiting for up to 15 doses. ondansetron 2023-0 2023- No 4mg Q8H Take 1 Met hodi ODT 3-07 05-03 tablet (4 st (ZOFRAN-ODT 00:00: 00:00 mg total) Hospita ) 4 MG 00 :00 by mouth l disintegrat every 8 ing tablet (eight) hours as needed for nausea or vomiting for up to 15 doses. cyclobenzap 3-0 3- No 10mg Q.5D Take 2 Met hodi [...] day as needed for muscle spasms. ondansetron 2022- No 4mg Q8H Take 1 Met hodi ODT 3-07 03-07 tablet (4 st (ZOFRAN-ODT 00:00: 00:00 mg total) Hospita ) 4 MG 00 :00 by mouth l disintegrat every 8 ing tablet (eight) hours as needed for nausea or vomiting for up to 15 doses. insulin 2022- No 8U 8 Units, Unive rs regular 2-20 -20 IV Push, ity of human 03:45: 02:59 ONCE, 1 [place] (HUMULIN R) 00 :00 dose, On Medi stephany injection 8 Sun Branch Units 09/03/22 at 2145, Routine
Indicatio n for insulin: Hyperglyce narinder hydroCHLORO 2022- No 25mg 25 mg, Uni vers thiazide 2-20 -20 Oral, ity of (ESIDRIX) 03:15: 03:09 ONCE, 1 [place] tablet 25 00 :00 dose, On Medica l mg [place] Branch 09/03/22 at 2115, Routine hydroCHLORO 0 Yes [id number] 25mg Take 1 Univers thiazide 25 2-19 tablet by ity of mg tablet 00:00: mouth [place] 00 every Medical morning. Branch hydroCHLORO 0 Yes [id number] 25mg Take 1 Univers thiazide 25 2-19 tablet by ity of mg tablet 00:00: mouth [place] 00 every Medical morning. Branch hydroCHLORO 2022-0 Yes [id number] 25mg Take 1 Univers thiazide 25 2-19 tablet by ity of mg tablet 00:00: mouth [place] 00 every Medical morning. Branch ondansetron Yes [...] Immunizations Ordered Filled Immunization Date Status Comments Sour e Immunization Name Name Influenza (IM) 2018-04-12 Completed [facility] 00:00:00 Hospita l Influenza (IM) 2018-04-12 Completed [facility] Pres[facility] Free 00:00:00 Hospita l TD, NOS 2011-07-16 Completed University 00:00:00 [facility] Branch TD, NOS 2011-07-16 Completed [facility] 00:00:00 [place] [facility] TD, NOS 2011-07-16 Completed University 00:00:00 [facility] Td, Unspecified 2011-07-16 Completed [facility] 00:[facility]:00 [facility] Td, Unspecified 2011-07-16 Completed [facility] 00:[facility]:00 [facility] Vital Signs Vital Name Observation Time Observation Value Comments Source HEIGHT 2023-01-08 12:23:00 152.4 cm WEIGHT 2023-01-08 12:23:00 56.79 kg HEIGHT 2023-01-08 12:23:00 152.4 cm WEIGHT 2023-01-08 12:23:00 56.79 kg HEIGHT 2022-12-25 13:22:00 152.4 cm WEIGHT 2022-12-25 13:22:00 60.873 kg HEIGHT 2022-12-25 13:22:00 152.4 cm WEIGHT 2022-12-25 13:22:00 60.873 kg HEIGHT 2022-12-25 13:22:00 152.4 cm WEIGHT 2022-12-25 13:22:00 60.873 kg Systolic blood 2022-12-20 11:00:00 164 mm[Hg] Univer sity of pressure [facility] Diastolic blood 2022-12-20 11:00:00 79 mm[Hg] Unive rsity of pressure [facility] Heart rate 2022-12-20 11:00:00 73 /min [facility] [place] [facility] Respiratory rate 2022-12-20 11:00:00 14 /min [facility] acute hospital Oxygen saturation in 2022-12-20 11:00:00 97 /min [facility] Arterial blood by [facility] [place] [facility] Pulse oximetry Branch Body temperature 2022-12-20 09:24:00 36.61 G[facility]el [facility] Body height 2022-12-20 09:24:00 152.4 cm [facility] [place] [facility] Body weight 2022-12-20 09:24:00 54.885 kg [facility] [place] [facility] [place] BMI 2022-12-20 09:24:00 23.63 kg/m2 Universi [facility] Heart rate 2022-09-04 03:30:00 73 /min Universi ty of [facility] Respiratory rate 2022-09-04 03:30:00 22 /min [facility] [place] Oxygen saturation in 2022-09-04 03:30:00 98 /min University Arterial blood by [facility] [place] [facility] Pulse oximetry Branch Systolic blood 2022-09-04 03:30:00 162 mm[Hg] Univer sity of [facility] Diastolic blood 2022-09-04 03:30:00 81 mm[Hg] Unive [facility] Body temperature 2022-09-04 00:17:00 37.39 Gretel [facility] [place] Body height 2022-09-04 00:17:00 152.4 cm [facility] [place] [facility] [place] Body weight 2022-09-04 00:17:00 68.04 kg Universi ty [facility] BMI 2022-09-04 00:17:00 29.29 kg/m2 Universi ty [facility] Systolic blood 2023-01-08 14:40:00 188 mm[Hg] [facility] Diastolic blood 2023-01-08 14:40:00 87 mm[Hg] [facility] S [facility] Heart rate 2023-01-08 14:40:00 58 /min [facility] Body temperature 2023-01-08 14:40:00 36.33 Gretel [facility] Respiratory rate 2023-01-08 14:40:00 19 /min [facility] Oxygen saturation in 2023-01-08 14:40:00 99 /min [facility] Arterial blood by Medical nter Pulse oximetry Body height 2023-01-08 12:23:00 152.4 cm [facility] Body weight 2023-01-08 12:23:00 56.79 kg [facility] BMI 2023-01-08 12:23:00 24.45 kg/m2 [facility] Oxygen saturation in 2022-12-22 05:23:04 99 /min [facility] Arterial blood by Pulse oximetry Systolic blood 2022-12-22 05:23:04 174 mm[Hg] Method ist Hospital pressure Diastolic blood 2022-12-22 05:23:04 85 mm[Hg] [facility] pressure Heart rate 2022-12-22 05:23:04 73 /min [facility] Body temperature 2022-12-22 05:23:04 36.33 Gretel [facility] Respiratory rate 2022-12-22 05:23:04 14 /min [facility] Body height 2022-12-21 22:00:00 152.4 cm [facility] Body weight 2022-12-21 22:00:00 54.885 kg [facility] BMI 2022-12-21 22:00:00 23.63 kg/m2 [facility] Systolic blood 2022-11-27 13:13:38 146 mm[Hg] Method [facility] pressure Diastolic blood 2022-11-27 13:13:38 69 mm[Hg] [facility] Hospital pressure Heart rate 2022-11-27 13:13:38 57 /min [facility] Body temperature 2022-11-27 13:13:38 36.44 Gretel [facility] Respiratory rate 2022-11-27 13:13:38 18 /min [facility] Oxygen saturation in 2022-11-27 13:13:38 98 /min [facility] Arterial blood by Pulse oximetry Body height 2022-11-16 02:44:00 152.4 cm [facility] Body weight 2022-11-16 02:44:00 55.203 kg [facility] BMI 2022-11-16 02:44:00 23.77 kg/m2 [facility] Systolic blood 2022-09-19 09:03:36 146 mm[Hg] Method ist Hospital pressure Diastolic blood 2022-09-19 09:03:36 81 mm[Hg] [facility] pressure Heart rate 2022-09-19 09:03:36 68 /min [facility] Body temperature 2022-09-19 09:03:36 36.17 Gretel [facility] Respiratory rate 2022-09-19 09:03:36 17 /min [facility] Oxygen saturation in 2022-09-19 09:03:36 99 /min [facility] Arterial blood by Pulse oximetry Body weight 2022-09-19 02:18:00 57.607 kg [facility] BMI 2022-09-19 02:18:00 24.80 kg/m2 [facility] Procedures Procedure Date / Time Performing Source Performed Clinician CBC W/PLT COUNT & AUTO 2023-01-[address] [facility] DIFFERENTIAL 10:52:00 [facility] COMPREHENSIVE METABOLIC PANEL 2023-01-[address] [facility] 10:52:00 [facility] MAGNESIUM 2023-01-[address] [facility] 10:52:00 [facility] URINALYSIS W/ MICROSCOPIC 2023-01-[address] [facility] 10:52:00 [facility] SCREEN, URINE 2023-01-[address] [facility] 10:52:00 [facility] HEPATITIS B PANEL 2023-01-[address] [facility] 10:52:00 [facility] Center HEPATITIS C ANTIBODY 2023-01-[address] [facility] 10:52:00 [facility] TSH/FREE T4 IF INDICATED 2023-01-08 [facility] 10:52:00 [facility] Center CORTISOL 2023-01-[address] [facility] 10:52:00 [facility] Center CBC W/PLT COUNT & AUTO 2023-01-[address] [facility] DIFFERENTIAL 10:52:00 [facility] Center CBC W/PLT COUNT & AUTO 2022-12-[address] [facility] DIFFERENTIAL 15:44:00 [facility] COMPREHENSIVE METABOLIC PANEL 2022-12-[address] [facility] 15:44:00 [facility] PROTHROMBIN TIME/INR 2022-12-[address] [facility] 15:44:00 [facility] HEPATITIS C PCR, QUANTITATIVE 2022-12-[address] [facility] 15:44:00 [facility] ALPHA FETOPROTEIN (AFP), TUMOR 2022-12-25 [facility] MARK[facility] 15:44:00 [facility] CBC W/PLT COUNT & AUTO 2022-12-25 [facility] DIFFERENTIAL 15:44:00 [facility] HEPATITIS A PANEL 2022-12-25 [facility] 15:42:00 [facility] HEPATITIS B PANEL 2022-12-25 [facility] 15:42:00 [facility] CT RENAL STONE PROTOCOL 2022-12-22 Nadine Farah t 03:41:00 [facility] URINE CULTURE 2022-12-22 Susannah Patterson 01:07:00 [facility] URINALYSIS SCREEN AND MICROSCOPY, 2022-12-22 Susannah Patterson WITH REFLEX TO CULTURE 00:37:00 [facility] CBC WITH PLATELET AND DIFFERENTIAL 2022-12-21 Naomi Patterson 22:31:00 [facility] COMPREHENSIVE METABOLIC PANEL 2022-12-21 Susannah Patterson [facility]ist 22:31:00 Hospital LIPASE LEVEL 2022-12-21 Susannah Patterson 22:31:00 Hospital ESTIMATED GFR 2022-12-21 Susannah Patterson 22:31:00 Hospital URINALYSIS 2022-12-20 Ruddy León Archer of 09:51:00 [facility] LIPASE 2022-12-20 Ruddy León Archer of 09:44:00 [facility] COMP. METABOLIC PANEL (22114) 2022-12-20 Ruddy León [facility] of 09:44:00 [facility] CBC WITH DIFF 2022-12-20 Ruddy León Archer of 09:44:00 [facility] NOTICE OF PRIVACY PRACTICES 2022-12-20 Doctor Unassigned, [facility] of 09:23:15 [place] [facility] CONSENT/REFUSAL FOR DIAGNOSIS AND 2022-12-20 Doctor Jeffrey wan [facility] 09:22:52 [place] [facility] POC GLUCOSE 2022-11-27 Natacha Lopez 16:50:00 Hospital POC GLUCOSE 2022-11-27 Natacha Lopez 13:01:00 Hospital POC GLUCOSE 2022-11-27 Natacha Lopez 08:36:00 Hospital COMPREHENSIVE METABOLIC PANEL 2022-11-27 Albania Christianson thodist 08:25:00 Hospital CBC WITH PLATELET AND DIFFERENTIAL 2022-11-27 Albania Christianson 08:25:00 Hospital ESTIMATED GFR 2022-11-27 Albania Christianson 08:25:00 Hospital SMEAR REVIEW 2022-11-27 Albania Christianson 08:25:00 Hospital POC GLUCOSE 2022-11-27 Natacha Lopez 05:35:00 Hospital POC GLUCOSE 2022-11-27 Albania Christianson 01:43:00 Hospital POC GLUCOSE 2022-11-26 Albania Christianson 23:03:00 Hospital MRI ABDOMEN W WO CONTRAST 2022-11-26 Albania Christianson ist 19:14:00 Hospital POC GLUCOSE 2022-11-26 Albania Christianson 17:02:00 Hospital POC GLUCOSE 2022-11-26 Albania Christianson 13:43:00 Hospital POC GLUCOSE 2022-11-26 Albania Christianson 11:46:00 Hospital COMPREHENSIVE METABOLIC PANEL 2022-11-26 [place]ia Christiansonodist 08:59:00 Hospital CBC WITH PLATELET AND DIFFERENTIAL 2022-11-26 Albania Christianson 08:59:00 Hospital ESTIMATED GFR 2022-11-26 Albania Christianson 08:59:00 Hospital SMEAR REVIEW 2022-11-26 Albania Christianson 08:59:00 Hospital POC GLUCOSE 2022-11-26 Albania Christianson 06:35:00 Hospital POC GLUCOSE 2022-11-26 Albania Christianson 02:12:00 Hospital POC GLUCOSE 2022-11-25 Albania Christianson 21:52:00 Hospital POC GLUCOSE 2022-11-25 Albania Christianson 16:41:00 Hospital POC GLUCOSE 2022-11-25 Albania Christianson 13:43:00 Hospital POC GLUCOSE 2022-11-25 Albania Christianson 10:26:00 Hospital CBC WITH PLATELET AND DIFFERENTIAL 2022-11-25 Allen Franco [facility] 09:36:00 [facility] COMPREHENSIVE METABOLIC PANEL 2022-11-25 Alejandro Francoodi 09:36:00 [facility] ESTIMATED GFR 2022-11-25 Alejandro Franco [facility] 09:36:00 [facility] POC GLUCOSE 2022-11-25 Albania Christianson 06:05:00 Hospital POC GLUCOSE 2022-11-25 Albania Christianson 01:41:00 Hospital SURGICAL PATHOLOGY REQUEST 2022-11-24 Alejandro Franco odist 23:07:00 [facility] POC GLUCOSE 2022-11-24 Alejandro Francoist 22:43:00 [facility] US LIVER BIOPSY 2022-11-24 Torsten Cavazos [facility] 22:40:51 Hospital TYPE AND SCREEN 2022-11-24 Alejandro Francoist 18:08:00 [facility] PREPARE PLATELET PHERESIS 2022-11-24 Torsten Cavazos Met [facility]odist 18:08:00 Hospital CBC WITH PLATELET AND DIFFERENTIAL 2022-11-24 Torsten Cavazos [facility] 18:07:00 [facility] COMPREHENSIVE METABOLIC PANEL 2022-11-24 Torsten Cavazos [facility] 18:06:00 Hospital PROTHROMBIN TIME WITH INR 2022-11-24 Torsten Cavazos Met [facility]ist 18:06:00 Hospital ESTIMATED GFR 2022-11-24 Alejandro Francoist 18:06:00 [facility] POC GLUCOSE 2022-11-24 Alejandro Franco [facility] 16:53:[address] [facility] [address] SKULL BASE TO MID THIGH 2022-11-24 Roseline Arellano [facility] 16:49:34 [facility] POC GLUCOSE 2022-11-24 Alejandro Francoist 14:45:00 [facility] PREPARE PLATELET PHERESIS 2022-11-24 Alejandro Francoo dist 13:25:00 [facility] POC GLUCOSE 2022-11-24 Alejandro Franco 12:50:00 [facility] CYTOLOGY (NON-GYNECOLOGICAL) 2022-11-24 Alejandro Franco thodist REQUEST 10:09:00 [facility] POC GLUCOSE 2022-11-24 Alejandro Francoist 03:56:00 [facility] POC GLUCOSE 2022-11-24 Alejandro Franco 01:05:00 [facility] POC GLUCOSE 2022-11-23 Alejandro Franco [facility] 23:11:00 [facility] POC GLUCOSE 2022-11-23 Alejandro Franco [facility] 17:27:00 [facility] POC GLUCOSE 2022-11-23 Alejandro Franco 14:06:00 [facility] POC GLUCOSE 2022-11-23 Alejandro Francoist 13:05:00 [facility] POC GLUCOSE 2022-11-23 Alejandro Franco 02:29:00 [facility] POC GLUCOSE 2022-11-22 Alejandro Franco [facility] 23:19:00 [facility] POC GLUCOSE 2022-11-22 Alejandro Franco [facility] 18:44:00 [facility] POC GLUCOSE 2022-11-22 Alejandro Franco [facility] 16:42:00 [facility] POC GLUCOSE 2022-11-22 Alejandro Francoist 13:05:00 [facility] POC GLUCOSE 2022-11-22 Alejandro Franco 01:34:00 [facility] POC GLUCOSE 2022-11-21 Alejandro Franco [facility] 23:19:00 [facility] POC GLUCOSE 2022-11-21 Alejandro Franco [facility] 20:22:00 [facility] POC GLUCOSE 2022-11-21 Andrew Francokcj [facility] 16:55:00 [facility] POC GLUCOSE 2022-11-21 Alejandro Franco [facility] 13:24:00 [facility] POC GLUCOSE 2022-11-21 Alejandro Francoist 12:50:00 [facility] POC GLUCOSE 2022-11-21 FrancoAlejandro [facility]ism 09:44:00 [facility] CBC WITH PLATELET AND DIFFERENTIAL 2022-11-21 Allen Franco [facility] 09:37:00 [facility] COMPREHENSIVE METABOLIC PANEL 2022-11-21 Alejandro Franco ethodist 09:37:00 [facility] ESTIMATED GFR 2022-11-21 Alejandro Franco [facility] 09:37:00 [facility] SMEAR REVIEW 2022-11-21 Alejandro Franco [facility] 09:37:00 [facility] POC GLUCOSE 2022-11-21 Alejandro Franco [facility] 05:50:00 [facility] POC GLUCOSE 2022-11-21 Alejandro Franco [facility] 02:45:00 [facility] POC GLUCOSE 2022-11-21 Alejandor Franco [facility] 01:41:00 [facility] POC GLUCOSE 2022-11-20 Andrew Francokcj [facility] 22:38:00 [facility] POC GLUCOSE 2022-11-20 Alejandro Franco [facility] 19:10:00 [facility] MRI PELVIS W WO CONTRAST 2022-11-20 Torsten Cavazos Meth odist 18:00:00 [facility] SURGICAL PATHOLOGY REQUEST 2022-11-20 Alejandro Franco Meth odist 16:13:00 [facility] POC GLUCOSE 2022-11-20 Alejandro Franco [facility] 16:11:00 [facility] POC GLUCOSE 2022-11-20 Andrew Francokcj [facility] 14:52:00 [facility] ESOPHAGOGASTRODUODENOSCOPY (EGD) 2022-11-20 Gracie Armendariz 13:59:00 Hospital COLONOSCOPY 2022-11-20 Gracie Armendariz 13:59:00 [facility] POC GLUCOSE 2022-11-20 Alejandro Franco [facility] 13:28:00 [facility] COMPREHENSIVE METABOLIC PANEL 2022-11-20 Me ian Sheffield 09:16:00 [facility] ESTIMATED GFR 2022-11-20 Alphonso Sheffield 09:16:00 [facility] CBC WITH PLATELET AND DIFFERENTIAL 2022-11-20 Franco Traceyjoann Quezadaist 09:16:00 [facility] PROTHROMBIN TIME WITH INR 2022-11-20 Franco Traceyjayme [facility] dist 09:16:00 [facility] SMEAR REVIEW 2022-11-20 Alejandro Francoist 09:16:00 [facility] POC GLUCOSE 2022-11-20 Alejandro Franco [facility] 02:49:00 [facility] POC GLUCOSE 2022-11-20 Andrew Francokcj [facility] 02:20:00 [facility] POC GLUCOSE 2022-11-19 Andrew Francokcj [facility] 23:18:00 [facility] POC GLUCOSE 2022-11-19 Alejandro Francoist 20:07:00 [facility] POC GLUCOSE 2022-11-19 Alejandro Franco [facility] 16:31:00 [facility] COVID-19 QUALITATIVE RT-PCR 2022-11-19 Torsten Cavazos ethodist 14:15:00 Hospital POC GLUCOSE 2022-11-19 Alejandro Franco 12:35:00 [facility] POC GLUCOSE 2022-11-19 Alejandro Francoist 12:05:00 [facility] CBC WITH PLATELET AND DIFFERENTIAL 2022-11-19 Alphonso Sheffield 08:55:00 [facility] HEPATIC FUNCTION PANEL 2022-11-19 Alphonso Sheffield 08:55:00 [facility] BASIC METABOLIC PANEL 2022-11-19 Alphonso Sheffield 08:55:00 [facility] ESTIMATED GFR 2022-11-19 Alphonso Sheffield 08:55:00 [facility] SMEAR REVIEW 2022-11-19 Alphonso Sheffield 08:55:00 [facility] POC GLUCOSE 2022-11-19 Alejandro Franco 08:42:00 [facility] POC GLUCOSE 2022-11-19 Franco, Amitkumar [facility] 08:06:00 [facility] POC GLUCOSE 2022-11-19 Franco, Amitkumar [facility] 03:31:00 [facility] POC GLUCOSE 2022-11-19 Franco, Amitkumar [facility] 02:39:00 [facility] POC GLUCOSE 2022-11-19 Franco, Amitkumar [facility] 01:11:00 [facility] POC GLUCOSE 2022-11-18 Franco, Amitkumar [facility] 23:25:00 [facility] POC GLUCOSE 2022-11-18 Franco, Amitkumar [facility] 16:32:00 [facility] POC GLUCOSE 2022-11-18 Franco, Amitkumar [facility] 14:25:00 [facility] POC GLUCOSE 2022-11-18 Franco, Amitkumar [facility] 13:02:00 [facility] POC GLUCOSE 2022-11-18 Franco, Amitkumar [facility] 11:29:00 [facility] POC GLUCOSE 2022-11-18 Franco, Amitkumar [facility] 07:40:00 [facility] POC GLUCOSE 2022-11-18 Franco, Amitkumar [facility] 02:55:00 [facility] POC GLUCOSE 2022-11-17 Franco, Amitkumar [facility] 22:53:00 [facility] NM BONE SCAN WHOLE BODY 2022-11-17 Torsten Cavazos [facility] 20:33:00 [facility] POC GLUCOSE 2022-11-17 Franco, Amitkumar [facility] 17:13:00 [facility] POC GLUCOSE 2022-11-17 Franco, Amitkumar [facility] 13:16:00 [facility] HEPATITIS B SURFACE ANTIBODY 2022-11-17 Torsten Cavazos [facility] 09:10:00 Hospital HEPATITIS A ANTIBODY TOTAL 2022-11-17 Torsten Cavazos thodist 09:10:00 Hospital HEPATITIS A ANTIBODY IGM 2022-11-17 Alejandro Franco Method ist 09:10:00 [facility] POC GLUCOSE 2022-11-17 Alejandro Franco [facility] 08:58:00 [facility] POC GLUCOSE 2022-11-17 Alejandro Franco [facility] 05:24:00 [facility] POC GLUCOSE 2022-11-17 Alejandro Franco [facility] 02:05:[address] [facility] [address] CHEST WO CONTRAST 2022-11-17 Torsten Cavazos Methodis t 02:01:00 Hospital US ABDOMINAL LIMITED 2022-11-17 Alejandro Franco [facility] 00:20:00 [facility] POC GLUCOSE 2022-11-16 Alejandro Franco [facility] 23:25:00 [facility] POC GLUCOSE 2022-11-16 Alejandro Franco [facility] 17:02:00 [facility] POC GLUCOSE 2022-11-16 Alejandro Franco [facility] 13:30:00 [facility] CBC WITH PLATELET AND DIFFERENTIAL 2022-11-16 Allen Franco [facility] 09:47:00 [facility] COMPREHENSIVE METABOLIC PANEL 2022-11-16 Alejandro Franco ethodist 09:47:00 [facility] ESTIMATED GFR 2022-11-16 Alejandro Francoist 09:47:00 [facility] SMEAR REVIEW 2022-11-16 Alejandro Francoist 09:47:00 [facility] POC GLUCOSE 2022-11-16 Alejandro Franco [facility] 08:58:00 [facility] POC GLUCOSE 2022-11-16 Alejandro Franco [facility] 05:23:00 [facility] POC GLUCOSE 2022-11-16 Alejandro Franco [facility] 03:34:00 [facility] BASIC METABOLIC PANEL 2022-11-16 Alejandro Francoist 03:21:00 [facility] ESTIMATED GFR 2022-11-16 Alejandro Franco [facility] 03:21:00 [facility] POC GLUCOSE 2022-11-16 Alejandro Franco [facility] 03:15:00 [facility] POC GLUCOSE 2022-11-16 FrancoAlejandro 02:53:00 [facility] MRI ABDOMEN W WO CONTRAST 2022-11-16 Torsten Cavazos Met [facility]odist 02:17:00 Hospital POC GLUCOSE 2022-11-15 Alejandro Franco 23:15:00 [facility] POC GLUCOSE 2022-11-15 Alejandro Franco 22:08:00 [facility] POC GLUCOSE 2022-11-15 Alejandro Francoist 19:27:00 [facility] ANTINUCLEAR ANTIBODIES (GWEN) WITH 2022-11-15 Torsten Cavazos [facility] REFLEX TO TITER AND PATTERN, 19:14:00 Hos pital IMMUNOFLUORESCENCE ANTI MITOCHONDRIA SCREEN 2022-11-15 Torsten Cavazos Meth odist 19:14:00 Hospital LIVER-KIDNEY MICROSOME AB, IGG 2022-11-15 Torsten Cavazos i [facility] 19:14:00 Hospital CERULOPLASMIN LEVEL 2022-11-15 Torsten Cavazos [facility] 19:14:00 Hospital FERRITIN LEVEL 2022-11-15 Torsten Cavazos [facility] 19:14:00 Hospital IMMUNOGLOBULIN G 2022-11-15 Torsten Cavazos [facility] 19:14:00 Hospital ALPHA-1 ANTITRYPSIN LEVEL 2022-11-15 Torsten Cavazos Met [facility] 19:14:00 Hospital HIV 1/2 ANTIGEN/ANTIBODY, FOURTH 2022-11-15 Torsten Cavazos [facility] GENERATION, WITH REFLEXES 19:14:00 Hospit al PHOSPHATIDYLETHANOL, BLOOD 2022-11-15 Torsten Cavazos Me [facility]odist 19:14:00 Hospital POC GLUCOSE 2022-11-15 Alejandro Franco 18:06:00 [facility] POC GLUCOSE 2022-11-15 Alejandro Franco 14:52:00 [facility] ACUTE VIRAL HEPATITIS PANEL (HAV, 2022-11-15 Naz Francoist HBV, HCV) 14:30:00 [facility] HEPATITIS C VIRUS (HCV), 2022-11-15 Alejandro Franco ist QUANTITATIVE PCR 14:30:00 [facility] PROTHROMBIN TIME WITH INR 2022-11-15 Dirk, Torsten Joyblanca Ramirez hodist 14:30:00 Hospital ALPHA FETOPROTEIN 2022-11-15 Dirk Torsten Sha [facility] 14:30:00 Hospital CARCINOEMBRYONIC ANTIGEN (CEA) 2022-11-15 Dirk Torsten Rufino rios [facility] 14:30:00 Hospital CANCER ANTIGEN 19-9 2022-11-15 Dirk Torsten Sha [facility] 14:30:00 Hospital HEPATITIS B CORE ANTIBODY TOTAL 2022-11-15 Alejandro Franco 14:30:00 [facility] HEPATITIS C VIRUS (HCV), 2022-11-15 Alejandro Franco ist QUALITATIVE 14:30:00 [facility] POC GLUCOSE 2022-11-15 Alejandro Franco [facility] 14:14:00 [facility] POC GLUCOSE 2022-11-15 Tu, Justynn-Luigi [facility] 10:26:[address] [facility] CT ABDOMEN PELVIS WO CONTRAST 2022-11-15, Tonja-Te Me thodist 07:26:[address] [facility] URINE CULTURE 2022-11-15, Yen-Te [facility] 07:11:[address] [facility] CBC WITH PLATELET AND DIFFERENTIAL 2022-11-15, Tonja-Luigi [facility] 07:11:[address] [facility] COMPREHENSIVE METABOLIC PANEL 2022-11-15, Yen-Te Me thodist 07:11:[address] [facility] LIPASE LEVEL 2022-11-15, Yen-Te [facility] 07:11:[address] [facility] URINALYSIS SCREEN AND MICROSCOPY, 2022-11-15, Tonja-Te [facility] WITH REFLEX TO CULTURE 07:11:[address] [facility] ESTIMATED GFR 2022-11-15, Yen-Te [facility] 07:11:[address] [facility] LIPID PANEL 2022-11-15, Yen-Te [facility] 07:11:[address] [facility] HEMOGLOBIN A1C 2022-11-15, Yen-Te [facility] 07:11:[address] [facility] POC GLUCOSE 2022-09-19 Tutu Hanson [facility] 08:58:00 [facility] US HEPATIC 2022-09-19 Tutu Hanson 07:43:00 [facility] POC GLUCOSE 2022-09-19 Tutu Hanson 07:06:00 [facility] CT ABDOMEN PELVIS W CONTRAST 2022-09-19 Tutu Hanson 06:47:28 [facility] VENOUS BLOOD GAS 2022-09-19 Tutu Hanson 05:37:00 [facility] BETA HYDROXYBUTYRATE 2022-09-19 Tutu Hanson t 05:37:00 [facility] POC GLUCOSE 2022-09-19 JoeyTutu 05:29:00 [facility] URINE CULTURE 2022-09-19 JoeyTutu 04:48:00 [facility] URINALYSIS SCREEN AND MICROSCOPY, 2022-09-19 JoeyFaisal WITH REFLEX TO CULTURE 04:48:00 [facility] BILIRUBIN DIRECT 2022-09-19 Tutu Hanson 04:46:00 [facility] CBC WITH PLATELET AND DIFFERENTIAL 2022-09-19 Sinan Hanson 02:40:00 [facility] COMPREHENSIVE METABOLIC PANEL 2022-09-19 JoeyTutu 02:40:00 [facility] LIPASE LEVEL 2022-09-19 Tutu Hanson 02:40:00 [facility] ESTIMATED GFR 2022-09-19 Alphonso Collazo 02:40:00 [facility] POCT GLUCOSE (AUTOMATED) 2022-09-04 Juan Carlos [facility] ersity of 03:25:00 [facility]IS 2022-09-04 [facility]00 [facility] COMP. METABOLIC PANEL (53219) 2022-09-04 [facility] CBC WITH DIFF 2022-09-04 [facility] 01:26[facility]00 [facility] N-TERMINAL PRO-BNP 2022-09-04 [facility] 01:26:00 [facility] CONSENT/REFUSAL FOR DIAGNOSIS AND 2022-09-04 Doctor Jeffrey wan, [facility] 00:03:18 [place] [facility] Plan of Care Planned Activity Planned Date Details Comments Source Future Scheduled 2027-11-[address] [facility] 00:00:00 (procedure) [code = [facility] [id number]] Future Scheduled 2025-11-[address] [facility] 00:00:00 (procedure) [code = [facility] [id number]] Future Scheduled 2023-12-[address] [facility] 00:00[facility]00 [facility] (12+) [code = Tobacco Cessation Counseling and Screening (12+)] Future Scheduled 2023-03-[address] [facility] Test 00:00:00 (Season Ended) [code = [facility] INFLUENZA VACCINE (Season Ended)] Future Scheduled 2023-03-16 Influenza Vaccine (#1) [facility] 00:[facility]:00 [code = Influenza Medical Ce nter Vaccine (#1)] Future Scheduled 2023-01-10 [facility] Test 14:47:43 malignant neoplasm of colon (procedure) [code = 555953990] Future Scheduled 2023-01-10 [facility] Test 14:47:43 malignant neoplasm of colon (procedure) [code = 298212560] Future Scheduled 2023-01-10 [facility] Test 14:47:43 malignant neoplasm of colon (procedure) [code = 128930899] Future Scheduled 2023-01-10 COVID-19 VACCINE (#1) [facility] Test 14:47:43 [code = COVID-19 VACCINE (#1)] Future Scheduled 2023-01-10 Pneumococcal Vaccine: [facility] Test 14:47:43 Pediatrics (0 to 5 Years) and At-Risk Patients (6 to 64 Years) (1 - PCV) [code = Pneumococcal Vaccine: Pediatrics (0 to 5 Years) and At-Risk Patients (6 to 64 Years) (1 - PCV)] Future Scheduled 2023-01-10 DIABETES: RETINAL EYE [facility] Test 14:47:43 EXAM [code = DIABETES: RETINAL EYE EXAM] Future Scheduled 2023-01-10 [facility] 14:47:43 [code = DIABETIC FOOT EXAM] Future Scheduled 2023-01-10 [facility] 14:47:43 [code = URINE MICROALBUMIN] Future Scheduled 2023-01-10 Screening for [facility] Test 14:47:43 malignant neoplasm of cervix (procedure) [code = 495423209] Future Scheduled 2023-01-10 BREAST CANCER [facility] Test 14:47:43 SCREENING [code = BREAST CANCER SCREENING] Future Scheduled 2023-01-10 Screening for [facility] Test 14:47:43 malignant neoplasm of colon (procedure) [code = 251881847] Future Scheduled 2023-01-10 Screening for [facility] Test 14:47:43 malignant neoplasm of colon (procedure) [code = 699145537] Future Scheduled 2023-01-10 SHINGLES VACCINES (1 Met [facility] Test 14:47:43 of 2) [code = SHINGLES VACCINES (1 of 2)] Future Scheduled 2023-01-10 HEPATITIS B VACCINES Met [facility] Test 14:47:43 (1 of 3 - Risk 3-dose series) [code = HEPATITIS B VACCINES (1 of 3 - Risk 3-dose series)] Future Scheduled 2023-01-10 INFLUENZA VACCINE Method [facility] Test 14:47:43 [code = INFLUENZA VACCINE] Future Scheduled 2022-12-25 Hemoglobin A1c [facility] Test 00:00:00 [facility] (procedure) [code = 35583458] Future Scheduled 2022-12-18 Screening for [facility] Test 11:11:43 malignant neoplasm of colon (procedure) [code = 854380397] Future Scheduled 2022-12-18 Screening for [facility] Test 11:11:43 malignant neoplasm of colon (procedure) [code = 781924632] Future Scheduled 2022-12-18 Screening for [facility] Test 11:11:43 malignant neoplasm of colon (procedure) [code = 222185602] Future Scheduled 2022-12-18 COVID-19 VACCINE (#1) [facility] Test 11:11:43 [code = COVID-19 VACCINE (#1)] Future Scheduled 2022-12-18 Pneumococcal Vaccine: [facility] Test 11:11:43 Pediatrics (0 to 5 Years) and At-Risk Patients (6 to 64 Years) (1 - PCV) [code = Pneumococcal Vaccine: Pediatrics (0 to 5 Years) and At-Risk Patients (6 to 64 Years) (1 - PCV)] Future Scheduled 2022-12-18 DIABETES: RETINAL EYE [facility] Test 11:11:43 EXAM [code = DIABETES: RETINAL EYE EXAM] Future Scheduled 2022-12-18 DIABETIC FOOT EXAM [facility] Test 11:11:43 [code = DIABETIC FOOT EXAM] Future Scheduled 2022-12-18 URINE MICROALBUMIN [facility] Test 11:11:43 [code = URINE MICROALBUMIN] Future Scheduled 2022-12-18 [facility] Test 11:11:43 malignant neoplasm of cervix (procedure) [code = 760265017] Future Scheduled 2022-12-18 BREAST CANCER [facility] Test 11:11:43 SCREENING [code = BREAST CANCER SCREENING] Future Scheduled 2022-12-18 [facility] Test 11:11:43 malignant neoplasm of colon (procedure) [code = 086701875] Future Scheduled 2022-12-18 Screening for [facility] Test 11:11:43 malignant neoplasm of colon (procedure) [code = 418069959] Future Scheduled 2022-12-18 SHINGLES VACCINES (1 Met [facility] Test 11:11:43 of 2) [code = SHINGLES VACCINES (1 of 2)] Future Scheduled 2022-12-18 HEPATITIS B VACCINES Met [facility] Test 11:11:43 (1 of 3 - Risk 3-dose series) [code = HEPATITIS B VACCINES (1 of 3 - Risk 3-dose series)] Future Scheduled 2022-12-18 INFLUENZA VACCINE Method [facility] Test 11:11:43 [code = INFLUENZA VACCINE] Future Scheduled 2022-10-14 COVID-19 VACCINE (#1) [facility] Test 17:14:06 [code = COVID-19 VACCINE (#1)] Future Scheduled 2022-10-14 Pneumococcal Vaccine: [facility] Test 17:14:06 Pediatrics (0 to 5 Years) and At-Risk Patients (6 to 64 Years) (1 - PCV) [code = Pneumococcal Vaccine: Pediatrics (0 to 5 Years) and At-Risk Patients (6 to 64 Years) (1 - PCV)] Future Scheduled 2022-10-14 DIABETES: RETINAL EYE [facility] Test 17:14:06 EXAM [code = DIABETES: RETINAL EYE EXAM] Future Scheduled 2022-10-14 DIABETIC FOOT [facility]AM [facility] 17:14:06 [code = DIABETIC FOOT EXAM] Future Scheduled 2022-10-14 URINE MICROALBUMIN [facility] Test 17:14:06 [code = URINE MICROALBUMIN] Future Scheduled 2022-10-14 [facility] Test 17:14:06 malignant neoplasm of cervix (procedure) [code = 813354618] Future Scheduled 2022-10-14 BREAST CANCER [facility] Test 17:14:06 SCREENING [code = BREAST CANCER SCREENING] Future Scheduled 2022-10-14 COLONOSCOPY SCREENING [facility] Test 17:14:06 [code = COLONOSCOPY SCREENING] Future Scheduled 2022-10-14 SHINGLES VACCINES (1 Met [facility] Test 17:14:06 of 2) [code = SHINGLES VACCINES (1 of 2)] Future Scheduled 2022-10-14 HEPATITIS B VACCINES Met [facility] Test 17:14:06 (1 of 3 - Risk 3-dose series) [code = HEPATITIS B VACCINES (1 of 3 - Risk 3-dose series)] Future Scheduled 2022-10-14 INFLUENZA VACCINE Method [facility] Test 17:14:06 [code = INFLUENZA VACCINE] Future Scheduled 2022-07-[address] [facility] Test 00:00:00 (12+) [code = Medical Center DEPRESSION SCREENING (12+)] Future Scheduled 2022-07-[address] [facility] Test 00:00:00 (12+) [code = Medical Center DEPRESSION SCREENING (12+)] Future Scheduled 2010 SHINGLES VACCINES ([address] [facility] Test 00:00:00 of 2) [code = SHINGLES [facility] Center VACCINES (1 of 2)] Future Scheduled [address] [facility] Test 00[facility]:00 malignant ne[facility] of [facility] cervix (procedure) [code = 750377244] Future Scheduled [address] [facility] Test 00:00:00 malignant ne[facility] of [facility] cervix (procedure) [code = 669251368] Future Scheduled 1979 DTAP/TDAP/TD [facility]ACCINES [facility] Test 00:00:00 (1 - Tdap) [code = Medical C enter DTAP/TDAP/TD VACCINES (1 - Tdap)] Future Scheduled 1979 DTAP/TDAP/TD [facility]ACCINES [facility] Test 00:00:00 (1 - Tdap) [code = Medical C enter DTAP/TDAP/TD VACCINES (1 - Tdap)] Future Scheduled 1979 SHINGLES VACCINES ([address] [facility] Test 00:00:00 of 2) [code = SHINGLES [facility] Center VACCINES (1 of 2)] Future Scheduled 1978 HEPATITIS C [facility]CRE[facility] Test 00:00:00 [code = HEPATITIS C Medical Center SCREENING] Future Scheduled [address] [facility] Test 00:00:00 Counseling and Medical Cente r Screening (12+) [code = Tobacco Cessation Counseling and Screening (12+)] Future Scheduled [address] EYE EXAM [facility] Test 00:00:00 [code = DIABETIC EYE Medical Center EXAM] Future Scheduled [address] [facility] Test 00:00:00 examination Medical Center (regime/therapy) [code = 082621765] Future Scheduled 1970 Urine screening for [facility] Test 00:00:00 protein (procedure) Medical Center [code = 105015636] Future Scheduled 1966 Pneumococcal Vaccine: [facility] Test 00:00:00 0-64 Years (1 - PCV) Medical Center [code = Pneumococcal Vaccine: 0-64 Years (1 - PCV)] Future Scheduled 1960 COVID-19 VACCINE (#1) [facility] Test 00:00:00 [code = COVID-[address] VACCINE (#1)] Future Scheduled 1960 COVID-19 VACCINE (#1) [facility] Test 00:00:00 [code = COVID-[address] VACCINE (#1)] Future Scheduled [address] [facility] Test 00[facility]00[facility] colon (procedure) [code = 939416570] Future Scheduled 1960 Sigmoidoscopy [code = [facility]oscopy] Medical Cente r Future Scheduled [address] [facility] Test 00:00:00 [facility] breast (procedure) [code = 292702345] Future Scheduled [address] [facility] Test 00:00:00 (combo) [code = CT Medical C enter Colonography (combo)] Future Scheduled [address] [facility] Test 00:00:00 malignant neoplasm of [facility] colon (procedure) [code = 800920019] Future Scheduled [address] [facility] Test 00:00:00 malignant neoplasm of [facility] colon (procedure) [code = 154289689] Future Scheduled [address] [facility] Test 00:00:00 malignant neoplasm of [facility] colon (procedure) [code = 593776630] Future Scheduled [address] [facility] Test 00:00:00 malignant neoplasm of [facility] Center breast (procedure) [code = 790522156] Future Scheduled [address] [facility] Test 00:00:00 (combo) [code = CT Medical C enter Colonography (combo)] Future Scheduled [address] [facility] Test 00:00:00 malignant neoplasm of [facility] colon (procedure) [code = 588249722] Future Scheduled [address] [facility] Test 00:00:00 malignant neoplasm of [facility] colon (procedure) [code = 728832834] Future Scheduled [address] [facility] Test 00:00:00 malignant neoplasm of [facility] colon (procedure) [code = 873216010] Future Scheduled [address] [facility] Test 00:00:00 malignant neoplasm of [facility] colon (procedure) [code = 673913381] Future Scheduled 1960 Sigmoidoscopy [facility]code [facility] Test 00:[facility] Sigmoidoscopy] Medical Cente r Encounters Start End Encounter Admission Attending Care Care Encounter Source Date/Time Date/Time Type Type Clinicians Facility Department ID 2023-02-02 2023-02-02 [facility]patient [facility] [id number] SLE 00:00:00 00:00:00 MARILU 2023-01-29 2023-01-29 Outpatient [facility] [id number] [facility] 00:00:00 00:00:00 2023-01-29 2023-01-29 Outpatient EL [facility] [id number] [facility] 00:00:00 00:00:00 2023-01-29 2023-01-29 Outpatient SHARON SALMERON [facility] [id number] [facility] 00:00:00 00:00:00 [facility] 2023-01-15 2023-01-[address] [facility] [id number] [id number] 00:[facility] 00[facility]00[facility]00 [facility] 2023-01-08 2023-01-08 Outpatient SHARON SALMERON SLE [id number] SLEH 13:43:58 23:59:00 [facility] 2023-01-08 2023-01-08 [facility] [id number] 12:15:00 23:59:00 Encounter [facility] 2023-01-08 2023-01-08 [facility] [id number] 11:40:00 14:07:52 Visit [facility] 2023-01-08 2023-01-08 Out[address] SAL[address]ON [facility] [id number] SLE 11:06:23 14:07:52 [facility] 2023-01-08 2023-01-[address] [facility] [id number] [id number] 10:40:00 10:55:00 [facility] 2023-01-08 2023-01-08 Outpatient JEN SLE SLE [id number] [facility]H 10:40:26 10:40:26 2023-01-04 2023-01-[address] [facility] [id number] 00:00[facility]00 00:00:00 [facility] 2022-12-25 2022-12-[address] [facility] [id number] [id number] 14:55:00 15:10:00 [facility] 2022-12-25 2022-12-25 Outpatient [facility] [id number] [facility] 15:09:18 15:09:18 2022-12-25 2022-12-[address] [facility] [id number] [facility] 13:20:00 14:28:40 Visit [facility] 2022-12-25 2022-12-25 Outpatient [facility] [id number] [facility] 13:11:59 14:28:40 [facility] 2022-12-21 2022-12-22 Emergency Pina, 1.2.840.1 [id number] Methodi 17:04:00 00:36:[address] 3.430.2.7 Hospit a .3.629487 l .8 2022-12-22 2022-12-22 [facility] [id number] [facility] 00:00:00 00:00:00 [facility] 2022-12-21 2022-12-22 Emergency [facility] [id number] [place] [address] 00:00:00 00:00:[address] 2022-12-21 2022-12-21 Travel 1.2.840.1 1.2.266.210 [id number] Methodi 00:00:00 00:00:[address] 3.430.2.7 0.2.7.3.698 spita .3.021650 084.8 l .8 2022-12-20 2022-12-20 Emergency X [facility] ERT [id number] Univers 04:26:00 06:50:00 RUDDY [facility] 2022-12-20 2022-12-20 Emergency [facility] 1.2.146.427 [id number] Univers 04:26:00 06:50:00 Ruddy Bob [facility].7[facility]2.686 [facility] [id number] [facility] [address] 2022-12-20 2022-12-20 Orders Doctor JUVE 1.2.840.114 [id number] Univers 00:00:00 00:00:00 Only Unassigned, CATARINA 350.1.13.10 ity of [place] [facility] 4.2.7.2.686 Tristian as [id number] [facility] [address] 2022-12-18 2022-12-18 Telephone Aby 1.2.840.1 [id number] Methodi 00:00:00 00:00:[address] 3.430.2.7 Hospit a .3.548489 l .8 2022-12-18 2022-12-18 Telephone Aby 1.2.840.1 [id number] 2 [id number] Methodi 00:00:00 00:00:[address] 3.430.2.7 Hospit a .3.063449 l .8 2022-12-07 2022-12-07 Outpatient [facility] SLE [id number] SLE 00:00:00 00:00:00 ORIN 2022-12-06 2022-12-[address] [facility] [id number] 00:00:00 00:00:00 Orders [facility] 2022-12-06 2022-12-[address] [facility] [id number] 00:00:00 00:00:00 Orders [facility] 2022-11-30 2022-11-30 Telephone Aby 1.2.840.1 [id number] Methodi 00:00:00 00:00:[address] 3.430.2.7 Hospit a .3.817911 l .8 2022-11-30 2022-11-30 Telephone Aby 1.2.840.1 [id number] 2 [id number] Methodi 00:00:00 00:00:[address] 3.430.2.7 Hospit a .3.281287 l .8 2022-11-29 2022-11-29 Telephone Jelani, 1.2.840.1 [id number] 2100 [id number] Methodi 00:00:00 00:00:[address] 3.430.2.7 Hospit a .3.805154 l .8 2022-11-29 2022-11-29 Telephone Jelani, 1.2.840.1 [id number] 2099 [id number] Methodi 00:00:00 00:00:[address] 3.430.2.7 Hospit a .3.739540 l .8 2022-11-14 2022-11-27 [facility] Linda Ann Amish 1.2.840.1 10 [id number] Methodi 22:38:00 14:18:00 Encounter Natacha Lopez 21839.1.1 22 2 [facility], Alejandro Natvarlal 3.430.2.7 Hospita [facility] [place] .3.744361 l .8 2022-11-14 2022-11-27 [facility] JESSICA, 1.2.840.1 [id number] 034 [id number] [place] 00:00:00 00:00:00 Encounter NATACHA 73918.1.1 [address] .3.923917 .8 2022-11-20 2022-11-20 Surgery Kala, 1.2.840.1 [id number] Methodi 09:00:00 10:30:[address] 3.430.2.7 Hospit a .3.949397 l .8 2022-11-20 2022-11-20 Surgery Kala, 1.2.840.1 [id number] Methodi 09:00:00 10:30:[address] 3.430.2.7 Hospit a .3.798496 l .8 2022-11-20 2022-11-20 Anesthesia Rubalcava, 1.2.840.1 [id number] 21 [id number] Methodi 08:59:00 09:53:00 Event Anshu Redman 93394.1.1 516 s t 3.430.2.7 Hospit a .3.159531 l .8 2022-11-20 2022-11-20 Anesthesia Khadar, 1.2.840.1 [id number] Methodi 08:59:00 09:53:00 Event Anshu Redman 99350.1.1 516 s t 3.430.2.7 Hospit a .3.885918 l .8 2022-11-15 2022-11-15 Travel 1.2.840.1 1.2.931.463 1632 [id number] Methodi 00:00:00 00:00:[address] 3.430.2.7 0.2.7.3.698 Ho spita .3.833234 084.8 l .8 2022-11-15 2022-11-15 Travel 1.2.840.1 1.2.203.348 [id number] Methodi 00:00:00 00:00:[address] 3.430.2.7 0.2.7.3.698 Ho spita .3.998260 084.8 l .8 2022-09-18 2022-09-19 Emergency Nwe, 1.2.840.1 [id number] Methodi 20:21:00 04:18:[address] Kene 3.430.2.7 Hospit a .3.081280 l .8 2022-09-18 2022-09-19 Emergency Nwe, 1.2.840.1 [id number] Methodi 20:21:00 04:18:[address] Kene 3.430.2.7 Hospit a .3.706724 l .8 2022-09-03 2022-09-03 Emergency Juan Carlos [facility] 1.2.840.114 1 [id number] Univers 18:19:00 21:56:00 Maylin SHEELA 350.1.13.10 i [facility] 4.2.7.2.686 [facility] [id number] [facility] [address] 2022-09-03 2022-09-03 Emergency X JUAN CARLOS, [facility] ERT [id number] Univers 18:19:00 21:56:00 MAYLIN [facility] Results Test Description Test Time Test Comments Results Result Comments Source HEPATITIS C ANTIBODY 2023-01-08 16:25:49 Test Item Value Reference Range Interpretation Comme nts HEPATITIS C ANTIBODY (BEAKER) (test code = 367) Reactive Nonrea ctive Humanities Teacher ID - ADMINHEPATITIS B [id number] 16:25:23 Test Item Value Reference Range Interpretation Comments HEPATITIS B CORE TOTAL ANTIBODY Nonreactive Nonreactive (BEAKER) (test code = 497) HEPATITIS B SURFACE ANTIBODY < mIU/mL <8.0 (BEAKER) (test code = 647) HEPATITIS B SURFACE ANTIGEN (2) Nonreactive Nonreactive (BEAKER) (test code = 2585) Picker Operator ID - [id number] 15:49:57 Test Item Value Reference Range Interpretation Comments CORTISOL, TOTAL (BEAKER) (test code 8.5 ug/dL 3.7-19.4 = 2755) Picker Operator ID - ADMINTSH/FREE T4 IF [id number] 12:44:57 Test Item Value Reference Range Interpretation Comments THYROID STIMULATING HORMONE 2.803 uIU/mL 0.350-5.500 (BEAKER) (test code = 772) Urinalysis w/ [id number] 12:04:32 Test Item Value Reference Range Interpretation Comments Color, UA (test code = Yellow 5778-6) Clarity, UA (test code Clear = 5767-9) Specific [place], UA 1.005-1.030 (test code = 5811-5) pH, UA (test code = 6.0 5.0-9.0 5803-2) Protein, UA (test code Trace Negative A = 47984-4) Glucose, UA (test code 250 mg/dL Negative A = 365) Ketones, UA (test code Negative Negative = 4284-8) Bilirubin, UA (test Negative Negative code = 62777-4) Blood, UA (test code = Large Negative A 44222-4) Nitrite, UA (test code Negative Negative = 5802-4) Leukocytes, UA (test Negative Negative code = 5799-2) Urobilinogen, UA (test 1.0 code = 59037-3) RBC, UA (test code = 10 See_Comment [Autom ated message] 13366-1) The system [employer] generated this result transmit maria esther reference range : /HPF. The refer ence range was not u sed to interpret th is result as normal/abnormal . WBC, UA (test code = See_Comment [Autom ated message] 5821-4) The system [employer] generated this result transmit maria esther reference range : /HPF. The refer ence range was not u sed to interpret th is result as normal/abnormal . Bacteria, UA (test code Occasional = 10492-9) Mucus (test code = Few 8247-9) Squam Epithel, UA (test See_Comment [Au tomated message] code = 81844-4) The system [employer] [facility] generated this result transmit maria esther reference range : /HPF. The refer ence range was not u sed to interpret th is result as normal/abnormal . Specimen Source (test code = 2795) Lab Interpretation Abnormal (test code = 80736-3) [facility] [id number] 12:04:32 Test Item Value Reference Range Interpretation Comments COLOR (BEAKER) (test code = 470) Yellow CLARITY (BEAKER) (test code = 469) Clear SPECIFIC GRAVITY UA (BEAKER) (test >= 1.005-1.030 code = 468) PH UA (BEAKER) (test code = 467) 6.0 5.0-9.0 PROTEIN UA (BEAKER) (test code = Trace Negative A 464) GLUCOSE UA (BEAKER) (test code = 250 mg/dL Negative A 365) KETONES UA (BEAKER) (test code = Negative Negative 371) BILIRUBIN UA (BEAKER) (test code = Negative Negative 462) BLOOD UA (BEAKER) (test code = Large Negative A 461) NITRITE UA (BEAKER) (test code = Negative Negative 465) LEUKOCYTE ESTERASE UA (BEAKER) Negative Negative (test code = 466) UROBILINOGEN UA (BEAKER) (test 1.0 code = 463) RBC UA (BEAKER) (test code = 519) 10 /HPF WBC UA (BEAKER) (test code = 520) < /HPF BACTERIA (BEAKER) (test code = Occasional 517) MUCUS (BEAKER) (test code = 1574) Few SQUAMOUS EPITHELIAL (BEAKER) (test < /HPF code = 516) SOURCE(BEAKER) (test code = 2024) COMPREHENSIVE METABOLIC [id number] 11:45:18 Test Item Value Reference Range Interpretation Comments TOTAL PROTEIN 7.8 gm/dL 6.0-8.3 (BEAKER) (test code = 770) ALBUMIN (BEAKER) 2.9 g/dL 3.5-5.0 L (test code = 1145) ALKALINE 251 U/L 40-150 H PHOSPHATASE (BEAKER) (test code = 346) BILIRUBIN TOTAL 1.8 mg/dL 0.2-1.2 H (BEAKER) (test code = 377) SODIUM (BEAKER) 136 meq/L 136-145 (test code = 381) POTASSIUM (BEAKER) 3.7 meq/L 3.5-5.1 (test code = 379) CHLORIDE (BEAKER) 102 meq/L 98-107 (test code = 382) CO2 (BEAKER) (test 30 meq/L 22-29 H code = 355) BLOOD UREA 11 mg/dL 7-21 NITROGEN (BEAKER) (test code = 354) CREATININE 0.77 mg/dL 0.57-1.25 (BEAKER) (test code = 358) GLUCOSE RANDOM 328 mg/dL 70-105 H (BEAKER) (test code = 652) CALCIUM (BEAKER) 8.4 mg/dL 8.4-10.2 (test code = 697) AST (SGOT) 120 U/L 5-34 H (BEAKER) (test code = 353) ALT (SGPT) 106 U/L 6-55 H (BEAKER) (test code = 347) EGFR (BEAKER) 87 Interpretatio n of eGFR (test code = 1092) mL/min/1.[address] age Description sq m Result G1 Denisha l or high >=90 G2 Mildly decreased 60-89 G3a Mildl y to moderately 45-5 9 G3b Moderately to s everely 30-44 G4 Severl y decreased 15-29 G5 Kidne y failure <15Reported eGF R is based on the CKD-EPI 2020 equation that d oes not use a race coefficientEsti mated GFR is not as accur ate as Creatinine Sugar regalado in predicting glom erular filtration rate . Estimated GFR is not appl icable for dialysis patien ts Specimen slightly [id number] 11:40:57 Test Item Value Reference Range Interpretation Comments MAGNESIUM (BEAKER) (test code = 1.5 mg/dL 1.6-2.6 L 627) , [id number] 11:24:13 Test Item Value Reference Range Interpretation Comments Preg Test, Ur (test code = 2112-1) Negative Negative Lab Interpretation (test code = Normal 79341-9) [facility] [id number] 11:24:13 Test Item Value Reference Range Interpretation Comments TEST URINE (BEAKER) (test Negative Negative code = 583) CBC W/PLT COUNT & AUTO [id number] 11:13:13 Test Item Value Reference Range Interpretation Comments WHITE BLOOD CELL COUNT (BEAKER) 3.4 K/ L 3.5-10.5 L (test code = 775) RED BLOOD CELL COUNT (BEAKER) 3.73 M/ L 3.93-5.22 L (test code = 761) HEMOGLOBIN (BEAKER) (test code = 12.7 GM/DL 11.2-15.7 410) HEMATOCRIT (BEAKER) (test code = 36.1 % 34.1-44.9 411) MEAN CORPUSCULAR VOLUME (BEAKER) 97 fL 79-95 H (test code = 753) MEAN CORPUSCULAR HEMOGLOBIN 34.0 pg 25.6-32.2 H (BEAKER) (test code = 751) MEAN CORPUSCULAR HEMOGLOBIN CONC 35.2 GM/DL 32.2-35.5 (BEAKER) (test code = 752) RED CELL DISTRIBUTION WIDTH 12.8 % 11.7-14.4 (BEAKER) (test code = 412) PLATELET COUNT (BEAKER) (test code 76 K/CU MM 150-450 L = 756) MEAN PLATELET VOLUME (BEAKER) 11.1 fL 9.4-12.3 (test code = 754) NEUTROPHILS RELATIVE PERCENT 45 % (BEAKER) (test code = 429) LYMPHOCYTES RELATIVE PERCENT 41 % (BEAKER) (test code = 430) MONOCYTES RELATIVE PERCENT 11 % (BEAKER) (test code = 431) EOSINOPHILS RELATIVE PERCENT 2 % (BEAKER) (test code = 432) BASOPHILS RELATIVE PERCENT 1 % (BEAKER) (test code = 437) NEUTROPHILS ABSOLUTE COUNT 1.54 K/ L 1.56-6.13 L (BEAKER) (test code = 670) LYMPHOCYTES ABSOLUTE COUNT 1.40 K/ L 1.18-3.74 (BEAKER) (test code = 414) MONOCYTES ABSOLUTE COUNT (BEAKER) 0.39 K/ L 0.24-0.36 H (test code = 415) EOSINOPHILS ABSOLUTE COUNT 0.08 K/ L 0.04-0.36 (BEAKER) (test code = 416) BASOPHILS ABSOLUTE COUNT (BEAKER) 0.02 K/ L 0.01-0.08 (test code = 417) IMMATURE GRANULOCYTES-RELATIVE 0.30 % 0.00-1.00 PERCENT (BEAKER) (test code = 2801) HEPATITIS C PCR, [id number] 11:40:27 Test Item Value Reference Range Interpretation Comments HCV NUMERIC RESULT (BEAKER) 886087 IU/mL <15 H (test code = 2700) HEPATITIS B [id number] 19:07:00 Test Item Value Reference Range Interpretation Comments HEPATITIS B CORE TOTAL ANTIBODY Nonreactive Nonreactive (BEAKER) (test code = 497) HEPATITIS B SURFACE ANTIBODY < mIU/mL <8.0 (BEAKER) (test code = 647) HEPATITIS B SURFACE ANTIGEN (2) Nonreactive Nonreactive (BEAKER) (test code = 2585) Picker Operator ID - ADMINALPHA FETOPROTEIN (AFP), TUMOR [id number] 18:59:31 Test Item Value Reference Range Interpretation Comments ALPHA-FETOPROTEIN (BEAKER) (test 35.3 ng/mL <10.0 H code = 1094) Picker Operator ID - ADMINHEPATITIS A [id number] 18:57:43 Test Item Value Reference Range Interpretation Comments HEPATITIS A IGM ANTIBODY (BEAKER) Nonreactive Nonreactive (test code = 498) HEPATITIS A IGG ANTIBODY (BEAKER) Reactive Nonreactive A (test code = 2797) Picker Operator ID - ADMINCOMPREHENSIVE METABOLIC [id number] 16:31:02 Test Item Value Reference Range Interpretation Comments TOTAL PROTEIN 8.0 gm/dL 6.0-8.3 Specimen sligh tly (BEAKER) (test hemolyzed code = 770) ALBUMIN (BEAKER) 3.0 g/dL 3.5-5.0 L Specimen sl ightly (test code = 1145) hemolyzed ALKALINE 249 U/L 40-150 H PHOSPHATASE (BEAKER) (test code = 346) BILIRUBIN TOTAL 1.2 mg/dL 0.2-1.2 Specimen sli ghtly (BEAKER) (test hemolyzed code = 377) SODIUM (BEAKER) 136 meq/L 136-145 (test code = 381) POTASSIUM (BEAKER) 3.9 meq/L 3.5-5.1 Specimen slightly (test code = 379) hemolyzed CHLORIDE (BEAKER) 103 meq/L 98-107 (test code = 382) CO2 (BEAKER) (test 31 meq/L 22-29 H code = 355) BLOOD UREA 14 mg/dL 7-21 NITROGEN (BEAKER) (test code = 354) CREATININE 0.79 mg/dL 0.57-1.25 Specimen slight ly (BEAKER) (test hemolyzed code = 358) GLUCOSE RANDOM 211 mg/dL 70-105 H (BEAKER) (test code = 652) CALCIUM (BEAKER) 8.0 mg/dL 8.4-10.2 L (test code = 697) AST (SGOT) 88 U/L 5-34 H Specimen slight ly (BEAKER) (test hemolyzed code = 353) ALT (SGPT) 66 U/L 6-55 H Specimen slight ly (BEAKER) (test hemolyzed code = 347) EGFR (BEAKER) 85 Interpretatio n of eGFR (test code = 1092) mL/min/1.[address] age Description sq m Result G1 Denisha l or high >=90 G2 Mildly decreased 60-89 G3a Mildl y to moderately 45-5 9 G3b Moderately to s everely 30-44 G4 Severl y decreased 15-29 G5 Kidne y failure <15Reported eGF R is based on the CKD-EPI 2020 equation that d oes not use a race coefficientEsti mated GFR is not as accur ate as Creatinine Sugar regalado in predicting glom erular filtration rate . Estimated GFR is not appl icable for dialysis patien ts PROTHROMBIN [id number] 16:24:16 Test Item Value Reference Range Interpretation Comments PROTIME (BEAKER) (test code = 12.7 seconds 9.8-12.0 H 759) INR (BEAKER) (test code = 370) 1.15 <=5.90 RECOMMENDED COUMADIN/WARFARIN INR THERAPY RANGESSTANDARD DOSE: 2.0 - 3.0 Includes: PROPHYLAXIS for venous thrombosis, systemic embolization; TREATMENT for venous thrombosis and/or pulmonary embolus.HIGH RISK: Target INR is 2.5-3.5 for patients with mechanical heart valves.CBC W/PLT COUNT & AUTO [id number] 16:10:21 Test Item Value Reference Range Interpretation Comments WHITE BLOOD CELL COUNT (BEAKER) 4.5 K/ L 3.5-10.5 (test code = 775) RED BLOOD CELL COUNT (BEAKER) 3.59 M/ L 3.93-5.22 L (test code = 761) HEMOGLOBIN (BEAKER) (test code = 12.4 GM/DL 11.2-15.7 410) HEMATOCRIT (BEAKER) (test code = 36.1 % 34.1-44.9 411) MEAN CORPUSCULAR VOLUME (BEAKER) 101 fL 79-95 H (test code = 753) MEAN CORPUSCULAR HEMOGLOBIN 34.5 pg 25.6-32.2 H (BEAKER) (test code = 751) MEAN CORPUSCULAR HEMOGLOBIN CONC 34.3 GM/DL 32.2-35.5 (BEAKER) (test code = 752) RED CELL DISTRIBUTION WIDTH 13.0 % 11.7-14.4 (BEAKER) (test code = 412) PLATELET COUNT (BEAKER) (test code 70 K/CU MM 150-450 L = 756) MEAN PLATELET VOLUME (BEAKER) 11.4 fL 9.4-12.3 (test code = 754) NEUTROPHILS RELATIVE PERCENT 48 % (BEAKER) (test code = 429) LYMPHOCYTES RELATIVE PERCENT 40 % (BEAKER) (test code = 430) MONOCYTES RELATIVE PERCENT 10 % (BEAKER) (test code = 431) EOSINOPHILS RELATIVE PERCENT 1 % (BEAKER) (test code = 432) BASOPHILS RELATIVE PERCENT 1 % (BEAKER) (test code = 437) NEUTROPHILS ABSOLUTE COUNT 2.19 K/ L 1.56-6.13 (BEAKER) (test code = 670) LYMPHOCYTES ABSOLUTE COUNT 1.79 K/ L 1.18-3.74 (BEAKER) (test code = 414) MONOCYTES ABSOLUTE COUNT (BEAKER) 0.45 K/ L 0.24-0.36 H (test code = 415) EOSINOPHILS ABSOLUTE COUNT 0.06 K/ L 0.04-0.36 (BEAKER) (test code = 416) BASOPHILS ABSOLUTE COUNT (BEAKER) 0.03 K/ L 0.01-0.08 (test code = 417) IMMATURE GRANULOCYTES-RELATIVE 0.20 % 0.00-1.00 PERCENT (BEAKER) (test code = 2801) Urine [id number] 07:09:00 Test Item Value Reference Range Interpretation Comments Urine culture Mixed ene Specimen isolate (test <=10-3 col/cc InformationSp ecimen code = 22692-2) Source: [place] eSpecimen Site: Clean cat [facility] [place] WITH [id number] 10:33:26 Test Item Value Reference Range Interpretation Comments WBC (test code = 3.74 See_Comment L [Automated 6690-2) message] The sy stem which generated this result transmitted reference range : 4.30 - 11.10 10*3/?L. The reference range was not used to interpret this result as normal/abnormal . RBC (test code = 3.49 See_Comment L [Automated 549-8) message] The sy stem which generated this result transmitted reference range : 3.93 - 5.25 10*6/?L. The reference range was not used to interpret this result as normal/abnormal . HGB (test code = 12.0 g/dL 11.6-15.0 718-7) HCT (test code = 33.7 % 35.7-45.2 L 4544-3) MCV (test code = 96.6 fL 80.6-95.5 H 787-2) MCH (test code = 34.4 pg 25.9-32.8 H 785-6) MCHC (test code = 35.6 g/dL 31.6-35.1 H 786-4) RDW-SD (test code = 46.0 fL 39.0-49.9 87696-4) RDW-CV (test code = 13.0 % 12.0-15.5 788-0) PLT (test code = 74 See_Comment L [Automated 777-3) message] The sy stem which generated this result transmitted reference range : 166 - 358 10*3/ ?L. The reference r pablo was not used to interpret this result as normal/abnormal . MPV (test code = 11.1 fL 9.5-12.9 85699-1) IPF % (test code = 3.1 % 1.3-7.7 Platelet count [id number]) measured by fluorescence method. NRBC/100 WBC (test 0.0 See_Comment [Automat ed code = 9875696484) message] The system which generated this result transmitted reference range : 0.0 - 10.0 /100 WBCs. The refer ence range was not u sed to interpret th is result as normal/abnormal . NRBC x10^3 (test code See_Comment [Auto mated = [id number]) message] The s ystem which generated this result transmitted reference range : 10*3/?L. The reference range was not used to interpret this result as normal/abnormal . GRAN MAT (NEUT) % 51.3 % (test code = 770-8) IMM GRAN % (test code 0.30 % = 5945310853) LYMPH % (test code = 35.3 % 736-9) MONO % (test code = 11.0 % 5905-5) EOS % (test code = 1.6 % 713-8) BASO % (test code = 0.5 % 706-2) GRAN MAT x10^3(ANC) 1.92 10*3/uL 1.88-7.09 (test code = 7582569168) IMM GRAN x10^3 (test 0.00-0.06 code = 3444184695) LYMPH x10^3 (test code 1.32 10*3/uL 1.32-3.29 = 731-0) MONO x10^3 (test code 0.41 10*3/uL 0.33-0.92 = 742-7) EOS x10^3 (test code = 0.06 10*3/uL 0.03-0.39 711-2) BASO x10^3 (test code 0.01-0.07 = 704-7) PLT ESTIMATE (test Decreased Normal A code = 9317-9) Lab Interpretation Abnormal (test code = 66437-3) [facility] ([id number])2022-12-20 10:15:24 Test Item Value Reference Range Interpretation Comments NA (test code = 137 mmol/L 135-145 4021525300) K (test code = 4.1 mmol/L 3.5-5.0 7221561730) CL (test code = 103 mmol/L 98-108 2961557854) CO2 TOTAL (test code = 29 mmol/L 23-31 4789644939) AGAP (test code = 5 2-16 7956378975) BUN (test code = 9 mg/dL 7-23 4995070603) GLUCOSE (test code = 386 mg/dL 70-110 H 2745532565) CREATININE (test code = 0.52 mg/dL 0.50-1.04 5143831824) TOTAL BILI (test code = 1.4 mg/dL 0.1-1.1 H 9508454154) CALCIUM (test code = 8.1 mg/dL 8.6-10.6 L 2718792307) T PROTEIN (test code = 7.6 g/dL 6.3-8.2 0719425216) ALBUMIN (test code = 2.8 g/dL 3.5-5.0 L 7467006216) ALK PHOS (test code = 403 U/L 34-122 H 8405625500) ALTv (test code = 59 U/L 5-35 H 1742-6) AST(SGOT) (test code = 78 U/L 13-40 H 2464454453) eGFR (test code = 119.5 mL/min/1.73m2 5923524018) ELIZABETH (test code = ELIZABETH) Association of [...] tests). Lab Interpretation Abnormal (test code = 93131-2) [facility] 10[facility]14:49 Test Item Value Reference Range Interpretation Comments LIPASE (test code = 0345059590) 91 U/L 0-220 Lab Interpretation (test code = Normal 23269-7) [facility] (non[facility]) [id number] 22:28:58 Test Item Value Reference Range Interpretation Comments Case number (test code = [id number]) Cytology See link below for (non-gynecological) PDF Lab Report report (test code = 1178) Result status (test code This is Final Report = [id number]) [id number] [facility] [id number] 22:28:58 Test Item Value Reference Range Interpretation Comments Case number (test code = [id number]) Cytology See link below for (non-gynecological) PDF Lab Report report (test code = 1178) Result status (test code This is Final Report = 7570518) for [id number] [facility] pathology [id number] 22:08:14 Test Item Value Reference Range Interpretation Comments Case number (test code = [id number]) Surgical pathology See link below for report (test code = PDF Lab Report 2255) Result status (test code This is Final Report = [id number]) for [id number] [facility] pathology [id number] 22:08:14 Test Item Value Reference Range Interpretation Comments Case number (test code = [id number]) Surgical pathology See link below for report (test code = PDF Lab Report 2255) Result status (test code This is Final Report = 9361874) for [id number] [facility] [id number] 16:51:00 Test Item Value Reference Range Interpretation Comments POC glucose (test code = 159 mg/dL 65-99 H Ope rator Name: 32510-7) Ciara Garcia vice ID: [id number] able: [facility] Notified motor racer Interpretation (test Abnormal code = 00866-0) [facility] [id number] 16:51:00 Test Item Value Reference Range Interpretation Comments POC glucose (test code = 159 mg/dL 65-99 H Ope rator Name: 85485-6) Ciara Garcia vice ID: [id number] able: [facility] Notified motor racer Interpretation (test Abnormal code = 42585-0) [facility] platelet pheresis, 2 [id number] 21:29:00 Test Item Value Reference Range Interpretation Comments Product name (test code Platelets Aph LR, Path = 25) Red cont3 Unit number (test code [id number] = 8866680) Product code (test code O0612B36 = 3092) Dispense status (test Transfused code = 24) Blood expiration date 337327810269 (test code = 302) Blood type code (test 9500 code = 308) Blood type (test code = O NEGATIVE 1314) Compatibility (test Not required code = 6400) [facility], 2 [id number] 21:29:00 Test Item Value Reference Range Interpretation Comments Product name (test code Platelets Aph LR, Path = 25) Red cont3 Unit number (test code [id number] = 2706889) Product code (test code F7948Y48 = 3092) Dispense status (test Transfused code = 24) Blood expiration date 530028946003 (test code = 302) Blood type code (test 9500 code = 308) Blood type (test code = O NEGATIVE 1314) Compatibility (test Not required code = 6400) [facility] [Presence] in Respiratory specimen by WATSNO with probe [id number] 13:39:00 Test Item Value Reference Range Interpretation Comments SARS-CoV-2 (COVID-19) RNA Not detected [Presence] in Respiratory specimen by WATSON with probe detection (test code = 19249-4) Whether patient is employed in a Unknown healthcare setting (test code = 52576-6) Whether the patient has symptoms Unknown related to condition of interest (test code = 55093-2) Whether the patient was Unknown hospitalized for condition of interest (test code = 27010-5) Whether the patient was admitted Unknown to intensive care unit (ICU) for condition of interest (test code = 46868-8) Whether patient resides in a Unknown congregate care setting (test code = 46786-0) status (test code = Unknown 19035-5) Date and time of symptom onset Unknown (test code = 45272-0) [facility] [id number] 08:16:00 Test Item Value Reference Range Interpretation Comments Urine culture (test SEE COMMENT Bacteriu keny screen code = 0295579) negative. [facility] [id number] 08:59:00 Test Item Value Reference Range Interpretation Comments POC glucose (test code = 261 mg/dL 65-99 H Ope rator Name: 12317-6) Glovertamra RobertsMeghana ice ID: [id number] able: No Action Neede d Lab Interpretation (test Abnormal code = 27845-9) [facility] [id number] 05:20:00 Test Item Value Reference Range Interpretation Comments Urine culture (test SEE COMMENT Bacteriu keny screen code = 5567748) negative. [facility] GLUCOSE (AUTOMATED)2022-09-04 03:30:00 Test Item Value Reference Range Interpretation Comments POCT GLU (test code = 446 mg/dL 70-110 H Notifi ed Provider 0953267154) Lab Interpretation (test Abnormal code = 57364-9) [facility](AGE >30DAYS)2022-09-04 03:25:00 Test Item Value Reference Range Interpretation Comments POCT Glu (age>30days) (test code = 446 mg/dL 70-110 A 3342) Lab Interpretation (test code = Abnormal 41492-7) [facility] WITH [id number] 03:02:56 Test Item Value Reference Range Interpretation [...] RDW-SD (test code = 47.5 fL 39.0-49.9 22280-3) RDW-CV (test code = 13.2 % 12.0-15.5 788-0) PLT (test code = 54 See_Comment L [Automated 777-3) message] The sy stem which generated this result transmitted reference range : 166 - 358 10*3/ ?L. The reference r pablo was not used to interpret this result as normal/abnormal . MPV (test code = 11.4 fL 9.5-12.9 03232-9) IPF % (test code = 5.8 % 1.3-7.7 Platelet count 0290304524) measured by fluorescence method. NRBC/100 WBC (test 0.0 See_Comment [Automat ed code = 8479909425) message] The system which generated this result transmitted reference range : 0.0 - 10.0 /100 WBCs. The refer ence range was not u sed to interpret th is result as normal/abnormal . NRBC x10^3 (test code See_Comment [Auto mated = 6788838746) message] The s ystem which generated this result transmitted reference range : 10*3/?L. The reference range was not used to interpret this result as normal/abnormal . GRAN MAT (NEUT) % 46.4 % (test code = 770-8) IMM GRAN % (test code 0.70 % = 2970701511) LYMPH % (test code = 39.9 % 736-9) MONO % (test code = 10.0 % 5905-5) EOS % (test code = 2.0 % 713-8) BASO % (test code = 1.0 % 706-2) GRAN MAT x10^3(ANC) 1.40 10*3/uL 1.88-7.09 L (test code = 2191672442) IMM GRAN x10^3 (test 0.00-0.06 code = 1999987523) LYMPH x10^3 (test code 1.20 10*3/uL 1.32-3.29 L = 731-0) MONO x10^3 (test code 0.30 10*3/uL 0.33-0.92 L = 742-7) EOS x10^3 (test code = 0.06 10*3/uL 0.03-0.39 711-2) BASO x10^3 (test code 0.03 10*3/uL 0.01-0.07 = 704-7) Lab Interpretation Abnormal (test code = 99791-4) [facility] (15039)2022-09-04 02:41:28 Test Item Value Reference Range Interpretation Comments NA (test code = 128 mmol/L 135-145 L 8408259575) K (test code = 3.9 mmol/L 3.5-5.0 9154899663) CL (test code = 97 mmol/L 98-108 L 7828273345) CO2 TOTAL (test code = 28 mmol/L 23-31 5907695589) AGAP (test code = 3 2-16 8802896992) BUN (test code = 8 mg/dL 7-23 8156608828) GLUCOSE (test code = 610 mg/dL 70-110 HH 9202360748) CREATININE (test code = 0.53 mg/dL 0.50-1.04 6865796114) TOTAL BILI (test code = 1.6 mg/dL 0.1-1.1 H 7308745154) CALCIUM (test code = 7.8 mg/dL 8.6-10.6 L 7812416809) T PROTEIN (test code = 7.5 g/dL 6.3-8.2 1917238585) ALBUMIN (test code = 2.9 g/dL 3.5-5.0 L 5979528107) ALK PHOS (test code = 906 U/L 34-122 H 2934061795) ALTv (test code = 92 U/L 5-35 H 1742-6) AST(SGOT) (test code = 140 U/L 13-40 H 2549735953) eGFR (test code = 116.9 mL/min/1.73m2 5271216615) ELIZABETH (test code = ELIZABETH) Association of [...] tests). Lab Interpretation Abnormal (test code = 39742-8) [facility] [id number] 02:36:11 Test Item Value Reference Range Interpretation Comments NT-proBNP (test code = 276 pg/mL <=125 H 4254158496) ELIZABETH (test code = ELIZABETH) Biotin has been reported to cause a negative bias, interpret results relative to patient's use of biotin. Lab Interpretation (test Abnormal code = 51957-4) [facility]"
--- NOTE | 2023-01-15 17:56 | EDPHYS ---
Physician Documentation [facility] Name: Ana Maria Chavez Age: 62 yrs Sex: Female : 1960 Arrival Date: 01/15/2023 Time: 17:25 Bed 18 Private MD: ED Physician Getachew Mitchell HPI: 01/15 18:07 This 62 yrs old Female presents to ER via Wheelchair with complaints of snw Abdominal Pain. 18:07 The patient presents with abdominal pain. Onset: The symptoms/episode began/occurred 3 snw month(s) ago, and became persistent. Associated signs and symptoms: Pertinent positives: nausea. Severity of pain: At its worst the pain was moderate severe. The patient has experienced similar episodes in the past. liver team at [facility]. Historical: - Allergies: 17:49 Tylenol; mb9 - Home Meds: 17:49 Propranolol Oral [Active]; amlodipine oral [Active]; mb9 - PMHx: 17:49 Cirrhosis; diabetes mellitus; gastric ulcers; Hepatitis C; Liver cancer; Bone cancer; mb9 - PSHx: 17:49 Appendectomy; section; Cholecystectomy; Ligation of fallopian tube; mb9 - Immunization history:: Adult Immunizations up to date. - Social history:: Smoking status: Patient denies any tobacco usage or history of. ROS: 18:06 Constitutional: Negative for fever, chills, and weight loss, Eyes: Negative for injury, snw pain, redness, and discharge, ENT: Negative for injury, pain, and discharge, Neck: Negative for injury, pain, and swelling, Cardiovascular: Negative for chest pain, palpitations, and edema, Respiratory: Negative for shortness of breath, cough, wheezing, and pleuritic chest pain, Back: Negative for injury and pain, : Negative for injury, bleeding, discharge, and swelling, MS/Extremity: Negative for injury and deformity, Skin: Negative for injury, rash, and discoloration, Neuro: Negative for headache, weakness, numbness, tingling, and seizure, Psych: Negative for depression, anxiety, suicide ideation, homicidal ideation, and hallucinations. 18:06 Abdomen/GI: Positive for abdominal pain, nausea, of the abdomen diffusely. Exam: 18:06 Constitutional: This is a well developed, well nourished patient who is awake, alert, snw and in no acute distress. Head/Face: Normocephalic, atraumatic. Eyes: Pupils equal round and reactive to light, extra-ocular motions intact. Lids and lashes normal. Conjunctiva and sclera are non-icteric and not injected. Cornea within normal limits. Periorbital areas with no swelling, redness, or edema. ENT: Nares patent. No nasal discharge, no septal abnormalities noted. Tympanic membranes are normal and external auditory canals are clear. Oropharynx with no redness, swelling, or masses, exudates, or evidence of obstruction, uvula midline. Mucous membranes moist. Neck: Trachea midline, no thyromegaly or masses palpated, and no cervical lymphadenopathy. Supple, full range of motion without nuchal rigidity, or vertebral point tenderness. No Meningismus. Chest/axilla: Normal chest wall appearance and motion. Nontender with no deformity. No lesions are appreciated. Cardiovascular: Regular rate and rhythm with a normal S1 and S2. No gallops, murmurs, or rubs. Normal PMI, no JVD. No pulse deficits. Respiratory: Lungs have equal breath sounds bilaterally, clear to auscultation and percussion. No rales, rhonchi or wheezes noted. No increased work of breathing, no retractions or nasal flaring. Back: No spinal tenderness. No costovertebral tenderness. Full range of motion. Skin: Warm, dry with normal turgor. Normal color with no rashes, no lesions, and no evidence of cellulitis. MS/ Extremity: Pulses equal, no cyanosis. Neurovascular intact. Full, normal range of motion. Neuro: Awake and alert, GCS 15, oriented to person, place, time, and situation. Cranial nerves II-XII grossly intact. Motor strength 5/5 in all extremities. Sensory grossly intact. Cerebellar exam normal. Normal gait. Psych: Awake, alert, with orientation to person, place and time. Behavior, mood, and affect are within normal limits. 18:06 Abdomen/GI: Inspection: abdomen appears normal, Bowel sounds: normal, in all quadrants, Palpation: moderate abdominal tenderness, in all quadrants. Vital Signs: 17:46 BP 209 / 85; Pulse 82; Resp 20; Temp 98.3(O); Pulse Ox 97% on R/A; Weight 58.97 kg; mb9 Height 5 ft. 0 in. ; Pain 10/10; 18:36 BP 162 / 92; Pulse 78; Resp 17; Pulse Ox 99% on R/A; os 17:46 Body Mass Index 25.39 (58.97 kg, 152.4 cm) mb9 17:46 Pain Scale: Adult mb9 MDM: 17:49 Patient medically screened. snw 18:05 Differential diagnosis: pain. Data reviewed: vital signs, nurses notes. Counseling: I snw had a detailed discussion with the patient and/or guardian regarding: the historical points, exam findings, and any diagnostic results supporting the discharge/admit diagnosis, the presence of at least one elevated blood pressure reading (>120/80) during this emergency department visit, the need for outpatient follow up, for definitive care, to return to the emergency department if symptoms worsen or persist or if there are any questions or concerns that arise at home. Special discussion: Based on the patient's Hx, exam, and Dx evaluation, there is no indication for emergent surgery or inpatient Tx. It is understood by the patient/guardian that if the Sx's persist or worsen they need to return immediately for re-evaluation. Based on the history and exam findings, there is no indication for further emergent testing or inpatient evaluation. I discussed with the patient/guardian the need to see the building code inspector/oncologist for further evaluation of the symptoms. I discussed with the patient/guardian the need to see the primary care provider for further evaluation of the symptoms. Administered Medications: 18:04 CANCELLED (Other Intervention Used): fentaNYL Transdermal Patch (50 mcg/hr) 1 patches snw Transdermal once 18:13 Drug: fentaNYL Transdermal Patch (25 mcg/hr) 1 patches Route: Transdermal; Site: os affected area; 18:36 Follow up: Response: No adverse reaction os 18:14 Drug: Promethazine PO 25 mg Route: PO; os 18:36 Follow up: Response: No adverse reaction os Disposition: 19:09 Co-signature as Attending Physician, Getachew Mitchell MD I agree with the assessment and kdr plan of care. Disposition Summary: 01/15/23 17:55 Discharge Ordered Location: Home snw Condition: Stable snw Diagnosis - Cancer pain snw Followup: snw - With: Emergency Department - When: As needed - Reason: Worsening of condition Followup: snw - With: Private Physician - When: 2 - 3 days - Reason: Recheck today's complaints, Continuance of care, Re-evaluation by your physician Discharge Instructions: - Discharge Summary Sheet snw - Abdominal Pain, Adult snw Forms: - Medication Reconciliation Form snw - Thank You Letter snw - Antibiotic Education snw - Prescription Opioid Use sn[facility] - [email or web address] snw Prescriptions: - promethazine 25 mg Rectal suppository - insert 1 suppository by RECTAL route every 6 hours as needed for nausea and snw vomiting; 10 suppository; Refills: 0, Product Selection Permitted Signatures: Getachew Mitchell MD MD kdr Stella Olivo, REMARKETING REP-C REMARKETING REP-Csnw Maida Andrew RN RN mb9 Bethany Chung RN RN os Corrections: (The following items were deleted from the chart) 18:04 17:53 fentaNYL Transdermal Patch (50 mcg/hr) 1 patches Transdermal once ordered. snw snw
--- NOTE | 2023-01-15 17:56 | ER ---
Nurse's Notes [facility] Name: Ana Maria Chavez Age: 62 yrs Sex: Female : 1960 Arrival Date: 01/15/2023 Time: 17:25 Bed 18 Private MD: Diagnosis: Cancer pain Presentation: 01/15 17:46 Chief complaint: Patient states: "I'm out of my morphine pain medicine for my liver and mb9 bone cancer. Dr. Mooney from [facility] said she can't do anything for me and told me to come here. My stomach is hurting really bad for the past 3-5 months and I'm nauseous. I'm currently getting infusions for the cancer at [facility]. My oncologist name is Dr. Goldman". Coronavirus screen: Vaccine status: Patient reports being unvaccinated. Ebola Screen: No symptoms or risks identified at this time. Initial Sepsis Screen: Does the patient meet any 2 criteria? No. Patient's initial sepsis screen is negative. Does the patient have a suspected source of infection? No. Patient's initial sepsis screen is negative. Risk Assessment: Do you want to hurt yourself or someone else? Patient reports no desire to harm self or others. Onset of symptoms was January 15, 2023. 17:46 Acuity: LETY 2 mb9 17:46 Method Of Arrival: Wheelchair mb9 Historical: - Allergies: 17:49 Tylenol; mb9 - Home Meds: 17:49 Propranolol Oral [Active]; amlodipine oral [Active]; mb9 - PMHx: 17:49 Cirrhosis; diabetes mellitus; gastric ulcers; Hepatitis C; Liver cancer; Bone cancer; mb9 - PSHx: 17:49 Appendectomy; section; Cholecystectomy; Ligation of fallopian tube; mb9 - Immunization history:: Adult Immunizations up to date. - Social history:: Smoking status: Patient denies any tobacco usage or history of. Screenin:50 [facility] ED Fall Risk Assessment (Adult) History of falling in the last 3 months, bp including since admission No falls in past 3 months (0 pts). Abuse screen: Denies threats or abuse. Denies injuries from another. Nutritional screening: No deficits noted. Tuberculosis screening: No symptoms or risk factors identified. Assessment: 17:50 General: SEE TRIAGE NOTE. bp Vital Signs: 17:46 BP 209 / 85; Pulse 82; Resp 20; Temp 98.3(O); Pulse Ox 97% on R/A; Weight 58.97 kg; mb9 Height 5 ft. 0 in. ; Pain 10/10; 18:36 BP 162 / 92; Pulse 78; Resp 17; Pulse Ox 99% on R/A; os 17:46 Body Mass Index 25.39 (58.97 kg, 152.4 cm) mb9 17:46 Pain Scale: Adult mb9 ED Course: 17:28 Patient arrived in ED. im 17:42 Stella Olivo FNP-C is PHCP. snw 17:42 Getachew Mitchell MD is Attending Physician. snw 17:46 Bethany Chung, DERREK is Primary Nurse. os 17:46 Arm band placed on. mb9 17:49 Triage completed. mb9 17:50 Patient has correct armband on for positive identification. Bed in low position. Call bp light in reach. Side rails up X2. Adult w/ patient. Administered Medications: 18:04 CANCELLED (Other Intervention Used): fentaNYL Transdermal Patch (50 mcg/hr) 1 patches snw Transdermal once 18:13 Drug: fentaNYL Transdermal Patch (25 mcg/hr) 1 patches Route: Transdermal; Site: os affected area; 18:36 Follow up: Response: No adverse reaction os 18:14 Drug: Promethazine PO 25 mg Route: PO; os 18:36 Follow up: Response: No adverse reaction os Medication: 17:50 VIS not applicable for this client. bp Outcome: 17:55 Discharge ordered by . snw 18:37 Patient left the ED. os Signatures: Stella Olivo FNP-C CORE ASSEMBLY SUPERVISOR-Csnw Stanislav Ashton RN RN bp Maida Andrew RN RN mb9 Bethany Chung, DERREK ANGLIN os Sydney Strong im Corrections: (The following items were deleted from the chart) 17:54 17:50 General: Appears uncomfortable, obese, Behavior is cooperative, appropriate for bp age, anxious, bp 17:54 17:50 Pain: Complains of pain in abdomen bp bp 17:54 17:50 EENT: No deficits noted. bp bp 17:54 17:50 Cardiovascular: No deficits noted. bp bp 17:54 17:50 Neuro: No deficits noted. bp bp 17:54 17:50 Respiratory: No deficits noted. bp bp 17:54 17:50 GI: Abdomen is non-distended, obese, bp bp 17:54 17:50 : No signs and/or symptoms were reported regarding the genitourinary system. bp bp 17:54 17:50 Derm: No deficits noted. bp bp 17:54 17:50 Musculoskeletal: No deficits noted. bp bp
[2023-01-15] MEDS ORDERED: FENTANYL 25 MCG/PATCH TD ONE (18:15)
[2023-01-15] MEDS ORDERED: PROMETHAZINE 25 MG TABLET ONE (18:15)
[2023-01-15] MEDS ORDERED: PROMETHAZINE 25 MG TABLET PO ONE (19:00)
[2023-01-15] MEDS ORDERED: FENTANYL 50 MCG/PATCH TD ONE (19:00)
[2023-01-15 19:11] VITALS: TEMP 98.3
[2023-01-15 19:13] VITALS: BP 162/92; O2SAT 99
== END 2023-01-15 18:37 | disposition home or self-care (01) ==
LOC: ER 17:25
DX: G89.3 Neoplasm related pain (acute) (chronic) (principal); C22.0 Liver cell carcinoma; C41.9 Malignant neoplasm of bone and articular cartilage, unspecified; E11.9 Type 2 diabetes mellitus without complications; K74.60 Unspecified cirrhosis of liver; Z88.6 Allergy status to analgesic agent
CPT/HCPCS: 99282; Q0169

== ENCOUNTER 2023-12-13 17:30 | Emergency (ER) | payer OTHER ==
--- NOTE | 2023-12-13 18:52 | RAD REPORT ---
EXAM DESCRIPTION: CT - CTHCSPWOC - 12/13/2023 6:43 pm CLINICAL HISTORY: Trauma, head and neck injury. TRAUMA COMPARISON: <Comparisons> TECHNIQUE: Axial 5 mm thick images of the head were obtained. Axial 2 mm thick images of the cervical spine were obtained with sagittal and coronal reconstruction images generated and reviewed. All CT scans are performed using dose optimization technique as appropriate and may include automated exposure control or mA/KV adjustment according to patient size. FINDINGS: CT HEAD WITHOUT CONTRAST: No acute hemorrhage, hydrocephalus or extra-axial collection is identified.No areas of brain edema or midline shift. The paranasal sinuses and mastoids are clear.The calvarium is intact. CT CERVICAL SPINE WITHOUT CONTRAST: No fracture or subluxation.Calcified disc herniations and endplate osteophyte is present lower cervic al levels.No prevertebral soft tissues swelling is identified. IMPRESSION: No acute intracranial or cervical spine findings. Prominent lower cervical spondylosis.
--- NOTE | 2023-12-13 19:17 | EDPHYS ---
Physician Documentation [facility] Name: Ana Maria Chavez Age: 63 yrs Sex: Female : 1960 Arrival Date: 12/13/2023 Time: 17:30 Bed DX2 Private MD: ED Physician Dot Franco HPI: 12/12 18:24 This 63 yrs old Female presents to ER via Wheelchair with complaints of Fall sp3 Injury. 18:24 63-year-old female history of liver cancer, cirrhosis, diabetes, hep C now presents to 3 the ED with chief complaint mechanical fall while moving boxes. Patient landed on her face/head with abrasions to her forehead and nose reported. Also left anterior leg with abrasion. She denies loss of consciousness but does endorse mild headache. No significant bleeding. Patient is not on any anticoagulants. Review of systems negative for neck pain, chest pain, shortness of breath, back pain, hip pain, other extremity pain, or any other signs or symptoms on ROS at this time.. Historical: - Allergies: 17:57 Tylenol; jl7 - PMHx: 17:57 bone cancer; Cirrhosis; diabetes mellitus; gastric ulcers; Hepatitis C; liver cancer; jl7 - PSHx: 17:57 Appendectomy; section; Cholecystectomy; Ligation of fallopian tube; jl7 - Immunization history:: Adult Immunizations unknown. - Infectious Disease History:: Denies. - Social history:: Smoking status: Patient denies any tobacco usage or history of. ROS: 18:25 Constitutional: Negative for fever, chills, and weight loss, Eyes: Negative for injury, sp3 pain, redness, and discharge, ENT: Negative for injury, pain, and discharge, Neck: Negative for injury, pain, and swelling, Cardiovascular: Negative for chest pain, palpitations, and edema, Respiratory: Negative for shortness of breath, cough, wheezing, and pleuritic chest pain, Abdomen/GI: Negative for abdominal pain, nausea, vomiting, diarrhea, and constipation, Back: Negative for injury and pain, Skin: Negative for injury, rash, and discoloration, Psych: Negative for depression, anxiety, suicide ideation, homicidal ideation, and hallucinations, Allergy/Immunology: Negative for hives, rash, and allergies, Endocrine: Negative for neck swelling, polydipsia, polyuria, polyphagia, and marked weight changes, Hematologic/Lymphatic: Negative for swollen nodes, abnormal bleeding, and unusual bruising, 18:25 All other systems are negative, Exam: 18:25 Constitutional: This is a well developed, well nourished patient who is awake, alert, sp3 and in no acute distress. Eyes: Pupils equal round and reactive to light, extra-ocular motions intact. Lids and lashes normal. Conjunctiva and sclera are non-icteric and not injected. Cornea within normal limits. Periorbital areas with no swelling, redness, or edema. ENT: Nares patent. No nasal discharge, no septal abnormalities noted. External auditory canals are clear. Oropharynx with no redness, swelling, or masses, exudates, or evidence of obstruction, uvula midline. Mucous membranes moist. Neck: Trachea midline, no thyromegaly or masses palpated, and no cervical lymphadenopathy. Supple, full range of motion without nuchal rigidity, or vertebral point tenderness. No Meningismus. Chest/axilla: Normal chest wall appearance and motion. Nontender with no deformity. No lesions are appreciated. Cardiovascular: Regular rate and rhythm with a normal S1 and S2. No gallops, murmurs, or rubs. Normal PMI, no JVD. No pulse deficits. Respiratory: Lungs have equal breath sounds bilaterally, clear to auscultation and percussion. No rales, rhonchi or wheezes noted. No increased work of breathing, no retractions or nasal flaring. Abdomen/GI: Soft, non-tender, with normal bowel sounds. No distension or tympany. No guarding or rebound. No evidence of tenderness throughout. Back: No spinal tenderness. No costovertebral tenderness. Full range of motion. Skin: Warm, dry with normal turgor. Normal color with no rashes, no lesions, and no evidence of cellulitis. Neuro: Awake and alert, GCS 15, oriented to person, place, time, and situation. Cranial nerves II-XII grossly intact. Motor strength 5/5 in all extremities. Sensory grossly intact. Cerebellar exam normal. Normal gait. Psych: Awake, alert, with orientation to person, place and time. Behavior, mood, and affect are within normal limits. 18:25 Head/face: Abrasion to the superior aspect of the nasal bridge and left forehead noted. No significant hematoma or bleeding.. 18:25 Musculoskeletal/extremity: Left crabtree anterior abrasion 3 cm x 3 cm.. Vital Signs: 17:54 BP 146 / 68; Pulse 67; Resp 17; Temp 98.3; Pulse Ox 100% ; Weight 63.5 kg; Height 5 ft. jl7 0 in. ; Pain 7/10; 17:54 Body Mass Index 27.34 (63.50 kg, 152.4 cm) jl7 17:54 Pain Scale: Adult jl7 MDM: 17:57 Patient medically screened. sp3 18:26 Data reviewed: vital signs, nurses notes, radiologic studies. ED course: Female with sp3 head injury secondary to mechanical fall. Will obtain CT scan of the head and C-spine. Left leg does not need any imaging. If CTs are negative, we will safely discharge patient home after wound care and cleaning.. 12/12 17:56 Order name: CT Head C Spine; Complete Time: 19:16 sp3 12/12 17:56 Order name: Wound Care; Complete Time: 18:04 sp3 Administered Medications: No medications were administered Disposition Summary: 12/13/23 19:17 Discharge Ordered Notes: Location: Home sp3 Condition: Stable sp3 Diagnosis - Closed head injury, forehead abrasion, nasal bridge abrasion, left leg abrasion sp3 Followup: sp3 - With: Private Physician - When: Upon discharge from the Emergency Department - Reason: Continuance of care Discharge Instructions: - Discharge Summary Sheet sp3 - Abrasion sp3 - Head Injury, Adult sp3 Forms: - Medication Reconciliation Form sp3 - Antibiotic Education sp3 - Prescription Opioid Use sp3 - Patient Portal Instructions sp3 - Leadership Thank You Letter sp3 Signatures: Dispatcher [employer] EDSidney Wright RN RN jl7 Dot Franco MD MD sp3 Corrections: (The following items were deleted from the chart) 17:57 17:57 Head C Spine MPR Wo Con+CT.RAD.BRZ ordered. EDMS EDMS
--- NOTE | 2023-12-13 19:17 | ER ---
Nurse's Notes [facility] Name: Ana Maria Chavez Age: 63 yrs Sex: Female : 1960 Arrival Date: 12/13/2023 Time: 17:30 Bed DX2 Private MD: Diagnosis: Closed head injury, forehead abrasion, nasal bridge abrasion, left leg abrasion Presentation: 12/12 17:54 Chief complaint: Patient states: Tripped and fell, hit left side of forehead and nose jl7 on concrete, road rash to left crabtree. Denies loss of consciousness. Coronavirus screen: At this time, the client does not indicate any symptoms associated with coronavirus-19. Ebola Screen: No symptoms or risks identified at this time. Initial Sepsis Screen: Does the patient meet any 2 criteria? No. Patient's initial sepsis screen is negative. Does the patient have a suspected source of infection? No. Patient's initial sepsis screen is negative. Risk Assessment: Do you want to hurt yourself or someone else? Patient reports no desire to harm self or others. Onset of symptoms was December 13, 2023 at 15:00. Care prior to arrival: None. 17:54 Method Of Arrival: Wheelchair jl7 17:54 Acuity: LETY 4 jl7 Triage Assessment: 17:57 General: Appears in no apparent distress. uncomfortable, Behavior is calm, cooperative, jl7 appropriate for age. Pain: Complains of pain in face and left leg Pain currently is 7 out of 10 on a pain scale. Neuro: Level of Consciousness is awake, alert, obeys commands, Oriented to person, place, time, situation. Cardiovascular: Patient's skin is warm and dry. Respiratory: Airway is patent Respiratory effort is even, unlabored, Respiratory pattern is regular, symmetrical. Derm: Skin is pink, warm \T\ dry. Injury Description: Abrasion sustained to face and left leg was sustained 1-2 hours ago. Historical: - Allergies: 17:57 Tylenol; jl7 - PMHx: 17:57 bone cancer; Cirrhosis; diabetes mellitus; gastric ulcers; Hepatitis C; liver cancer; jl7 - PSHx: 17:57 Appendectomy; section; Cholecystectomy; Ligation of fallopian tube; jl7 - Immunization history:: Adult Immunizations unknown. - Infectious Disease History:: Denies. - Social history:: Smoking status: Patient denies any tobacco usage or history of. Screenin:58 Abuse screen: Denies threats or abuse. Nutritional screening: No deficits noted. vc1 Tuberculosis screening: No symptoms or risk factors identified. 19:59 [facility] ED Fall Risk Assessment (Adult) History of falling in the last 3 months, vc1 including since admission Yes- single mechanical fall (1 pt) Confusion or Disorientation No (0 pts) Intoxicated or Sedated No (0 pts) Impaired Gait No (0 pts) Mobility Assist Device Used No (0 pt) Altered Elimination No (0 pt). Assessment: 17:53 Reassessment: Dr. Franco in triage assessing pt. jl7 Vital Signs: 17:54 BP 146 / 68; Pulse 67; Resp 17; Temp 98.3; Pulse Ox 100% ; Weight 63.5 kg; Height 5 ft. jl7 0 in. ; Pain 7/10; 17:54 Body Mass Index 27.34 (63.50 kg, 152.4 cm) jl7 17:54 Pain Scale: Adult 7 ED Course: 17:37 Patient arrived in ED. mg5 17:56 Dot Franco MD is Attending Physician. sp3 17:57 Triage completed. jl7 17:57 Arm band placed on right wrist. Patient placed in waiting room, Patient notified of jl7 wait time. 18:04 Wound care: to abrasion, located on left leg was dressed with Neosporin, Vaseline gauze.jl7 18:44 CT Head C Spine In Process Unspecified. EDMS 19:17 No provider procedures requiring assistance completed. Patient did not have IV access vc1 during this emergency room visit. 19:59 Provided Education on: FALL SAFETY. vc1 Administered Medications: No medications were administered Medication: 19:59 VIS not applicable for this client. vc1 Outcome: 19:17 Discharge ordered by . sp3 19:59 Patient left the ED. vc1 19:59 Discharged to home ambulatory, vc1 19:59 Condition: good 19:59 Discharge instructions given to patient, Instructed on discharge instructions, follow up and referral plans. Demonstrated understanding of instructions, follow-up care, Signatures: Dispatcher [employer] EDMS Sidney Gaxiola RN RN jl7 Dot Franco MD MD sp3 Naima Johnson RN RN vc1 Meche Mullins mg5
[2023-12-13 20:13] VITALS: BP 146/68; TEMP 98.3; O2SAT 100
== END 2023-12-13 19:59 | disposition home or self-care (01) ==
LOC: ER 17:30
DX: S09.90XA Unspecified injury of head, initial encounter (principal); S80.812A Abrasion, left lower leg, initial encounter; S00.31XA Abrasion of nose, initial encounter; S00.81XA Abrasion of other part of head, initial encounter; W01.10XA Fall on same level from slipping, tripping and stumbling with subsequent striking against unspecified object, initial encounter; Y93.89 Activity, other specified; Y92.9 Unspecified place or not applicable
CPT/HCPCS: 70450; 72125; 99283

== ENCOUNTER 2024-04-22 20:03 | Emergency (ER) | payer OTHER ==
[2024-04-22] MEDS ORDERED: ONDANSETRON 4 MG/2 ML VIAL ONE (20:33)
[2024-04-22] MEDS ORDERED: NA CHLORIDE 0.9% 1,000 ML ONE (20:34)
[2024-04-22 21:23] LABS: Absolute Lymphocytes (CBC) 0.7 K/uL (0.7-4.9); Absolute Monocytes 0.8 K/uL (0.1-1.3); Absolute Neutrophil 7.7 K/uL (1.8-8.0); Basophils % 0.5 % (0-1.3); Eosinophils % 0.1 % (0-4.4); Hematocrit 40.1 % (36.0-45.0); Hemoglobin 13.6 g/dL (12.0-15.0); Lymphocytes % 7.2 % (15.3-44.8); MCV 103.1 fL (80-100); MPV 8.9 fL (7.6-11.3); Monocytes % 8.2 % (3.3-12.3); Platelets 41 thou/uL (152-406); RBC Red Blood Cell Count 3.89 M/uL (3.86-4.86); Red Cell Distribution Width 14.9 % (12.1-15.2)
[2024-04-22 21:37] LABS: Albumin 2.7 g/dL (3.4-5.0); Albumin/Globulin Ratio 0.9 (1.1-1.8); Anion Gap 9.4 mEq/L (5.0-15.0); Bilirubin Total 4.2 mg/dL (0.2-1.0); Potassium 3.4 mEq/L (3.5-5.1); Protein, Total 5.7 g/dL (6.4-8.2)
[2024-04-22 21:50] LABS: Blood Morphology Comment NOT SEEN (NOT SEEN); Platelet Estimate DECR; White Blood Cell Scan OK (OK)
[2024-04-22 21:51] LABS: SARS-CoV-2 Antigen CONTROL BLUE LINE VIS/BG OK; SARS-CoV-2 Antigen Rapid Res Negative (Negative)
--- NOTE | 2024-04-22 22:37 | RAD REPORT ---
EXAMINATION: CT Abdomen Pelvis Wo Contrast CLINICAL INDICATION: Female, 64 years old. vomiting TECHNIQUE: CT abdomen and pelvis was performed, without IV contrast, as per department protocol. Axia l, sagittal and coronal reconstructions were obtained. One or more of the following dose reduction techniques were used: Automated exposure control, adjustment of the mA and kV according to the patien t size, and iterative reconstruction. Unless otherwise specified, incidental findings do not require dedicated imaging follow-up. COMPARISON: 12/18/2022 CT abdomen and pelvis FINDINGS: The lack of intravenous contrast limits the sensitivity of this exam for evaluation of solid visceral organs, vascular structures, and retroperitoneum. LOWER CHEST: Patchy airspace opacities in the right lower lobe. Subsolid left lower lobe subpleural 8 mm nodular opacity. LIVER: Nodular contour of the liver and relative left lobe hypertrophy again seen suggesting sequelae of cirrhosis. Stable subcapsular fluid density 1.9 cm lesion along segment 4A, suggesting a cyst. No other suspicious focal lesions within limits of noncontrast evaluation. BILIARY SYSTEM: Status post cholecystectomy. SPLEEN: Normal size. No focal lesion. PANCREAS: Mild retroperitoneal edema, also involving the region of the head of the pancreas. This cou ld represent extension of inflammatory sequelae from the duodenum, sequelae of portal hypertension, although acute pancreatitis is not entirely excluded. No mass, or ductal dilation within limits of no ncontrast evaluation. ADRENALS: Normal; no mass. KIDNEYS AND URETERS: Normal size and contour. No hydronephrosis. URINARY BLADDER: Decompressed limiting evaluation. GASTROINTESTINAL TRACT: Prominent wall thickening involving the duodenum and proximal jejunum. No juvencio dence of stenosis No evidence of bowel obstruction, free air or abscess. Moderate free fluid throughout the abdomen. APPENDIX: Appendix not visualized, but no inflammatory changes in region of appendix. LYMPH NODES: No lymphadenopathy. MUSCULOSKELETAL: No acute or suspicious osseous abnormality. ADDITIONAL FINDINGS: None. IMPRESSION: Prominent wall thickening involving the duodenum and proximal jejunum, suggesting duodenitis/enteriti s, which could be of infectious/inflammatory etiology, although other etiologies including ischemia cannot be excluded. No evidence of focal transition to suggest a bowel obstruction. Mild edema in the mesentery and retroperitoneum, may relate to sequelae of portal hypertension or an ongoing factious inflammatory process, rather than acute pancreatitis. Correlation with pancreatic enzyme levels is recommended. Stigmata of liver cirrhosis with mild ascites. Patchy airspace opacities and a subsolid left lower lobe 8 mm nodule, suggesting multifocal pneumonia .
[2024-04-22] MEDS ORDERED: MORPHINE 4 MG/ML SYR ONE (23:04)
--- NOTE | 2024-04-22 23:36 | ER ---
Nurse's Notes [facility] Name: Ana Maria Chavez Age: 64 yrs Sex: Female : 1960 Arrival Date: 04/22/2024 Time: 20:03 Bed 14 Private MD: Diagnosis: Enteritis Presentation: 04/22 20:11 Chief complaint: Patient states: diarrhea, weakness and vomiting beginning yesterday. hb Coronavirus screen: Client denies travel out of the [place] in the last 14 days. At this time, the client does not indicate any symptoms associated with coronavirus-19. Ebola Screen: No symptoms or risks identified at this time. Initial Sepsis Screen: Does the patient meet any 2 criteria? No. Patient's initial sepsis screen is negative. Does the patient have a suspected source of infection? No. Patient's initial sepsis screen is negative. Risk Assessment: Do you want to hurt yourself or someone else? Patient reports no desire to harm self or others. Onset of symptoms was April 21, 2024. 20:11 Method Of Arrival: Wheelchair 20:11 Acuity: LETY 3 hb Triage Assessment: 20:12 General: Appears in no apparent distress. uncomfortable, Behavior is calm, cooperative. hb Pain: Denies pain. EENT: No deficits noted. No signs and/or symptoms were reported regarding the EENT system. Neuro: No deficits noted. Joseph Agitation-Sedation Scale (RASS): 0 - Alert and Calm Level of Consciousness is awake, alert, obeys commands, Oriented to person, place, time, situation. Cardiovascular: No deficits noted. Denies chest pain, shortness of breath, Capillary refill < 3 seconds Clubbing of nail beds is absent JVD is absent Patient's skin is warm and dry. Respiratory: No deficits noted. Airway is patent Respiratory effort is even, unlabored, Respiratory pattern is regular, symmetrical. GI: Reports diarrhea, intolerance of fluids, intolerance of food, nausea, vomiting. : No signs and/or symptoms were reported regarding the genitourinary system. Derm: No deficits noted. No signs and/or symptoms reported regarding the dermatologic system. Skin is intact, is thin, Skin is dry, Skin is normal, Skin temperature is warm. Musculoskeletal: Circulation, motion, and sensation intact. Range of motion: intact in all extremities, Reports generalized weakness. Historical: - Allergies: 20:12 Tylenol; hb 20:12 tramadol; hb - Home Meds: 20:27 amlodipine oral [Active]; Propranolol Oral [Active]; kj2 - PMHx: 20:12 bone cancer; Cirrhosis; diabetes mellitus; gastric ulcers; Hepatitis C; liver cancer; hb - PSHx: 20:12 Appendectomy; section; Cholecystectomy; Ligation of fallopian tube; hb - Immunization history:: Adult Immunizations up to date. - Infectious Disease History:: Denies. - Social history:: Smoking status: Patient denies any tobacco usage or history of. Patient/guardian denies using alcohol, street drugs. - Family history:: not pertinent. Screenin:19 [facility] ED Fall Risk Assessment (Adult) History of falling in the last 3 months, kj2 including since admission No falls in past 3 months (0 pts) Confusion or Disorientation No (0 pts) Intoxicated or Sedated No (0 pts) Impaired Gait No (0 pts) Mobility Assist Device Used No (0 pt) Altered Elimination No (0 pt) Score/Fall Risk Level 0 - 2 = Low Risk Maintained a safe environment, Hourly rounding (assess needs \T\ fall precautionary measures) done. Abuse screen: Denies threats or abuse. Denies injuries from another. Nutritional screening: No deficits noted. Tuberculosis screening: No symptoms or risk factors identified. Assessment: 20:17 General: Appears in no apparent distress. Behavior is cooperative. Neuro: Level of kj2 Consciousness is awake, alert, obeys commands, Oriented to person, place, time, situation. Cardiovascular: Patient's skin is warm and dry. Respiratory: Airway is patent Respiratory effort is even, unlabored. GI: Reports nausea, vomiting, since YESTERDAY. : No signs and/or symptoms were reported regarding the genitourinary system. 20:26 Pain: Complains of pain in ABDOMEN Pain currently is 6 out of 10 on a pain scale. kj2 20:54 Reassessment: Patient appears in no apparent distress at this time. Patient and/or kj2 family updated on plan of care and expected duration. Pain level reassessed. Patient is alert, oriented x 3, equal unlabored respirations, skin warm/dry/pink. 22:28 Reassessment: Patient appears in no apparent distress at this time. Patient and/or kj2 family updated on plan of care and expected duration. Pain level reassessed. Patient is alert, oriented x 3, equal unlabored respirations, skin warm/dry/pink. 23:55 Reassessment: Patient appears in no apparent distress at this time. Patient and/or kj2 family updated on plan of care and expected duration. Pain level reassessed. Patient is alert, oriented x 3, equal unlabored respirations, skin warm/dry/pink. Vital Signs: 20:11 BP 152 / 86; Pulse 82; Resp 16 S; Temp 98.5(O); Pulse Ox 98% on R/A; Weight 67.59 kg hb (R); Height 5 ft. 0 in. (R); 20:25 BP 174 / 83; Pulse 80; Resp 18; Temp 98; kj2 21:12 BP 134 / 82; Pulse 87; Resp 18; Temp 98; Pulse Ox 99% on R/A; kj2 22:29 BP 163 / 75; Pulse 87; Resp 18; Pulse Ox 98% on R/A; kj2 23:55 BP 156 / 78; Pulse 82; Resp 18; Temp 98; Pulse Ox 100% on R/A; kj2 20:11 Body Mass Index 29.10 (67.59 kg, 152.4 cm) hb ED Course: 20:07 Patient arrived in ED. gm2 20:09 Turner Giraldo MD is Attending Physician. rt 20:12 Triage completed. hb 20:12 Arm band placed on left wrist. hb 20:14 Jasmin aGxiola, RN is Primary Nurse. kj2 20:19 Patient has correct armband on for positive identification. Bed in low position. Side kj2 rails up X 1. Provided Education on: CALL LIGHT, FALL PRECAUTIONS. 20:21 Assisted to bathroom. kj2 21:04 Inserted saline lock: 20 gauge in left antecubital area, using aseptic technique. Blood tm6 collected. Flushed with 10 mL NS. 21:04 CBC with Diff Sent. tm6 21:04 CMP Sent. tm6 21:04 Lipase Sent. tm6 21:20 SARS RAPID Sent. kj2 21:20 Influenza Screen (a \T\ B) Sent. kj2 22:11 CT Abd/Pelvis - Without Contrast In Process Unspecified. EDMS 23:08 Assisted to bathroom. kj2 23:57 No provider procedures requiring assistance completed. IV discontinued, intact, kj2 bleeding controlled, No redness/swelling at site. Pressure dressing applied. Administered Medications: 21:04 Drug: NS 0.9% IV 1000 ml IV at 1 bolus Per protocol; 1000 mL bolus Route: IV; Rate: 1 tm6 bolus; Site: left antecubital; 23:57 Follow up: IV Status: Completed infusion; IV Intake: 1000ml kj2 21:04 Drug: Ondansetron IVP 4 mg IVP once; over 2 minutes Route: IVP; Site: left antecubital; tm6 23:57 Follow up: Response: No adverse reaction kj2 23:08 Drug: morphine IVP or IV 4 mg IVP once over 4 mins Route: IVP; Infused Over: 4 mins; kj2 Site: left antecubital; 23:57 Follow up: Response: No adverse reaction; Pain is decreased kj2 Medication: 20:19 VIS not applicable for this client. kj2 Intake: 23:57 IV: 1000ml; Total: 1000ml. kj2 Outcome: 23:36 Discharge ordered by . rt 23:58 Discharged to home ambulatory, kj2 23:58 Condition: stable 23:58 Discharge instructions given to patient, family, Instructed on discharge instructions, follow up and referral plans. medication usage, Demonstrated understanding of instructions, follow-up care, medications, Prescriptions given X 3, 09 00:23 Patient left the ED. kj2 Signatures: Dispatcher [employer] EDMS Siena Perdomo RN RN hb [place], Ryan, MD MD rt Mitchell, Ginger 2 Medardo Ring RN RN 6 Jasmin Gaxiola RN RN kj2
--- NOTE | 2024-04-22 23:36 | EDPHYS ---
Physician Documentation [facility] Name: Ana Maria Chavez Age: 64 yrs Sex: Female : 1960 Arrival Date: 04/22/2024 Time: 20:03 Bed 14 Private MD: ED Physician Turner Giraldo HPI: 04/22 20:37 This 64 yrs old Female presents to ER via Wheelchair with complaints of rt Nausea/Vomiting, Weakness. 20:37 Patient presents to the ED with nausea, vomiting, diarrhea for the past 5 days. Has had rt progressively worsening generalized weakness. Reports mild abdominal pain, denies other acute complaints at this time, symptoms are moderate in severity, no other aggravating or alleviating factors.. Historical: - Allergies: 20:12 Tylenol; hb 20:12 tramadol; hb - Home Meds: 20:27 amlodipine oral [Active]; Propranolol Oral [Active]; kj2 - PMHx: 20:12 bone cancer; Cirrhosis; diabetes mellitus; gastric ulcers; Hepatitis C; liver cancer; hb - PSHx: 20:12 Appendectomy; section; Cholecystectomy; Ligation of fallopian tube; hb - Immunization history:: Adult Immunizations up to date. - Infectious Disease History:: Denies. - Social history:: Smoking status: Patient denies any tobacco usage or history of. Patient/guardian denies using alcohol, street drugs. - Family history:: not pertinent. ROS: 20:37 Constitutional: Negative for fever, chills, and weight loss, Cardiovascular: Negative rt for chest pain, palpitations, and edema, Respiratory: Negative for shortness of breath, cough, wheezing, and pleuritic chest pain, MS/Extremity: Negative for injury and deformity, Skin: Negative for injury, rash, and discoloration, 20:37 Abdomen/GI: Positive for nausea, vomiting, and diarrhea, 20:37 Neuro: Positive for weakness, Exam: 20:37 Constitutional: This is a well developed, well nourished patient who is awake, alert, rt and in no acute distress. Head/Face: Normocephalic, atraumatic. Chest/axilla: Normal chest wall appearance and motion. Nontender with no deformity. No lesions are appreciated. Cardiovascular: Regular rate and rhythm with a normal S1 and S2. No gallops, murmurs, or rubs. Normal PMI, no JVD. No pulse deficits. Respiratory: Lungs have equal breath sounds bilaterally, clear to auscultation and percussion. No rales, rhonchi or wheezes noted. No increased work of breathing, no retractions or nasal flaring. Skin: Warm, dry with normal turgor. Normal color with no rashes, no lesions, and no evidence of cellulitis. MS/ Extremity: Pulses equal, no cyanosis. Neurovascular intact. Full, normal range of motion. Neuro: Awake and alert, GCS 15, oriented to person, place, time, and situation. Cranial nerves II-XII grossly intact. Motor strength 5/5 in all extremities. Sensory grossly intact. Cerebellar exam normal. Normal gait. 20:37 Abdomen/GI: Mild tenderness diffusely without rebound, guarding, distention, Vital Signs: 20:11 BP 152 / 86; Pulse 82; Resp 16 S; Temp 98.5(O); Pulse Ox 98% on R/A; Weight 67.59 kg hb (R); Height 5 ft. 0 in. (R); 20:25 BP 174 / 83; Pulse 80; Resp 18; Temp 98; kj2 21:12 BP 134 / 82; Pulse 87; Resp 18; Temp 98; Pulse Ox 99% on R/A; kj2 22:29 BP 163 / 75; Pulse 87; Resp 18; Pulse Ox 98% on R/A; kj2 23:55 BP 156 / 78; Pulse 82; Resp 18; Temp 98; Pulse Ox 100% on R/A; kj2 20:11 Body Mass Index 29.10 (67.59 kg, 152.4 cm) hb MDM: 20:16 Patient medically screened. rt 04/23 02:03 Differential diagnosis: Cirrhosis, enteritis, bowel obstruction. Data reviewed: vital rt signs, nurses notes, lab test result(s), EKG, radiologic studies. Consideration of Admission/Observation Escalation of care including admission/observation considered. Patient with mild enteritis on CT scan, labs are benign. States that the bilirubin is at her baseline. There is pneumonia noted on the CT, however, she has no respiratory symptoms, stable oxygenation, will treat this with Levaquin. Patient is stable for outpatient care, return precautions discussed.. I considered the following discharge prescriptions or medication management in the emergency department Medications were administered in the Emergency Department. See MAR. Independent interpretation of the following test(s) in the Emergency Department CT Scan: My interpretation is No bowel obstruction syndrome interpretation of CT scan images. Care significantly affected by the following chronic conditions: CLD. Counseling: I had a detailed discussion with the patient and/or guardian regarding the historical points, exam findings, and any diagnostic results supporting the discharge/admit diagnosis, lab results, radiology results, the need for outpatient follow up, to return to the emergency department if symptoms worsen or persist or if there are any questions or concerns that arise at home. Response to treatment: the patient's symptoms have markedly improved after treatment. 04/22 20:30 Order name: CBC with Diff; Complete Time: 22:38 rt 04/22 20:30 Order name: CMP; Complete Time: 22:38 rt 04/22 20:30 Order name: Lipase; Complete Time: 22:38 rt 04/22 20:30 Order name: Influenza Screen (a \T\ B); Complete Time: 22:38 rt 04/22 20:30 Order name: SARS RAPID; Complete Time: 22:38 rt 04/22 21:50 Order name: CBC Smear Scan; Complete Time: 22:38 EDMS 04/22 20:30 Order name: CT Abd/Pelvis - Without Contrast; Complete Time: 22:38 rt 04/22 20:30 Order name: IV Saline Lock; Complete Time: 21:04 rt 04/22 20:30 Order name: Labs collected and sent; Complete Time: 21:04 rt 04/22 20:33 Order name: Misc. Order: may have ice chips; Complete Time: 21:20 rt Administered Medications: 04/22 21:04 Drug: NS 0.9% IV 1000 ml IV at 1 bolus Per protocol; 1000 mL bolus Route: IV; Rate: 1 tm6 bolus; Site: left antecubital; 23:57 Follow up: IV Status: Completed infusion; IV Intake: 1000ml kj2 21:04 Drug: Ondansetron IVP 4 mg IVP once; over 2 minutes Route: IVP; Site: left antecubital; tm6 23:57 Follow up: Response: No adverse reaction kj2 23:08 Drug: morphine IVP or IV 4 mg IVP once over 4 mins Route: IVP; Infused Over: 4 mins; kj2 Site: left antecubital; 23:57 Follow up: Response: No adverse reaction; Pain is decreased kj2 Disposition Summary: 04/22/24 23:36 Discharge Ordered Notes: Location: Home rt Problem: new rt Symptoms: have improved rt Condition: Stable rt Diagnosis - Enteritis rt Followup: rt - With: Private Physician - When: 2 - 3 days - Reason: Discharge Instructions: - Discharge Summary Sheet rt - Viral Gastroenteritis, Adult rt Forms: - Medication Reconciliation Form rt - Antibiotic Education rt - Prescription Opioid Use rt - Patient Portal Instructions rt - Leadership Thank You Letter rt Prescriptions: - gabapentin 300 mg Oral capsule - take 1 capsule ORAL route every 8 hours; 21 capsule; Refills: 0, Product rt Selection Permitted - ondansetron 4 mg Oral Tablet,disintegrating - take 1 tablet ORAL route every 6 hours as needed for nausea; 30 tablet; rt Refills: 0, Product Selection Permitted - levofloxacin 750 mg Oral tablet - take 1 tablet ORAL route once daily; 7 tablet; Refills: 0, Product Selection rt Permitted Signatures: Dispatcher [employer] EDMS Siena Perdomo, RN Turner De Leon MD MD rt Medardo Ring RN RN tm6 Jasmin Gaxiola RN RN kj2 Corrections: (The following items were deleted from the chart) 20:31 20:31 CBC+H.LAB.BRZ ordered. EDMS EDMS 20:31 20:31 COMPREHENSIVE METABOLIC PANEL+C.LAB.BRZ ordered. EDMS EDMS 20:31 20:31 LIPASE+C.LAB.BRZ ordered. EDMS EDMS 20:31 20:31 Urinalysis+U.LAB.BRZ ordered. EDMS EDMS 20:31 20:31 Influenza Screen (A \T\ B)+BA.LAB.BRZ ordered. EDMS EDMS 20:31 20:31 SARS-COV-2 Antigen Rapid+I.LAB.BRZ ordered. EDMS EDMS
[2024-04-23 00:57] VITALS: TEMP 98
[2024-04-23 01:01] VITALS: BP 156/78; O2SAT 100
== END 2024-04-23 00:23 | disposition home or self-care (01) ==
LOC: ER 20:03
DX: K52.9 Noninfective gastroenteritis and colitis, unspecified (principal); Z11.52 Encounter for screening for COVID-19
CPT/HCPCS: 96361; 85025; 36415; 83690; 80053; 87804 ×2; 74176; 96375; 96374; 99284; 87811; J2405; J7030

== ENCOUNTER 2024-05-10 21:18 | Inpatient (IN) | payer OTHER ==
--- NOTE | 2024-05-10 22:29 | RAD REPORT ---
EXAMINATION: ONE VIEW CHEST XR CLINICAL INDICATION: Female, 64 years old.,Cough;Dyspnea TECHNIQUE: Frontal chest projection is submitted. Examination is limited by patient positioning and t echnique. COMPARISON: 04/17/2018 FINDINGS: Bilateral [id number] pleural effusions, larger on the right, with underlying hazy airspace opa cities. Central interstitial prominence. No pneumothorax. The heart is normal in size. IMPRESSION: Bilateral effusions and basilar airspace opacities, concerning for pulmonary edema. Underlying pneumo bettye cannot be entirely excluded.
[2024-05-10] MEDS ORDERED: METOPROLOL TAR 25 MG TAB ONE (22:32)
[2024-05-10] MEDS ORDERED: METOPROLOL TARTRATE 5 MG/5 ML INJ IV ONE (22:33)
[2024-05-10] MEDS ORDERED: NA CHLORIDE 0.9% 500 ML ONE (22:33)
[2024-05-10] MEDS ORDERED: MAGNESIUM SULFATE 1 gm IVPB 1 GM/100 ML BAG IV ONE (22:33)
[2024-05-10 22:54] LABS: Absolute Lymphocytes (CBC) 0.8 K/uL (0.7-4.9); Absolute Monocytes 0.8 K/uL (0.1-1.3); Absolute Neutrophil 5.6 K/uL (1.8-8.0); Basophils % 0.6 % (0-1.3); Eosinophils % 0.3 % (0-4.4); Hematocrit 42.7 % (36.0-45.0); Hemoglobin 14.4 g/dL (12.0-15.0); Lymphocytes % 10.9 % (15.3-44.8); MCH 35.3 pg (27.0-35.0); MCHC 33.8 g/dL (32.0-36.0); MCV 104.5 fL (80-100); MPV 8.7 fL (7.6-11.3); Monocytes % 11.2 % (3.3-12.3); Nucleated Red Blood Cells % 0.1 % (0-0); Platelets 65 thou/uL (152-406); RBC Red Blood Cell Count 4.08 M/uL (3.86-4.86); Red Cell Distribution Width 15.3 % (12.1-15.2)
[2024-05-10 23:01] LABS: PT Prothrombin Time 13.7 SECONDS (9.4-12.5); PTT, Activated Partial Thromb 57.5 SECONDS (24.3-36.9); Protime INR 1.23
[2024-05-10 23:10] LABS: AST/SGOT 27 U/L (15-37); Albumin 2.4 g/dL (3.4-5.0); Albumin/Globulin Ratio 0.7 (1.1-1.8); Alkaline Phosphatase 109 U/L (45-117); Anion Gap 9.9 mEq/L (5.0-15.0); BUN Blood Urea Nitrogen 13 mg/dL (7-18); Bicarbonate 25 mEq/L (21-32); Bilirubin Total 3.4 mg/dL (0.2-1.0); Globulin 3.3 g/dL (2.3-3.5); Glomerular Filtration Rate 90 ml/min (=/>90); Glucose Level 139 mg/dL (74-106); Potassium 3.9 mEq/L (3.5-5.1); Protein, Total 5.7 g/dL (6.4-8.2); Sodium Level 136 mEq/L (136-145)
[2024-05-10 23:11] LABS: ALT/SGPT < 14 U/L (13-56)
--- NOTE | 2024-05-10 23:17 | EDPHYS ---
Physician Documentation [facility] Name: Ana Maria Chavez Age: 64 yrs Sex: Female : 1960 Arrival Date: 05/10/2024 Time: 21:18 Bed 4 Private MD: ED Physician Junior Lee HPI: 05/10 22:39 This 64 yrs old Female presents to ER via Ambulatory with complaints of rn Breathing Difficulty, Weakness. 22:39 The patient has shortness of breath at rest, with light activity. Onset: The rn symptoms/episode began/occurred 2 week(s) ago. Duration: The symptoms are intermittent. The patient's shortness of breath is aggravated by coughing, light activity, walking. Severity of symptoms: At their worst the symptoms were moderate in the emergency department the symptoms are unchanged. The patient has not experienced similar symptoms in the past. The patient has been recently seen by a physician:. Patient reports diagnosed 2 weeks ago with pneumonia, completed levofloxacin for infection. Does not feel like gotten any better. Feels worse with increased dyspnea. Dyspnea worse with exertion and with cough. No fever or chills. States has known liver cancer but not metastatic. No history of DVT or PE. Denies chest pain but reports palpitations.. Historical: - Allergies: 22:00 tramadol; lg3 22:00 Tylenol; lg3 - PMHx: 22:00 bone cancer; Cirrhosis; diabetes mellitus; gastric ulcers; Hepatitis C; liver cancer; lg3 - PSHx: 22:00 Appendectomy; section; Cholecystectomy; Ligation of fallopian tube; lg3 - Immunization history:: Adult Immunizations up to date. - Infectious Disease History:: Denies. - Social history:: Smoking status: Patient denies any tobacco usage or history of. Patient/guardian denies using alcohol, street drugs. - Family history:: not pertinent. - Hospitalizations: : No recent hospitalization is reported. ROS: 22:39 Constitutional: Negative for fever, chills, and weight loss, Cardiovascular: Positive rn for palpitations Respiratory: Positive for shortness of breath and cough Abdomen/GI: Negative for new abdominal pain MS/Extremity: Negative for injury and deformity, Neuro: Positive for generalized weakness Exam: 22:39 Constitutional: This is a well developed, well nourished patient who is awake, alert, rn mild to moderate respiratory distress Head/Face: Normocephalic, atraumatic. ENT: Dry mucous membranes, no stridor Cardiovascular: Tachycardic, irregular Respiratory: Mild to moderate tachypnea, diminished at bases Abdomen/GI: Soft, no focal tenderness MS/ Extremity: Pulses equal, no cyanosis. Neuro: Awake and alert, GCS 15 22:46 ECG was reviewed by the Attending Physician. rn Vital Signs: 21:51 BP 160 / 122 LA Sitting (auto/reg); Pulse 158 MON; Resp 10 S; Temp 98.7(O); Pulse Ox bm8 95% on R/A; Weight 68.04 kg (M); Height 5 ft. 0 in. (R); Pain 8/10; 22:43 BP 121 / 68; Pulse 140; Resp 23; Temp 98.7; Pulse Ox 99% on R/A; Pain 8/10; bm8 23:13 BP 120 / 81; Pulse 147; Resp 23; Temp 98.7; Pulse Ox 99% on BiPAP; Pain 5/10; bm8 05/11 01:27 BP 92 / 74; Pulse 71; Resp 21; Temp 98.7; Pulse Ox 94% on R/A; Pain 4/10; bm8 05/10 21:51 Body Mass Index 29.30 (68.04 kg, 152.4 cm) bm8 05/10 21:51 Pain Scale: Adult bm8 22:43 Pain Scale: Adult bm8 23:13 Pain Scale: Adult bm8 05/11 01:27 Pain Scale: Adult bm8 [place] Coma Score: 05/10 22:43 Eye Response: spontaneous(4). Motor Response: obeys commands(6). Verbal Response: bm8 oriented(5). Total: 15. 23:13 Eye Response: spontaneous(4). Motor Response: obeys commands(6). Verbal Response: bm8 oriented(5). Total: 15. MDM: 21:28 Medical Screening Exam initiated rn 23:13 Differential diagnosis: Anemia Anxiety Reaction pneumonia, Pneumothorax pulmonary rn edema. Data reviewed: vital signs, nurses notes, lab test result(s), EKG, radiologic studies, plain films, and as a result, I will admit patient. Consideration of Admission/Observation Patient was admitted/placed on observation. Escalation of care including admission/observation considered. Care significantly affected by the following chronic conditions: Liver cancer. Counseling: I had a detailed discussion with the patient and/or guardian regarding the historical points, exam findings, and any diagnostic results supporting the discharge/admit diagnosis, lab results, radiology results, the need for further work-up and treatment in the hospital. 23:14 Response to treatment: the patient's symptoms have markedly improved after treatment, rn and as a result, I will admit patient. ED course: I personally spent 35 minutes engaged in work directly related to the individual patient's care. This does not include any time spent performing procedures. The patient has been deemed critically ill because of respiratory distress, new onset A-fib with RVR requiring IV and p.o. medication, initiation of BiPAP and organization of admission to the hospital.. 05/10 21:41 Order name: Blood Culture Adult (2) rn 05/10 21:41 Order name: CBC with Diff rn 05/10 21:41 Order name: CMP rn 05/10 21:41 Order name: Lactate w/ 2H reflex if indic.; Complete Time: 23:17 rn 05/10 21:41 Order name: Protime (+inr) rn 05/10 21:41 Order name: Ptt, Activated rn 05/10 21:41 Order name: Flu rn 05/10 21:41 Order name: SARS RAPID rn 05/10 23:05 Order name: CBC Smear Scan EDND 05/10 23:21 Order name: NT PRO-BNP EDND 05/10 23:27 Order name: D-Dimer EDND 05/10 23:30 Order name: ABG Arterial Blood Gas EDND 05/10 23:30 Order name: Lactate w/ 2H reflex if indic. EDMS 05/10 23:30 Order name: Magnesium EDMS 05/10 23:30 Order name: Phosphorus EDMS 05/10 23:30 Order name: Basic Metabolic Panel EDMS 05/10 23:30 Order name: Basic Metabolic Panel EDMS 05/10 23:30 Order name: CBC with Automated Diff EDMS 05/10 23:30 Order name: CBC with Automated Diff EDMS 05/10 23:30 Order name: Lipid Profile EDMS 05/10 23:30 Order name: Lipid Profile EDMS 05/10 23:30 Order name: Troponin High Sensitivity EDMS 05/10 23:30 Order name: Troponin High Sensitivity EDMS 05/10 23:30 Order name: Troponin High Sensitivity [facility] 05/10 23:30 Order name: Troponin High Sensitivity [facility] 05/10 23:58 Order name: Phosphorus [facility] 05/10 23:58 Order name: Magnesium [facility] 05/11 01:13 Order name: Ghost Lactate-NO COLLECT Timer EDND 05/10 21:41 Order name: Chest Single View XRAY; Complete Time: 22:35 rn 05/10 22:36 Order name: BIPAP rn 05/10 23:30 Order name: RC SPUTUM COLLECTION / TX EDND 05/10 23:30 Order name: CONS Physician Consult [facility] 05/10 23:30 Order name: Physical Therapy Consult [facility] 05/10 21:41 Order name: Accucheck; Complete Time: 22:43 rn 05/10 21:41 Order name: Cardiac monitoring; Complete Time: 22:43 rn 05/10 21:41 Order name: EKG - Nurse/Tech; Complete Time: 21:52 rn 05/10 21:41 Order name: IV Saline Lock - Large Bore; Complete Time: 22:43 rn 05/10 21:41 Order name: Labs collected and sent; Complete Time: 22:43 rn 05/10 21:41 Order name: O2 Per Protocol; Complete Time: 22:43 rn 05/10 21:41 Order name: O2 Sat Monitoring; Complete Time: 22:43 rn 05/10 21:41 Order name: Vital Signs; Complete Time: 21:52 rn EC:46 Rate is 162 beats/min. Rhythm is irregularly irregular. QRS [place] is Normal. QRS rn interval is shortened. QT interval is normal. No Q waves. T waves are Normal. No ST changes noted. Clinical impression: Atrial Fibrillation. Interpreted by me. Reviewed by me. Administered Medications: 22:42 Drug: Magnesium Sulfate IVPB 1 grams IVPB once over 1 hrs Route: IVPB; Infused Over: 1 bm8 hrs; Site: left antecubital; 23:48 Follow up: IV Status: Completed infusion; IV Intake: 100ml bm8 23:48 Follow up: Response: No adverse reaction bm8 22:43 Drug: NS 0.9% IV 500 ml 500 ml IV at 1 bolus once; to be given as a bolus over 30 bm8 minutes Volume: 500 ml; Route: IV; Rate: 1 bolus; Site: left antecubital; 23:12 Follow up: Response: No adverse reaction; IV Status: Completed infusion; IV Intake: bm8 500ml 23:49 Follow up: Response: No adverse reaction; IV Status: Completed infusion; IV Intake: bm8 500ml 22:43 Drug: Metoprolol IVP 5 mg IVP once; Hold for SBP <100 or HR <60. Route: IVP; Site: left 8 antecubital; 23:49 Follow up: Response: No adverse reaction bm8 22:43 Drug: Metoprolol PO 25 mg PO once Route: PO; bm8 23:49 Follow up: Response: No adverse reaction 8 05/11 01:01 Drug: Rocephin IV 1 grams IV at calculated rate once; Given slow IV push per pharmacy bm8 instructions Route: IV; Rate: calculated rate; Site: left antecubital; Follow up: Response: No adverse reaction; IV Status: Completed infusion; IV Intake: [id number] 01:03 Drug: Zithromax IVPB 500 mg IVPB once over 1 hrs; mix in 250 mL NS Route: IVPB; Infused bm8 Over: 1 hrs; Site: left antecubital; Follow up: Response: No adverse reaction; IV Status: Completed infusion; IV Intake: bm8 250ml Disposition: 05/10 23:14 Critical Care:. 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 Total time: 35 minutes rn Signatures: Dispatcher [employer] Junior Buck MD MD rn Able, Lacie RN RN lg3 Bi Gonsalves, RN RN bm8 Munira Diaz af3 Corrections: (The following items were deleted from the chart) 21:41 21:41 Influenza Screen (A \T\ B)+BA.LAB.BRZ ordered. EDMS EDMS 21:41 21:41 SARS-COV-2 Antigen Rapid+I.LAB.BRCharlie ordered. EDMS EDMS 23:19 PROBNP+C.LAB.BRZ ordered. EDMS EDMS 05/11 00:52 05/10 23:16 rn af3
--- NOTE | 2024-05-10 23:17 | ER ---
Nurse's Notes [facility] Name: Ana Maria Chavez Age: 64 yrs Sex: Female : 1960 Arrival Date: 05/10/2024 Time: 21:18 Bed 4 Private MD: Diagnosis: Persistent atrial fibrillation;Hypoxemia;Pleural effusion, not elsewhere classified Presentation: 05/10 21:59 Chief complaint: Patient states: SOB/Cp X1 week. Coronavirus screen: Client denies lg3 travel out of the [place] in the last 14 days. At this time, the client does not indicate any symptoms associated with coronavirus-19. Ebola Screen: No symptoms or risks identified at this time. Initial Sepsis Screen: Does the patient meet any 2 criteria? No. Patient's initial sepsis screen is negative. Does the patient have a suspected source of infection? No. Patient's initial sepsis screen is negative. Risk Assessment: Do you want to hurt yourself or someone else? Patient reports no desire to harm self or others. Onset of symptoms is unknown. 21:59 Method Of Arrival: Ambulatory lg3 21:59 Acuity: LETY 2 lg3 Triage Assessment: 22:00 General: Appears in no apparent distress. uncomfortable, Behavior is calm, cooperative. lg3 Pain: Complains of pain in chest. EENT: No deficits noted. No signs and/or symptoms were reported regarding the EENT system. Neuro: No deficits noted. Joseph Agitation-Sedation Scale (RASS): 0 - Alert and Calm Level of Consciousness is awake, alert, obeys commands, Oriented to person, place, time, situation. Cardiovascular: Reports chest pain, shortness of breath, Capillary refill < 3 seconds Clubbing of nail beds is absent JVD is absent Patient's skin is warm and dry. Rhythm is atrial fibrillation with rapid ventricular response. Respiratory: Reports shortness of breath Onset: The symptoms/episode began/occurred at an unknown time. the patient has moderate shortness of breath. GI: No deficits noted. No signs and/or symptoms were reported involving the gastrointestinal system. : No deficits noted. No signs and/or symptoms were reported regarding the genitourinary system. Derm: No deficits noted. No signs and/or symptoms reported regarding the dermatologic system. Skin is intact, is healthy with good turgor, Skin is dry, Skin is normal, Skin temperature is warm. Musculoskeletal: No deficits noted. Circulation, motion, and sensation intact. Range of motion: intact in all extremities. Historical: - Allergies: 22:00 tramadol; lg3 22:00 Tylenol; lg3 - PMHx: 22:00 bone cancer; Cirrhosis; diabetes mellitus; gastric ulcers; Hepatitis C; liver cancer; lg3 - PSHx: 22:00 Appendectomy; section; Cholecystectomy; Ligation of fallopian tube; lg3 - Immunization history:: Adult Immunizations up to date. - Infectious Disease History:: Denies. - Social history:: Smoking status: Patient denies any tobacco usage or history of. Patient/guardian denies using alcohol, street drugs. - Family history:: not pertinent. - Hospitalizations: : No recent hospitalization is reported. Screenin:43 [facility] ED Fall Risk Assessment (Adult) History of falling in the last 3 months, bm8 including since admission Yes- physiologic fall (2 pts) Confusion or Disorientation No (0 pts) Intoxicated or Sedated No (0 pts) Impaired Gait Yes (1 pt) Mobility Assist Device Used Yes (1 pt) Altered Elimination No (0 pt) Score/Fall Risk Level 3 or more points = High Risk Oriented to surroundings, Maintained a safe environment, Educated pt \T\ family on fall prevention, incl call for assistance when getting out of bed, Assessed \T\ reinforced patient's understanding of fall precautions, Hourly rounding (assess needs \T\ fall precautionary measures) done, Used ambulatory aids as needed (educated on \T\ assisted with), Used gait belt as appropriate. Abuse screen: Denies threats or abuse. Nutritional screening: No deficits noted. Tuberculosis screening: No symptoms or risk factors identified. Assessment: 22:43 Reassessment: Patient appears in no apparent distress at this time. Patient and/or bm8 family updated on plan of care and expected duration. Pain level reassessed. Patient is alert, oriented x 3, equal unlabored respirations, skin warm/dry/pink. General: Appears in no apparent distress. comfortable, Behavior is calm, cooperative, appropriate for age. Pain: Complains of pain in left lateral anterior chest Pain currently is 8 out of 10 on a pain scale. Quality of pain is described as aching. Neuro: No deficits noted. Level of Consciousness is awake, alert, obeys commands, Oriented to person, place, time, situation, Appropriate for age. Cardiovascular: Reports chest pain, shortness of breath, Heart tones S1 S2 present Capillary refill < 3 seconds Patient's skin is warm and dry. Rhythm is atrial fibrillation with rapid ventricular response. Respiratory: Reports shortness of breath at rest Airway is patent Respiratory effort is even, unlabored, Respiratory pattern is regular, symmetrical, Breath sounds are diminished bilaterally. the patient has moderate shortness of breath. GI: No signs and/or symptoms were reported involving the gastrointestinal system. : No signs and/or symptoms were reported regarding the genitourinary system. EENT: No signs and/or symptoms were reported regarding the EENT system. Derm: No signs and/or symptoms reported regarding the dermatologic system. Musculoskeletal: No signs and/or symptoms reported regarding the musculoskeletal system. 23:13 Reassessment: pt placed on BIpap. bm8 05/11 01:27 Reassessment: Patient appears in no apparent distress at this time. Patient and/or bm8 family updated on plan of care and expected duration. Pain level reassessed. Patient is alert, oriented x 3, equal unlabored respirations, skin warm/dry/pink. Patient states feeling better. Patient states symptoms have improved. Vital Signs: 05/10 21:51 BP 160 / 122 LA Sitting (auto/reg); Pulse 158 MON; Resp 10 S; Temp 98.7(O); Pulse Ox bm8 95% on R/A; Weight 68.04 kg (M); Height 5 ft. 0 in. (R); Pain 8/10; 22:43 BP 121 / 68; Pulse 140; Resp 23; Temp 98.7; Pulse Ox 99% on R/A; Pain 8/10; bm8 23:13 BP 120 / 81; Pulse 147; Resp 23; Temp 98.7; Pulse Ox 99% on BiPAP; Pain 5/10; bm8 05/11 01:27 BP 92 / 74; Pulse 71; Resp 21; Temp 98.7; Pulse Ox 94% on R/A; Pain 4/10; bm8 05/10 21:51 Body Mass Index 29.30 (68.04 kg, 152.4 cm) bm8 05/10 21:51 Pain Scale: Adult bm8 22:43 Pain Scale: Adult bm8 23:13 Pain Scale: Adult bm8 05/11 01:27 Pain Scale: Adult bm8 Javier Coma Score: 05/10 22:43 Eye Response: spontaneous(4). Motor Response: obeys commands(6). Verbal Response: bm8 oriented(5). Total: 15. 23:13 Eye Response: spontaneous(4). Motor Response: obeys commands(6). Verbal Response: bm8 oriented(5). Total: 15. ED Course: 21:21 Patient arrived in ED. gm2 21:28 Junior Lee MD is Attending Physician. rn 21:55 Chest Single View XRAY In Process Unspecified. EDMS 22:00 Triage completed. lg3 22:00 Arm band placed on right wrist. lg3 22:06 Bi Gonsalves, DERREK is Primary Nurse. bm8 22:30 Inserted saline lock: 20 gauge in left antecubital area, using aseptic technique. Blood jj7 collected. Flushed with 10 mL NS. 22:43 Patient has correct armband on for positive identification. Bed in low position. Call bm8 light in reach. Side rails up X 1. Client placed on continuous cardiac and pulse oximetry monitoring. NIBP monitoring applied. secured entrance monitor on. Pulse ox on. NIBP on. Door closed. Noise minimized. Visitors limited. Warm blanket given. Pillow given. Verbal reassurance given. Head of bed elevated. 22:43 No provider procedures requiring assistance completed. Missed attempt(s): 22 gauge in bm8 left forearm. Bleeding controlled, band aid applied, catheter tip intact. 23:16 Prince Mayorga MD is Hospitalizing Provider. rn 05/11 01:28 Provided Education on: need for admission. bm8 01:28 Patient admitted, IV remains in place. bm8 Administered Medications: 05/10 22:42 Drug: Magnesium Sulfate IVPB 1 grams IVPB once over 1 hrs Route: IVPB; Infused Over: 1 bm8 hrs; Site: left antecubital; 23:48 Follow up: IV Status: Completed infusion; IV Intake: 100ml bm8 23:48 Follow up: Response: No adverse reaction bm8 22:43 Drug: NS 0.9% IV 500 ml 500 ml IV at 1 bolus once; to be given as a bolus over 30 bm8 minutes Volume: 500 ml; Route: IV; Rate: 1 bolus; Site: left antecubital; 23:12 Follow up: Response: No adverse reaction; IV Status: Completed infusion; IV Intake: bm8 500ml 23:49 Follow up: Response: No adverse reaction; IV Status: Completed infusion; IV Intake: bm8 500ml 22:43 Drug: Metoprolol IVP 5 mg IVP once; Hold for SBP <100 or HR <60. Route: IVP; Site: left 8 antecubital; 23:49 Follow up: Response: No adverse reaction bm8 22:43 Drug: Metoprolol PO 25 mg PO once Route: PO; bm8 23:49 Follow up: Response: No adverse reaction bm8 05/11 01:01 Drug: Rocephin IV 1 grams IV at calculated rate once; Given slow IV push per pharmacy bm8 instructions Route: IV; Rate: calculated rate; Site: left antecubital; Follow up: Response: No adverse reaction; IV Status: Completed infusion; IV Intake: 84bolp8 01:03 Drug: Zithromax IVPB 500 mg IVPB once over 1 hrs; mix in 250 mL NS Route: IVPB; Infused bm8 Over: 1 hrs; Site: left antecubital; Follow up: Response: No adverse reaction; IV Status: Completed infusion; IV Intake: bm8 250ml Medication: 05/10 22:43 VIS not applicable for this client. bm8 Intake: 23:12 IV: 500ml; Total: 500ml. bm8 23:48 IV: 100ml; Total: 600ml. bm8 23:49 IV: 500ml; Total: 1100ml. bm8 05/11 01:29 IV: 250ml; Total: 1350ml. bm8 01:29 IV: 10ml; Total: 1360ml. bm8 Outcome: 05/10 23:16 Decision to Hospitalize by Provider. rn 05/11 01:28 Admitted to ICU accompanied by nurse, via stretcher, room icu 7, with chart, bm8 Condition: stable Instructed on the need for admit, Demonstrated understanding of instructions, follow-up care, 01:37 Patient left the ED. bm8 Signatures: Dispatcher [employer] EDMS Junior Lee MD MD rn Able, Lacie, RN RN lg3 Caryl Singletary RN RN jjCarissa Box gm2 Vesta Torre Brad, RN RN bm8 Corrections: (The following items were deleted from the chart) 05/10 23:17 21:51 BP 160 / 122 Sitting Auto L Arm Regular; Pulse 158bpm Monitor; Resp 10bpm; bm8 Spontaneous; Pulse Ox 95% RA; Temp 98.7F Oral; 68.04 kg Measured; Height 5 ft. 0 in. Reported; BMI: 29.2; Pain 810, Adult; vk
[2024-05-10] MEDS ORDERED: ACETAMINOPHEN 500 MG TAB PO PRN (23:24)
[2024-05-10] MEDS ORDERED: ONDANSETRON 4 MG/2 ML VIAL IV PRN (23:24)
[2024-05-10] MEDS ORDERED: ALBUTEROL 2.5 MG/3 ML NEB SOL NEB PRN (23:24)
[2024-05-10 23:29] LABS: D-Dimer 3.79 FEUug/mL (0-0.500)
[2024-05-10] MEDS: IPRATROPIUM BROM 0.5MG/2.5ML NEB SCH (23:29)
--- NOTE | 2024-05-10 23:29 | P.HP ---
Certification for Inpatient Patient admitted to: Inpatient With expected LOS: >2 Midnights Practitioner: I am a practitioner with admitting privileges, knowledge of patient current condition, hospital course, and medical plan of care. Services: Services provided to patient in accordance with Admission requirements found in Title 42 Section 412.3 of the Code of Federal Regulations Patient History Date of Service: 05/11/24 Reason for admission: acute respiratory failure History of Present Illness: Patient is a 64-year-old female who is being admitted for respiratory failure a fter she failed outpatient therapy for pneumonia. She is unable to remember which antibiotics she has been prescribed. Patient arrived in the ER for worsening shortness of breath. Her O2 sat was 88% on room air. She also went into rapid A-fib. Patient has a past medical history of liver cancer for which she is undergoing chemotherapy currently. Additional medical issues include hep C cirrhosis and gastric ulcer. During my evaluation, patient was on the BiPAP machine. Her chest x-ray revealed significant bilateral pleural effusion. Patient also has evidence of bilateral pleural effusion Allergies No Known Allergies Allergy (Verified 04/11/18 03:28) Home Medications: Pantoprazole [Protonix Tab*] 40 mg PO BIDAC #60 tab 12/03/21 Propranolol [Inderal*] 10 mg PO BID #60 tab 12/03/21 Sucralfate [Carafate*] 1 gm PO QID #60 tab 12/03/21 glipiZIDE [Glucotrol] 5 mg PO BID #60 tab 12/03/21 - Past Medical/Surgical History Diabetic: No -: Cirrhosis -: Gastric Ulcers -: Hepatitis C -: Diabetes -: Cholecystectomy -: appendectomy -: tubal ligation -: Psychosocial/ Personal History: Patient lives at home with her family. - Social History Alcohol use: No CD- Drugs: No Caffeine use: No Physical Examination - Physical Exam General: Acute distress HEENT: Atraumatic, Normocephalic Respiratory: Diminished, Other (BIPAP machine in place, dyspneic) Cardiovascular: No murmurs, Edema, Irregular heart rate/rhythm Neurological: Normal speech - Studies Laboratory Data (last 24 hrs) 05/10/24 05/10/24 05/10/24 22:30 22:30 22:30 WBC 7.30 Hgb 14.4 Hct 42.7 Plt Count 65 L PT 13.7 H INR 1.23 APTT 57.5 H Sodium 136 Potassium 3.9 BUN 13 Creatinine 0.74 Glucose 139 H Total Bilirubin 3.4 H AST 27 ALT < 14 Alkaline Phosphatase 109 Assessment and Plan - Problems (Diagnosis) (1) Acute hypoxemic respiratory failure Current Visit: Yes Status: Acute (2) Bilateral pleural effusion Current Visit: Yes Status: Acute (3) Decompensated heart failure Current Visit: Yes Status: Acute (4) New onset type 2 diabetes mellitus Current Visit: No Status: Acute (5) Cirrhosis Onset Date: 04/12/18 Current Visit: No Status: Chronic Qualifiers: Hepatic cirrhosis type: unspecified hepatic cirrhosis Ascites presence: without ascites Qualified Code(s): K74.60 - Unspecified cirrhosis of liver (6) H/O hepatitis Current Visit: No Status: Chronic (7) Thrombocytopenia Current Visit: No Status: Chronic - Plan Assessment Patient is a 64-year-old female who failed outpatient therapy for pneumonia and is now being admitted after she presented with worsening shortness of breath. Chest x-ray revealed bilateral pleural effusion and possible pneumonia. Patient went into rapid A-fib in the ER. She is currently requiring a BiPAP machine. She has received ceftriaxone, azithromycin, magnesium and 2 doses of IV metoprolol in the ER. Patient has evidence of bilateral lower extremity edema Acute hypoxemic respiratory failure Bilateral pleural effusion Decompensated CHF New onset A-fib with RVR Liver cancer Cirrhosis Thrombocytopenia Coagulatopathy Generalized weakness Plan: Will admit inpatient to ICU Continue BiPAP use Will use diltiazem for rapid atrial fibrillation, and IV digoxin if patient becomes hypotensive from diltiazem Poor candidate for amiodarone due to cirrhosis Started patient on Lasix 40 mg IV twice daily Thoracentesis ordered. Cytology requested given history of hepatocellular carcinoma Monitor ins and out Obtain a 2D echo Empiric antibiotics with meropenem Cardiology consulted for rapid atrial fibrillation SCD for DVT PPX Chemoppx contraindicated due to low PLT and coagulopathy PPI for GI ppx - Advance Directives Does patient have a Living Will: No Does patient have a Durable POA for Healthcare: No
[2024-05-10] MEDS ORDERED: CEFTRIAXONE 1000 MG/VIAL ONE (23:32)
[2024-05-10] MEDS ORDERED: NA CHLORIDE 0.9% 250 ML ONE (23:32)
[2024-05-10] MEDS ORDERED: AZITHROMYCIN 500 MG INJ IVPB ONE (23:32)
[2024-05-10] MEDS ORDERED: SODIUM CHLORIDE 0.9% 10ML INJ IV PRN (23:45)
[2024-05-10] MEDS ORDERED: DILTIAZEM INJ 125 MG/25 ML 125 MG in NA CHLORIDE 0.9% 100 ML IV SCH (23:45)
[2024-05-10 23:46] LABS: NT PRO-BNP 280 pg/mL (<125)
[2024-05-10 23:55] LABS: SARS-CoV-2 Antigen CONTROL BLUE LINE VIS/BG OK; SARS-CoV-2 Antigen Rapid Res Negative (Negative)
[2024-05-10 23:56] LABS: Blood Morphology Comment NOT SEEN (NOT SEEN); White Blood Cell Scan OK (OK)
[2024-05-10 23:57] LABS: Platelet Estimate DECR
[2024-05-10 23:58] LABS: Magnesium 1.8 mg/dL (1.6-2.4); Phosphorus 2.5 mg/dL (2.5-4.9)
[2024-05-11] MEDS ORDERED: ONDANSETRON 4 MG/2 ML VIAL ONE (01:09)
[2024-05-11] MEDS: FUROSEMIDE 40 MG/4 ML VIAL IV SCH (02:48)
[2024-05-11] MEDS: PANTOPRAZOLE 40 MG INJ IVP SCH (02:56)
[2024-05-11] MEDS: Meropenem 1,000 MG in NA CHLORIDE 0.9% 100 ML IV SCH (02:56)
[2024-05-11 05:01] LABS: Blood O2 Saturation 91.1 % (92-98.5)
[2024-05-11 05:02] LABS: Arterial Blood Carboxyhemoglob 2.2 % (0-1.5); Blood Gas Oxyhemoglobin 88.1 % (94-97); Blood Gas THB 13.4 g/dl (12-18)
[2024-05-11 06:31] LABS: Absolute Lymphocytes (CBC) 0.7 K/uL (0.7-4.9); Absolute Monocytes 0.9 K/uL (0.1-1.3); Absolute Neutrophil 6.6 K/uL (1.8-8.0); Basophils % 0.3 % (0-1.3); Eosinophils % 0.3 % (0-4.4); Hematocrit 37.9 % (36.0-45.0); Hemoglobin 13.4 g/dL (12.0-15.0); Lymphocytes % 8.9 % (15.3-44.8); MCH 36.7 pg (27.0-35.0); MCHC 35.3 g/dL (32.0-36.0); MCV 103.8 fL (80-100); MPV 8.6 fL (7.6-11.3); Neutrophils % 79.5 % (41.7-73.7); Nucleated Red Blood Cells % 0.1 % (0-0); Platelets 56 thou/uL (152-406); RBC Red Blood Cell Count 3.65 M/uL (3.86-4.86); Red Cell Distribution Width 14.9 % (12.1-15.2)
[2024-05-11 06:42] LABS: Anion Gap 9.3 mEq/L (5.0-15.0); BUN Blood Urea Nitrogen 16 mg/dL (7-18); Bicarbonate 25 mEq/L (21-32); Glomerular Filtration Rate 90 ml/min (=/>90); Glucose Level 121 mg/dL (74-106); HDL Cholesterol 20 mg/dL (40-60); Magnesium 1.8 mg/dL (1.6-2.4); Phosphorus 2.6 mg/dL (2.5-4.9); Potassium 4.3 mEq/L (3.5-5.1); Sodium Level 144 mEq/L (136-145); Troponin High Sensitivity 9.6 pg/mL (<58.9)
[2024-05-11 06:46] LABS: LDL Cholesterol, Calculated 22 mg/dL (<130); LDL Cholesterol,Calc NonReport 22
[2024-05-11] MEDS ORDERED: ENOXAPARIN 40 MG/0.4 ML SQ SCH (09:00)
--- NOTE | 2024-05-11 13:13 | P.PN ---
Subjective Date of Service: 05/11/24 Patient is doing well with no new complaints. Patient clinical symptoms are stable. Patient much more awake and alert. Patient is currently back in sinus rhythm Review of Systems 10-point ROS is otherwise unremarkable Physical Examination - Vital Signs Temperature: 97 F Blood Pressure: 100/47 Pulse: 66 Respirations: 18 Pulse Ox (%): 93 - Physical Exam General: Alert, In no apparent distress, Oriented x3 HEENT: Atraumatic, PERRLA, EOMI Neck: Supple, JVD not distended Respiratory: Clear to auscultation bilaterally, Normal air movement Cardiovascular: Regular rate/rhythm, Normal S1 S2 Gastrointestinal: Normal bowel sounds, No tenderness Musculoskeletal: No tenderness Integumentary: No rashes Neurological: Normal speech, Normal tone, Normal affect Lymphatics: No axilla or inguinal lymphadenopathy - Studies Laboratory Data (last 24 hrs) 05/10/24 05/10/24 05/10/24 22:30 22:30 22:30 WBC 7.30 Hgb 14.4 Hct 42.7 Plt Count 65 L PT 13.7 H INR 1.23 APTT 57.5 H Sodium 136 Potassium 3.9 BUN 13 Creatinine 0.74 Glucose 139 H Phosphorus 2.5 Magnesium 1.8 Total Bilirubin 3.4 H AST 27 ALT < 14 Alkaline Phosphatase 109 Microbiology Data (last 24 hrs): 05/10/24 22:30 Nasopharnyx Influenza Type A Antigen Screen - Final 05/10/24 22:30 Nasopharnyx Influenza Type B Antigen Screen - Final Medications List Reviewed: Yes Assessment & Plan - Problems (Diagnosis) (1) Atrial fibrillation with rapid ventricular response Current Visit: Yes Status: Acute (2) Metastasis to liver Current Visit: Yes Status: Acute (3) Bilateral pleural effusion Current Visit: Yes Status: Acute (4) Cirrhosis Onset Date: 04/12/18 Current Visit: No Status: Chronic Qualifiers: Hepatic cirrhosis type: unspecified hepatic cirrhosis Ascites presence: without ascites Qualified Code(s): K74.60 - Unspecified cirrhosis of liver - Plan Plan: 1. Atrial fibrillation with rapid ventricular response; continue with oral Cardizem at discharge. Echocardiogram pending. If cardiomyopathy will may need to switch that over to beta-christelle therapy 2. Patient with a history of cirrhosis; continue with monitoring LFTs 3. History of liver CA; outpatient follow-up with oncology 4. Macrocytosis; check B12 and folic acid level 5. GI DVT prophylaxis Discharge Plan: Home Plan to discharge in: Greater than 2 days - Advance Directives Does patient have a Living Will: No Does patient have a Durable POA for Healthcare: No - Code Status/Comfort Care Code Status Assessed: Yes Code Status: Full Code Critical Care: No Time Spent Managing PTS Care (In Minutes): 35
[2024-05-11] MEDS ORDERED: IPRATROPIUM BROM 0.5MG/2.5ML NEB PRN ×2 (13:52→15:28)
[2024-05-11] MEDS ORDERED: ALBUTEROL 2.5 MG/3 ML NEB SOL NEB PRN (14:23)
[2024-05-11] MEDS: MORPHINE *EXTENDED RELEASE* 15 MG TAB PO PRN (14:34)
--- NOTE | 2024-05-11 14:57 | P.CNS ---
Date of Consult: 05/11/24 Chief Complaint: acute respiratory failure History of Present Illness: Patient with PMH of liver cancer on active treatment with [facility] and she says she is getting listed for liver transplant, liver cirrhosis who presented with SOB, palpitations, was found to have AF w RVR and bilateral lower extremities edema, patient says she was recently seen by cardiology at [facility] before getting listed for transplant and had an echo, stress test and was told everything is normal. Allergies acetaminophen [From Tylenol] Adverse Reaction (Verified 05/11/24 02:05) other ibuprofen Adverse Reaction (Verified 05/11/24 02:04) other tramadol Adverse Reaction (Verified 05/11/24 02:03) other Home medications list reviewed: Yes Home Medications: Furosemide [Lasix] 20 mg PO DAILY 05/11/24 Morphine *Extended Release* [MS Contin] 15 mg PO Q4HP PRN 05/11/24 Spironolactone 50 mg PO DAILY 05/11/24 - Past Medical/Surgical History Diabetic: No -: Cirrhosis -: Gastric Ulcers -: Hepatitis C -: Diabetes -: bone cancer -: liver cancer, chemo last December -: Cholecystectomy -: appendectomy -: tubal ligation -: Psychosocial/ Personal History: Patient lives at home with her family. - Family History Mother Medical History: Diabetes, Cancer Notes: gallbladder Father Medical History: Diabetes, Liver disease Notes: cirrhosis Sister Medical History: Diabetes - Social History Smoking Status: Unknown if ever smoked Alcohol use: No CD- Drugs: No Caffeine use: No Place of Residence: Home Review of Systems 10-point ROS is otherwise unremarkable Physical Examination Temp Pulse Resp BP Pulse Ox 97 F 66 18 100/47 L 93 05/11/24 13:13 05/11/24 13:13 05/11/24 13:13 05/11/24 13:13 05/11/24 13:13 General: Alert, In no apparent distress HEENT: Atraumatic, PERRLA, Mucous membr. moist/pink, EOMI, Sclerae nonicteric Neck: Supple, 2+ carotid pulse no bruit, No LAD, Without JVD or thyroid abnormality Respiratory: Clear to auscultation bilaterally, Normal air movement Cardiovascular: Regular rate/rhythm, Normal S1 S2 Gastrointestinal: Normal bowel sounds, No tenderness Musculoskeletal: No tenderness Integumentary: No rashes Neurological: Normal gait, Normal speech, Normal tone, Normal affect Lymphatics: No axilla or inguinal lymphadenopathy Laboratory Data (last 24 hrs) 05/10/24 05/10/24 05/10/24 22:30 22:30 22:30 WBC 7.30 Hgb 14.4 Hct 42.7 Plt Count 65 L PT 13.7 H INR 1.23 APTT 57.5 H Sodium 136 Potassium 3.9 BUN 13 Creatinine 0.74 Glucose 139 H Phosphorus 2.5 Magnesium 1.8 Total Bilirubin 3.4 H AST 27 ALT < 14 Alkaline Phosphatase 109 - Problems (1) Swelling of lower extremity Current Visit: Yes Status: Acute Plan: per patient she had recent cardiac work up and told that heart function is normal, her swelling can be secondary to liver cirrhosis agree with getting echo agree with IV lasix 40 mg IV BID, monitor kidney function closely consider starting patient back on Aldactone 25 mg daily (2) Atrial fibrillation with rapid ventricular response Current Visit: Yes Status: Acute Plan: Toprol XL 12.5 mg daily No anticoagulation as patient got advanced liver disease with low Plt, also her [id number] score is 1, she might benefit from ASA but will leave this to be discussed with her liver MD per patient wishes.
[2024-05-11] MEDS: METOPROLOL XL 25 MG TAB PO SCH (15:05)
[2024-05-12 06:29] LABS: Absolute Basophils 0.1 K/uL (0-0.5); Absolute Eosinophils 0.1 K/uL (0-0.5); Absolute Lymphocytes (CBC) 0.9 K/uL (0.7-4.9); Absolute Monocytes 1.4 K/uL (0.1-1.3); Absolute Neutrophil 6.4 K/uL (1.8-8.0); Eosinophils % 1.2 % (0-4.4); Hematocrit 35.2 % (36.0-45.0); Hemoglobin 12.4 g/dL (12.0-15.0); Lymphocytes % 10.3 % (15.3-44.8); MCH 36.3 pg (27.0-35.0); MCHC 35.1 g/dL (32.0-36.0); MCV 103.2 fL (80-100); MPV 8.8 fL (7.6-11.3); Monocytes % 15.6 % (3.3-12.3); Neutrophils % 71.9 % (41.7-73.7); Nucleated Red Blood Cells % 0.2 % (0-0); Platelets 64 thou/uL (152-406); RBC Red Blood Cell Count 3.41 M/uL (3.86-4.86)
[2024-05-12 06:34] LABS: Magnesium 1.8 mg/dL (1.6-2.4)
[2024-05-12] MEDS ORDERED: FUROSEMIDE 20 MG TABLET PO SCH (09:00)
[2024-05-12] MEDS ORDERED: HOME MED 1 EA UNK (Spironolactone [Spironolactone] 50 MG Tablet) PO SCH (09:00)
--- NOTE | 2024-05-12 09:04 | RAD REPORT ---
EXAMINATION: ONE VIEW CHEST XR CLINICAL INDICATION: S/P THORACENTESIS TECHNIQUE: Frontal chest projection is submitted. Examination is limited by patient positioning and t echnique. COMPARISON: 05/10/2024 FINDINGS: Bilateral pleural effusions are noted, the size of the right pleural effusion has diminished since co mparison study. No postprocedure pneumothorax. The heart is upper limit of normal in size. No displaced fractures identified. IMPRESSION: No postprocedure pneumothorax seen.
[2024-05-12] MEDS: SPIRONOLACTONE 25 MG TABLET PO SCH (09:05)
--- NOTE | 2024-05-12 09:05 | RAD REPORT ---
PROCEDURE: ULTRASOUND GUIDED THORACENTESIS CLINICAL INDICATION: bilateral pleural effusioin PROCEDURE DETAILS: Consent: Informed consent for the procedure including risks, benefits and alternatives was obtained a nd time-out was performed prior to the procedure. Preparation: The site was prepared and draped using maximal sterile barrier technique including cutan eous antisepsis. Procedure: Initial limited thoracic ultrasound was performed and a moderate right pleural effusion wa s seen. A safe window for thoracentesis was identified with ultrasound to raudel a suitable access site. Local anesthesia was administered. The pleural cavity was accessed, and fluid return confirmed position. A 8F [id number] catheter was placed and fluid was drained. The catheter was removed, and a sterile bandage was applied. . Estimated blood loss: Less than 10 mL. IMPRESSION: RIGHT ultrasound guided thoracentesis, yielding 800 mL of yellow fluid. Additional procedure(s): Limited thoracic ultrasound. PLAN: Aspirated fluid was sent for analysis.
[2024-05-12 10:23] LABS: Body Fluid WBC 3988 /mm^3
--- NOTE | 2024-05-12 10:37 | P.PN ---
Subjective Date of Service: 05/12/24 Chief Complaint: acute respiratory failure Subjective: No new changes, No C/O voiced, Tolerating diet, Ambulating, Improving Review of Systems 10-point ROS is otherwise unremarkable Physical Examination - Vital Signs Temperature: 98.5 F Blood Pressure: 127/62 Pulse: 78 Respirations: 18 Pulse Ox (%): 95 - Physical Exam General: Alert, In no apparent distress HEENT: Atraumatic, PERRLA, EOMI Neck: Supple, JVD not distended Respiratory: Clear to auscultation bilaterally, Normal air movement Cardiovascular: Regular rate/rhythm, Normal S1 S2 Gastrointestinal: Normal bowel sounds, No tenderness Musculoskeletal: No tenderness Integumentary: No rashes Neurological: Normal speech, Normal tone, Normal affect Lymphatics: No axilla or inguinal lymphadenopathy - Studies Medications List Reviewed: Yes Assessment And Plan - Current Problems (Diagnosis) (1) Swelling of lower extremity Current Visit: Yes Status: Acute Plan: per patient she had recent cardiac work up and told that heart function is normal, her swelling can be secondary to liver cirrhosis agree with getting echo agree with IV lasix 40 mg IV BID, monitor kidney function closely Aldactone 25 mg daily (2) Atrial fibrillation with rapid ventricular response Current Visit: Yes Status: Acute Plan: Toprol XL 12.5 mg daily No anticoagulation as patient got advanced liver disease with low Plt, also her [id number] score is 1, she might benefit from ASA but will leave this to be discussed with her liver MD per patient wishes.
[2024-05-12 12:00] LABS: Appearance TURBID (CLEAR); Body Fluid Source PLEURAL; Color of fluid Yellow (COLORLESS); Fluid Total Cells Count 100; Tube # SINGLE
[2024-05-12 12:01] LABS: Body Fluid Lymphocytes 19 %
--- NOTE | 2024-05-12 12:37 | EKG ---
Test Date: 2024-05-10 Test Time: 21:46:32 Rock Mason: LINDSEY MEASUREMENT RESULTS: Intervals: Rate: 162 WI: QRSD: 76 QT: 266 QTc: 436 [place]: P: WI: QRS: 2 T: 186 INTERPRETIVE STATEMENTS: Atrial fibrillation Nonspecific ST and T wave abnormality, probably digitalis effect Abnormal ECG Compared to ECG 04/17/2018 16:53:07 ST (T wave) deviation now present Sinus bradycardia no longer present Electronically Signed On 05-12-24 12:36:37 CDT by Jr Nicholson
--- NOTE | 2024-05-12 13:51 | ECHO ---
HEIGHT: 5 ft 0 in WEIGHT: 146 lb 0 oz DATE OF STUDY: 05/12/[address]: Prince Isak Mayorga MD 2-DIMENSIONAL: YES M.MODE: YES DOPPLER: YES COLOR FLOW: YES TDS: PORTABLE: YES DEFINITY: BUBBLE STUDY: DIAGNOSIS: NEW ONSET ATRIAL FIBRILLATION CARDIAC HISTORY: CATHERIZATION: NO SURGERY: NO PROSTHETIC VALVE: NO PACEMAKER: NO MEASUREMENTS (cm) DIASTOLIC (NORMALS) SYSTOLIC (NORMALS) IVSd 1.1 (0.6-1.2) LA Diam 2.4 (1.9-4.0) LVEF 60-65% LVIDd 3.6 (3.5-5.7) LVIDs 2.7 (2.0-3.5) %FS 27% LVPWd 1.1 (0.6-1.2) Ao Diam 2.2 (2.0-3.7) 2 DIMENSIONAL ASSESSMENT: RIGHT ATRIUM: NORMAL LEFT ATRIUM: NORMAL RIGHT VENTRICLE: NORMAL LEFT VENTRICLE: NORMAL TRICUSPID VALVE: TRACE TRICUSPID REGURGITATION MITRAL VALVE: NORMAL PULMONIC VALVE: NORMAL AORTIC VALVE: NORMAL PERICARDIAL EFFUSION: NONE AORTIC ROOT: NORMAL LEFT VENTRICULAR WALL MOTION: NORMAL DOPPLER/COLOR FLOW: NORMAL COMMENTS: 1. NORMAL LEFT VENTRICULAR SYSTOLIC FUCNTION, EJECTION FRACTION 60-65%, NORMAL WALL MOTION 2. NORMAL DIASTOLIC FUNCTION 3. NORMAL FILLING PRESSURE TECHNOLOGIST: HERBERT BUCKNER
[2024-05-13 03:56] VITALS: BMI 28.3
[2024-05-13 05:50] LABS: Absolute Eosinophils 0.2 K/uL (0-0.5); Absolute Monocytes 1.2 K/uL (0.1-1.3); Absolute Neutrophil 4.5 K/uL (1.8-8.0); Basophils % 0.5 % (0-1.3); Eosinophils % 2.2 % (0-4.4); Hematocrit 36.9 % (36.0-45.0); Hemoglobin 12.7 g/dL (12.0-15.0); Lymphocytes % 14.6 % (15.3-44.8); MCH 35.9 pg (27.0-35.0); MCHC 34.3 g/dL (32.0-36.0); MCV 104.7 fL (80-100); MPV 8.4 fL (7.6-11.3); Monocytes % 17.7 % (3.3-12.3); Platelets 58 thou/uL (152-406); RBC Red Blood Cell Count 3.53 M/uL (3.86-4.86); Red Cell Distribution Width 15.6 % (12.1-15.2)
[2024-05-13 05:59] LABS: Anion Gap 6.8 mEq/L (5.0-15.0); Magnesium 1.8 mg/dL (1.6-2.4); Phosphorus 2.5 mg/dL (2.5-4.9); Potassium 3.8 mEq/L (3.5-5.1)
[2024-05-13] MEDS: NA CHLORIDE 0.9% 250 ML IV ONE ×2 (06:15→06:50)
[2024-05-13] MEDS: DIGOXIN 0.25 MG/ML AMP IV ONE (06:15)
[2024-05-13] MEDS: NA CHLORIDE 0.9% 250 ML IV SCH (08:00)
[2024-05-13] MEDS: MAGNESIUM SULFATE 1 gm IVPB 1 GM/100 ML BAG IV ONE (08:30)
[2024-05-13] MEDS: POTASS/SODIUM PHOSPHATE 1 PKT POWD.PACK PO SCH (08:30)
--- NOTE | 2024-05-13 08:45 | P.PN ---
Subjective Date of Service: 05/13/24 Chief Complaint: acute respiratory failure Subjective: Improving (Pt had 800ml drained with Thoracentesis yesterday. No C/o. Pt with afib RVR. Converted at 0830 this am. Had rec'd toprol and 1 dose of digoxin. Needed 250ml bolus x 2. Stable at this time.) Review of Systems 10-point ROS is otherwise unremarkable General: Unremarkable Eyes: Unremarkable ENT: Unremarkable Respiratory: Unremarkable Cardiovascular: Unremarkable Gastrointestinal: Other (tender with palp) Genitourinary: Unremarkable Musculoskeletal: Unremarkable Integumentary: Unremarkable Neurological: Unremarkable Physical Examination - Vital Signs Temperature: 97.3 F Blood Pressure: 111/66 Pulse: 123 Respirations: 16 Pulse Ox (%): 90 - Physical Exam General: Alert, In no apparent distress, Oriented x3 HEENT: Atraumatic, Normocephalic Neck: Supple Respiratory: Normal air movement Cardiovascular: Other (converted to NSR at 0830), Edema, Irregular heart rate/rhythm Capillary refill: <2 Seconds Gastrointestinal: Normal bowel sounds, Tenderness Musculoskeletal: No clubbing Integumentary: No rashes Neurological: Normal speech, Normal tone, Normal affect Lymphatics: No axilla or inguinal lymphadenopathy External genitalia: Deferred Rectal: Deferred - Studies Medications List Reviewed: Yes Assessment And Plan - Plan - Problems (Diagnosis) (1) Atrial fibrillation with rapid ventricular response Current Visit: Yes Status: Acute (2) Metastasis to liver Current Visit: Yes Status: Acute (3) Bilateral pleural effusion Current Visit: Yes Status: Acute (4) Cirrhosis Onset Date: 04/12/18 Current Visit: No Status: Chronic Qualifiers: Hepatic cirrhosis type: unspecified hepatic cirrhosis Ascites presence: without ascites Qualified Code(s): K74.60 - Unspecified cirrhosis of liver Plan: 1. Atrial fibrillation with rapid ventricular response; continue with oral Cardizem at discharge. Echocardiogram normal. 2. Patient with a history of cirrhosis; continue with monitoring LFTs 3. History of liver CA; outpatient follow-up with oncology 4. Macrocytosis; check B12 and folic acid level 5. GI DVT prophylaxis 05/13/24 Thoracentesis 05/12/24 with 800ml output. Pt with a fib with RVR this am. Rec'd one dose of digoxin and two separate 250ml NS boluses. At 0830, converted to NSR Discharge Plan: Home Plan to discharge in: Greater than 2 days - Advance Directives Does patient have a Living Will: No Does patient have a Durable POA for Healthcare: No - Code Status/Comfort Care Code Status Assessed: Yes Code Status: Full Code Critical Care: No
[2024-05-13] MEDS: METOPROLOL XL 25 MG TAB PO ONE (11:18)
[2024-05-13] MEDS ORDERED: DIGOXIN 0.25 MG/ML AMP IV SCH (12:00)
--- NOTE | 2024-05-13 12:47 | P.PN ---
Subjective Date of Service: 05/13/24 Chief Complaint: acute respiratory failure Subjective: No new changes, No C/O voiced, Tolerating diet, Ambulating, Improving Review of Systems 10-point ROS is otherwise unremarkable Physical Examination - Vital Signs Temperature: 97.2 F Blood Pressure: 106/54 Pulse: 73 Respirations: 11 Pulse Ox (%): 94 - Physical Exam General: Alert, In no apparent distress HEENT: Atraumatic, PERRLA, EOMI Neck: Supple, JVD not distended Respiratory: Clear to auscultation bilaterally, Normal air movement Cardiovascular: Regular rate/rhythm, Normal S1 S2 Gastrointestinal: Normal bowel sounds, No tenderness Musculoskeletal: No tenderness Integumentary: No rashes Neurological: Normal speech, Normal tone, Normal affect Lymphatics: No axilla or inguinal lymphadenopathy - Studies Medications List Reviewed: Yes Assessment And Plan - Current Problems (Diagnosis) (1) Swelling of lower extremity Current Visit: Yes Status: Acute Plan: per patient she had recent cardiac work up and told that heart function is normal, her swelling can be secondary to liver cirrhosis Echo shows normal LV systolic and diastolic function with normal filling pressures agree with IV lasix 40 mg IV BID, (may switch to lasix 40 mg po BID on discharge). monitor kidney function closely Aldactone 25 mg daily (2) Atrial fibrillation with rapid ventricular response Current Visit: Yes Status: Acute Plan: patient had a brief run of AF overnight, no in sinus rhythm increase Toprol XL to 25 mg daily No anticoagulation as patient got advanced liver disease with low Plt, also her [id number] score is 1, she might benefit from ASA but will leave this to be discussed with her liver MD per patient wishes.
[2024-05-14] MEDS: METOPROLOL XL 25 MG TAB PO SCH (05:04)
[2024-05-14 06:49] LABS: Absolute Eosinophils 0.2 K/uL (0-0.5); Absolute Lymphocytes (CBC) 0.7 K/uL (0.7-4.9); Absolute Monocytes 1.1 K/uL (0.1-1.3); Absolute Neutrophil 3.4 K/uL (1.8-8.0); Basophils % 0.9 % (0-1.3); Eosinophils % 3.1 % (0-4.4); Hematocrit 36.3 % (36.0-45.0); Hemoglobin 12.6 g/dL (12.0-15.0); Lymphocytes % 13.6 % (15.3-44.8); MCH 35.9 pg (27.0-35.0); MCHC 34.8 g/dL (32.0-36.0); MPV 8.8 fL (7.6-11.3); Monocytes % 19.5 % (3.3-12.3); Neutrophils % 62.9 % (41.7-73.7); Nucleated Red Blood Cells % 0.1 % (0-0); Platelets 66 thou/uL (152-406); RBC Red Blood Cell Count 3.52 M/uL (3.86-4.86); Red Cell Distribution Width 15.4 % (12.1-15.2)
[2024-05-14 07:05] LABS: Anion Gap 8.1 mEq/L (5.0-15.0); Magnesium 2.1 mg/dL (1.6-2.4); Phosphorus 2.2 mg/dL (2.5-4.9); Potassium 4.1 mEq/L (3.5-5.1)
[2024-05-14] MEDS: POTASS/SODIUM PHOSPHATE 1 PKT POWD.PACK PO SCH (09:06)
[2024-05-14 09:11] LABS: Blood Morphology Comment NOT SEEN (NOT SEEN); Differential Total Cells Count 100; Lymphocytes 9 % (15-42); Monocytes 13 % (0-10); Platelet Estimate DECR; Segmented Neutrophils 78 % (40-80)
[2024-05-14] MEDS ORDERED: METOPROLOL XL 25 MG TAB PO ONE (11:01)
--- NOTE | 2024-05-14 13:14 | P.PN ---
Subjective Date of Service: 05/14/24 Chief Complaint: acute respiratory failure Subjective: No new changes, No C/O voiced, Tolerating diet, Ambulating, Improving Review of Systems 10-point ROS is otherwise unremarkable Physical Examination - Vital Signs Temperature: 97.8 F Blood Pressure: 136/63 Pulse: 78 Respirations: 16 Pulse Ox (%): 95 - Physical Exam General: Alert, In no apparent distress HEENT: Atraumatic, PERRLA, EOMI Neck: Supple, JVD not distended Respiratory: Clear to auscultation bilaterally, Normal air movement Cardiovascular: Regular rate/rhythm, Normal S1 S2 Gastrointestinal: Normal bowel sounds, No tenderness Musculoskeletal: No tenderness Integumentary: No rashes Neurological: Normal speech, Normal tone, Normal affect Lymphatics: No axilla or inguinal lymphadenopathy - Studies Medications List Reviewed: Yes Assessment And Plan - Current Problems (Diagnosis) (1) Swelling of lower extremity Current Visit: Yes Status: Acute Plan: per patient she had recent cardiac work up and told that heart function is normal, her swelling can be secondary to liver cirrhosis Echo shows normal LV systolic and diastolic function with normal filling pressures agree with IV lasix 40 mg IV BID, (may switch to lasix 40 mg po BID on discharge). monitor kidney function closely Aldactone 25 mg daily (2) Atrial fibrillation with rapid ventricular response Current Visit: Yes Status: Acute Plan: patient had a brief run of AF overnight, no in sinus rhythm increase Toprol XL to 25 mg daily No anticoagulation as patient got advanced liver disease with low Plt, also her [id number] score is 1, she might benefit from ASA but will leave this to be discussed with her liver MD per patient wishes.
--- NOTE | 2024-05-14 14:52 | EKG ---
Test Date: 2024-05-13 Test Time: 05:58:22 Customer Liaison: NIKOLAS MEASUREMENT RESULTS: Intervals: Rate: 149 AL: QRSD: 78 QT: 306 QTc: 481 [place]: P: AL: QRS: 84 T: 67 INTERPRETIVE STATEMENTS: Atrial fibrillation with rapid ventricular response Nonspecific ST and T wave abnormality, probably digitalis effect Abnormal ECG Compared to ECG 05/10/2024 21:46:32 No significant changes Electronically Signed On 05-14-24 14:46:59 CDT by Yury Cordova
[2024-05-15 00:11] VITALS: O2SAT 94
[2024-05-15] MEDS: PANTOPRAZOLE 40MG TABLET PO SCH (06:12)
[2024-05-15 12:56] VITALS: BP 125/60; TEMP 99.4
[2024-05-15 20:50] LABS: LD, PLEURAL FLUID 283 U/L; TOTAL PROTEIN, PLEURAL FLUID <3.0 g/dL
--- NOTE | 2024-05-18 18:44 | P.DS ---
Admission Date: 05/10/24 Discharge Date: 05/15/24 Disposition: ROUTINE DISCHARGE Discharge Condition: GOOD Reason for Admission: acute respiratory failure Brief History of Present Illness: Patient is a 64-year-old female who is being admitted for respiratory failure after she failed outpatient therapy for pneumonia. She is unable to remember which antibiotics she has been prescribed. Patient arrived in the ER for worsening shortness of breath. Her O2 sat was 88% on room air. She also went into rapid A-fib. Patient has a past medical history of liver cancer for which she is undergoing chemotherapy currently. Additional medical issues include hep C cirrhosis and gastric ulcer. During my evaluation, patient was on the BiPAP machine. Her chest x-ray revealed significant bilateral pleural effusion. Patient also has evidence of bilateral pleural effusion Physical Exam General: Alert, In no apparent distress, Oriented x3 HEENT: Atraumatic, Normocephalic Neck: Supple Respiratory: Normal air movement Cardiovascular: Other (converted to NSR at 0830), Edema, Irregular heart rate/ rhythm Capillary refill: <2 Seconds Gastrointestinal: Normal bowel sounds, Tenderness Musculoskeletal: No clubbing Integumentary: No rashes Neurological: Normal speech, Normal tone, Normal affect Lymphatics: No axilla or inguinal lymphadenopathy Hospital Course: 64-year-old female who is being admitted for respiratory failure after she failed outpatient therapy for pneumonia. She is unable to remember which antibiotics she has been prescribed. Patient arrived in the ER for worsening shortness of breath. Originally admitted to ICU on BiPAP. Her O2 sat was 88% on room air. She was admitted with acute hypoxic carli respiratory failure, decompensated heart failure, atrial fibrillation RVR, liver mets, bilateral pleural effusion, cirrhosis, she is status post thoracentesis, and Lasix. Atrial fibrillation treated with digoxin, converted to normal sinus rhythm. Poor candidate for amiodarone due to cirrhosis. Improved with treatment plan, plan to discharge home, follow-up with cardiology after discharge, home O2 delivered to home prior to discharge. Home medications spironolactone 50 daily, Lasix 20 daily, morphine sulfate, Continue home medicines as previously prescribed GOAL: Clear understanding of disease process INSTRUCTIONS: Physician Discharge Instructions: -Follow-up with oncology after discharge -Follow-up with cardiology after discharge for A-fib -Follow-up with PCP in 1 to 2 weeks -Please call Dr. Pina at [phone] if any questions regarding hospital stay -Please call nursing station at [phone] if any nursing or medication questions -Return to the emergency room if symptoms worsen Diet: ADA, low sodium Activity: Fall precautions Vital Signs/Physical Exam: Temp Pulse Resp BP Pulse Ox 99.4 F 80 20 125/60 90 L 05/15/24 12:00 05/15/24 12:00 05/15/24 12:00 05/15/24 12:00 05/15/24 12:00 Laboratory Data at Discharge: WBC 5.40 thou/uL (4.3-10.9) 05/14/24 05:20 Hgb 12.6 g/dL (12.0-15.0) 05/14/24 05:20 Hct 36.3 % (36.0-45.0) 05/14/24 05:20 Plt Count 66 thou/uL (152-406) L 05/14/24 05:20 PT 13.7 SECONDS (9.4-12.5) H 05/10/24 22:30 INR 1.23 05/10/24 22:30 APTT 57.5 SECONDS (24.3-36.9) H 05/10/24 22:30 Sodium 134 mEq/L (136-145) L 05/14/24 05:20 Potassium 4.1 mEq/L (3.5-5.1) 05/14/24 05:20 BUN 23 mg/dL (7-18) H 05/14/24 05:20 Creatinine 0.72 mg/dL (0.55-1.02) 05/14/24 05:20 Glucose 162 mg/dL (74-106) H 05/14/24 05:20 Phosphorus 2.2 mg/dL (2.5-4.9) L 05/14/24 05:20 Magnesium 2.1 mg/dL (1.6-2.4) 05/14/24 05:20 Total Bilirubin 3.4 mg/dL (0.2-1.0) H 05/10/24 22:30 AST 27 U/L (15-37) 05/10/24 22:30 ALT < 14 U/L (13-56) 05/10/24 22:30 Alkaline Phosphatase 109 U/L (45-117) 05/10/24 22:30 Triglycerides 41 mg/dL (<150) 05/11/24 06:07 Cholesterol < 50 mg/dL (<200) 05/11/24 06:07 HDL Cholesterol 20 mg/dL (40-60) L 05/11/24 06:07 Cholesterol/HDL Ratio 2.50 05/11/24 06:07 Home Medications: Furosemide [Lasix*] 20 mg PO DAILY 05/11/24 Morphine *Extended Release* [MS Contin*] 15 mg PO Q4HP PRN 05/11/24 Spironolactone 50 mg PO DAILY 05/11/24 Physician Discharge Instructions: -DC IV and DC home -Follow-up with PCP in 1 to 2 weeks -Follow-up with Cardiology in 1 to 2 weeks -Follow-up with oncologist at [facility] -Please call Dr. Pina at [phone] if any questions regarding hospital stay -Please call nursing station at [phone] if any nursing or medication questions -Return to the emergency room if symptoms worsen Diet: AHA Activity: Fall precautions Followup: Jr Nicholson MD [ACTIVE - CAN ADMIT] - 1-2 Weeks Charisma Scruggs NP [Primary Care Provider] - 1-2 Weeks Time spent managing pt's care (in minutes): 45
== END 2024-05-15 13:25 | disposition home or self-care (01) | DRG 291 ==
LOC: ER 21:18 → ERHOLD 23:24 → 3RD-ICU 05-11 01:41 → 4TH 05-13 22:36
PROVIDERS: ADMIT Internal Medicine; ATTEND Hospitalist
PROC: 4A033R1 Measurement of Arterial Saturation, Peripheral, Percutaneous Approach (ICD-10-PCS; principal; 2024-05-10)
PROC: 5A09557 Assistance with Respiratory Ventilation, Greater than 96 Consecutive Hours, Continuous Positive Airway Pressure (ICD-10-PCS; 2024-05-10)
PROC: 0W993ZZ Drainage of Right Pleural Cavity, Percutaneous Approach (ICD-10-PCS; 2024-05-10)
DX: I50.31 Acute diastolic (congestive) heart failure (principal); J18.9 Pneumonia, unspecified organism; J96.01 Acute respiratory failure with hypoxia; I48.19 Other persistent atrial fibrillation; C22.8 Malignant neoplasm of liver, primary, unspecified as to type; J91.8 Pleural effusion in other conditions classified elsewhere; D68.9 Coagulation defect, unspecified; K74.60 Unspecified cirrhosis of liver; D69.6 Thrombocytopenia, unspecified; D75.89 Other specified diseases of blood and blood-forming organs; E11.9 Type 2 diabetes mellitus without complications; K25.9 Gastric ulcer, unspecified as acute or chronic, without hemorrhage or perforation; Z88.5 Allergy status to narcotic agent; Z11.52 Encounter for screening for COVID-19; Z90.49 Acquired absence of other specified parts of digestive tract; Z79.84 Long term (current) use of oral hypoglycemic drugs; Z79.899 Other long term (current) drug therapy
CPT/HCPCS: 32555; 36415; 36600; 71045; 80048; 80053; 80061; 82607; 82805; 82945; 82947; 83605; 83615; 83735; 83880; 84100; 84157; 84484; 85025; 85379; 85610; 85730; 87040; 87070; 87804; 87811; 88108; 88305; 89050; 93005; 93306; 94640; 94660; 94760; 96365; 96367; 96368; 96375; 99285; J0696; J1160; J1940; J2185; J2405; J2470; J3475; J7040; J7050; J7644

== ENCOUNTER 2024-07-13 21:13 | Emergency (ER) | payer OTHER ==
--- NOTE | 2024-07-13 22:09 | EDPHYS ---
[facility] Name: Ana Maria Chavez Age: 64 yrs Sex: Female : 1960 Arrival Date: 07/13/2024 Time: 21:13 Bed IW1 Private MD: ED Physician Agapito Bush HPI: 07/13 23:36 This 64 yrs old Female presents to ER via Ambulatory with complaints of Ear kb Pain, Flu Symptoms. 23:36 Pt is a 64 year old female who presents for medication direction. Pt states she had kb some cold symptoms so she took some medicine and went to sleep. States she woke up late in the day and was vomiting. States she is on a treatment for Hep C and missed her dose last night due to the vomiting. States she feels much better today but wasn't sure what she was supposed to do about missing a dose. States she called the transplant team and was told to come to the ER for further instructions so that is why she came in. States the only symptom that has persisted today from her cold is bilateral ear pain. . Historical: - Allergies: 21:43 tramadol; tm6 21:43 Tylenol; tm6 - PMHx: 21:43 bone cancer; Cirrhosis; diabetes mellitus; gastric ulcers; Hepatitis C; liver cancer; tm6 - PSHx: 21:43 Appendectomy; section; Cholecystectomy; Ligation of fallopian tube; tm6 - Immunization history:: Flu vaccine is not up to date. - Infectious Disease History:: Denies. - Social history:: Smoking status: Patient denies any tobacco usage or history of. ROS: 23:34 Constitutional: As per HPI kb Exam: 23:34 Constitutional: This is a well developed, well nourished patient who is awake, alert, kb and in no acute distress. Head/Face: Normocephalic, atraumatic. ENT: Moist Mucous membranes Cardiovascular: Regular rate Respiratory: Respirations even and unlabored. No increased work of breathing. Talking in full sentences Skin: Warm, dry with normal turgor. Normal color. MS/ Extremity: Pulses equal, no cyanosis. Neurovascular intact. Full, normal range of motion. Neuro: Awake and alert, GCS 15, oriented to person, place, time, and situation. Vital Signs: 21:41 BP 152 / 80; Pulse 72; Resp 17; Temp 98.4(O); Pulse Ox 99% on R/A; MAP 100 mmHg; Weight tm6 65.77 kg; Height 5 ft. 0 in. ; Pain 10/10; 21:41 Body Mass Index 28.32 (65.77 kg, 152.4 cm) tm6 21:41 Pain Scale: Adult tm6 MDM: 21:24 Medical Screening Exam initiated kb 23:34 Differential diagnosis: otitis media, otitis externa, ruptured TM, foreign body, acute kb otalgia. Data reviewed: vital signs, nurses notes. I considered the following discharge prescriptions or medication management in the emergency department Antibiotics: At this time antibiotics are not recommended, Antivirals: At this time, antivirals are not recommended. Test considered but Not performed: Labs: flu, covid tests considered but pt states her cold symptoms have improved since onset, now only has ear pain. Counseling: I had a detailed discussion with the patient and/or guardian regarding the historical points, exam findings, and any diagnostic results supporting the discharge/admit diagnosis, the need for outpatient follow up, a family practitioner, to return to the emergency department if symptoms worsen or persist or if there are any questions or concerns that arise at home. 23:35 External Records Reviewed: reviewed medication instructions brought in by pt. kb Instructions say to skip missed dose if it is close to time for the next dose. This is pt's regular time for her medication so she will take her normal dose today and skip the missed dose from yesterday. Pt educated to inform her dr about the missed dose. . Administered Medications: No medications were administered Disposition Summary: 07/13/24 22:08 Discharge Ordered Notes: Location: Home kb Condition: Stable kb Diagnosis - Person with feared health complaint in whom no diagnosis is made kb Followup: kb - With: Emergency Department - When: As needed - Reason: Worsening of condition Followup: kb - With: Private Physician - When: 2 - 3 days - Reason: Recheck today's complaints, Continuance of care, Re-evaluation by your physician Forms: - Medication Reconciliation Form kb - Antibiotic Education kb - Prescription Opioid Use kb - Patient Portal Instructions kb - Leadership Thank You Letter kb Addendum: 07/16/2024 16:20 I was immediately available for consultation during this patient's visit. I did not e c2 personally see the patient or discuss the patient with the CHE. . Signatures: Maureen Adkins, ESPERANZA DURÁN-Agapiot Funes MD MD ec2 Medardo Ring RN RN tm6
--- NOTE | 2024-07-13 22:09 | ER ---
Nurse's Notes [facility] Name: Ana Maria Chavez Age: 64 yrs Sex: Female : 1960 Arrival Date: 07/13/2024 Time: 21:13 Bed IW1 Private MD: Diagnosis: Person with feared health complaint in whom no diagnosis is made Presentation: 07/13 21:44 Chief complaint: Patient states: n/v last night, so I missed my medication dose for my tm6 liver cancer. I don't have n/v anymore, feeling mostly better, just have also been having ear pain. Coronavirus screen: Client denies travel out of the [place] in the last 14 days. Ebola Screen: Patient negative for fever greater than or equal to 101.5 degrees Fahrenheit, and additional compatible Ebola Virus Disease symptoms Patient denies exposure to infectious person. Patient denies travel to an Ebola-affected area in the 21 days before illness onset. No symptoms or risks identified at this time. 21:44 Method Of Arrival: Ambulatory tm6 21:45 Initial Sepsis Screen: Does the patient meet any 2 criteria? No. Patient's initial tm6 sepsis screen is negative. Does the patient have a suspected source of infection? No. Patient's initial sepsis screen is negative. Risk Assessment: Do you want to hurt yourself or someone else? Patient reports no desire to harm self or others. Onset of symptoms was July 12, 2024. 21:45 Acuity: LETY 4 tm6 Triage Assessment: 21:45 General: Appears in no apparent distress. Behavior is calm, cooperative. Pain: tm6 Complains of pain in right ear and left ear Pain currently is 10 out of 10 on a pain scale. EENT: Reports pain in right ear and left ear. Neuro: Level of Consciousness is awake, alert, obeys commands, Oriented to person, place, time, situation. Cardiovascular: Patient's skin is warm and dry. Respiratory: Airway is patent Respiratory effort is even, unlabored, Respiratory pattern is regular, symmetrical. GI: Abdomen is flat, non-distended, Reports nausea, vomiting. : No signs and/or symptoms were reported regarding the genitourinary system. Derm: No signs and/or symptoms reported regarding the dermatologic system. Musculoskeletal: No signs and/or symptoms reported regarding the musculoskeletal system. Historical: - Allergies: 21:43 tramadol; tm6 21:43 Tylenol; tm6 - PMHx: 21:43 bone cancer; Cirrhosis; diabetes mellitus; gastric ulcers; Hepatitis C; liver cancer; tm6 - PSHx: 21:43 Appendectomy; section; Cholecystectomy; Ligation of fallopian tube; tm6 - Immunization history:: Flu vaccine is not up to date. - Infectious Disease History:: Denies. - Social history:: Smoking status: Patient denies any tobacco usage or history of. Screenin:10 [facility] ED Fall Risk Assessment (Adult) History of falling in the last 3 months, tm6 including since admission No falls in past 3 months (0 pts) Confusion or Disorientation No (0 pts) Intoxicated or Sedated No (0 pts) Impaired Gait No (0 pts) Mobility Assist Device Used No (0 pt) Altered Elimination No (0 pt) Score/Fall Risk Level 0 - 2 = Low Risk Oriented to surroundings, Maintained a safe environment, Educated pt \T\ family on fall prevention, incl call for assistance when getting out of bed. Abuse screen: Denies threats or abuse. Denies injuries from another. Nutritional screening: No deficits noted. Tuberculosis screening: No symptoms or risk factors identified. Assessment: 22:10 Reassessment: see triage assessment. tm6 Vital Signs: 21:41 BP 152 / 80; Pulse 72; Resp 17; Temp 98.4(O); Pulse Ox 99% on R/A; MAP 100 mmHg; Weight tm6 65.77 kg; Height 5 ft. 0 in. ; Pain 10/10; 21:41 Body Mass Index 28.32 (65.77 kg, 152.4 cm) tm6 21:41 Pain Scale: Adult tm6 ED Course: 21:20 Patient arrived in ED. im 21:24 [facility]C [facility] kb 21:24 Agapito Bush MD is Attending Physician. kb 21:45 Triage completed. tm6 21:45 Arm band placed on right wrist. tm6 22:10 Patient has correct armband on for positive identification. Provided Education on: tm6 taking next dose of medication. 22:10 No provider procedures requiring assistance completed. Patient did not have IV access tm6 during this emergency room visit. Administered Medications: No medications were administered Medication: 22:10 VIS not applicable for this client. tm6 Outcome: 22:08 Discharge ordered by . naida 22:10 Discharged to home ambulatory, tm6 22:10 Condition: stable 22:10 Discharge instructions given to patient, Instructed on discharge instructions, follow up and referral plans. medication usage, Demonstrated understanding of instructions, follow-up care, medications, 22:11 Patient left the ED. tm6 Signatures: Maureen Adkins FNP-C FLAGMAN-CkSydney Kumar Tawney, RN RN tm6 Corrections: (The following items were deleted from the chart) 21:45 21:44 Chief complaint: Patient states: n/v last night. I have also been having ear tm6 pain. tm6 21:47 21:44 Chief complaint: Patient states: n/v last night, so I missed my medication dose tm6 for my liver cancer. I have also been having ear pain. tm6
[2024-07-14 01:36] VITALS: BP 152/80; TEMP 98.4; O2SAT 99
== END 2024-07-13 22:11 | disposition home or self-care (01) ==
LOC: ER 21:13
DX: Z71.1 Person with feared health complaint in whom no diagnosis is made (principal)
CPT/HCPCS: 99282

== ENCOUNTER 2024-09-15 19:22 | Emergency (ER) | payer OTHER ==
[2024-09-15 21:00] LABS: Absolute Basophils 0.1 K/uL (0-0.5); Absolute Eosinophils 0.1 K/uL (0-0.5); Absolute Lymphocytes (CBC) 0.8 K/uL (0.7-4.9); Absolute Neutrophil 7.1 K/uL (1.8-8.0); Basophils % 0.9 % (0-1.3); Eosinophils % 1.5 % (0-4.4); Hematocrit 36.2 % (36.0-45.0); Hemoglobin 12.9 g/dL (12.0-15.0); Lymphocytes % 9.1 % (15.3-44.8); MCH 35.2 pg (27.0-35.0); MCHC 35.7 g/dL (32.0-36.0); MCV 98.6 fL (80-100); Monocytes % 11.3 % (3.3-12.3); Neutrophils % 77.2 % (41.7-73.7); Nucleated Red Blood Cells % 0.1 % (0-0); Platelets 91 thou/uL (152-406); RBC Red Blood Cell Count 3.67 M/uL (3.86-4.86); Red Cell Distribution Width 14.4 % (12.1-15.2)
[2024-09-15] MEDS ORDERED: ONDANSETRON 4 MG/2 ML VIAL ONE (21:18)
[2024-09-15] MEDS ORDERED: MORPHINE 4 MG/ML SYR ONE (21:19)
[2024-09-15] MEDS ORDERED: NA CHLORIDE 0.9% 1,000 ML ONE (21:19)
[2024-09-15 21:21] LABS: AST/SGOT 19 U/L (15-37); Albumin 2.3 g/dL (3.4-5.0); Albumin/Globulin Ratio 0.6 (1.1-1.8); Alkaline Phosphatase 96 U/L (45-117); Anion Gap 8.4 mEq/L (5.0-15.0); BUN Blood Urea Nitrogen 19 mg/dL (7-18); Bicarbonate 25 mEq/L (21-32); Globulin 3.7 g/dL (2.3-3.5); Glomerular Filtration Rate 53 ml/min (=/>90); Glucose Level 128 mg/dL (74-106); Lipase 14 U/L (13-75); Potassium 3.4 mEq/L (3.5-5.1); Sodium Level 135 mEq/L (136-145); Troponin High Sensitivity 3.3 pg/mL (<58.9)
[2024-09-15 21:22] LABS: ALT/SGPT < 14 U/L (13-56)
[2024-09-15 21:24] LABS: Blood Morphology Comment NOT SEEN (NOT SEEN); Platelet Estimate DECR; White Blood Cell Scan OK (OK)
--- NOTE | 2024-09-15 21:48 | RAD REPORT ---
EXAMINATION: CT ABDOMEN AND PELVIS WITH CONTRAST CLINICAL INDICATION: Female, 64 years old.ABD PAIN TECHNIQUE: CT abdomen and pelvis was performed, after the administration of IV contrast, as per depar tment protocol. Axial, sagittal and coronal reconstructions were obtained. One or more of the following dose reduction techniques were used: Automated exposure control, adjustment of the mA and/o r kV according to patient size, and/or iterative reconstruction. Unless otherwise specified, incidental findings do not require dedicated imaging follow-up. [id number]. COMPARISON: 04/22/2024 FINDINGS: LOWER CHEST: Small left pleural effusion with underlying atelectasis.No significant pericardial effus ion. Mild circumferential thickening of the distal esophagus which could reflect esophagitis. UPPER GI: No significant abnormality. LIVER: Circular morphology. Low-density lesion in the left hepatic lobe measuring 3.5 cm. There is al so a new lesion located centrally near the hepatic veins measuring 1.7 cm. A previously identified cystic lesion in segment 4 is present measuring 15 mm. GALLBLADDER/BILE DUCTS: Cholecystectomy. Mild extra-hepatic biliary ductal dilatation is likely relat ed to the post-cholecystectomy state. Consider correlating with LFT's.? PANCREAS: Atrophy but no acute findings. SPLEEN: Mild splenomegaly. ADRENALS: No adrenal masses. KIDNEYS AND URETERS: No hydronephrosis.No suspicious renal mass.No renal calculi. ABDOMINAL AORTA AND OTHER VESSELS: Moderate atherosclerotic changes without aortic aneurysm. PERITONEUM: Large volume of ascites. LYMPH NODES: No pathologic lymphadenopathy. ABDOMINAL WALL: Body wall edema. SMALL BOWEL/COLON: Mild diffuse colonic and small bowel wall thickening may be related to underlying portal hypertension.Nonvisualized appendix but no secondary signs of acute appendicitis. Mild formed stool burden. URINARY BLADDER: Underdistended but grossly unremarkable. REPRODUCTIVE ORGANS: No pathologic process. MUSCULOSKELETAL: Remote L4 compression fracture. No acute fracture. ADDITIONAL FINDINGS: None. IMPRESSION: No acute findings within the abdomen or pelvis. New low-density area in the left hepatic lobe is nonspecific. Correlate with any prior history of alexa er mass ablation. Hepatic protocol MRI could better assess the cirrhotic liver for a suspicious masses. Large volume of ascites, small left pleural effusion, and body wall edema.
--- NOTE | 2024-09-15 22:16 | ER ---
Nurse's Notes [facility] Name: Ana Maria Chavez Age: 64 yrs Sex: Female : 1960 Arrival Date: 09/15/2024 Time: 19:22 Bed 19 Private MD: Diagnosis: Abdominal pain, liver cirrhosis Presentation: 09/15 19:40 Chief complaint: Patient states: abdominal pain- 8/10, abdominal distention. me1 constipation. Vomiting for past 3 days. Coronavirus screen: Vaccine status: Patient reports being unvaccinated. Ebola Screen: No symptoms or risks identified at this time. Initial Sepsis Screen: Does the patient meet any 2 criteria? No. Patient's initial sepsis screen is negative. Does the patient have a suspected source of infection? No. Patient's initial sepsis screen is negative. Risk Assessment: Do you want to hurt yourself or someone else? Patient reports no desire to harm self or others. Onset of symptoms was September 12, 2024. 19:40 Method Of Arrival: Ambulatory ky1 19:40 Acuity: LETY 3 me1 Triage Assessment: 19:42 General: Appears uncomfortable. Pain: Complains of pain in abdomen diffusely Pain me1 currently is 8 out of 10 on a pain scale. Quality of pain is described as pressure, Pain began gradually. GI: Reports lower abdominal pain, upper abdominal pain, constipation, vomiting. Historical: - Allergies: 19:42 tramadol; me1 19:42 Tylenol; me1 19:42 Ibuprofen; me1 - PMHx: 19:42 bone cancer; Cirrhosis; diabetes mellitus; gastric ulcers; Hepatitis C; liver cancer; me1 - PSHx: 19:42 Appendectomy; section; Cholecystectomy; Ligation of fallopian tube; me1 - Immunization history:: Adult Immunizations up to date. - Infectious Disease History:: Denies. - Social history:: Smoking status: Patient denies any tobacco usage or history of. Screenin:41 [facility] ED Fall Risk Assessment (Adult) History of falling in the last 3 months, cp4 including since admission No falls in past 3 months (0 pts) Confusion or Disorientation No (0 pts) Intoxicated or Sedated No (0 pts) Impaired Gait No (0 pts) Mobility Assist Device Used No (0 pt) Altered Elimination No (0 pt) Score/Fall Risk Level 0 - 2 = Low Risk Oriented to surroundings, Maintained a safe environment, Assessed \T\ reinforced patient's understanding of fall precautions, Hourly rounding (assess needs \T\ fall precautionary measures) done. Abuse screen: Denies threats or abuse. Denies injuries from another. Nutritional screening: No deficits noted. Tuberculosis screening: No symptoms or risk factors identified. Assessment: 21:41 General: Appears in no apparent distress. uncomfortable, Behavior is calm, cooperative, cp4 appropriate for age. Pain: Complains of pain in abdomen and abdomen diffusely Pain does not radiate. Pain currently is 8 out of 10 on a pain scale. Neuro: Level of Consciousness is awake, alert, obeys commands, Oriented to person, place, time, situation. Cardiovascular: Patient's skin is warm and dry. Respiratory: Airway is patent Respiratory effort is even, unlabored. GI: Abdomen is distended, Bowel sounds present X 4 quads. Abd is soft and non tender X 4 quads. : No signs and/or symptoms were reported regarding the genitourinary system. EENT: No signs and/or symptoms were reported regarding the EENT system. Derm: No signs and/or symptoms reported regarding the dermatologic system. Musculoskeletal: No signs and/or symptoms reported regarding the musculoskeletal system. Vital Signs: 19:40 BP 147 / 84; Pulse 79; Resp 18; Temp 98.2; Pulse Ox 98% ; Weight 66.68 kg; Height 5 ft. me1 0 in. ; Pain 8/10; 22:39 BP 119 / 54; Pulse 74; Resp 18; Pulse Ox 100% ; cp4 19:40 Body Mass Index 28.71 (66.68 kg, 152.4 cm) me1 19:40 Pain Scale: Adult ky1 ED Course: 19:25 Patient arrived in ED. jj6 19:42 Triage completed. me1 19:42 Arm band placed on Patient placed in waiting room. me1 20:14 Dot Franco MD is Attending Physician. sp3 20:31 Radiology exam delayed due to lab results not completed at this time. (BUN/Creatinine) nj IV insertion attempt and/or patient not having appropriate IV at this time. 20:53 CBC with Diff Sent. cm10 20:53 CMP Sent. cm10 20:53 Lipase Sent. cm10 20:53 Initial lab(s) drawn, by ky, sent to lab. Inserted saline lock: 22 gauge in right cm10 forearm, using aseptic technique. Blood collected. Flushed with 10 mL NS. Missed attempt(s): 20 gauge in right forearm. Bleeding controlled, band aid applied, catheter tip intact. 21:02 Beverly Estes is Primary Nurse. cp4 21:13 CBC with Diff Sent. vk 21:13 CMP Sent. vk 21:13 Lipase Sent. vk 21:35 CT Abd/Pelvis - IV Contrast Only In Process Unspecified. EDMS 21:41 Bed in low position. Call light in reach. Side rails up X 1. cp4 21:41 No provider procedures requiring assistance completed. cp4 22:40 Provided Education on: abdominal pain. cp4 22:40 intact, bleeding controlled, No redness/swelling at site. Pressure dressing applied. cp4 Administered Medications: 21:28 Drug: Ondansetron IVP 4 mg IVP once; over 2 minutes Route: IVP; Site: right antecubital;cp4 22:38 Follow up: Response: No adverse reaction; Nausea is decreased cp4 21:28 Not Given (Patient Refused): morphineor iv 4 mg IVP once over 4 mins cp4 21:28 Drug: NS 0.9% IV 1000 ml IV at 1 bolus Per protocol; to be given as a bolus over 60 cp4 minutes Route: IV; Rate: 1 bolus; Site: right antecubital; 22:39 Follow up: Response: No adverse reaction; IV Status: Completed infusion cp4 Medication: 21:41 VIS not applicable for this client. cp4 Outcome: 22:15 Discharge ordered by . sp3 22:48 Discharged to home ambulatory, cp4 22:48 Condition: stable 22:48 Discharge instructions given to patient, family, Instructed on discharge instructions, follow up and referral plans. Demonstrated understanding of instructions, follow-up care, 22:49 Patient left the ED. cp4 Signatures: Dispatcher [employer] EDPR Magnus Gaxiola Setul, MD MD sp3 Farnaz Colon6 Veronica De Luna RN RN 10 Karen Melara RN RN ky1 Beverly Estes cp4 Vesta Torre Corrections: (The following items were deleted from the chart) 22:35 22:33 BP 108 / 91 Supine; Pulse 77bpm; Pulse Ox 100% RA; vk vk 22:35 22:34 BP 152 / 68 Sitting; Pulse 77bpm; Pulse Ox 100% RA; vk vk 22:35 22:34 BP 121 / 49; Pulse 76bpm; Pulse Ox 100% Nasal Cannula; vk vk 22:39 22:34 BP 152 / 68 Sitting; Pulse 77bpm; Pulse Ox 100% Nasal Cannula; vk vk 22:39 22:33 BP 108 / 91 Supine; Pulse 77bpm; Pulse Ox 100% Nasal Cannula; vk vk 22:39 22:34 BP 121 / 49 Standing; Pulse 76bpm; Pulse Ox 100% Nasal Cannula; vk vk
--- NOTE | 2024-09-15 22:16 | EDPHYS ---
Physician Documentation [facility] Name: Ana Maria Chavez Age: 64 yrs Sex: Female : 1960 Arrival Date: 09/15/2024 Time: 19:22 Bed 19 Private MD: ED Physician Dot Franco HPI: 09/15 20:55 This 64 yrs old Female presents to ER via Ambulatory with complaints of sp3 Abdominal Swelling, Constipation, Abdominal Pain. 20:55 64-year-old female with a history of prior liver cancer, hepatitis C, cirrhosis of the sp3 liver, diabetes, gastric ulcer now presents to the ED with chief complaint abdominal swelling, bloating and nausea.. Historical: - Allergies: 19:42 tramadol; me1 19:42 Tylenol; me1 19:42 Ibuprofen; me1 - PMHx: 19:42 bone cancer; Cirrhosis; diabetes mellitus; gastric ulcers; Hepatitis C; liver cancer; me1 - PSHx: 19:42 Appendectomy; section; Cholecystectomy; Ligation of fallopian tube; me1 - Immunization history:: Adult Immunizations up to date. - Infectious Disease History:: Denies. - Social history:: Smoking status: Patient denies any tobacco usage or history of. ROS: 21:00 Constitutional: Negative for fever, chills, and weight loss, Eyes: Negative for injury, sp3 pain, redness, and discharge, Neck: Negative for injury, pain, and swelling, Cardiovascular: Negative for chest pain, palpitations, and edema, Respiratory: Negative for shortness of breath, cough, wheezing, and pleuritic chest pain, Back: Negative for injury and pain, MS/Extremity: Negative for injury and deformity, Skin: Negative for injury, rash, and discoloration, Neuro: Negative for headache, weakness, numbness, tingling, and seizure, Psych: Negative for depression, anxiety, suicide ideation, homicidal ideation, and hallucinations, Allergy/Immunology: Negative for hives, rash, and allergies, Endocrine: Negative for neck swelling, polydipsia, polyuria, polyphagia, and marked weight changes, Hematologic/Lymphatic: Negative for swollen nodes, abnormal bleeding, and unusual bruising, 21:00 All other systems are negative, Exam: 21:01 Constitutional: This is a well developed, well nourished patient who is awake, alert, sp3 and in no acute distress. Head/Face: Normocephalic, atraumatic. Eyes: Pupils equal round and reactive to light, extra-ocular motions intact. Lids and lashes normal. Conjunctiva and sclera are non-icteric and not injected. Cornea within normal limits. Periorbital areas with no swelling, redness, or edema. ENT: Nares patent. No nasal discharge, no septal abnormalities noted. External auditory canals are clear. Oropharynx with no redness, swelling, or masses, exudates, or evidence of obstruction, uvula midline. Mucous membranes moist. Neck: Trachea midline, no thyromegaly or masses palpated, and no cervical lymphadenopathy. Supple, full range of motion without nuchal rigidity, or vertebral point tenderness. No Meningismus. Chest/axilla: Normal chest wall appearance and motion. Nontender with no deformity. No lesions are appreciated. Cardiovascular: Regular rate and rhythm with a normal S1 and S2. No gallops, murmurs, or rubs. Normal PMI, no JVD. No pulse deficits. Respiratory: Lungs have equal breath sounds bilaterally, clear to auscultation and percussion. No rales, rhonchi or wheezes noted. No increased work of breathing, no retractions or nasal flaring. Back: No spinal tenderness. No costovertebral tenderness. Full range of motion. Skin: Warm, dry with normal turgor. Normal color with no rashes, no lesions, and no evidence of cellulitis. MS/ Extremity: Pulses equal, no cyanosis. Neurovascular intact. Full, normal range of motion. Neuro: Awake and alert, GCS 15, oriented to person, place, time, and situation. Cranial nerves II-XII grossly intact. Motor strength 5/5 in all extremities. Sensory grossly intact. Cerebellar exam normal. Normal gait. Psych: Awake, alert, with orientation to person, place and time. Behavior, mood, and affect are within normal limits. 21:01 Abdomen/GI: Diffuse abdominal pain to palpation without peritoneal signs, rebound or guarding. Vital signs are normal., 22:27 ECG was reviewed by the Attending Physician. EKG demonstrates normal sinus rhythm at 68 sp3 bpm with normal intervals, normal QRS, axis, nonspecific diffuse ST/T changes without evidence of acute ischemia. Vital Signs: 19:40 BP 147 / 84; Pulse 79; Resp 18; Temp 98.2; Pulse Ox 98% ; Weight 66.68 kg; Height 5 ft. me1 0 in. ; Pain 8/10; 22:39 BP 119 / 54; Pulse 74; Resp 18; Pulse Ox 100% ; cp4 19:40 Body Mass Index 28.71 (66.68 kg, 152.4 cm) me1 19:40 Pain Scale: Adult me1 MDM: 20:14 Medical Screening Exam initiated sp3 21:01 Data reviewed: vital signs, nurses notes, old medical records, lab test result(s), sp3 radiologic studies. ED course: 64-year-old female with liver cirrhosis from prior cancer and PMH above now presents with abdominal pain recurrent in nature and abdominal bloating and swelling. Differential diagnosis includes fluid overload, acute on chronic liver failure, other intra-abdominal process, among others. Workup will include CT scan of the abdomen pelvis with IV contrast, general labs, supportive care, morphine and Zofran for pain control.. 22:15 ED course: Full workup negative. Mild constipation and ascites noted. Vital signs sp3 remain normal. Patient is in no acute distress. We will discharge home with follow-up to her GI team.. 09/15 20:29 Order name: CBC with Diff; Complete Time: 21:56 sp3 09/15 20:29 Order name: CMP; Complete Time: 21:56 sp3 09/15 20:29 Order name: Lipase; Complete Time: 21:56 sp3 09/15 20:29 Order name: Troponin High Sensitivity; Complete Time: 21:56 sp3 09/15 21:03 Order name: CBC Smear Scan; Complete Time: 21:56 EDMS 09/15 20:29 Order name: CT Abd/Pelvis - IV Contrast Only; Complete Time: 21:56 sp3 09/15 20:29 Order name: IV Saline Lock; Complete Time: 20:53 sp3 09/15 20:29 Order name: Labs collected and sent; Complete Time: 20:53 sp3 09/15 20:29 Order name: EKG - Nurse/Tech; Complete Time: 21:13 sp3 Administered Medications: 21:28 Drug: Ondansetron IVP 4 mg IVP once; over 2 minutes Route: IVP; Site: right antecubital;cp4 22:38 Follow up: Response: No adverse reaction; Nausea is decreased cp4 21:28 Not Given (Patient Refused): morphineor iv 4 mg IVP once over 4 mins cp4 21:28 Drug: NS 0.9% IV 1000 ml IV at 1 bolus Per protocol; to be given as a bolus over 60 cp4 minutes Route: IV; Rate: 1 bolus; Site: right antecubital; 22:39 Follow up: Response: No adverse reaction; IV Status: Completed infusion cp4 Disposition Summary: 09/15/24 22:15 Discharge Ordered Notes: Location: Home sp3 Condition: Stable sp3 Diagnosis - Abdominal pain, liver cirrhosis sp3 Followup: sp3 - With: Private Physician - When: Upon discharge from the Emergency Department - Reason: Continuance of care Discharge Instructions: - Discharge Summary Sheet sp3 - Abdominal Pain, Adult sp3 Forms: - Medication Reconciliation Form sp3 - Antibiotic Education sp3 - Prescription Opioid Use sp3 - Patient Portal Instructions sp3 - Leadership Thank You Letter sp3 Signatures: Dispatcher [employer] Dot Maynard MD MD sp3 Karen Melara RN RN me1 Beverly Estes cp4 Corrections: (The following items were deleted from the chart) 20:30 20:30 Abdomen Pelvis W Con+CT.RAD.BRZ ordered. EDMS NAVNEET
[2024-09-15 23:09] VITALS: TEMP 98.2
[2024-09-15 23:15] VITALS: BP 119/54; O2SAT 100
--- NOTE | 2024-09-16 12:11 | EKG ---
Test Date: 2024-09-15 Test Time: 21:22:48 Fuel Conversion Technician: MORGAN MEASUREMENT RESULTS: Intervals: Rate: 68 WI: 134 QRSD: 88 QT: 414 QTc: 440 Swoope: P: 11 WI: 134 QRS: 20 T: 34 INTERPRETIVE STATEMENTS: Normal sinus rhythm Cannot rule out Anterior infarct, age undetermined Abnormal ECG Compared to ECG 05/13/2024 05:58:22 Myocardial infarct finding now present Atrial fibrillation no longer present ST (T wave) deviation no longer present Electronically Signed On 09-16-24 12:10:35 GROOMING ASSISTANT by Jr Nicholson
== END 2024-09-15 22:49 | disposition home or self-care (01) ==
LOC: ER 19:22
DX: K74.60 Unspecified cirrhosis of liver (principal); R18.8 Other ascites; K59.00 Constipation, unspecified; Z85.05 Personal history of malignant neoplasm of liver; Z85.830 Personal history of malignant neoplasm of bone
CPT/HCPCS: 96361; 93005; 85025; 36415; 84484; 83690; 80053; 74177; 96374; 99284; Q9967; J2405; J7030

== ENCOUNTER 2024-10-02 01:05 | Emergency (ER) | payer OTHER ==
[2024-10-02 02:30] LABS: AST/SGOT 23 U/L (15-37); Albumin 2.4 g/dL (3.4-5.0); Albumin/Globulin Ratio 0.5 (1.1-1.8); Alkaline Phosphatase 94 U/L (45-117); Anion Gap 8.1 mEq/L (5.0-15.0); BUN Blood Urea Nitrogen 19 mg/dL (7-18); Bicarbonate 25 mEq/L (21-32); Bilirubin Total 2.6 mg/dL (0.2-1.0); Globulin 4.4 g/dL (2.3-3.5); Glomerular Filtration Rate 49 ml/min (=/>90); Glucose Level 136 mg/dL (74-106); Lipase 11 U/L (13-75); Potassium 4.1 mEq/L (3.5-5.1); Protein, Total 6.8 g/dL (6.4-8.2); Sodium Level 136 mEq/L (136-145)
[2024-10-02 02:31] LABS: C-Reactive Protein 14.1 mg/L (<3.00); Troponin High Sensitivity 7.7 pg/mL (<58.9)
[2024-10-02 02:35] LABS: ALT/SGPT < 14 U/L (13-56)
[2024-10-02 02:38] LABS: Absolute Basophils 0.1 K/uL (0-0.5); Absolute Lymphocytes (CBC) 0.8 K/uL (0.7-4.9); Absolute Monocytes 0.8 K/uL (0.1-1.3); Absolute Neutrophil 5.4 K/uL (1.8-8.0); Basophils % 0.8 % (0-1.3); Eosinophils % 0.7 % (0-4.4); Hemoglobin 12.6 g/dL (12.0-15.0); Lymphocytes % 11.1 % (15.3-44.8); MCH 34.6 pg (27.0-35.0); MCHC 35.1 g/dL (32.0-36.0); MCV 98.8 fL (80-100); Monocytes % 10.9 % (3.3-12.3); Neutrophils % 76.5 % (41.7-73.7); Platelets 96 thou/uL (152-406); RBC Red Blood Cell Count 3.64 M/uL (3.86-4.86); Red Cell Distribution Width 14.3 % (12.1-15.2)
[2024-10-02] MEDS ORDERED: CEFTRIAXONE 1000 MG/VIAL ONE (02:48)
[2024-10-02] MEDS ORDERED: ONDANSETRON 4 MG/2 ML VIAL ONE (02:48)
[2024-10-02] MEDS ORDERED: FUROSEMIDE 40 MG/4 ML VIAL ONE (02:48)
[2024-10-02] MEDS ORDERED: MORPHINE 4 MG/ML SYR ONE ×2 (02:48→16:50)
[2024-10-02] MEDS ORDERED: ALBUMIN HUMAN 25% 100 ML IV ONE (02:49)
[2024-10-02] MEDS ORDERED: NA CHLORIDE 0.9% 50 ML ONE (02:49)
[2024-10-02 04:09] LABS: Blood Morphology Comment NOT SEEN (NOT SEEN); Platelet Estimate DECR; White Blood Cell Scan OK (OK)
[2024-10-02 06:02] LABS: Sqamous Epithelial <5 /HPF (None Seen); Urine Bacteria <20 /HPF (<20); Urine Bilirubin NEGATIVE (Negative); Urine Blood 1+ (Negative); Urine Clarity Turbid (Clear); Urine Color Light-Yellow (Yellow); Urine Culture Reflex Order NOT NEEDED; Urine Glucose NEGATIVE (Negative); Urine Ketones NEGATIVE (Negative); Urine Microscopic Reflex YN ORDER UMIC; Urine Nitrite NEGATIVE (Negative); Urine Protein NEGATIVE (Negative); Urine RBC <5 /HPF (None Seen); Urine Urobilinogen Normal (Normal); Urine WBC <5 /HPF (<5)
--- NOTE | 2024-10-02 06:13 | RAD REPORT ---
EXAM DESCRIPTION: Abdomen Pelvis Wo Contrast CLINICAL HISTORY: ABD PAIN COMPARISON: 09/15/2024 TECHNIQUE: CT of the abdomen and pelvis without IV contrast. Evaluation of the solid organs and vascu lature is suboptimal due to lack of IV contrast. This exam was performed according to our departmental dose-optimization program, which includes automated exposure control, adjustment of the mA and/or kV according to patient size and/or use of iterative reconstruction technique. FINDINGS: Lung Bases: Left pleural effusion and adjacent opacities are similar to prior examination. Abdomen: Liver: Cirrhotic liver morphology. Hypodense liver lesions are grossly unchanged allowing lack of IV contrast on the current study. Gallbladder: Surgically absent. Spleen, Pancreas, and Adrenal Glands: The spleen, pancreas, and adrenal glands are unremarkable. Kidneys: The kidneys have normal size without suspicious mass within the limitations of noncontrast t echnique. No obstructing ureteral calculi. No hydronephrosis. Vasculature: The aorta and IVC have normal caliber and position. Stomach: There may be some diffuse gastric wall thickening. Other: No free intraperitoneal air. Large volume ascites. Diffuse subcutaneous edema. Pelvis: Bladder: Under distended. Possible mild cystocele. Bowel: No bowel obstruction. Areas of small bowel and colon wall thickening probably due to underly ing liver disease. Appearance is similar to prior. Appendix: Not visualized. Pelvis: Uterus and ovaries are not enlarged. Bones: No destructive bone lesions identified. Stable chronic compression deformity at L4. IMPRESSION: 1. Cirrhotic liver morphology with large volume ascites. Hypodense liver masses are grossly unchang ed. MRI could be performed for further characterization. 2. Diffuse gastric wall thickening and areas of small bowel and colon wall thickening probably due to underlying liver disease. 3. Left pleural effusion and adjacent opacities are similar to prior examination. Electronically signed by: Natalie Santacruz MD 10/02/2024 05:05 AM CDT RP Due to temporary technical issues with the PACS/[employer] reporting system, reports are being jairo d by the in-house radiologist without review as a courtesy to ensure prompt reporting the interpreting radiologist is fully responsible for the content of the report. Transcribed Date/Time: 10/02/2024 6:13 AM
--- NOTE | 2024-10-02 06:32 | ER ---
Nurse's Notes [facility] Name: Ana Maria Chavez Age: 64 yrs Sex: Female : 1960 Arrival Date: 10/02/2024 Time: 01:05 Bed 20 Private MD: Diagnosis: Acute on chronic liver failure, tense abdominal ascites, liver mass, left pleural effusion, acute abdominal pain, acute nausea vomiting Presentation: 10/02 01:20 Chief complaint: Patient states: abdominal swelling x 2 days reports no improvement kl with medication. Coronavirus screen: Vaccine status: Patient reports being unvaccinated. Ebola Screen: Patient negative for fever greater than or equal to 101.5 degrees Fahrenheit, and additional compatible Ebola Virus Disease symptoms. Initial Sepsis Screen: Does the patient meet any 2 criteria? No. Patient's initial sepsis screen is negative. Does the patient have a suspected source of infection? No. Patient's initial sepsis screen is negative. Risk Assessment: Do you want to hurt yourself or someone else? Patient reports no desire to harm self or others. Onset of symptoms was September 29, 2024. 01:20 Method Of Arrival: Wheelchair kl 01:20 Acuity: LETY 3 kl Triage Assessment: 01:26 General: Appears uncomfortable, Behavior is calm, cooperative. Pain: Complains of pain kl in abdomen. GI: Abdomen is noted to have ascites. Historical: - Allergies: 01:25 Ibuprofen; kl 01:25 tramadol; kl 01:25 Tylenol; kl - PMHx: 01:25 bone cancer; Cirrhosis; diabetes mellitus; gastric ulcers; Hepatitis C; liver cancer; kl - PSHx: 01:25 Appendectomy; section; Cholecystectomy; Ligation of fallopian tube; kl - Immunization history:: Adult Immunizations not up to date. - Infectious Disease History:: Denies. - Social history:: Smoking status: Patient/guardian denies using tobacco, but has a distant history of tobacco abuse. - Family history:: not pertinent. Screenin:07 [facility] ED Fall Risk Assessment (Adult) History of falling in the last 3 months, al5 including since admission No falls in past 3 months (0 pts) Confusion or Disorientation No (0 pts) Intoxicated or Sedated No (0 pts) Impaired Gait Yes (1 pt) Mobility Assist Device Used Yes (1 pt) Altered Elimination Yes (1 pt) Score/Fall Risk Level 3 or more points = High Risk Oriented to surroundings, Maintained a safe environment, Hourly rounding (assess needs \T\ fall precautionary measures) done. Abuse screen: Denies threats or abuse. Denies injuries from another. Nutritional screening: No deficits noted. Tuberculosis screening: No symptoms or risk factors identified. Assessment: 03:08 General: Appears in no apparent distress. uncomfortable, Behavior is calm, cooperative. al5 Pain: Complains of pain in abdomen. Neuro: Level of Consciousness is awake, alert, obeys commands, Oriented to person, place, time, situation. Cardiovascular: Capillary refill < 3 seconds Patient's skin is warm and dry. Respiratory: Airway is patent Respiratory effort is even, unlabored, Respiratory pattern is regular, symmetrical. GI: Abdomen is round distended, Bowel sounds present X 4 quads. Abdomen is tender to palpation in left upper quadrant and left lower quadrant Abd is rigid X 4 quads. : No signs and/or symptoms were reported regarding the genitourinary system. EENT: No signs and/or symptoms were reported regarding the EENT system. Derm: Skin is intact, is healthy with good turgor, Skin is pink, warm \T\ dry. normal. Musculoskeletal: No signs and/or symptoms reported regarding the musculoskeletal system. 04:30 Reassessment: Patient appears in no apparent distress at this time. No changes from al5 previously documented assessment. Patient and/or family updated on plan of care and expected duration. Pain level reassessed. Patient is alert, oriented x 3, equal unlabored respirations, skin warm/dry/pink. 05:41 Reassessment: Patient appears in no apparent distress at this time. No changes from al5 previously documented assessment. Patient and/or family updated on plan of care and expected duration. Pain level reassessed. Patient is alert, oriented x 3, equal unlabored respirations, skin warm/dry/pink. 06:56 Reassessment: Patient appears in no apparent distress at this time. No changes from al5 previously documented assessment. Patient and/or family updated on plan of care and expected duration. Pain level reassessed. Patient is alert, oriented x 3, equal unlabored respirations, skin warm/dry/pink. 07:15 Reassessment: Patient appears in no apparent distress at this time. Patient and/or db family updated on plan of care and expected duration. Pain level reassessed. Patient is alert, oriented x 3, equal unlabored respirations, skin warm/dry/pink. General: Appears in no apparent distress. comfortable, Behavior is calm, cooperative. Neuro: Level of Consciousness is awake, alert, obeys commands, Oriented to person, place, time, situation. Respiratory: Airway is patent Respiratory effort is even, unlabored, Respiratory pattern is regular, symmetrical. 08:00 Reassessment: Patient appears in no apparent distress at this time. Patient and/or db family updated on plan of care and expected duration. Pain level reassessed. Patient is alert, oriented x 3, equal unlabored respirations, skin warm/dry/pink. 09:00 Reassessment: Patient appears in no apparent distress at this time. Patient and/or db family updated on plan of care and expected duration. Pain level reassessed. Patient is alert, oriented x 3, equal unlabored respirations, skin warm/dry/pink. 10:12 Reassessment: Patient appears in no apparent distress at this time. Patient and/or db family updated on plan of care and expected duration. Pain level reassessed. Patient is alert, oriented x 3, equal unlabored respirations, skin warm/dry/pink. 12:01 Reassessment: Patient appears in no apparent distress at this time. Patient and/or db family updated on plan of care and expected duration. Pain level reassessed. RESTING SLEEPING NAD. RESPIRATIONS EVEN AND UNLABOR. 12:40 Reassessment: Patient appears in no apparent distress at this time. Patient and/or db family updated on plan of care and expected duration. Pain level reassessed. PENDING ROOM AVAILABILITY AT RECEIVING FACILITY. PT STATES DOES NOT NEED ANYTHING AT THIS TIME. 15:32 Reassessment: Patient appears in no apparent distress at this time. Patient and/or db family updated on plan of care and expected duration. Pain level reassessed. Patient is alert, oriented x 3, equal unlabored respirations, skin warm/dry/pink. 16:59 Reassessment: PATIENT COMPLAINED OF ABD PAIN. SEE MAR FOR MEDICATION ADMINISTRATION OF db PAIN MEDICATION. 18:00 Reassessment: Patient appears in no apparent distress at this time. Patient and/or db family updated on plan of care and expected duration. Pain level reassessed. Patient states feeling better. 18:21 Reassessment: CALLED [facility] TO GIVE PT REPORT. PT GOING TO ROOM 2131. db 18:29 Reassessment: REPORT GIVEN TO DERREK GAMBLE AT [facility]. db 18:52 Reassessment: EMS ARRIVAL FOR PATIENT TRANSPORT. db Vital Signs: 01:20 BP 131 / 73; Pulse 88; Resp 18; Temp 98.6; Pulse Ox 99% on R/A; Pain 8/10; kl 01:45 BP 145 / 72; Pulse 87; Resp 18; Pulse Ox 98% ; al5 02:00 BP 125 / 67; Pulse 83; Resp 18; Pulse Ox 98% ; al5 02:30 BP 134 / 70; Pulse 80; Resp 19; Pulse Ox 99% ; al5 03:00 BP 163 / 77; Pulse 84; Resp 19; Pulse Ox 99% ; al5 03:30 BP 132 / 73; Pulse 78; Resp 18; Pulse Ox 98% ; al5 04:00 BP 127 / 73; Pulse 78; Resp 19; Pulse Ox 96% ; al5 04:30 BP 116 / 73; Pulse 76; Resp 19; Pulse Ox 96% ; al5 05:00 BP 123 / 71; Pulse 74; Resp 18; Pulse Ox 96% ; al5 05:30 BP 124 / 67; Pulse 74; Resp 18; Pulse Ox 95% ; al5 06:00 BP 114 / 68; Pulse 72; Resp 15; Pulse Ox 95% ; al5 06:30 BP 151 / 84; Pulse 80; Resp 20; Pulse Ox 97% ; al5 07:15 BP 124 / 71; Pulse 76; Resp 14; Pulse Ox 97% ; db 08:00 BP 114 / 69; Pulse 72; Resp 16; Pulse Ox 96% on R/A; db 09:00 BP 109 / 67; Pulse 74; Resp 14; Pulse Ox 99% on R/A; db 09:45 BP 130 / 70; Pulse 71; Resp 14; Pulse Ox 95% on R/A; db 10:30 BP 109 / 72; Pulse 68; Resp 14; Pulse Ox 96% on R/A; db 11:15 BP 106 / 66; Pulse 67; Resp 14; Pulse Ox 96% ; db 12:45 BP 103 / 65; Pulse 66; Resp 14; Pulse Ox 97% on R/A; db 15:00 BP 118 / 78; Pulse 67; Resp 12; Temp 98.6; Pulse Ox 96% on R/A; db 16:00 BP 124 / 72; Pulse 71; Resp 16; Pulse Ox 97% ; db 16:45 Pain 8/10; db 17:00 BP 134 / 64; Pulse 75; Resp 16; Pulse Ox 96% ; db 18:49 BP 139 / 73; Pulse 66; Resp 13; Pulse Ox 97% ; db 01:20 Pain Scale: Adult kl 16:45 Pain Scale: Adult db Javier Coma Score: 06:15 Eye Response: spontaneous(4). Motor Response: obeys commands(6). Verbal Response: sp4 oriented(5). Total: 15. ED Course: 01:07 Patient arrived in ED. im 01:22 Brian Mcnally MD is Attending Physician. sp4 01:25 Triage completed. kl 01:54 CBC with Diff Sent. af3 01:54 CMP Sent. af3 01:54 Lipase Sent. af3 01:54 Inserted saline lock: 20 gauge in right antecubital area, using aseptic technique. af3 Blood collected. Flushed with 10 mL NS. 01:54 Initial lab(s) drawn, by me, sent to lab. af3 02:28 Nadine Pham, RN is Primary Nurse. al5 02:37 CT Abd/Pelvis - Without Contrast In Process Unspecified. EDMS 02:39 AMMONIA Sent. af3 03:06 Arm band placed on right wrist. al5 03:07 Patient has correct armband on for positive identification. Placed in gown. Bed in low al5 position. Call light in reach. Side rails up X2. Provided Education on: plan of care. 03:08 No provider procedures requiring assistance completed. al5 06:09 Initiated transfer with Jayda at [facility]. rv1 06:[address] Ligia Goldman's (pt liver transplant ) on-call service for consult rv1 with Dr. Mcnally. Doctor was paged and will call back. # [phone] # [phone]. 06:23 [facility] declined due to capacity. Jayda said to call back in a few hours to see rv1 if bed is available. 07:18 Attending Physician role handed off by Brian Mcnally MD ec2 07:18 Agapito Bush MD is Attending Physician. ec2 08:22 spoke with Bonita at [facility] she informed me still waiting on bed bc6 acceptance. 10:46 SPOKE WITH HOANG AT [facility] . INFORMED BED STILL PENDING. bc6 12:51 HOANG WITH [facility] INFORMED ME BED PLACEMENT PENDING. bc6 15:32 HOANG WITH [facility] INFORMED ME BED STILL PENDING. bc6 15:36 OXANA YEE INFORMED ME BED IS STILL PENDING. bc6 17:50 acceptance with [facility] bc6 18:47 [facility] accepted transfer. bc6 19:03 Patient transferred, IV remains in place. db 19:03 Warm blanket given. db Administered Medications: 02:58 Drug: Rocephin - Rocephin (cefTRIAXone) IVPB 1 grams IVPB once over 30 mins; (mix in 50 al5 mL NS) Route: IVPB; Infused Over: 30 mins; Site: right antecubital; 07:22 Follow up: Response: No adverse reaction; IV Status: Completed infusion db 03:06 Drug: Ondansetron IVP 8 mg IVP once; over 2 minutes Route: IVP; Site: right antecubital;al5 05:41 Follow up: Response: No adverse reaction; Nausea is decreased al5 03:07 Drug: Albumin IVPB 25 grams 100 ml IVPB once; (Note: Albumin 25% concentration) Volume: al5 100 ml; Route: IVPB; Site: right antecubital; 05:42 Follow up: IV Status: Completed infusion; IV Intake: 100ml al5 03:07 Drug: Furosemide IVP 40 mg IVP once; give over 2 minutes Route: IVP; Site: right al5 antecubital; 05:42 Follow up: Response: No adverse reaction al5 03:07 Drug: morphine IVP or IV 4 mg IVP once over 4 mins Route: IVP; Infused Over: 4 mins; al5 Site: right antecubital; 05:42 Follow up: Response: No adverse reaction; Pain is decreased al5 06:43 Drug: hydrOXYzine PO 25 mg PO once Route: PO; al5 07:22 Follow up: Response: No adverse reaction; Anxiety decreased db 16:52 Drug: morphine IVP or IV 4 mg IVP once over 4 mins Route: IVP; Infused Over: 4 mins; db Site: right antecubital; 17:30 Follow up: Response: No adverse reaction; Pain is decreased db Medication: 03:28 VIS not applicable for this client. al5 Point of Care Testing: Blood Glucose: 18:35 Blood Glucose: 93 mg/dL; db Ranges: Intake: 05:42 IV: 100ml; Total: 100ml. al5 17:[address] db Output: 17:22 Urine: 625ml (Voided); Total: 625ml. db 17:[address] db Outcome: 06:32 ER care complete, transfer ordered by . sp4 19:03 Transferred by ground EMS to [facility], Transfer form completed. db X-rays sent w/ patient. 19:03 Condition: stable 19:03 Instructed on the need for transfer, 19:04 Patient left the ED. db Signatures: Dispatcher [employer] Nellie Harden, RN Leonor Garner RN RN db Kami Downing rv1 Nerissa Marr [facility] Brian Mcnally MD MD sp4 Sydney Strong Edwin, MD MD ec2 Nadine Pham RN RN al5 Munira Diaz af3 Corrections: (The following items were deleted from the chart) 06:30 06:[address] Ligia Goldman's on-call service for consult with Dr. Mcnalyl. rv1 Doctor was paged and will call back. # [phone] # [phone] rv1 09:53 08:22 spoke with Bonita at [facility] she informed me still waiting on [facility] bed placement. [facility] 19:03 19:03 Instructed on the need for admit, db db
--- NOTE | 2024-10-02 06:32 | EDPHYS ---
Physician Documentation [facility] Dejuan Name: Ana Maria Chavez Age: 64 yrs Sex: Female : 1960 Arrival Date: 10/02/2024 Time: 01:05 Bed 20 Private MD: ED Physician Agapito Bush HPI: 10/02 01:22 This 64 yrs old Female presents to ER via Unassigned with complaints of sp4 Abdominal Pain, Vomiting, Abdominal Swelling. 06:15 64-year-old female history of hepatitis C and multiple liver masses, apparently on the sp4 liver transplant list at [facility], presents with moderate abdominal pain, vomiting, abdominal swelling, abdominal distention and tense ascites. Also complaint of shortness of breath.. Historical: - Allergies: 01:25 Ibuprofen; kl 01:25 tramadol; kl 01:25 Tylenol; kl - PMHx: 01:25 bone cancer; Cirrhosis; diabetes mellitus; gastric ulcers; Hepatitis C; liver cancer; kl - PSHx: 01:25 Appendectomy; section; Cholecystectomy; Ligation of fallopian tube; kl - Immunization history:: Adult Immunizations not up to date. - Infectious Disease History:: Denies. - Social history:: Smoking status: Patient/guardian denies using tobacco, but has a distant history of tobacco abuse. - Family history:: not pertinent. ROS: 06:15 Constitutional: Negative for fever, chills, and weight loss, positive abdominal sp4 distention, positive abdominal pain, positive vomiting, positive tense ascites 06:15 All other systems are negative, Exam: 06:15 Constitutional: Ill-appearing female, diffusely edematous, particularly abdominal and sp4 bilateral lower extremity swelling, tense ascites, jaundice, signs of chronic liver disease, signs of physical deconditioning. Head/Face: Normocephalic, atraumatic. Eyes: Pupils equal round and reactive to light, extra-ocular motions intact. Lids and lashes normal. Icteric sclera, cornea within normal limits. Periorbital areas with no swelling, redness, or edema. ENT: Nares patent. No nasal discharge, no septal abnormalities noted. Tympanic membranes are normal and external auditory canals are clear. Oropharynx with no redness, swelling, or masses, exudates, or evidence of obstruction, uvula midline. Mucous membranes moist. Neck: Trachea midline, no thyromegaly or masses palpated, and no cervical lymphadenopathy. Supple, full range of motion without nuchal rigidity, or vertebral point tenderness. Chest/axilla: Normal chest wall appearance and motion. Nontender with no deformity. No lesions are appreciated. Cardiovascular: Regular rate and rhythm with a normal S1 and S2. No gallops, murmurs, or rubs. Normal PMI, no JVD. No pulse deficits. Respiratory: Lungs have equal breath sounds bilaterally, clear to auscultation and percussion. No rales, rhonchi or wheezes noted. No increased work of breathing, no retractions or nasal flaring. Abdomen/GI: Soft, with normal bowel sounds. No distension or tympany. No guarding or rebound. No evidence of tenderness throughout. Back: No spinal tenderness. No costovertebral tenderness. Skin: Warm, dry with normal turgor. Normal color with no rashes, no lesions, and no evidence of cellulitis. MS/ Extremity: Pulses equal, no cyanosis. Neurovascular intact. Full, normal range of motion. Neuro: Awake and alert, GCS 15, oriented to person, place, time, and situation. Cranial nerves II-XII grossly intact. Motor strength 5/5 in all extremities. Sensory grossly intact. Psych: Awake, alert, with orientation to person, place and time. Behavior, mood, and affect are within normal limits 06:15 ECG was reviewed by the Attending Physician. EKG 0 246 normal sinus rhythm at rate 80. Normal EKG Vital Signs: 01:20 BP 131 / 73; Pulse 88; Resp 18; Temp 98.6; Pulse Ox 99% on R/A; Pain 8/10; kl 01:45 BP 145 / 72; Pulse 87; Resp 18; Pulse Ox 98% ; al5 02:00 BP 125 / 67; Pulse 83; Resp 18; Pulse Ox 98% ; al5 02:30 BP 134 / 70; Pulse 80; Resp 19; Pulse Ox 99% ; al5 03:00 BP 163 / 77; Pulse 84; Resp 19; Pulse Ox 99% ; al5 03:30 BP 132 / 73; Pulse 78; Resp 18; Pulse Ox 98% ; al5 04:00 BP 127 / 73; Pulse 78; Resp 19; Pulse Ox 96% ; al5 04:30 BP 116 / 73; Pulse 76; Resp 19; Pulse Ox 96% ; al5 05:00 BP 123 / 71; Pulse 74; Resp 18; Pulse Ox 96% ; al5 05:30 BP 124 / 67; Pulse 74; Resp 18; Pulse Ox 95% ; al5 06:00 BP 114 / 68; Pulse 72; Resp 15; Pulse Ox 95% ; al5 06:30 BP 151 / 84; Pulse 80; Resp 20; Pulse Ox 97% ; al5 07:15 BP 124 / 71; Pulse 76; Resp 14; Pulse Ox 97% ; db 08:00 BP 114 / 69; Pulse 72; Resp 16; Pulse Ox 96% on R/A; db 09:00 BP 109 / 67; Pulse 74; Resp 14; Pulse Ox 99% on R/A; db 09:45 BP 130 / 70; Pulse 71; Resp 14; Pulse Ox 95% on R/A; db 10:30 BP 109 / 72; Pulse 68; Resp 14; Pulse Ox 96% on R/A; db 11:15 BP 106 / 66; Pulse 67; Resp 14; Pulse Ox 96% ; db 12:45 BP 103 / 65; Pulse 66; Resp 14; Pulse Ox 97% on R/A; db 15:00 BP 118 / 78; Pulse 67; Resp 12; Temp 98.6; Pulse Ox 96% on R/A; db 16:00 BP 124 / 72; Pulse 71; Resp 16; Pulse Ox 97% ; db 16:45 Pain 8/10; db 17:00 BP 134 / 64; Pulse 75; Resp 16; Pulse Ox 96% ; db 18:49 BP 139 / 73; Pulse 66; Resp 13; Pulse Ox 97% ; db 01:20 Pain Scale: Adult kl 16:45 Pain Scale: Adult db Alpha Coma Score: 06:15 Eye Response: spontaneous(4). Motor Response: obeys commands(6). Verbal Response: sp4 oriented(5). Total: 15. MDM: 01:23 Medical Screening Exam initiated sp4 06:05 ED course: EXAM DESCRIPTION: Abdomen Pelvis Wo Contrast CLINICAL HISTORY: ABD PAIN sp4 COMPARISON: 09/15/2024 TECHNIQUE: CT of the abdomen and pelvis without IV contrast. Evaluation of the solid organs and vasculature is suboptimal due to lack of IV contrast. This exam was performed according to our departmental dose-optimization program, which includes automated exposure control, adjustment of the mA and/or kV according to patient size and/or use of iterative reconstruction technique. FINDINGS: Lung Bases: Left pleural effusion and adjacent opacities are similar to prior examination. Abdomen: Liver: Cirrhotic liver morphology. Hypodense liver lesions are grossly unchanged allowing lack of IV contrast on the current study. Gallbladder: Surgically absent. Spleen, Pancreas, and Adrenal Glands: The spleen, pancreas, and adrenal glands are unremarkable. Kidneys: The kidneys have normal size without suspicious mass within the limitations of noncontrast technique. No obstructing ureteral calculi. No hydronephrosis. Vasculature: The aorta and IVC have normal caliber and position. Stomach: There may be some diffuse gastric wall thickening. Other: No free intraperitoneal air. Large volume ascites. Diffuse subcutaneous edema. Pelvis: Bladder: Under distended. Possible mild cystocele. Bowel: No bowel obstruction. Areas of small bowel and colon wall thickening probably due to underlying liver disease. Appearance is similar to prior. Appendix: Not visualized. Pelvis:Uterus and ovaries are not enlarged. Bones: No destructive bone lesions identified. Stable chronic compression deformity at L4. IMPRESSION: 1. Cirrhotic liver morphology with large volume ascites. Hypodense liver masses are grossly unchanged. MRI could be performed for further characterization. 2. Diffuse gastric wall thickening and areas of small bowel and colon wall thickening probably due to underlying liver disease. 3. Left pleural effusion and adjacent opacities are similar to prior examination. Electronically signed by: Natalie Santacruz MD . 06:24 Differential diagnosis: Nonspecific abd pain, gastritis, cholecystitis, pancreatitis, sp4 viral gastroenteritis, gastroenteritis. Data reviewed: vital signs, nurses notes, EMS record, old medical records, lab test result(s), EKG, radiologic studies, CT scan. Consideration of Admission/Observation Escalation of care including admission/observation considered. ED course: Patient currently warrants transfer or secondary to complicated medical history including hepatitis C, liver cirrhosis, liver mass, also being on a transplant list at [facility]. 07:18 ED course: Patient signed out to rehab. Physician, osbaldo arrives today for abdominal ec2 pain along with nausea and vomiting. Patient has a history of liver mass, has a history of liver cirrhosis and is on the transplantation list. Plan is to complete transfer. Patient has a reassuring CBC, slight thrombocytopenia noted at 96. Renal dysfunction with creatinine 1.23 and GFR 49. LFTs with elevation of the T. bili at 2.6. Plan is to admit the patient for abdominal pain, shortness of breath. Patient does not require emergent paracentesis given reassuring oxygen saturations at this time.. 10:49 ED course: Called again transfer center, they are currently on saturation, currently ec2 pending a bed.. 17:49 ED course: I discussed the case with the hospitalist at [facility] who ec2 agrees to accept the patient for transfer.. 03 01:23 Order name: CBC with Diff; Complete Time: 06:02 sp4 10/02 01:23 Order name: CMP; Complete Time: 06:02 sp4 10/02 01:23 Order name: Lipase; Complete Time: 06:02 sp4 10/02 01:23 Order name: Urinalysis w/ reflexes; Complete Time: 07:01 sp4 10/02 01:56 Order name: CRP; Complete Time: 06:02 sp4 10/02 01:56 Order name: BNP; Complete Time: 06:02 sp4 10/02 01:56 Order name: Troponin High Sensitivity; Complete Time: 06:02 sp4 10/02 01:56 Order name: AMMONIA; Complete Time: 06:02 sp4 10/02 02:44 Order name: CBC Smear Scan; Complete Time: 06:02 EDMS 10/02 18:46 Order name: Glucose, Ancillary Testing EDMS 10/02 01:56 Order name: CT Abd/Pelvis - Without Contrast; Complete Time: 07:01 sp4 10/02 01:23 Order name: IV Saline Lock; Complete Time: 01:54 sp4 10/02 01:23 Order name: Labs collected and sent; Complete Time: 01:54 sp4 10/02 01:56 Order name: EKG - Nurse/Tech; Complete Time: 02:44 sp4 EC:46 Rate is 80 beats/min. Rhythm is regular, Normal Sinus Rhythm. QRS [place] is Normal. [place] sp4 interval is normal. QRS interval is normal. QT interval is normal. No Q waves. T waves are Normal. No ST changes noted. Clinical impression: No evidence of ischemia. Interpreted by me. Reviewed by me. Administered Medications: 02:58 Drug: Rocephin - Rocephin (cefTRIAXone) IVPB 1 grams IVPB once over 30 mins; (mix in 50 al5 mL NS) Route: IVPB; Infused Over: 30 mins; Site: right antecubital; 07:22 Follow up: Response: No adverse reaction; IV Status: Completed infusion db 03:06 Drug: Ondansetron IVP 8 mg IVP once; over 2 minutes Route: IVP; Site: right antecubital;al5 05:41 Follow up: Response: No adverse reaction; Nausea is decreased al5 03:07 Drug: Albumin IVPB 25 grams 100 ml IVPB once; (Note: Albumin 25% concentration) Volume: al5 100 ml; Route: IVPB; Site: right antecubital; 05:42 Follow up: IV Status: Completed infusion; IV Intake: 100ml al5 03:07 Drug: Furosemide IVP 40 mg IVP once; give over 2 minutes Route: IVP; Site: right al5 antecubital; 05:42 Follow up: Response: No adverse reaction al5 03:07 Drug: morphine IVP or IV 4 mg IVP once over 4 mins Route: IVP; Infused Over: 4 mins; al5 Site: right antecubital; 05:42 Follow up: Response: No adverse reaction; Pain is decreased al5 06:43 Drug: hydrOXYzine PO 25 mg PO once Route: PO; al5 07:22 Follow up: Response: No adverse reaction; Anxiety decreased db 16:52 Drug: morphine IVP or IV 4 mg IVP once over 4 mins Route: IVP; Infused Over: 4 mins; db Site: right antecubital; 17:30 Follow up: Response: No adverse reaction; Pain is decreased db Point of Care Testing: Blood Glucose: 18:35 Blood Glucose: 93 mg/dL; db Ranges: Critical Glucose Levels:Adult <50 mg/dl or >400 mg/dl <40 mg/dl or >180 mg/dl Disposition Summary: 10/02/24 06:32 Transfer Ordered Notes: Transfer Location: [facility] sp4 Reason: Higher level of care sp4 Condition: Stable sp4 Problem: new sp4 Symptoms: have improved sp4 Accepting Physician: [facility] attending(10/02/24 19:04) db Diagnosis - Acute on chronic liver failure, tense abdominal ascites, liver mass, left pleural sp4 effusion, acute abdominal pain, acute nausea vomiting Forms: - Medication Reconciliation Form sp4 - SBAR form sp4 Signatures: Dispatcher [employer] EDNellie Mccormick, Leonor Garner RN, RN RN db Potepalov, Sergey, MD MD sp4 Agapito Bush MD MD ec2 Nadine Pham RN RN al5 Corrections: (The following items were deleted from the chart) 01:23 01:23 CBC+H.LAB.BRZ ordered. EDMS EDMS 01:23 01:23 COMPREHENSIVE METABOLIC PANEL+C.LAB.BRZ ordered. EDMS EDMS 01:23 01:23 LIPASE+C.LAB.BRZ ordered. EDMS EDMS 01:23 01:23 Urinalysis+U.LAB.BRZ ordered. EDMS EDMS 01:57 01:56 Abdomen Pelvis Wo Con+CT.RAD.BRZ ordered. EDMS EDMS 01:57 01:57 C-REACTIVE PROTEIN+C.LAB.BRZ ordered. EDMS EDMS 01:57 01:57 PROBNP+C.LAB.BRZ ordered. EDMS EDMS 01:57 01:57 Troponin High Sensitivity+C.LAB.BRZ ordered. EDMS EDMS 01:57 01:57 AMMONIA+C.LAB.BRZ ordered. EDMS EDMS 19:04 06:32 [facility] attending sp4 db
[2024-10-02] MEDS ORDERED: hydrOXYzine HCL 25 MG TAB ONE (06:35)
[2024-10-02 19:53] VITALS: TEMP 98.6
[2024-10-02 20:20] VITALS: BP 139/73; O2SAT 97
--- NOTE | 2024-10-06 12:15 | EKG ---
Test Date: 2024-10-02 Test Time: 02:46:42 [employer] C[employer] Mover: AF MEASUREMENT RESULTS: Intervals: Rate: 80 HI: 150 QRSD: 86 QT: 382 QTc: 440 Ucon: P: 56 HI: 150 QRS: 6 T: 35 INTERPRETIVE STATEMENTS: Normal sinus rhythm Cannot rule out Anterior infarct, age undetermined Abnormal ECG Compared to ECG 09/15/2024 21:22:48 No significant changes Electronically Signed On 10-06-24 12:05:38 CDT by Jr Nicholson
== END 2024-10-02 19:04 | disposition short-term general hospital (02) ==
LOC: ER 01:05
DX: K72.00 Acute and subacute hepatic failure without coma (principal); K72.10 Chronic hepatic failure without coma; R18.8 Other ascites; R16.0 Hepatomegaly, not elsewhere classified; J90 Pleural effusion, not elsewhere classified; R11.2 Nausea with vomiting, unspecified; Z85.05 Personal history of malignant neoplasm of liver
CPT/HCPCS: 96365; 93005; 85025; 81001; 36415; 82140; 82947; 84484; 83690; 80053; 83880; 86140; 74176; 96375; 99285; 96366; J1940; J2405; P9047; J0696

== ENCOUNTER 2024-11-01 22:49 | Emergency (ER) | payer OTHER ==
[2024-11-02] MEDS ORDERED: MORPHINE 2 MG/ML SYR ONE (00:12)
[2024-11-02] MEDS ORDERED: ONDANSETRON 4 MG/2 ML VIAL ONE (00:12)
[2024-11-02] MEDS ORDERED: MORPHINE 4 MG/ML SYR ONE (00:13)
[2024-11-02 00:34] LABS: Absolute Eosinophils 0.2 K/uL (0-0.5); Absolute Lymphocytes (CBC) 0.8 K/uL (0.7-4.9); Absolute Monocytes 0.5 K/uL (0.1-1.3); Absolute Neutrophil 2.7 K/uL (1.8-8.0); Eosinophils % 4.8 % (0-4.4); Hematocrit 32.1 % (36.0-45.0); Hemoglobin 11.3 g/dL (12.0-15.0); Lymphocytes % 18.4 % (15.3-44.8); MCH 34.6 pg (27.0-35.0); MCHC 35.4 g/dL (32.0-36.0); MCV 97.9 fL (80-100); MPV 8.5 fL (7.6-11.3); Monocytes % 12.4 % (3.3-12.3); Neutrophils % 63.4 % (41.7-73.7); Nucleated Red Blood Cells % 0.2 % (0-0); Platelets 52 thou/uL (152-406); RBC Red Blood Cell Count 3.28 M/uL (3.86-4.86); Red Cell Distribution Width 14.5 % (12.1-15.2)
[2024-11-02 00:41] LABS: Albumin 3.1 g/dL (3.4-5.0); Albumin/Globulin Ratio 0.9 (1.1-1.8); Anion Gap 5.9 mEq/L (5.0-15.0); Bilirubin Total 1.1 mg/dL (0.2-1.0); Globulin 3.3 g/dL (2.3-3.5); Potassium 3.9 mEq/L (3.5-5.1); Protein, Total 6.4 g/dL (6.4-8.2)
[2024-11-02 01:19] LABS: Blood Morphology Comment NOT SEEN (NOT SEEN); Platelet Estimate DECR; White Blood Cell Scan OK (OK)
--- NOTE | 2024-11-02 02:22 | EDPHYS ---
Physician Documentation [facility] Dejuan Name: Ana Maria Chavez Age: 64 yrs Sex: Female : 1960 Arrival Date: 11/01/2024 Time: 22:49 Bed 7 Private MD: ED Physician Brian Mcnally HPI: 11/01 23:20 This 64 yrs old Female presents to ER via Wheelchair with complaints of Pain sp4 All Over. 11/03 00:53 Patient presents with generalized pain secondary to opiate dependence. Patient has sp4 history liver cirrhosis and she is on daily morphine sulfate 15 mg p.o. patient states her medication was not prescribed after her last admission to [facility]. 00:56 Patient reports history of liver cirrhosis history of periodic paracentesis history of sp4 additionally other chronic pain. Historical: - Allergies: 11/01 23:16 Ibuprofen; lg3 23:16 tramadol; lg3 23:16 Tylenol; lg3 - PMHx: 23:16 bone cancer; Cirrhosis; diabetes mellitus; gastric ulcers; Hepatitis C; liver cancer; lg3 - PSHx: 23:16 Appendectomy; section; Cholecystectomy; Ligation of fallopian tube; weekly lg3 paracentesis (Ligation of fallopian tube); - Immunization history:: Adult Immunizations up to date. - Infectious Disease History:: Denies. - Social history:: Smoking status: Patient denies any tobacco usage or history of. Patient/guardian denies using alcohol, street drugs. - Family history:: not pertinent. ROS: 11/03 00:56 Constitutional: Negative for fever, chills, and weight loss, positive for generalized sp4 pain Eyes: Negative for injury, pain, redness, and discharge, ENT: Negative for injury, pain, and discharge, Neck: Negative for injury, pain, and swelling, Cardiovascular: Negative for chest pain, palpitations, and edema, Respiratory: Negative for shortness of breath, cough, wheezing, and pleuritic chest pain, Abdomen/GI: Positive for abdominal ascites Back: Negative for injury and pain, MS/Extremity: Negative for injury and deformity, All other systems are negative, Exam: 00:56 Constitutional: frail patient with abdominal ascites, ill-appearing but nontoxic sp4 Head/Face: Normocephalic, atraumatic. Eyes: Pupils equal round and reactive to light, extra-ocular motions intact. Lids and lashes normal. Conjunctiva and sclera are not injected. Cornea within normal limits. Periorbital areas with no swelling, redness, or edema. ENT: Nares patent. No nasal discharge, no septal abnormalities noted. Tympanic membranes are normal and external auditory canals are clear. Oropharynx with no redness, swelling, or masses, exudates, or evidence of obstruction, uvula midline. Mucous membranes moist. Neck: Trachea midline, no thyromegaly or masses palpated, and no cervical lymphadenopathy. Supple, full range of motion without nuchal rigidity, or vertebral point tenderness. Chest/axilla: Normal chest wall appearance and motion. Nontender with no deformity. No lesions are appreciated. Cardiovascular: Regular rate and rhythm with a normal S1 and S2. No gallops, murmurs, or rubs. Normal PMI, no JVD. No pulse deficits. Respiratory: Lungs have equal breath sounds bilaterally, clear to auscultation and percussion. No rales, rhonchi or wheezes noted. No increased work of breathing, no retractions or nasal flaring. Abdomen/GI: Soft, with normal bowel sounds. No distension or tympany. Positive abdominal ascites Back: No spinal tenderness. No costovertebral tenderness. Skin: Warm, dry with normal turgor. Normal color with no rashes, no lesions, and no evidence of cellulitis. MS/ Extremity: Pulses equal, no cyanosis. Neurovascular intact. Full, normal range of motion. Neuro: Awake and alert, GCS 15, oriented to person, place, time, and situation. Cranial nerves II-XII grossly intact. Motor strength 5/5 in all extremities. Sensory grossly intact. Psych: Awake, alert, with orientation to person, place and time. Behavior, mood, and affect are within normal limits Vital Signs: 11/01 23:12 BP 123 / 67; Pulse 77; Resp 16 S; Temp 97.4(O); Pulse Ox 99% on R/A; Weight 68.04 kg lg3 (R); Height 5 ft. 0 in. (R); Pain 10/10; 11/02 00:00 BP 152 / 96; Pulse 75; Resp 18; Pulse Ox 100% ; al5 00:30 BP 133 / 71; Pulse 72; Resp 16; Pulse Ox 100% on R/A; al5 01:00 BP 118 / 70; Pulse 71; Resp 18; Pulse Ox 100% ; al5 01:30 BP 108 / 67; Pulse 67; Resp 18 S; Pulse Ox 99% on R/A; al5 02:08 BP 124 / 65; Pulse 67; Resp 15 S; Pulse Ox 98% on R/A; br2 11/01 23:12 Body Mass Index 29.29 (68.04 kg, 152.4 cm) lg3 11/01 23:12 Pain Scale: Adult lg3 Javier Coma Score: 11/03 00:56 Eye Response: spontaneous(4). Motor Response: obeys commands(6). Verbal Response: sp4 oriented(5). Total: 15. MDM: 11/01 23:21 Medical Screening Exam initiated sp4 11/03 00:56 Differential Diagnosis altered mental status, sepsis, flu. Data reviewed: vital signs, sp4 nurses notes, lab test result(s). Consideration of Admission/Observation Escalation of care including admission/observation considered. ED course: Patient has improved after pain medication. Patient stable for discharge. Patient was advised to contact her liver specialist about prescription for pain medication. We are not able to provide medication for morphine sulfate p.o.. 11/01 23:21 Order name: CBC with Diff; Complete Time: 01:49 sp4 11/01 23:21 Order name: CMP; Complete Time: 01:49 sp4 11/01 23:21 Order name: Lipase; Complete Time: 01:49 sp4 11/02 01:20 Order name: CBC Smear Scan; Complete Time: 01:49 EDMS 11/01 23:21 Order name: IV Saline Lock; Complete Time: 00:01 sp4 11/01 23:21 Order name: Labs collected and sent; Complete Time: 00:01 sp4 Administered Medications: 11/02 00:21 Drug: morphine IVP or IV 6 mg IVP once over 4 mins Route: IVP; Infused Over: 4 mins; al5 Site: right antecubital; 02:25 Follow up: Response: No adverse reaction; Pain is decreased al5 00:21 Drug: Ondansetron IVP 4 mg IVP once; over 2 minutes Route: IVP; Site: right antecubital;al5 02:25 Follow up: Response: No adverse reaction; Nausea is decreased al5 02:25 Drug: morphine PO 15 mg PO once Route: PO; al5 02:30 Follow up: Response: No adverse reaction; Medication administered at discharge. al5 Disposition Summary: 11/02/24 02:22 Discharge Ordered Notes: Location: Home sp4 Problem: new sp4 Symptoms: have improved sp4 Condition: Stable sp4 Diagnosis - Acute exacerbation of chronic pain, history of liver cirrhosis, acute on sp4 chronic abdominal pain Followup: sp4 - With: Private Physician - When: 48 Hours - Reason: Recheck today's complaints Discharge Instructions: - Discharge Summary Sheet sp4 - Cirrhosis sp4 Forms: - Patient Portal Instructions sp4 Signatures: Dispatcher [employer] Marilyn Patterson RN RN lg3 Brian Mcnally MD MD sp4 Nadine Pham RN RN al5
--- NOTE | 2024-11-02 02:22 | ER ---
Nurse's Notes [facility] Name: Ana Maria Chavez Age: 64 yrs Sex: Female : 1960 Arrival Date: 11/01/2024 Time: 22:49 Bed 7 Private MD: Diagnosis: Acute exacerbation of chronic pain, history of liver cirrhosis, acute on chronic abdominal pain Presentation: 11/01 23:12 Chief complaint: Patient states: i hurt all over. i cant take my hydrocodone because it lg3 makes me sick, i need morphine or oxycodone. reports taking hydrocodone at 1500. Coronavirus screen: Client denies travel out of the [place] in the last 14 days. At this time, the client does not indicate any symptoms associated with coronavirus-19. Ebola Screen: No symptoms or risks identified at this time. Initial Sepsis Screen: Does the patient meet any 2 criteria? No. Patient's initial sepsis screen is negative. Does the patient have a suspected source of infection? No. Patient's initial sepsis screen is negative. Risk Assessment: Do you want to hurt yourself or someone else? Patient reports no desire to harm self or others. Onset of symptoms is unknown. 23:12 Method Of Arrival: Wheelchair lg3 23:12 Acuity: LETY 4 lg3 Triage Assessment: 23:16 General: Appears in no apparent distress. comfortable, Behavior is calm, cooperative. lg3 Pain: Complains of pain in all over. EENT: No deficits noted. No signs and/or symptoms were reported regarding the EENT system. Neuro: No deficits noted. Joseph Agitation-Sedation Scale (RASS): 0 - Alert and Calm Level of Consciousness is awake, alert, obeys commands, Oriented to person, place, time, situation. Cardiovascular: No deficits noted. Denies chest pain, shortness of breath, Capillary refill < 3 seconds Clubbing of nail beds is absent JVD is absent Patient's skin is warm and dry. Respiratory: No deficits noted. Airway is patent Respiratory effort is even, unlabored, Respiratory pattern is regular, symmetrical. GI: Abdomen is round distended, Reports lower abdominal pain, upper abdominal pain. : No signs and/or symptoms were reported regarding the genitourinary system. Derm: No deficits noted. No signs and/or symptoms reported regarding the dermatologic system. Skin is intact, is healthy with good turgor. Musculoskeletal: No deficits noted. Circulation, motion, and sensation intact. Range of motion: intact in all extremities, Reports pain in all over. Historical: - Allergies: 23:16 Ibuprofen; lg3 23:16 tramadol; lg3 23:16 Tylenol; lg3 - PMHx: 23:16 bone cancer; Cirrhosis; diabetes mellitus; gastric ulcers; Hepatitis C; liver cancer; lg3 - PSHx: 23:16 Appendectomy; section; Cholecystectomy; Ligation of fallopian tube; weekly lg3 paracentesis (Ligation of fallopian tube); - Immunization history:: Adult Immunizations up to date. - Infectious Disease History:: Denies. - Social history:: Smoking status: Patient denies any tobacco usage or history of. Patient/guardian denies using alcohol, street drugs. - Family history:: not pertinent. Screenin:49 [facility] ED Fall Risk Assessment (Adult) History of falling in the last 3 months, al5 including since admission No falls in past 3 months (0 pts) Confusion or Disorientation No (0 pts) Intoxicated or Sedated No (0 pts) Impaired Gait Yes (1 pt) Mobility Assist Device Used No (0 pt) Altered Elimination No (0 pt) Score/Fall Risk Level 0 - 2 = Low Risk Oriented to surroundings, Maintained a safe environment, Hourly rounding (assess needs \T\ fall precautionary measures) done. Abuse screen: Denies threats or abuse. Denies injuries from another. Nutritional screening: No deficits noted. Tuberculosis screening: No symptoms or risk factors identified. Assessment: 23:48 General: Appears in no apparent distress. uncomfortable, Behavior is cooperative. Pain: al5 Complains of pain in back, abdomen and pelvis Pain currently is 10 out of 10 on a pain scale. Neuro: Level of Consciousness is awake, alert, obeys commands, Oriented to person, place, time, situation. Cardiovascular: Capillary refill < 3 seconds Patient's skin is warm and dry. Respiratory: Airway is patent Respiratory effort is even, unlabored, Respiratory pattern is regular, symmetrical. GI: Abdomen is round distended, Reports lower abdominal pain, upper abdominal pain. : No signs and/or symptoms were reported regarding the genitourinary system. EENT: No signs and/or symptoms were reported regarding the EENT system. Derm: Skin is intact, Skin is pink, warm \T\ dry. normal. Musculoskeletal: Reports pain in back, abdomen and pelvis. 11/02 01:00 Reassessment: Patient appears in no apparent distress at this time. Patient and/or al5 family updated on plan of care and expected duration. Pain level reassessed. Patient is alert, oriented x 3, equal unlabored respirations, skin warm/dry/pink. pain decreased. 02:25 Reassessment: Patient appears in no apparent distress at this time. Patient and/or al5 family updated on plan of care and expected duration. Pain level reassessed. Patient is alert, oriented x 3, equal unlabored respirations, skin warm/dry/pink. pain has subsided but is starting to come back, provider aware and medication order placed and given at this time. Vital Signs: 11/01 23:12 BP 123 / 67; Pulse 77; Resp 16 S; Temp 97.4(O); Pulse Ox 99% on R/A; Weight 68.04 kg lg3 (R); Height 5 ft. 0 in. (R); Pain 10/10; 11/02 00:00 BP 152 / 96; Pulse 75; Resp 18; Pulse Ox 100% ; al5 00:30 BP 133 / 71; Pulse 72; Resp 16; Pulse Ox 100% on R/A; al5 01:00 BP 118 / 70; Pulse 71; Resp 18; Pulse Ox 100% ; al5 01:30 BP 108 / 67; Pulse 67; Resp 18 S; Pulse Ox 99% on R/A; al5 02:08 BP 124 / 65; Pulse 67; Resp 15 S; Pulse Ox 98% on R/A; br2 11/01 23:12 Body Mass Index 29.29 (68.04 kg, 152.4 cm) lg3 11/01 23:12 Pain Scale: Adult lg3 Javier Coma Score: 11/03 00:56 Eye Response: spontaneous(4). Motor Response: obeys commands(6). Verbal Response: sp4 oriented(5). Total: 15. ED Course: 11/01 22:53 Patient arrived in ED. jj6 23:16 Triage completed. lg3 23:16 Arm band placed on right wrist. lg3 23:20 Brian Mcnally MD is Attending Physician. sp4 23:48 Nadine Pham, RN is Primary Nurse. al5 23:50 Patient has correct armband on for positive identification. Bed in low position. Call al5 light in reach. Side rails up X 1. Provided Education on: plan of care. 23:50 No provider procedures requiring assistance completed. al5 11/02 00:01 Lipase Sent. mm11 00:01 CMP Sent. mm11 00:01 CBC with Diff Sent. mm11 00:01 Inserted saline lock: 20 gauge in right antecubital area, using aseptic technique. mm11 Blood collected. Flushed with 10 mL NS. 02:30 IV discontinued, intact, bleeding controlled, No redness/swelling at site. Pressure al5 dressing applied. Administered Medications: 00:21 Drug: morphine IVP or IV 6 mg IVP once over 4 mins Route: IVP; Infused Over: 4 mins; al5 Site: right antecubital; 02:25 Follow up: Response: No adverse reaction; Pain is decreased al5 00:21 Drug: Ondansetron IVP 4 mg IVP once; over 2 minutes Route: IVP; Site: right antecubital;al5 02:25 Follow up: Response: No adverse reaction; Nausea is decreased al5 02:25 Drug: morphine PO 15 mg PO once Route: PO; al5 02:30 Follow up: Response: No adverse reaction; Medication administered at discharge. al5 Medication: 11/01 23:49 VIS not applicable for this client. al5 Outcome: 11/02 02:22 Discharge ordered by . sp4 02:30 Discharged to home ambulatory, with family, al5 02:30 Condition: good 02:30 Discharge instructions given to patient, Instructed on discharge instructions, follow up and referral plans. Demonstrated understanding of instructions, follow-up care, 02:30 Patient left the ED. al5 Signatures: Marilyn Bean RN RN lg3 Farnaz Colon jj6 Brian Mcnally MD MD sp4 Nadine Pham, DERREK ANGLIN al5 Kat Sanchez RN RN br2 gary milan mm11 Corrections: (The following items were deleted from the chart) 02:29 01:40 BP 108 / 67; Pulse 67bpm; Resp 18bpm; Spontaneous; Pulse Ox 99% RA; br2 al5
[2024-11-02] MEDS ORDERED: MORPHINE *EXTENDED RELEASE* 15 MG TAB PO ONE (02:23)
[2024-11-02 02:55] VITALS: TEMP 97.4
[2024-11-02 03:01] VITALS: BP 124/65; O2SAT 98
== END 2024-11-02 02:30 | disposition home or self-care (01) ==
LOC: ER 22:49
DX: G89.29 Other chronic pain (principal); K74.60 Unspecified cirrhosis of liver; E11.9 Type 2 diabetes mellitus without complications; Z85.05 Personal history of malignant neoplasm of liver; Z85.830 Personal history of malignant neoplasm of bone
CPT/HCPCS: 85025; 36415; 83690; 80053; 96375; 96374; 99284; J2270; J2405

== ENCOUNTER 2024-11-04 11:48 | Emergency (ER) | payer OTHER ==
--- NOTE | 2024-11-04 12:55 | RAD REPORT ---
EXAMINATION: ONE VIEW CHEST XR CLINICAL INDICATION: COUGH TECHNIQUE: Frontal chest projection is submitted. Examination is limited by patient positioning and t echnique. COMPARISON: 05/04/2024 FINDINGS: Small to moderate left pleural effusion. Underlying infiltrate is possible. The right lung is grossly clear. The heart is upper limit of normal in size. No displaced fractures identified.
[2024-11-04 13:31] LABS: PT Prothrombin Time 12.4 SECONDS (10-13.0); Protime INR 1.09
[2024-11-04 13:37] LABS: Absolute Eosinophils 0.2 K/uL (0-0.5); Absolute Lymphocytes (CBC) 0.7 K/uL (0.7-4.9); Absolute Monocytes 0.4 K/uL (0.1-1.3); Absolute Neutrophil 2.5 K/uL (1.8-8.0); Basophils % 1.2 % (0-1.3); Eosinophils % 4.5 % (0-4.4); Hematocrit 31.5 % (36.0-45.0); Hemoglobin 11.1 g/dL (12.0-15.0); Lymphocytes % 18.3 % (15.3-44.8); MCH 34.9 pg (27.0-35.0); MCHC 35.2 g/dL (32.0-36.0); MPV 8.9 fL (7.6-11.3); Monocytes % 11.2 % (3.3-12.3); Neutrophils % 64.8 % (41.7-73.7); Nucleated Red Blood Cells % 0.1 % (0-0); Platelets 27 thou/uL (152-406); RBC Red Blood Cell Count 3.18 M/uL (3.86-4.86); Red Cell Distribution Width 14.5 % (12.1-15.2)
[2024-11-04] MEDS ORDERED: ONDANSETRON 4 MG/2 ML VIAL ONE (13:41)
[2024-11-04] MEDS ORDERED: MORPHINE 4 MG/ML SYR ONE (13:42)
[2024-11-04] MEDS ORDERED: NA CHLORIDE 0.9% 500 ML ONE (13:42)
[2024-11-04 13:49] LABS: Albumin/Globulin Ratio 0.8 (1.1-1.8); Anion Gap 5.7 mEq/L (5.0-15.0); Bilirubin Direct 0.4 mg/dL (0-0.2); Bilirubin Indirect, Calculated 0.8 mg/dL (0.2-0.8); Bilirubin Total 1.2 mg/dL (0.2-1.0); Globulin 3.6 g/dL (2.3-3.5); Potassium 3.7 mEq/L (3.5-5.1); Protein, Total 6.6 g/dL (6.4-8.2); Troponin High Sensitivity 6.9 pg/mL (<58.9)
[2024-11-04 14:16] LABS: Influenza A Ag Negative; Influenza B Ag Negative; SARS-CoV-2 Antigen Rapid Res Negative (Negative)
--- NOTE | 2024-11-04 15:03 | ER ---
Nurse's Notes [facility] Name: Ana Maria Chavez Age: 64 yrs Sex: Female : 1960 Arrival Date: 11/04/2024 Time: 11:48 Bed 18 Private MD: Diagnosis: Unspecified cirrhosis of liver;Other ascites;Other chronic pain Presentation: 11/04 12:25 Chief complaint: Patient states: Out of her Morphine prescription and is awaiting for cm10 it to be delivered and "I just need some morphine for my pain." Pt reports abdominal pain and back pain onset yesterday. Coronavirus screen: Client denies travel out of the [place] in the last 14 days. Ebola Screen: Patient denies travel to an Ebola-affected area in the 21 days before illness onset. Initial Sepsis Screen: Does the patient meet any 2 criteria? No. Patient's initial sepsis screen is negative. Does the patient have a suspected source of infection? No. Patient's initial sepsis screen is negative. Risk Assessment: Do you want to hurt yourself or someone else? Patient reports no desire to harm self or others. Onset of symptoms was November 03, 2024. 12:25 Method Of Arrival: Wheelchair cm10 12:25 Acuity: LETY 3 cm10 Triage Assessment: 12:28 General: Appears uncomfortable, Behavior is calm, cooperative. Pain: Complains of pain cm10 in back and abdomen Pain currently is 10 out of 10 on a pain scale. Neuro: No deficits noted. Level of Consciousness is awake, alert, obeys commands, Oriented to person, place, time, situation, Appropriate for age. Respiratory: Airway is patent Respiratory effort is even, unlabored, Respiratory pattern is regular, symmetrical. Historical: - Allergies: 12:26 Ibuprofen; cm10 12:26 tramadol; cm10 12:26 Tylenol; cm10 - PMHx: 12:26 bone cancer; Cirrhosis; diabetes mellitus; gastric ulcers; Hepatitis C; liver cancer; cm10 - PSHx: 12:26 Appendectomy; section; Cholecystectomy; Ligation of fallopian tube; weekly cm10 paracentesis (on); - Immunization history:: Adult Immunizations up to date. - Infectious Disease History:: Denies. - Social history:: Smoking status: unknown. Screenin:[address] [facility] ED Fall Risk Assessment (Adult) History of falling in the last 3 months, ld1 including since admission No falls in past 3 months (0 pts) Confusion or Disorientation No (0 pts) Intoxicated or Sedated No (0 pts) Impaired Gait No (0 pts) Mobility Assist Device Used No (0 pt) Altered Elimination No (0 pt) Score/Fall Risk Level 0 - 2 = Low Risk Oriented to surroundings, Hourly rounding (assess needs \\T\\ fall precautionary measures) done. Abuse screen: Denies threats or abuse. Denies injuries from another. Nutritional screening: No deficits noted. Tuberculosis screening: No symptoms or risk factors identified. Assessment: 14:32 General: Appears in no apparent distress. uncomfortable, Behavior is cooperative, ld1 anxious. Pain: Complains of pain in "ALL OVER" Pain does not radiate. Pain currently is 8 out of 10 on a pain scale. Quality of pain is described as throbbing, Pain began suddenly, Is continuous. Neuro: Level of Consciousness is awake, alert, obeys commands, Oriented to person, place, time, situation. Cardiovascular: Capillary refill < 3 seconds Patient's skin is warm and dry. Respiratory: Airway is patent Respiratory effort is even, unlabored. GI: Abdomen is flat, non-distended. : No signs and/or symptoms were reported regarding the genitourinary system. EENT: No signs and/or symptoms were reported regarding the EENT system. Derm: No signs and/or symptoms reported regarding the dermatologic system. Musculoskeletal: No signs and/or symptoms reported regarding the musculoskeletal system. Vital Signs: 12:25 BP 148 / 80; Pulse 73; Resp 15; Temp 98.5(O); Pulse Ox 100% on R/A; Weight 70.31 kg; cm10 Height 5 ft. 0 in. ; Pain 10/10; 14:32 Pulse 66; Resp 18; Pulse Ox 99% on R/A; Pain 8/10; ld1 12:25 Body Mass Index 30.27 (70.31 kg, 152.4 cm) cm10 12:25 Pain Scale: Adult cm10 14:32 Pain Scale: Adult ld1 ED Course: 11:52 Patient arrived in ED. al6 11:54 Nuno Carranza MD is Attending Physician. rl 12:26 Triage completed. cm10 12:26 Arm band placed on right wrist. Patient placed in waiting room. cm10 12:44 XRAY Chest (1 view) In Process Unspecified. EDMS 13:10 COVID swab sent to lab. Flu and/or RSV swab sent to lab. tm3 13:19 Initial lab(s) drawn, by me, sent to lab. Inserted saline lock: 22 gauge in right iw forearm, using aseptic technique. Blood collected. Flushed with 10 mL NS. 14:32 Patient has correct armband on for positive identification. Placed in gown. Bed in low ld1 position. Call light in reach. Side rails up X2. traffic monitor specialist on. Pulse ox on. NIBP on. Door closed. Noise minimized. Warm blanket given. 14:32 No provider procedures requiring assistance completed. ld1 15:18 IV discontinued, intact, bleeding controlled, No redness/swelling at site. ld1 Administered Medications: 13:54 Drug: Ondansetron IVP 4 mg IVP once; over 2 minutes Route: IVP; Site: right forearm; ld1 13:55 Drug: NS 0.9% IV 500 ml 500 ml IV at 1 bolus once; to be given as a bolus over 30 ld1 minutes Volume: 500 ml; Route: IV; Rate: 1 bolus; Site: right forearm; 13:55 Drug: morphine IVP or IV 4 mg IVP once over 4 mins Route: IVP; Infused Over: 4 mins; ld1 Site: right forearm; Medication: 14:32 VIS not applicable for this client. ld1 Outcome: 15:02 Discharge ordered by . rl 15:18 Discharged to home ambulatory, ld1 15:18 Condition: stable 15:18 Discharge instructions given to patient, Instructed on discharge instructions, follow up and referral plans. Demonstrated understanding of instructions, follow-up care, 15:18 Patient left the ED. ld1 Signatures: Dispatcher [employer] EDMS Prakash Beal tm3 Nuno Carranza MD MD cha Williams, Irene, RN RN Natalee Jaquez RN RN ld1 Veronica De Luna RN RN cm10 Taylor Ahmadi6
--- NOTE | 2024-11-04 15:03 | EDPHYS ---
Physician Documentation [facility] Name: Ana Maria Chavez Age: 64 yrs Sex: Female : 1960 Arrival Date: 11/04/2024 Time: 11:48 Bed 18 Private MD: SABRINA Physician Nuno Carranza HPI: 11/04 14:41 This 64 yrs old Female presents to ER via Wheelchair with complaints of Pain rl All Over. 14:41 OUT OF PAIN MEDS. Onset: The symptoms/episode began/occurred 2 day(s) ago. Severity of rl symptoms: At their worst the symptoms were mild in the emergency department the symptoms are unchanged. The patient has experienced similar episodes in the past, several times. Historical: - Allergies: 12:26 Ibuprofen; cm10 12:26 tramadol; cm10 12:26 Tylenol; cm10 - PMHx: 12:26 bone cancer; Cirrhosis; diabetes mellitus; gastric ulcers; Hepatitis C; liver cancer; cm10 - PSHx: 12:26 Appendectomy; section; Cholecystectomy; Ligation of fallopian tube; weekly cm10 paracentesis (on); - Immunization history:: Adult Immunizations up to date. - Infectious Disease History:: Denies. - Social history:: Smoking status: unknown. ROS: 14:55 Constitutional: Negative for fever, chills, and weight loss, Eyes: Negative for injury, rl pain, redness, and discharge, ENT: Negative for injury, pain, and discharge, Neck: Negative for injury, pain, and swelling, Cardiovascular: Negative for chest pain, palpitations, and edema, Respiratory: Negative for shortness of breath, cough, wheezing, and pleuritic chest pain, Back: Negative for injury and pain, : Negative for injury, bleeding, discharge, and swelling, MS/Extremity: Negative for injury and deformity, Skin: Negative for injury, rash, and discoloration, Neuro: Negative for headache, weakness, numbness, tingling, and seizure, Psych: Negative for depression, anxiety, suicide ideation, homicidal ideation, and hallucinations, Allergy/Immunology: Negative for hives, rash, and allergies, Endocrine: Negative for neck swelling, polydipsia, polyuria, polyphagia, and marked weight changes, Hematologic/Lymphatic: Negative for swollen nodes, abnormal bleeding, and unusual bruising, 14:55 Abdomen/GI: Positive for abdominal distension, of the right upper quadrant, left upper quadrant, right lower quadrant and left lower quadrant, Exam: 14:55 Constitutional: This is a well developed, well nourished patient who is awake, alert, rl and in no acute distress. Head/Face: Normocephalic, atraumatic. Eyes: Pupils equal round and reactive to light, extra-ocular motions intact. Lids and lashes normal. Conjunctiva and sclera are non-icteric and not injected. Cornea within normal limits. Periorbital areas with no swelling, redness, or edema. ENT: Nares patent. No nasal discharge, no septal abnormalities noted. Tympanic membranes are normal and external auditory canals are clear. Oropharynx with no redness, swelling, or masses, exudates, or evidence of obstruction, uvula midline. Mucous membranes moist. Neck: Trachea midline, no thyromegaly or masses palpated, and no cervical lymphadenopathy. Supple, full range of motion without nuchal rigidity, or vertebral point tenderness. No Meningismus. Chest/axilla: Normal chest wall appearance and motion. Nontender with no deformity. No lesions are appreciated. Cardiovascular: Regular rate and rhythm with a normal S1 and S2. No gallops, murmurs, or rubs. Normal PMI, no JVD. No pulse deficits. Respiratory: Lungs have equal breath sounds bilaterally, clear to auscultation and percussion. No rales, rhonchi or wheezes noted. No increased work of breathing, no retractions or nasal flaring. Back: No spinal tenderness. No costovertebral tenderness. Full range of motion. Skin: Warm, dry with normal turgor. Normal color with no rashes, no lesions, and no evidence of cellulitis. MS/ Extremity: Pulses equal, no cyanosis. Neurovascular intact. Full, normal range of motion., bilateral aka Neuro: Awake and alert, GCS 15, oriented to person, place, time, and situation. Cranial nerves II-XII grossly intact. Motor strength 5/5 in all extremities. Sensory grossly intact. Cerebellar exam normal. Normal gait. Psych: Awake, alert, with orientation to person, place and time. Behavior, mood, and affect are within normal limits. 14:55 ECG was reviewed by the Attending Physician. 14:55 Abdomen/GI: Inspection: distension, that is mild, Bowel sounds: normal, Palpation: mild abdominal tenderness, in all quadrants, Liver: no appreciated palpable abnormalities, Hernia: not appreciated, 14:55 Musculoskeletal/extremity: Extremities: all appear grossly normal, with no appreciated pain with palpation, ROM: intact in all extremities, Circulation is intact in all extremities. Sensation intact. Compartment Syndrome exam of affected extremity: is normal. Weight bearing: able to fully bear weight, DVT Exam: No signs of deep vein thrombosis. no pain, no swelling, no tenderness, negative Homans' sign noted on exam, no appreciated bluish discoloration, no erythema, no increased warmth, Vital Signs: 12:25 BP 148 / 80; Pulse 73; Resp 15; Temp 98.5(O); Pulse Ox 100% on R/A; Weight 70.31 kg; cm10 Height 5 ft. 0 in. ; Pain 10/10; 14:32 Pulse 66; Resp 18; Pulse Ox 99% on R/A; Pain 8/10; ld1 12:25 Body Mass Index 30.27 (70.31 kg, 152.4 cm) cm10 12:25 Pain Scale: Adult cm10 14:32 Pain Scale: Adult ld1 MDM: 11:54 Medical Screening Exam initiated rl 14:57 Differential Diagnosis altered mental status, sepsis, flu. Data reviewed: vital signs, [facility] nurses notes, lab test result(s), EKG, radiologic studies, plain films. Consideration of Admission/Observation Patient was admitted/placed on observation. Escalation of care including admission/observation considered. I considered the following discharge prescriptions or medication management in the emergency department Medications were administered in the Emergency Department. See MAR. Independent interpretation of the following test(s) in the Emergency Department EKG: See my EKG interpretation above. Test considered but Not performed: Ultrasound NO ABDOMINAL US. Historians other than the Patient: PT WELL INFORMED. Care significantly affected by the following chronic conditions: Obesity, Cancer, Liver Disease, CIRRHOSIS , GASTRIC ULCERS. Counseling: I had a detailed discussion with the patient and/or guardian regarding the historical points, exam findings, and any diagnostic results supporting the discharge/admit diagnosis. 11/04 12:02 Order name: Basic Metabolic Panel; Complete Time: 14:32 [facility] 11/04 12:02 Order name: CBC with Diff [facility] 11/04 12:02 Order name: LFT's; Complete Time: 14:32 [facility] 11/04 12:02 Order name: Magnesium; Complete Time: 14:32 [facility] 11/04 12:02 Order name: NT PRO-BNP; Complete Time: 14:32 [facility] 11/04 12:02 Order name: PT-INR; Complete Time: 14:32 [facility] 11/04 12:02 Order name: Troponin HS; Complete Time: 14:32 [facility] 11/04 12:02 Order name: COVID-19 Ag + Flu A+B Ag; Complete Time: 14:32 [facility] 11/04 13:54 Order name: CBC Smear Scan EDMS 11/04 12:02 Order name: XRAY Chest (1 view); Complete Time: 14:32 [facility] 11/04 12:02 Order name: Cardiac monitoring; Complete Time: 13:35 [facility] 11/04 12:02 Order name: EKG - Nurse/Tech; Complete Time: 13:40 [facility] 11/04 12:02 Order name: IV Saline Lock; Complete Time: 13:19 [facility] 11/04 12:02 Order name: Labs collected and sent; Complete Time: 13:19 [facility] 11/04 12:02 Order name: O2 Per Protocol; Complete Time: 13:28 [facility] 11/04 12:02 Order name: O2 Sat Monitoring; Complete Time: 13:28 [facility] EC:55 Rate is 66 beats/min. Rhythm is regular. QRS Fowler is Normal. MD interval is normal. QRS rl interval is normal. QT interval is normal. No Q waves. T waves are Normal. No ST changes noted. Clinical impression: NSR w/ Non-specific ST/T Changes and No evidence of ischemia. Interpreted by me. Reviewed by me. Administered Medications: 13:54 Drug: Ondansetron IVP 4 mg IVP once; over 2 minutes Route: IVP; Site: right forearm; ld1 13:55 Drug: NS 0.9% IV 500 ml 500 ml IV at 1 bolus once; to be given as a bolus over 30 ld1 minutes Volume: 500 ml; Route: IV; Rate: 1 bolus; Site: right forearm; 13:55 Drug: morphine IVP or IV 4 mg IVP once over 4 mins Route: IVP; Infused Over: 4 mins; ld1 Site: right forearm; Disposition Summary: 11/04/24 15:02 Discharge Ordered Notes: Location: Home rl Problem: new rl Symptoms: have improved rl Condition: Stable rl Diagnosis - Unspecified cirrhosis of liver rl - Other ascites rl - Other chronic pain rl Followup: rl - With: Private Physician - When: 2 - 3 days - Reason: Recheck today's complaints, Continuance of care, Re-evaluation by your physician Discharge Instructions: - Discharge Summary Sheet rl - Ascites rl - Chronic Pain, Adult rl - Cirrhosis rl Forms: - Medication Reconciliation Form rl - Antibiotic Education rl - Prescription Opioid Use rl - Patient Portal Instructions rl - Leadership Thank You Letter rl Signatures: Dispatcher [employer] EDMS Nuno Carranza MD MD cha Sims, Lauren, RN RN ld1 Veronica De Luna RN RN cm10 Corrections: (The following items were deleted from the chart) 12:03 12:03 BASIC METABOLIC PANEL+C.LAB.BRZ ordered. EDMS EDMS 12:03 12:03 CBC+H.LAB.BRZ ordered. EDMS EDMS 12:03 12:03 HEPATIC FUNCTION+C.LAB.BRZ ordered. EDMS EDMS 12:03 12:03 MAGNESIUM+C.LAB.BRZ ordered. EDMS EDMS 12:03 12:03 PROBNP+C.LAB.BRZ ordered. EDMS EDMS 12:03 12:03 PROTIME (+INR)+COAG.LAB.BRZ ordered. EDMS EDMS 12:03 12:03 Troponin High Sensitivity+C.LAB.BRZ ordered. EDMS EDMS 12:03 12:03 Urinalysis+U.LAB.BRZ ordered. EDMS EDMS 12:03 12:03 COVID-19 Ag + Flu A+B Ag+I.LAB.BRZ ordered. EDMS EDMS 12:03 12:03 Chest Single View+RAD.RAD.BRZ ordered. EDMS EDMS
[2024-11-04 15:59] VITALS: BP 148/80; TEMP 98.5
[2024-11-04 16:01] VITALS: O2SAT 99
[2024-11-04 19:08] LABS: Platelet Estimate DECR; White Blood Cell Scan OK (OK)
[2024-11-04 19:09] LABS: Blood Morphology Comment NOT SEEN (NOT SEEN)
--- NOTE | 2024-11-05 12:37 | EKG ---
Test Date: 2024-11-04 Test Time: 13:50:05 [employer]ies [employer] Installations: CINTHYA MEASUREMENT RESULTS: Intervals: Rate: 66 OR: 136 QRSD: 82 QT: 456 QTc: 478 [place]: P: 37 OR: 136 QRS: 57 T: 54 INTERPRETIVE STATEMENTS: Sinus rhythm with premature atrial complexes Otherwise normal ECG Compared to ECG 10/02/2024 02:46:42 Atrial premature complex(es) now present Myocardial infarct finding no longer present Electronically Signed On 11-05-24 12:36:07 CDT by Jr Nicholson
== END 2024-11-04 15:18 | disposition home or self-care (01) ==
LOC: ER 11:48
DX: R18.8 Other ascites (principal); K74.60 Unspecified cirrhosis of liver; G89.29 Other chronic pain; Z85.819 Personal history of malignant neoplasm of unspecified site of lip, oral cavity, and pharynx; Z85.830 Personal history of malignant neoplasm of bone; Z11.52 Encounter for screening for COVID-19
CPT/HCPCS: 93005; 85025; 80048; 36415; 83735; 85610; 80076; 84484; 83880; 71045; 96375; 96374; 99285; 87428; J2405; J7040

== ENCOUNTER 2024-11-22 20:00 | Observation (INO) | payer OTHER ==
[2024-11-22 21:27] LABS: PT Prothrombin Time 12.3 SECONDS (10-13.0); Protime INR 1.08
[2024-11-22 21:42] LABS: AST/SGOT 20 U/L (15-37); Albumin 2.8 g/dL (3.4-5.0); Albumin/Globulin Ratio 0.7 (1.1-1.8); Alkaline Phosphatase 131 U/L (45-117); BUN Blood Urea Nitrogen 17 mg/dL (7-18); Bicarbonate 28 mEq/L (21-32); Bilirubin Direct 0.5 mg/dL (0-0.2); Bilirubin Total 1.5 mg/dL (0.2-1.0); Globulin 3.9 g/dL (2.3-3.5); Glomerular Filtration Rate 44 ml/min (=/>90); Glucose Level 174 mg/dL (74-106); Magnesium 2.1 mg/dL (1.6-2.4); NT PRO-BNP 319 pg/mL (<125); Protein, Total 6.7 g/dL (6.4-8.2); Sodium Level 138 mEq/L (136-145); Troponin High Sensitivity 3.7 pg/mL (<58.9)
[2024-11-22 21:49] LABS: ALT/SGPT < 14 U/L (13-56)
--- NOTE | 2024-11-22 21:50 | RAD REPORT ---
EXAMINATION: US bilateral LOWER EXTREMITY VENOUS DOPPLER CLINICAL INDICATION: Leg swelling TECHNIQUE: Sonographic evaluation of the veins of the lower extremity bilaterally formed.Grayscale, c olor and spectral analysis performed on all vessels COMPARISON: No prior exam. FINDINGS: The common femoral, superficial femoral, greater saphenous, popliteal and posterior tibial veins bila terally are compressible and demonstrate augmentation. Doppler demonstrates good flow. IMPRESSION: No evidence of deep venous thrombosis involving either lower extremity
[2024-11-22 21:59] LABS: Absolute Basophils 0.1 K/uL (0-0.5); Absolute Eosinophils 0.2 K/uL (0-0.5); Absolute Lymphocytes (CBC) 0.8 K/uL (0.7-4.9); Absolute Monocytes 0.7 K/uL (0.1-1.3); Absolute Neutrophil 3.7 K/uL (1.8-8.0); Basophils % 1.2 % (0-1.3); Hematocrit 30.5 % (36.0-45.0); Hemoglobin 10.8 g/dL (12.0-15.0); Lymphocytes % 14.6 % (15.3-44.8); MCH 34.4 pg (27.0-35.0); MCHC 35.3 g/dL (32.0-36.0); MCV 97.4 fL (80-100); MPV 10.2 fL (7.6-11.3); Monocytes % 12.5 % (3.3-12.3); Neutrophils % 67.7 % (41.7-73.7); Nucleated Red Blood Cells % 0.1 % (0-0); Platelets 49 thou/uL (152-406); RBC Red Blood Cell Count 3.13 M/uL (3.86-4.86); Red Cell Distribution Width 14.1 % (12.1-15.2)
[2024-11-22] MEDS ORDERED: FUROSEMIDE 40 MG/4 ML VIAL ONE (22:08)
--- NOTE | 2024-11-22 22:30 | RAD REPORT ---
Procedure: Chest Single View HISTORY: Cough COMPARISON: October 2024 FINDINGS: Small left pleural effusion with left basilar atelectasis Right lung appears clear. Heart is normal size. Abdomen is hazy secondary to ascites.
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
--- NOTE | 2024-11-22 23:41 | EDPHYS ---
Physician Documentation [facility] Name: Ana Maria Chavez Age: 64 yrs Sex: Female : 1960 Arrival Date: 11/22/2024 Time: 20:00 Bed 2 Private MD: ED Physician Nuno Carranza HPI: 11/22 20:35 This 64 yrs old Female presents to ER via Wheelchair with complaints of Leg cp Swelling, Abdominal Swelling. 20:35 The patient presents with abdominal distention that is diffuse. cp 20:35 Onset: The symptoms/episode began/occurred gradually. Associated signs and symptoms: cp Pertinent positives: lower extremity edema, shortness of breath, Pertinent negatives: chest pain, constipation, diarrhea, fever, vomiting. Historical: - Allergies: 20:24 Ibuprofen; kd3 20:24 tramadol; kd3 20:24 Tylenol; kd3 - PMHx: 20:24 liver cancer; Hepatitis C; diabetes mellitus; bone cancer; gastric ulcers; Cirrhosis; kd3 - PSHx: 20:24 Appendectomy; section; Cholecystectomy; weekly paracentesis; Ligation of kd3 fallopian tube; - Immunization history:: Adult Immunizations up to date. - Infectious Disease History:: Denies. - Social history:: Smoking status: Patient denies any tobacco usage or history of. ROS: 20:40 Constitutional: Negative for body aches, chills, fever, poor PO intake, cp 20:40 Eyes: Negative for injury, pain, redness, and discharge, cp 20:40 ENT: Negative for drainage from ear(s), ear pain, sore throat, difficulty swallowing, difficulty handling secretions, 20:40 Cardiovascular: Positive for edema, Negative for chest pain, palpitations, 20:40 Respiratory: Positive for shortness of breath, on exertion. Negative for cough, wheezing, 20:40 Abdomen/GI: Positive for abdominal distension, Negative for abdominal pain, vomiting, diarrhea, constipation, 20:40 MS/extremity: Positive for swelling, of the right leg and left leg, 20:40 Skin: Negative for rash, 20:40 Neuro: Negative for altered mental status, dizziness, headache, syncope, weakness, 20:40 All other systems are negative, Exam: 20:45 Constitutional: The patient appears in no acute distress, alert, awake, cp non-diaphoretic, non-toxic, well developed, well nourished, 20:45 Head/Face: Normocephalic, atraumatic. cp 20:45 Eyes: Periorbital structures: appear normal, Conjunctiva: normal, no exudate, no injection, Sclera: no appreciated abnormality, Lids and lashes: appear normal, bilaterally, 20:45 ENT: External ear(s): are unremarkable, Nose: is normal, Mouth: Lips: moist, Oral mucosa: moist, Posterior pharynx: Airway: no evidence of obstruction, patent, 20:45 Chest/axilla: Inspection: normal, 20:45 Cardiovascular: Rate: normal, Rhythm: regular, Edema: pedal edema, that is marked, ankle edema, that is marked, JVD: is not appreciated, 20:45 Respiratory: the patient does not display signs of respiratory distress, Respirations: shallow respirations, that is mild, Breath sounds: stridor, is not appreciated, wheezing: is not appreciated, 20:45 Abdomen/GI: Inspection: distension, that is moderate, Palpation: abdomen is soft and non-tender, in all quadrants, 20:45 Back: pain, is absent, ROM is normal, 20:45 Skin: cellulitis, is not appreciated, 20:45 Neuro: Orientation: to person, place \T\ time. Mentation: is normal, 21:06 ECG was reviewed by the Attending Physician. cp Vital Signs: 20:30 BP 139 / 64; Pulse 84; Resp 17; Temp 98.3; Pulse Ox 96% ; Weight 71.21 kg; Height 5 ft. bm8 0 in. ; Pain 5/10; 22:15 BP 130 / 75; Pulse 68; Resp 20 S; Pulse Ox 98% on R/A; ha1 22:34 BP 130 / 75; Pulse 66; Resp 14; Temp 98.3; Pulse Ox 98% ; Pain 0/10; bm8 23:41 BP 110 / 63; Pulse 69; Resp 17; Temp 98.3; Pulse Ox 99% ; Pain 0/10; bm8 20:30 Body Mass Index 30.66 (71.21 kg, 152.4 cm) bm8 20:30 Pain Scale: Adult bm8 22:34 Pain Scale: Adult bm8 23:41 Pain Scale: Adult bm8 [place] Coma Score: 20:30 Eye Response: spontaneous(4). Motor Response: obeys commands(6). Verbal Response: bm8 oriented(5). Total: 15. 22:34 Eye Response: spontaneous(4). Motor Response: obeys commands(6). Verbal Response: bm8 oriented(5). Total: 15. 23:41 Eye Response: spontaneous(4). Motor Response: obeys commands(6). Verbal Response: bm8 oriented(5). Total: 15. MDM: 23:41 Medical Screening Exam initiated cp 23:45 Data reviewed: vital signs, nurses notes, lab test result(s), EKG, radiologic studies, cp plain films, and as a result, I will admit patient. 23:45 Differential diagnosis: bowel obstruction, gastritis, GI Bleed, pancreatitis, cp Pyelonephritis, Ureterolithiasis, urinary tract infection. Management of patient was discussed with the following: Hospitalist: DR Holley will admit after discussion. I considered the following discharge prescriptions or medication management in the emergency department Medications were administered in the Emergency Department. See MAR. Care significantly affected by the following chronic conditions: Diabetes, Cancer, Liver Disease. Counseling: I had a detailed discussion with the patient and/or guardian regarding the historical points, exam findings, and any diagnostic results supporting the discharge/admit diagnosis, lab results, radiology results. 05 20:34 Order name: Basic Metabolic Panel; Complete Time: 21:56 cp 11/22 21:56 Interpretation: Normal except: GLUC 174; CRE 1.35; GFR 44; CA 8.2. cp 11/22 20:34 Order name: CBC with Diff cp 11/22 20:34 Order name: LFT's; Complete Time: 21:56 cp 10 21:57 Interpretation: Normal except: ALK 131; BILIT 1.5; BILID 0.5; IBILI, CALC 1.0; ALB 2.8; cp GLOB 3.9; A/G 0.7. 11/22 20:34 Order name: Magnesium; Complete Time: 21:56 cp 11/22 20:34 Order name: NT PRO-BNP; Complete Time: 21:56 cp 10 20:34 Order name: PT-INR; Complete Time: 21:56 cp 11/22 20:34 Order name: Troponin HS; Complete Time: 21:56 cp 11/22 21:58 Order name: UA Rfx Franky Cult if indicated cp 11/22 22:03 Order name: CBC Smear Scan EDMS 11/22 20:34 Order name: XRAY Chest (1 view); Complete Time: 23:12 cp 11/22 23:12 Interpretation: Report reviewed. 11/22 20:34 Order name: US Extremity Venous W Compression Saleem; Complete Time: 21:56 cp 11/22 20:34 Order name: Cardiac monitoring; Complete Time: 20:48 cp 11/22 20:34 Order name: EKG - Nurse/Tech; Complete Time: 20:48 cp 11/22 20:34 Order name: IV Saline Lock; Complete Time: 20:48 cp 11/22 20:34 Order name: Labs collected and sent; Complete Time: 20:48 cp 11/22 20:34 Order name: O2 Per Protocol; Complete Time: 20:48 11/22 20:34 Order name: O2 Sat Monitoring; Complete Time: 20:48 cp EC:06 Rate is 68 beats/min. Rhythm is regular. PA interval is normal. QRS interval is normal. cp QT interval is normal. T waves are Inverted in lead aVR. Interpreted by me. Reviewed by me. Administered Medications: 22:34 Drug: Furosemide IVP 40 mg IVP once; give over 2 minutes Route: IVP; Site: left forearm;bm8 23:42 Follow up: Response: No adverse reaction bm8 Disposition Summary: 11/22/24 23:41 Hospitalization Ordered Notes: Hospitalization Status: Inpatient Admission cp Provider: Prince constantino Mayorga Location: Telemetry/MedSurg (Inpatient) cp Condition: Stable cp Problem: an acute exacerbation cp Symptoms: have improved cp Bed/Room Type: Standard cp Room Assignment: 202(11/23/24 00:00) cg Diagnosis - Hepatic failure, unspecified without coma cp - Other ascites cp - Edema, unspecified cp Forms: - Medication Reconciliation Form cp - SBAR form cp - Leadership Thank You Letter cp Signatures: Dispatcher [employer] EDMD Nuno Patino PA PA cp Garcia, Cindy, RN RN Tigist Duke, RN RN [email or web address] Bi Gonsalves RN RN bm8 Corrections: (The following items were deleted from the chart) 20:35 20:35 Extrem Venous W Compression Saleem+US.RAD.BRZ ordered. EDMS EDMS 21:58 UA Rfx Franky Cult if indicated+U.LAB.BRZ ordered. EDMS EDMS 11/23 00:00 11/22 23:41 cp cg
[2024-11-22] MEDS ORDERED: ONDANSETRON 4 MG/2 ML VIAL IV PRN (23:50)
--- NOTE | 2024-11-22 23:53 | P.HP ---
Certification for Inpatient Patient admitted to: Observation With expected LOS: <2 Midnights Practitioner: I am a practitioner with admitting privileges, knowledge of patient current condition, hospital course, and medical plan of care. Services: Services provided to patient in accordance with Admission requirements found in Title 42 Section 412.3 of the Code of Federal Regulations Patient History Date of Service: 11/22/24 Reason for admission: ANASARCA History of Present Illness: Patient is a 64-year-old female with past medical history hepatitis virus contracted since childhood progressing to cirrhosis and now with liver cancer with metastatic disease. She is followed in [place]. She presented to the ER complaining of volume overload manifested by bilateral lower extremity swelling and abdominal distention. Patient has no shortness of breath. During my evaluation, she was on room air. Chest x-ray was unremarkable except for a small pleural effusion. She is speaking in full sentences. She has a edematous legs, left more than right. Venous Doppler ruled out DVT of lower extremity. She is being admitted for diuresis and management of volume overload. Allergies acetaminophen [From Tylenol] Adverse Reaction (Verified 05/11/24 02:05) other ibuprofen Adverse Reaction (Verified 05/11/24 02:04) other tramadol Adverse Reaction (Verified 05/11/24 02:03) other Home Medications: Furosemide [Lasix*] 20 mg PO DAILY 05/11/24 Morphine *Extended Release* [MS Contin*] 15 mg PO Q4HP PRN 05/11/24 Spironolactone 50 mg PO DAILY 05/11/24 - Past Medical/Surgical History Diabetic: No -: Cirrhosis -: Gastric Ulcers -: Hepatitis C -: Diabetes -: bone cancer -: liver cancer, chemo last December -: Cholecystectomy -: appendectomy -: tubal ligation -: Psychosocial/ Personal History: Patient lives at home with her family. - Family History Mother -: Diabetes, Cancer Notes: gallbladder Father -: Diabetes, Liver disease Notes: cirrhosis Sister -: Diabetes - Social History Alcohol use: No CD- Drugs: No Caffeine use: No Physical Examination - Physical Exam General: In no apparent distress HEENT: Atraumatic, Normocephalic, Scleral icterus Respiratory: Clear to auscultation bilaterally, Normal air movement Cardiovascular: Regular rate/rhythm, Normal S1 S2, Edema (Bilateral lower extremity edema) Gastrointestinal: Distended, Ascites, Tenderness Neurological: Normal speech - Studies Laboratory Data (last 24 hrs) 11/22/24 11/22/24 11/22/24 20:44 20:44 20:44 WBC 5.40 Hgb 10.8 L Hct 30.5 L Plt Count 49 L PT 12.3 INR 1.08 Sodium 138 Potassium 4.0 BUN 17 Creatinine 1.35 H Glucose 174 H Magnesium 2.1 Total Bilirubin 1.5 H AST 20 ALT < 14 Alkaline Phosphatase 131 H Assessment and Plan - Problems (Diagnosis) (1) Anasarca Current Visit: Yes Status: Acute (2) Hypoalbuminemia Onset Date: 04/12/18 Current Visit: No Status: Acute (3) Liver lesion Current Visit: No Status: Acute (4) Metastasis to liver Current Visit: No Status: Acute (5) Swelling of lower extremity Current Visit: No Status: Acute (6) Cirrhosis Onset Date: 04/12/18 Current Visit: No Status: Chronic Qualifiers: Hepatic cirrhosis type: unspecified hepatic cirrhosis Ascites presence: without ascites Qualified Code(s): K74.60 - Unspecified cirrhosis of liver - Plan Assessment This is a 64-year-old female with history of hepatitis virus, cirrhosis and liver cancer with metastatic disease. She presented to the ER with volume overload manifested by lower extremity edema and ascites. Patient's albumin is low. She is on room air without respiratory distress. Anasarca Hypoalbuminemia Metastatic liver disease Cirrhosis Diabetes mellitus Plan: Will admit under observation Will give a trial of scheduled Lasix and albumin Monitor ins and out Replace electrolytes as needed If available, consider therapeutic paracentesis tomorrow Otherwise, she can be discharged if clinically stable tomorrow. She has an appointment in [place] on Sunday for continuity of care - Advance Directives Does patient have a Living Will: No Does patient have a Durable POA for Healthcare: No
[2024-11-22] MEDS: FUROSEMIDE 40 MG/4 ML VIAL IV SCH (23:54)
[2024-11-23 01:13] VITALS: BMI 30.2
[2024-11-23] MEDS: ALBUMIN HUMAN 25% 100 ML IV SCH (01:28)
[2024-11-23 01:30] LABS: Platelet Estimate DECR; White Blood Cell Scan OK (OK)
[2024-11-23 01:31] LABS: Blood Morphology Comment NOT SEEN (NOT SEEN)
[2024-11-23 02:12] VITALS: O2SAT 96
[2024-11-23 02:31] LABS: Specific Gravity 1.008 (1.005-1.030); Sqamous Epithelial <5 /HPF (None Seen); Urine Bacteria <20 /HPF (<20); Urine Bilirubin NEGATIVE (Negative); Urine Blood 1+ (Negative); Urine Clarity Clear (Clear); Urine Color Light-Yellow (Yellow); Urine Culture Reflex Order NOT NEEDED; Urine Glucose NEGATIVE (Negative); Urine Ketones NEGATIVE (Negative); Urine Microscopic Reflex YN ORDER UMIC; Urine Nitrite NEGATIVE (Negative); Urine Protein NEGATIVE (Negative); Urine RBC <5 /HPF (None Seen); Urine Urobilinogen Normal (Normal); Urine WBC <5 /HPF (<5)
[2024-11-23] MEDS ORDERED: MORPHINE *EXTENDED RELEASE* 15 MG TAB PO PRN (05:21)
[2024-11-23] MEDS: MORPHINE 15 MG IR TAB PO PRN (05:49)
[2024-11-23] MEDS ORDERED: FAMOTIDINE 20 MG TAB PO SCH (09:00)
[2024-11-23] MEDS: FAMOTIDINE 20 MG TAB PO SCH (10:50)
[2024-11-23] MEDS: FOLIC ACID 1 MG TABLET PO SCH (10:51)
[2024-11-23] MEDS ORDERED: LACTULOSE 20 GM/30 ML UCUP PO PRN (11:13)
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
[2024-11-23 12:47] VITALS: BP 119/56; TEMP 98.6
--- NOTE | 2024-11-24 12:00 | EKG ---
Test Date: 2024-11-22 Test Time: 20:55:43 It Disaster Recovery Manager: [place] MEASUREMENT RESULTS: Intervals: Rate: 67 MS: 150 QRSD: 80 QT: 438 QTc: 462 [place]: P: 44 MS: 150 QRS: 57 T: 58 INTERPRETIVE STATEMENTS: Normal sinus rhythm Normal ECG Compared to ECG 11/04/2024 13:50:05 Atrial premature complex(es) no longer present Electronically Signed On 11-24-24 11:57:01 CDT by Jr Nicholson
== END 2024-11-23 13:10 | disposition home or self-care (01) ==
LOC: ER 20:00 → 2ND 23:50
PROVIDERS: ADMIT Internal Medicine; ATTEND Hospitalist
DX: R60.1 Generalized edema (principal); E87.70 Fluid overload, unspecified; J90 Pleural effusion, not elsewhere classified; R18.8 Other ascites; E88.09 Other disorders of plasma-protein metabolism, not elsewhere classified; B19.20 Unspecified viral hepatitis C without hepatic coma; K74.60 Unspecified cirrhosis of liver; E11.9 Type 2 diabetes mellitus without complications; C22.8 Malignant neoplasm of liver, primary, unspecified as to type; C79.51 Secondary malignant neoplasm of bone; J98.11 Atelectasis
CPT/HCPCS: 85025; 81001; 80048; 36415; 83735; 85610; 80076; 84484; 83880; 71045; 93970; J1938 ×2; P9047 ×2; 93005; G0378

== ENCOUNTER 2024-12-06 18:11 | Emergency (ER) | payer OTHER ==
--- NOTE | 2024-12-06 19:45 | RAD REPORT ---
EXAM: Chest Single View HISTORY: 64 years Female COUGH COMPARISON: 11/22/2024 FINDINGS: LUNGS/PLEURA: Blunting of the costophrenic angle with ill-defined opacity at the left lung base. CARDIAC/MEDIASTINUM: The cardiac silhouette is within normal limits. UPPER ABDOMEN: No significant abnormality. BONES: No acute abnormality. LINES/TUBES/OTHER: N/A IMPRESSION: Small left pleural effusion and probably underlying atelectasis.. This is similar to prior.
--- NOTE | 2024-12-06 19:52 | RAD REPORT ---
EXAMINATION: US LOWER EXTREMITY VENOUS DOPPLER BILATERAL CLINICAL INDICATION: Female, 64 years old.Pain;Swelling TECHNIQUE: Complete bilateral duplex sonography of the lower extremity veins was performed. The exami nation included compression for vein patency, color Doppler imaging and flow augmentation in response to distal compression of the distal external iliac, common femoral, femoral, popliteal, maritza beatrice, tibial and great saphenous veins. [id number]. COMPARISON: No prior exams FINDINGS: Duplex sonography imaging demonstrates all deep examined to be fully compressible with spontaneous, p hasic and augmented flow bilaterally. IMPRESSION: No evidence of deep venous thrombosis seen in either lower extremity.
--- NOTE | 2024-12-06 20:25 | RAD REPORT ---
EXAMINATION: Abdomen Pelvis Wo Contrast CLINICAL INDICATION: Female, 64 years old.ABD PAIN TECHNIQUE: CT abdomen and pelvis was performed, without IV contrast, as per department protocol. Axia l, sagittal and coronal reconstructions were obtained. One or more of the following dose reduction techniques were used: Automated exposure control, adjustment of the mA and/or kV according to the pat ient size, and/or iterative reconstruction. Unless otherwise specified, incidental findings do not require dedicated imaging follow-up. [id number]. IV CONTRAST: Not administered. COMPARISON: 10/02/2024 FINDINGS: The lack of intravenous contrast limits the sensitivity of this exam for evaluation of solid visceral organs, vascular structures, and retroperitoneum. LOWER CHEST: Small left pleural effusion and underlying atelectasis.Mild cardiomegaly. UPPER GI: No significant abnormality. LIVER: Several liver lesions are again identified including the intermediate attenuation lesion in le ft lobe measuring approximately 3.5 cm. This could be from prior ablation. Cirrhosis. GALLBLADDER/BILE DUCTS: Absent? PANCREAS: No mass, ductal dilation, or luis-pancreatic fluid. SPLEEN: Mild splenomegaly. ADRENALS: No adrenal masses. KIDNEYS AND URETERS: No hydronephrosis.Limited evaluation for renal lesions in the absence of IV cont rast. ABDOMINAL AORTA AND OTHER VESSELS: Moderate atherosclerotic changes without aortic aneurysm. PERITONEUM: Large volume of ascites. LYMPH NODES: No pathologic lymphadenopathy. ABDOMINAL WALL: Body wall edema. SMALL BOWEL/COLON: Small bowel has normal course and caliber. No colonic wall thickening or pericolon ic inflammatory changes. Moderate formed stool burden. URINARY BLADDER: Underdistended but grossly unremarkable. REPRODUCTIVE ORGANS: No pathologic process. MUSCULOSKELETAL: Remote L5 compression fracture. ADDITIONAL FINDINGS: None. IMPRESSION: No new acute findings within the abdomen or pelvis. Unchanged large volume of ascites in the setting of cirrhosis. Incidental findings as noted above.
--- NOTE | 2024-12-06 20:42 | ER ---
Nurse's Notes [facility] Name: Ana Maria Chavez Age: 64 yrs Sex: Female : 1960 Arrival Date: 12/06/2024 Time: 18:11 Bed 20 Private MD: Diagnosis: Pain in left lower leg;Acute bilateral lower extremity edema, Acute Nausea, History of Hepatitis C with Liver Cirrhosis Presentation: 12/06 18:59 Chief complaint: Patient states: c/o nausea that started today and Left leg swelling me1 that started yesterday. +4 pitting edema noted to LLE. Patient reports she missed her paracentesis on Sunday. Pain is 8/10. Coronavirus screen: Vaccine status: Patient reports being unvaccinated. Ebola Screen: No symptoms or risks identified at this time. Initial Sepsis Screen: Does the patient meet any 2 criteria? No. Patient's initial sepsis screen is negative. Does the patient have a suspected source of infection? No. Patient's initial sepsis screen is negative. Risk Assessment: Do you want to hurt yourself or someone else? Patient reports no desire to harm self or others. Onset of symptoms is unknown. 18:59 Method Of Arrival: Wheelchair me1 18:59 Acuity: LETY 3 me1 Historical: - Allergies: 19:01 Ibuprofen; me1 19:01 tramadol; me1 19:01 Tylenol; me1 19:01 PENICILLINS; me1 - PMHx: 19:01 bone cancer; Cirrhosis; diabetes mellitus; gastric ulcers; Hepatitis C; liver cancer; me1 - PSHx: 19:01 Appendectomy; section; Cholecystectomy; Ligation of fallopian tube; weekly me1 paracentesis; - Immunization history:: Adult Immunizations unknown. - Infectious Disease History:: Denies. - Social history:: Smoking status: Patient denies any tobacco usage or history of. - Family history:: not pertinent. Screenin:31 [facility] ED Fall Risk Assessment (Adult) History of falling in the last 3 months, jb4 including since admission No falls in past 3 months (0 pts) Confusion or Disorientation No (0 pts) Intoxicated or Sedated No (0 pts) Impaired Gait No (0 pts) Mobility Assist Device Used No (0 pt) Altered Elimination No (0 pt) Score/Fall Risk Level 0 - 2 = Low Risk Oriented to surroundings, Maintained a safe environment. Abuse screen: Denies threats or abuse. Nutritional screening: No deficits noted. Tuberculosis screening: No symptoms or risk factors identified. Assessment: 21:31 General: Appears in no apparent distress. comfortable, Behavior is calm, cooperative, jb4 appropriate for age. Pain: Complains of pain in left leg Pain does not radiate. Neuro: Level of Consciousness is awake, alert, obeys commands, Oriented to person, place, time, situation. Cardiovascular: Patient's skin is warm and dry. Respiratory: Airway is patent Respiratory effort is even, unlabored, Respiratory pattern is regular, symmetrical. GI: Abdomen is flat, non-distended, Reports nausea. Derm: Skin is intact, Skin is pink, warm \T\ dry. Musculoskeletal: Circulation, motion, and sensation intact. Range of motion: intact in all extremities. Vital Signs: 18:59 BP 129 / 74; Pulse 88; Resp 20; Temp 98.2; Pulse Ox 98% ; Weight 69.85 kg; Height 5 ft. me1 0 in. ; Pain 8/10; 21:34 BP 144 / 71; Pulse 77; Resp 16; Pulse Ox 98% on R/A; jb4 18:59 Body Mass Index 30.08 (69.85 kg, 152.4 cm) me1 18:59 Pain Scale: Adult me1 Javier Coma Score: 12/07 04:28 Eye Response: spontaneous(4). Motor Response: obeys commands(6). Verbal Response: sp4 oriented(5). Total: 15. ED Course: 12/06 18:13 Patient arrived in ED. ts1 18:55 Nuno Carranza MD is Attending Physician. rl 19:01 Triage completed. me1 19:01 Arm band placed on Patient placed in waiting room. me1 19:11 Attending Physician role handed off by Nuno Carranza MD sp4 19:11 Brian Mcnally MD is Attending Physician. sp4 19:38 XRAY Chest (1 view) In Process Unspecified. EDMS 19:41 US Extremity Venous W Compression Saleem In Process Unspecified. EDMS 20:12 CT Abd/Pelvis - Without Contrast In Process Unspecified. EDMS 21:31 Patient has correct armband on for positive identification. Bed in low position. Call jb4 light in reach. Side rails up X 1. Provided Education on: discharge instructions.. 21:31 No provider procedures requiring assistance completed. Patient did not have IV access jb4 during this emergency room visit. Administered Medications: 20:32 CANCELLED (Physician Discretion): ns 0.9% 500 ml 500 ml IV at 100 ml/hr once; to be sp4 given as a bolus over 30 minutes 21:07 CANCELLED (Physician Discretion): ondansetron 4 mg IVP once; over 2 minutes jb4 21:08 Not Given (Physician Discretion): [id number] mg IVP once; dilute with 10 mL 0.9% jb4 NaCl; give over 2 minutes 21:34 Drug: torsemide 40 mg PO once Route: PO; jb4 21:34 Follow up: Response: Medication administered at discharge. jb4 21:34 Drug: Ondansetron PO 4 mg PO once Route: PO; jb4 21:34 Follow up: Response: Medication administered at discharge. jb4 Medication: 21:31 VIS not applicable for this client. jb4 Outcome: 20:41 Discharge ordered by . sp4 21:31 Discharged to home via wheelchair, with family, jb4 21:31 Condition: stable 21:31 Discharge instructions given to patient, family, Instructed on discharge instructions, follow up and referral plans. medication usage, Demonstrated understanding of instructions, follow-up care, medications, Prescriptions given X 1, 21:35 Patient left the ED. jb4 Signatures: Dispatcher [employer] EDOK Nuno Carranza MD MD cha Bryson, James RN RN jb4 Brian Mcnally MD MD sp4 Lulu Arias PAS PAS ts1 Karen Melara, DERREK RN me1 Corrections: (The following items were deleted from the chart) 21:33 21:31 Discharge instructions given to patient, family, jb4 jb4
--- NOTE | 2024-12-06 20:42 | EDPHYS ---
Physician Documentation [facility] Name: Ana Maria Chavez Age: 64 yrs Sex: Female : 1960 Arrival Date: 12/06/2024 Time: 18:11 Bed 20 Private MD: ED Physician Brian Mcnally HPI: 12/06 19:11 This 64 yrs old Female presents to ER via Wheelchair with complaints of sp4 Nausea/Vomiting, Leg Swelling. 12/07 04:28 64-year-old female presents with complaint of nausea, and left lower extremity sp4 swelling. Patient states she recently ran out of her torsemide. Patient takes 40 mg torsemide p.o. once a day. Also she takes sofosbuvir and Velpatasvir . . Historical: - Allergies: 12/06 19:01 Ibuprofen; me1 19:01 tramadol; me1 19:01 Tylenol; me1 19:01 PENICILLINS; me1 - PMHx: 19:01 bone cancer; Cirrhosis; diabetes mellitus; gastric ulcers; Hepatitis C; liver cancer; me1 - PSHx: 19:01 Appendectomy; section; Cholecystectomy; Ligation of fallopian tube; weekly me1 paracentesis; - Immunization history:: Adult Immunizations unknown. - Infectious Disease History:: Denies. - Social history:: Smoking status: Patient denies any tobacco usage or history of. - Family history:: not pertinent. ROS: 12/07 04:28 Constitutional: Negative for fever, chills, and weight loss, positive for left lower sp4 extremity swelling. All other systems are negative, Exam: 04:28 Constitutional: This is a well developed, well nourished patient who is awake, alert, sp4 with abdominal distention and ascites which is chronic, bilateral lower extremity edema left greater than right, physical deconditioning. Head/Face: Normocephalic, atraumatic. Eyes: Pupils equal round and reactive to light, extra-ocular motions intact. Lids and lashes normal. Conjunctiva and sclera are not injected. Cornea within normal limits. Periorbital areas with no swelling, redness, or edema. ENT: Nares patent. No nasal discharge, no septal abnormalities noted. Tympanic membranes are normal and external auditory canals are clear. Oropharynx with no redness, swelling, or masses, exudates, or evidence of obstruction, uvula midline. Mucous membranes moist. Neck: Trachea midline, no thyromegaly or masses palpated, and no cervical lymphadenopathy. Supple, full range of motion without nuchal rigidity, or vertebral point tenderness. Chest/axilla: Normal chest wall appearance and motion. Nontender with no deformity. No lesions are appreciated. Cardiovascular: Regular rate and rhythm with a normal S1 and S2. No gallops, murmurs, or rubs. Normal PMI, no JVD. No pulse deficits. Respiratory: Lungs have equal breath sounds bilaterally, clear to auscultation and percussion. No rales, rhonchi or wheezes noted. No increased work of breathing, no retractions or nasal flaring. Abdomen/GI: Soft, with normal bowel sounds. Mild distention and abdominal ascites, positive fluid wave sign Back: No spinal tenderness. No costovertebral tenderness. Skin: Warm, dry with normal turgor. Normal color with no rashes, no lesions, and no evidence of cellulitis. MS/ Extremity: Pulses equal, no cyanosis. Neurovascular intact. Full, normal range of motion. Neuro: Awake and alert, GCS 15, oriented to person, place, time, and situation. Cranial nerves II-XII grossly intact. Motor strength 5/5 in all extremities. Sensory grossly intact. Psych: Awake, alert, with orientation to person, place and time. Behavior, mood, and affect are within normal limits Vital Signs: 12/06 18:59 BP 129 / 74; Pulse 88; Resp 20; Temp 98.2; Pulse Ox 98% ; Weight 69.85 kg; Height 5 ft. me1 0 in. ; Pain 8/10; 21:34 BP 144 / 71; Pulse 77; Resp 16; Pulse Ox 98% on R/A; jb4 18:59 Body Mass Index 30.08 (69.85 kg, 152.4 cm) me1 18:59 Pain Scale: Adult me1 Javier Coma Score: 12/07 04:28 Eye Response: spontaneous(4). Motor Response: obeys commands(6). Verbal Response: sp4 oriented(5). Total: 15. MDM: 12/06 18:55 Medical Screening Exam initiated rl 20:37 Differential diagnosis: Nonspecific abd pain, gastritis, viral gastroenteritis, sp4 gastroenteritis. Data reviewed: vital signs, nurses notes, radiologic studies. Consideration of Admission/Observation Escalation of care including admission/observation considered. ED course: EXAMINATION: Abdomen Pelvis Wo Contrast CLINICAL INDICATION: Female, 64 years old.ABD PAIN TECHNIQUE: CT abdomen and pelvis was performed, without IV contrast, as per department protocol. Axial, sagittal and coronal reconstructions were obtained. One or more of the following dose red uction techniques were used: Automated exposure control, adjustment of the mA and/or kV according to the patient size, and/or iterative reconstruction. Unless otherwise specified, incidental findings do not require dedicated imaging follow-up. [id number]. IV CONTRAST: Not administered. COMPARISON: 10/02/2024 FINDINGS: The lack of intravenous contrast limits the sensitivity of this exam for evaluation of solid visceral organs, vascular structures, and retroperitoneum. LOWER CHEST: Small left pleural effusion and underlying atelectasis.Mild cardiomegaly. UPPER GI: No significant abnormality. LIVER: Several liver lesions are again identified including the intermediate attenuation lesion in left lobe measuring approximately 3.5 cm. This could be from prior ablation. Cirrhosis. GALLBLADDER/BILE DUCTS: Absent? PANCREAS: No mass, ductal dilation, or luis-pancreatic fluid. SPLEEN: Mild splenomegaly. ADRENALS: No adrenal masses. KIDNEYS AND URETERS: No hydronephrosis.Limited evaluation for renal lesions in the absence of IV contrast. ABDOMINAL AORTA AND OTHER VESSELS: Moderate atherosclerotic changes without aortic aneurysm. PERITONEUM: Large volume of ascites. LYMPH NODES: No pathologic lymphadenopathy. ABDOMINAL WALL: Body wall edema. SMALL BOWEL/COLON: Small bowel has normal course and caliber. No colonic wall thickening or pericolonic inflammatory changes. Moderate formed stool burden. URINARYBLADDER: Underdistended but grossly unremarkable. REPRODUCTIVE ORGANS: No pathologic process. MUSCULOSKELETAL: Remote L5 compression fracture. ADDITIONAL FINDINGS: None. IMPRESSION: No new acute findings within the abdomen or pelvis. Unchanged large volume of ascites in the setting of cirrhosis. Incidental findings as noted above. ED course: EXAM: Chest Single View HISTORY: 64 years Female COUGH COMPARISON: 11/22/2024 FINDINGS: LUNGS/PLEURA: Blunting of the costophrenic angle with ill-defined opacity at the left lung base. CARDIAC/MEDIASTINUM: The cardiac silhouette is within normal limits. UPPER ABDOMEN: No significant abnormality. BONES: No acute abnormality. LINES/TUBES/OTHER: N/A IMPRESSION: Small left pleural effusion and probably underlying atelectasis.. This is similar to prior. . ED course: EXAMINATION: US LOWER EXTREMITYVENOUS DOPPLER BILATERAL CLINICAL INDICATION: Female, 64 years old.Pain;Swelling TECHNIQUE: Complete bilateral duplex sonography of the lower extremity veins was performed. The examination included compression for vein patency, color Doppler imaging and flow augmentation in response to distal compression of the distal external iliac, common femoral, femoral, popliteal, peroneal, tibial and great saphenous veins. [id number]. COMPARISON: No prior exams FINDINGS: Duplex sonography imaging demonstrates all deep examined to be fully compressible with spontaneous, phasic and augmented flow bilaterally. IMPRESSION: No evidence of deep venous thrombosis seen in either lower extremity. . 12/06 18:57 Order name: XRAY Chest (1 view); Complete Time: 20:32 [facility] 12/06 18:57 Order name: US Extremity Venous W Compression Saleem; Complete Time: 20:32 [facility] 12/06 18:57 Order name: CT Abd/Pelvis - Without Contrast; Complete Time: 20:32 [facility] 12/06 18:57 Order name: EKG; Complete Time: 18:58 [facility] 12/06 18:57 Order name: O2 Per Protocol; Complete Time: 21:08 [facility] 12/06 18:57 Order name: O2 Sat Monitoring; Complete Time: 21:08 [facility] Administered Medications: 20:32 CANCELLED (Physician Discretion): ns 0.9% 500 ml 500 ml IV at 100 ml/hr once; to be sp4 given as a bolus over 30 minutes 21:07 CANCELLED (Physician Discretion): ondansetron 4 mg IVP once; over 2 minutes jb4 21:08 Not Given (Physician Discretion): [id number] mg IVP once; dilute with 10 mL 0.9% jb4 NaCl; give over 2 minutes 21:34 Drug: torsemide 40 mg PO once Route: PO; jb4 21:34 Follow up: Response: Medication administered at discharge. jb4 21:34 Drug: Ondansetron PO 4 mg PO once Route: PO; jb4 21:34 Follow up: Response: Medication administered at discharge. jb4 Disposition: 12/07 04:28 Chart complete. sp4 Disposition Summary: 12/06/24 20:41 Discharge Ordered Notes: Location: Home sp4 Problem: new sp4 Symptoms: have improved sp4 Condition: Stable sp4 Diagnosis - Pain in left lower leg sp4 - Acute bilateral lower extremity edema, Acute Nausea, History of Hepatitis C with sp4 Liver Cirrhosis Followup: sp4 - With: Private Physician - When: 7 - 10 days - Reason: Recheck today's complaints Discharge Instructions: - Discharge Summary Sheet sp4 - Edema, [id number] sp4 Forms: - Patient Portal Instructions sp4 Prescriptions: - torsemide 20 mg Oral tablet - take 2 tablet ORAL route daily for 30 days; 60 tablet; Refills: 0, Product sp4 Selection Permitted Signatures: Dispatcher [employer] Nuno Mejía MD MD cha Bryson, James, RN RN jb4 Brian Mcnally MD MD sp4 Karen Melara RN RN me1 Corrections: (The following items were deleted from the chart) 12/06 20:32 18:57 NS 0.9% IV 500 ml 500 ml IV at 100 ml/hr once; to be given as a bolus over 30 sp4 minutes ordered. [facility] 21:07 18:57 Ondansetron IVP 4 mg IVP once; over 2 minutes ordered. [place] [address] 21:08 18:57 Cardiac monitoring ordered. [place] [address] 21:08 18:57 EKG - Nurse/Tech ordered. [place] [address] 21:08 18:57 IV Saline Lock ordered. [place] [address] 21:08 18:57 Labs collected and sent ordered. [place] [address] 21:19 18:58 CBC+H.LAB.BRZ ordered. EDWI EDMS 21:19 18:58 PROTIME (+INR)+COAG.LAB.BRZ ordered. EDMS EDMS 21:19 18:58 UA Rfx Franky Cult if indicated+U.LAB.BRZ ordered. EDMS EDMS 21:20 18:58 BASIC METABOLIC PANEL+C.LAB.BRZ ordered. EDMS EDMS 21:20 18:58 HEPATIC FUNCTION+C.LAB.BRZ ordered. EDMS EDMS 21:20 18:58 MAGNESIUM+C.LAB.BRZ ordered. EDMS EDMS 21:20 18:58 PROBNP+C.LAB.BRZ ordered. EDMS EDMS 21:20 18:58 Troponin High Sensitivity+C.LAB.BRZ ordered. EDMS EDMS 21:20 18:58 LIPASE+C.LAB.BRZ ordered. EDMS EDMS
[2024-12-06] MEDS ORDERED: TORSEMIDE 20 MG TAB ONE (21:12)
[2024-12-06] MEDS ORDERED: ONDANSETRON 4 MG (ODT) TAB ONE (21:12)
[2024-12-06 22:12] VITALS: TEMP 98.2; O2SAT 98
[2024-12-06 22:14] VITALS: BP 144/71
== END 2024-12-06 21:35 | disposition home or self-care (01) ==
LOC: ER 18:11
DX: R60.0 Localized edema (principal); R11.0 Nausea; B19.20 Unspecified viral hepatitis C without hepatic coma; K74.60 Unspecified cirrhosis of liver; Z85.830 Personal history of malignant neoplasm of bone
CPT/HCPCS: 74176; 71045; 93970; 99283; Q0162

== ENCOUNTER 2025-05-15 16:43 | Emergency (ER) | payer OTHER ==
[2025-05-15] MEDS ORDERED: ONDANSETRON 4 MG/2 ML VIAL ONE (17:17)
[2025-05-15] MEDS ORDERED: NA CHLORIDE 0.9% 500 ML ONE ×2 (17:18→18:41)
[2025-05-15 17:59] LABS: Absolute Lymphocytes (CBC) 0.6 K/uL (0.7-4.9); Hematocrit 29.0 % (36.0-45.0); Hemoglobin 10.1 g/dL (12.0-15.0); MCH 31.3 pg (27.0-35.0); MCHC 34.8 g/dL (32.0-36.0); MCV 89.9 fL (80-100); MPV 8.4 fL (7.6-11.3); Nucleated RBC Absolute Count 0.0 (0-0); Nucleated Red Blood Cells % 0.0 % (0-0); RBC Red Blood Cell Count 3.22 M/uL (3.86-4.86); White Blood Count 16.40 thou/uL (4.3-10.9)
[2025-05-15 18:13] LABS: Anion Gap 12.6 mEq/L (5.0-15.0); BUN Blood Urea Nitrogen 44.0 mg/dL (7-18); Glucose Level 100.0 mg/dL (74-106); Potassium 4.6 mEq/L (3.5-5.1)
--- NOTE | 2025-05-15 18:22 | RAD REPORT ---
EXAMINATION: CT Abdomen Pelvis Wo Contrast CLINICAL INDICATION: Female, 65 years old. ABD PAIN TECHNIQUE: CT abdomen and pelvis was performed, without IV contrast, as per department protocol. Axia l, sagittal and coronal reconstructions were obtained. One or more of the following dose reduction techniques were used: Automated exposure control, adjustment of the mA and kV according to the patien t size, and iterative reconstruction. Unless otherwise specified, incidental findings do not require dedicated imaging follow-up. COMPARISON: 12/13/2024 FINDINGS: The lack of intravenous contrast limits the sensitivity of this exam for evaluation of solid visceral organs, vascular structures, and retroperitoneum. LOWER CHEST: The visualized lung bases are clear. LIVER: Normal in size. Stable nodular contour. Stable 1.7x1.6cm upper margin cystic lesion. BILIARY SYSTEM: Status post cholecystectomy. SPLEEN: Normal size. No focal lesion. PANCREAS: No mass, ductal dilation, or luis-pancreatic fluid. ADRENALS: Normal; no mass. KIDNEYS AND URETERS: Normal size and contour. No hydronephrosis. URINARY BLADDER: Normal contour. GASTROINTESTINAL TRACT: No evidence of bowel obstruction, free air or abscess. Moderate free ascites. APPENDIX: Normal appendix. LYMPH NODES: No lymphadenopathy. MUSCULOSKELETAL: No acute or suspicious osseous abnormality. ADDITIONAL FINDINGS: anterior body wall edema. IMPRESSION: Moderate free ascites, progressive. Other stable findings as above.
[2025-05-15 19:10] LABS: PT Prothrombin Time 18.2 SECONDS (10-13.0); PTT, Activated Partial Thromb 41.1 SECONDS (27.2-37.4); Protime INR 1.63
[2025-05-15 19:18] LABS: Urine Crystals Unidentified Few /HPF (None Seen); Urine Culture Reflex Order REFLEXED; Urine Microscopic Reflex YN ORDER UMIC; Urine WBC Clump Occasional /HPF (None Seen); Urine Yeast (Budding) Trace /HPF (None Seen)
--- NOTE | 2025-05-15 19:21 | ER ---
Nurse's Notes [facility] Name: Ana Maria Chavez Age: 65 yrs Sex: Female : 1960 Arrival Date: 05/15/2025 Time: 16:43 Bed 20 Private MD: Diagnosis: Unspecified cirrhosis of liver;Unspecified kidney failure-acute kidney injury Presentation: 05/15 16:59 Chief complaint: Patient states: NAUSEA, VOMITING, DIARRHEA AND RT EAR PAIN X 2 NIGHT. dd2 Coronavirus screen: diarrhea, nausea, vomiting. Ebola Screen: No symptoms or risks identified at this time. Initial Sepsis Screen: Does the patient meet any 2 criteria? No. Patient's initial sepsis screen is negative. Does the patient have a suspected source of infection? No. Patient's initial sepsis screen is negative. Risk Assessment: Do you want to hurt yourself or someone else? Patient reports no desire to harm self or others. Onset of symptoms was May 13, 2025. 16:59 Method Of Arrival: Wheelchair dd2 16:59 Acuity: LETY 3 dd2 Triage Assessment: 17:00 General: Appears in no apparent distress. uncomfortable, Behavior is calm, cooperative, dd2 appropriate for age. Pain: Complains of pain in right ear and low back area. GI: Reports diarrhea, nausea, vomiting. Historical: - Allergies: 17:00 Aspirin; dd2 17:00 Ibuprofen; dd2 17:00 PENICILLINS; dd2 17:00 tramadol; dd2 17:00 Tylenol; dd2 - PMHx: 17:00 bone cancer; Cirrhosis; diabetes mellitus; gastric ulcers; Hepatitis C; liver cancer; dd2 Cirrhosis of liver; - PSHx: 17:00 Appendectomy; section; Cholecystectomy; Ligation of fallopian tube; weekly dd2 paracentesis; - Immunization history:: Adult Immunizations up to date. - Infectious Disease History:: Denies. - Social history:: Smoking status: Patient denies any tobacco usage or history of. Screenin:52 [facility] ED Fall Risk Assessment (Adult) History of falling in the last 3 months, ar8 including since admission No falls in past 3 months (0 pts) Confusion or Disorientation No (0 pts) Intoxicated or Sedated No (0 pts) Impaired Gait No (0 pts) Mobility Assist Device Used No (0 pt) Altered Elimination No (0 pt) Score/Fall Risk Level 0 - 2 = Low Risk Oriented to surroundings, Maintained a safe environment. Abuse screen: Denies threats or abuse. Nutritional screening: No deficits noted. Tuberculosis screening: No symptoms or risk factors identified. 21:27 [facility] ED Fall Risk Assessment (Adult) History of falling in the last 3 months, tb4 including since admission No falls in past 3 months (0 pts) Confusion or Disorientation No (0 pts) Intoxicated or Sedated No (0 pts) Impaired Gait No (0 pts) Mobility Assist Device Used No (0 pt) Altered Elimination No (0 pt) Score/Fall Risk Level 0 - 2 = Low Risk Maintained a safe environment. Abuse screen: Denies threats or abuse. Denies injuries from another. Nutritional screening: No deficits noted. Tuberculosis screening: No symptoms or risk factors identified. Assessment: 17:50 General: Appears uncomfortable, Behavior is calm, cooperative. Neuro: Level of ar8 Consciousness is awake, alert, obeys commands, Oriented to person, place, time, situation. Cardiovascular: Patient's skin is warm and dry. Respiratory: Airway is patent Respiratory effort is even, unlabored, Respiratory pattern is regular, symmetrical. GI: Abdomen is distended, Patient stated that she missed her appt for her paracentesis today. firm Reports nausea, vomiting. : No signs and/or symptoms were reported regarding the genitourinary system. 20:00 Reassessment:. General: Appears uncomfortable, Behavior is calm, cooperative. Pain: tb4 Complains of pain in back Pain does not radiate. Pain currently is 10 out of 10 on a pain scale. Quality of pain is described as sharp, shooting, Pain began gradually. Neuro: Level of Consciousness is awake, alert, obeys commands, Oriented to person, place, time, situation, Moves all extremities. Full function Gait is steady, Speech is normal, Facial symmetry appears normal. Cardiovascular: Patient's skin is warm and dry. Respiratory: Airway is patent Respiratory effort is even, unlabored, Respiratory pattern is regular, symmetrical. EENT: No deficits noted. No signs and/or symptoms were reported regarding the EENT system. Derm: Skin is intact, is healthy with good turgor, Skin is dry, Skin is normal. Musculoskeletal: Circulation, motion, and sensation intact. Range of motion: intact in all extremities. 20:56 Reassessment: Charge nurse for unit states nurse who will take report is involved in a tb4 rapid response and ask to call back in 10 to 15 min. 21:08 Reassessment: Patient is alert, oriented x 3, equal unlabored respirations, skin tb4 warm/dry/pink. Patient in bed will eyes closed, respiration even and unlabored, vitals stable.. 21:24 Reassessment: Report given to Urbano ANGLIN. tb4 22:01 Reassessment: EMS arrived to transport patient to [facility] Patient states tb4 feeling better. Vital Signs: 16:59 BP 113 / 64; Pulse 88; Resp 16; Temp 98.3; Pulse Ox 97% on R/A; Weight 71.21 kg; Height dd2 5 ft. 0 in. ; Pain 10/10; 17:52 BP 103 / 87; Pulse 84; Resp 20; Pulse Ox 95% on R/A; ar8 18:30 BP 96 / 60; Pulse 81; Resp 16; Pulse Ox 95% ; ar8 19:38 BP 113 / 65; Pulse 81; Resp 17; Pulse Ox 94% on R/A; Pain 10/10; tb4 19:45 BP 113 / 65; dr5 20:30 BP 105 / 58; Pulse 80; Resp 19; Pulse Ox 96% on R/A; Pain 6/10; tb4 21:28 BP 102 / 78; Pulse 66; Resp 17; Pulse Ox 95% on R/A; tb4 16:59 Body Mass Index 30.66 (71.21 kg, 152.4 cm) dd2 16:59 Pain Scale: Adult dd2 19:38 Pain Scale: Adult tb4 20:30 Pain Scale: Adult tb4 ED Course: 16:47 Patient arrived in ED. gm2 16:51 Fred Jordan FNP-C is PHCP. dr5 16:51 Junior Lee MD is Attending Physician. dr5 17:00 Triage completed. dd2 17:00 Arm band placed on right wrist. dd2 17:21 Joseph Spence, DERREK is Primary Nurse. ar8 17:[address] via stretcher. ar8 17:27 CT Abd/Pelvis - Without Contrast In Process Unspecified. EDMS 17:30 Patient moved back from CT. ar8 17:47 No provider procedures requiring assistance completed. Inserted saline lock: 20 gauge ar8 in right antecubital area, using aseptic technique. Blood collected. Flushed with 10 mL NS. 17:50 BMP Sent. ar8 17:50 CBC with Diff Sent. ar8 17:52 Bed in low position. Call light in reach. Side rails up X2. Provided Education on: plan ar8 of care. Pulse ox on. NIBP on. Warm blanket given. 19:24 initiated transfer with [facility] spoke with Marcus tello 19:36 Patient was accepted to [facility] to Dr. Gomes \T\1935 accepting admin Marcus tello \T\1935 to 743 Report #[id number]. 19:47 doc/doc consult. vk 20:08 US Liver Only In Process Unspecified. EDMS 22:10 Patient transferred, IV remains in place. ha1 Administered Medications: 17:47 Drug: NS 0.9% IV 500 ml IV at per protocol once; to be given as a bolus over 30 minutes ar8 Route: IV; Rate: per protocol; Site: right antecubital; 22:02 Follow up: IV Status: Completed infusion tb4 17:47 Drug: Ondansetron IVP 4 mg IVP once; over 2 minutes Route: IVP; Site: right antecubital;ar8 18:44 Drug: NS 0.9% IV 500 ml IV at per protocol once; to be given as a bolus over 30 minutes ar8 Route: IV; Rate: per protocol; Site: right antecubital; 20:00 Follow up: Response: No adverse reaction; IV Status: Completed infusion tb4 19:59 Drug: Rocephin IV 1 grams IV at per protocol once; Given slow IV push per pharmacy tb4 instructions Route: IV; Rate: per protocol; Site: right antecubital; 20:20 Follow up: Response: No adverse reaction; IV Status: Completed infusion tb4 19:59 Drug: morphine IVP or IV 4 mg IVP once over 4 mins Route: IVP; Infused Over: 4 mins; tb4 Site: right antecubital; 20:19 Follow up: Response: No adverse reaction; Pain is decreased; RASS: Alert and Calm (0) tb4 Medication: 17:52 VIS not applicable for this client. ar8 Outcome: 19:21 ER care complete, transfer ordered by . dr5 22:10 Transferred by ground EMS to [facility], [facility], Transfer form completed. ha1 X-rays sent w/ patient. 22:10 Condition: stable 22:10 Instructed on the need for transfer, Demonstrated understanding of instructions, 22:10 Patient left the ED. ha1 Signatures: Dispatcher [employer] EDMS Lulu Sahni, RN RN ha1 Carissa Hua 2 Vesta Torre DIANA RN RN dd2 Fred Jordan, DI[employer]OLDER-C DI[employer]OLDER-Cdr5 Velvet Tyson RN RN tb4 Joseph Spence RN RN ar8
--- NOTE | 2025-05-15 19:22 | EDPHYS ---
Physician Documentation [facility] Name: Ana Maria Chavez Age: 65 yrs Sex: Female : 1960 Arrival Date: 05/15/2025 Time: 16:43 Bed 20 Private MD: ED Physician Junior Lee HPI: 05/15 17:52 This 65 yrs old Female presents to ER via Wheelchair with complaints of dr5 Nausea/Vomiting/Diarrhea, Ear Pain, Headache. 17:52 Onset: The symptoms/episode began/occurred 3 day(s) ago. 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 Patient denies chest pain, shortness of breath, abdominal pain, or fever.. 19:25 Patient reports that she gets weekly paracentesis on Sunday at [facility] but dr5 missed today due to patient's nausea and vomiting.. Historical: - Allergies: 17:00 Aspirin; dd2 17:00 Ibuprofen; dd2 17:00 PENICILLINS; dd2 17:00 tramadol; dd2 17:00 Tylenol; dd2 - PMHx: 17:00 bone cancer; Cirrhosis; diabetes mellitus; gastric ulcers; Hepatitis C; liver cancer; dd2 Cirrhosis of liver; - PSHx: 17:00 Appendectomy; section; Cholecystectomy; Ligation of fallopian tube; weekly dd2 paracentesis; - Immunization history:: Adult Immunizations up to date. - Infectious Disease History:: Denies. - Social history:: Smoking status: Patient denies any tobacco usage or history of. ROS: 17:52 Constitutional: as per hpi dr5 Exam: 17:52 Constitutional: This is a well developed, well nourished patient who is awake, alert, dr5 and in no acute distress. Head/Face: Normocephalic, atraumatic. Eyes: Pupils equal round and reactive to light, extra-ocular motions intact. Lids and lashes normal. Conjunctiva and sclera are non-icteric and not injected. Cornea within normal limits. Periorbital areas with no swelling, redness, or edema. 17:52 Chest/axilla: Normal chest wall appearance and motion. Nontender with no deformity. No lesions are appreciated. Cardiovascular: Regular rate and rhythm with a normal S1 and S2. Normal PMI, no JVD. No pulse deficits. Respiratory: Lungs have equal breath sounds bilaterally, clear to auscultation. No rales, rhonchi or wheezes noted. No increased work of breathing, no retractions or nasal flaring. Abdomen/GI: Soft, non-tender, non-distended Back: No spinal tenderness. No costovertebral tenderness. Full range of motion. Skin: Warm, dry with normal turgor. Normal color with no rashes, no lesions, and no evidence of cellulitis. MS/ Extremity: Pulses equal, no cyanosis. Neurovascular intact. Full, normal range of motion. Neuro: Awake and alert, GCS 15, oriented to person, place, time, and situation. Cranial nerves II-XII grossly intact. Motor strength 5/5 in all extremities. Sensory grossly intact. Cerebellar exam normal. Normal gait. 17:52 ENT: External ear(s): are unremarkable, no acute changes, Ear canal(s): are normal, no acute changes, TM's: are normal, no acute changes, Nose: is normal, no acute changes, Mouth: is normal, no acute changes, Dental exam: normal, no acute changes, Vital Signs: 16:59 BP 113 / 64; Pulse 88; Resp 16; Temp 98.3; Pulse Ox 97% on R/A; Weight 71.21 kg; Height dd2 5 ft. 0 in. ; Pain 10/10; 17:52 BP 103 / 87; Pulse 84; Resp 20; Pulse Ox 95% on R/A; ar8 18:30 BP 96 / 60; Pulse 81; Resp 16; Pulse Ox 95% ; ar8 19:38 BP 113 / 65; Pulse 81; Resp 17; Pulse Ox 94% on R/A; Pain 10/10; tb4 19:45 BP 113 / 65; dr5 20:30 BP 105 / 58; Pulse 80; Resp 19; Pulse Ox 96% on R/A; Pain 6/10; tb4 21:28 BP 102 / 78; Pulse 66; Resp 17; Pulse Ox 95% on R/A; tb4 16:59 Body Mass Index 30.66 (71.21 kg, 152.4 cm) dd2 16:59 Pain Scale: Adult dd2 19:38 Pain Scale: Adult tb4 20:30 Pain Scale: Adult tb4 MDM: 16:51 Medical Screening Exam initiated dr5 18:25 Differential diagnosis: Nonspecific abd pain, viral gastroenteritis, gastroenteritis, dr5 Dehydration, acute kidney injury. Data reviewed: vital signs, nurses notes, lab test result(s), CBC, white blood cell count, hemoglobin, hematocrit, platelets, electrolytes, sodium, potassium, chloride, serum bicarbonate, BUN, creatinine, serum glucose, radiologic studies, CT scan. 19:25 Consideration of Admission/Observation Patient was admitted/placed on observation. dr5 Historians other than the Patient: Daughter/Son: Son. Care significantly affected by the following chronic conditions: Cirrhosis of liver, hepatitis C, diabetes, gastric ulcers. Care significantly affected by the following Social Determinants of Health: Poor access to healthcare and/or lack of insurance, Poor access to transportation, Problems related to employment. Counseling: I had a detailed discussion with the patient and/or guardian regarding the historical points, exam findings, and any diagnostic results supporting the discharge/admit diagnosis, the presence of at least one elevated blood pressure reading (>120/80) during this emergency department visit, lab results, radiology results, the need to transfer to another facility, for higher level of care, [facility] does not immediately have the required specialist, Needs GI service. Medication response: NS. Response to treatment: the patient's symptoms have markedly improved after treatment. ED course: Patient is agreeable to transfer back to [facility]. 19:50 Management of patient was discussed with the following: Hospitalist: Dr. Vergara dr5 -hospitalist. Accepted patient to inpatient no tele. Special discussion:. 05/15 16:58 Order name: CBC with Diff dr5 05/15 16:58 Order name: BMP; Complete Time: 18:22 dr5 05/15 18:49 Order name: UA Rfx Franky Cult if indicated; Complete Time: 19:20 dr5 05/15 18:49 Order name: PT-INR; Complete Time: 19:11 dr5 05/15 18:49 Order name: Ptt, Activated; Complete Time: 19:11 05/15 18:49 Order name: Hepatic Function; Complete Time: 19:05/15 18:49 Order name: Urine Osmolality dr5 05/15 18:49 Order name: Urine Sodium Random; Complete Time: 19:39 dr5 05/15 19:25 Order name: Urine Culture EDMS 05/15 20:47 Order name: Manual Differential EDMS 05/15 17:04 Order name: CT Abd/Pelvis - Without Contrast; Complete Time: 18:23 dr5 05/15 19:37 Order name: US Liver Only dr5 Administered Medications: 17:47 Drug: NS 0.9% IV 500 ml IV at per protocol once; to be given as a bolus over 30 minutes ar8 Route: IV; Rate: per protocol; Site: right antecubital; 22:02 Follow up: IV Status: Completed infusion tb4 17:47 Drug: Ondansetron IVP 4 mg IVP once; over 2 minutes Route: IVP; Site: right antecubital;ar8 18:44 Drug: NS 0.9% IV 500 ml IV at per protocol once; to be given as a bolus over 30 minutes ar8 Route: IV; Rate: per protocol; Site: right antecubital; 20:00 Follow up: Response: No adverse reaction; IV Status: Completed infusion tb4 19:59 Drug: Rocephin IV 1 grams IV at per protocol once; Given slow IV push per pharmacy tb4 instructions Route: IV; Rate: per protocol; Site: right antecubital; 20:20 Follow up: Response: No adverse reaction; IV Status: Completed infusion tb4 19:59 Drug: morphine IVP or IV 4 mg IVP once over 4 mins Route: IVP; Infused Over: 4 mins; tb4 Site: right antecubital; 20:19 Follow up: Response: No adverse reaction; Pain is decreased; RASS: Alert and Calm (0) tb4 Disposition Summary: 05/15/25 19:21 Transfer Ordered Notes: Transfer Location: [facility] dr5 Reason: Higher level of care dr5 Condition: Stable dr5 Problem: new dr5 Symptoms: have worsened dr5 Accepting Physician: Ayesha Hathaway(05/15/25 22:10) ha1 Diagnosis - Unspecified cirrhosis of liver dr5 - Unspecified kidney failure - acute kidney injury dr5 Forms: - Medication Reconciliation Form dr5 - SBAR form dr5 Signatures: Dispatcher [employer] EDMS Lulu Sahni RN RN ha1 CESAR FARRELL RN RN dd2 Fred Jordan, TRIAGE REGISTER NURSE-C TRIAGE REGISTER NURSE-Cdr5 Velvet Tyson RN RN tb4 Joseph Spence RN RN ar8 Corrections: (The following items were deleted from the chart) 19:37 19:37 Liver Only+US.GREGOR.SELENE ordered. EDMS EDMS 53 19:21 [facility] dr5 dr5 22:10 19:53 Ayesha Hathaway dr5 ha1
[2025-05-15 19:29] LABS: ALT/SGPT 14.0 U/L (13-56); AST/SGOT 32.0 U/L (15-37); Alkaline Phosphatase 53.0 U/L (45-117); Bilirubin Indirect, Calculated 1.0 mg/dL (0.2-0.8)
[2025-05-15 19:30] LABS: Albumin 2.2 g/dL (3.4-5.0); Albumin/Globulin Ratio 0.6 (1.1-1.8); Globulin 3.4 g/dL (2.3-3.5)
[2025-05-15] MEDS ORDERED: CEFTRIAXONE 1000 MG/VIAL ONE (19:41)
[2025-05-15] MEDS ORDERED: MORPHINE 2 MG/ML SYR ONE (19:42)
[2025-05-15 20:49] LABS: Differential Total Cells Count 100; Segmented Neutrophils 78 % (40-80)
[2025-05-15 20:50] LABS: Blood Morphology Comment NOT SEEN (NOT SEEN)
--- NOTE | 2025-05-15 21:29 | RAD REPORT ---
EXAMINATION: US Liver Only CLINICAL HISTORY: [facility] MAIN NAUSEA / VOMITING Bed Name: 20 COMPARISON: None. TECHNIQUE: Limited upper abdominal grayscale and color flow sonographic images. FINDINGS: Bile ducts: No intrahepatic or extrahepatic biliary dilatation. Common bile duct measures 4 mm. Liver: Visualized portions of the liver demonstrate nodular contour, normal echogenicity with no susp icious findings. Spleen: Mildly enlarged measuring 13.9 cm long axis. No focal lesions. Fluid: mild to moderate ascites. IMPRESSION: Nodular contour of the liver suggesting cirrhosis. Mild splenomegaly. Mild to moderate ascites.
[2025-05-16 06:15] VITALS: TEMP 98.3
[2025-05-16 06:22] VITALS: BP 102/78; O2SAT 95
== END 2025-05-15 22:10 | disposition short-term general hospital (02) ==
LOC: ER 16:43
DX: N17.9 Acute kidney failure, unspecified (principal); K74.60 Unspecified cirrhosis of liver; E11.9 Type 2 diabetes mellitus without complications; Z85.05 Personal history of malignant neoplasm of liver; Z85.830 Personal history of malignant neoplasm of bone
CPT/HCPCS: 96365; 96361; 87088; 85025; 81001; 87086; 80048; 36415; 85610; 84300; 80076; 85730; 83935; 74176; 76705; 96375; 99285; J2270; J2405; J7040 ×2; J0696